=== PATIENT | female | born 1970 | race Caucasian/White ===

== ENCOUNTER 2016-11-22 18:54 | Inpatient (IN) | payer OTHER ==
[2016-11-22 19:33] VITALS: BMI 25.8
--- NOTE | 2016-11-22 19:42 | PDOC ---
History of Present Illness - General History Source: Patient, Family, Old Records Exam Limitations: No Limitations - History of Present Illness Initial Comments: 11/22/16 19:57 The patient is a 46 year old female, accompanied by son, with a significant past medical history of Asthma, GERD, HTN, bipolar, anxiety, depression, degenerative disc disease who presents to the emergency department today for further evaluation of a seizure today. As per son, the patients seizure lasted one minute. Son states that during the seizure the patients eyes rolled to the back of her head, her fists were clenched, she was shaking, and foaming at the mouth. Son states that after the seizure the patient was confused and territorial (did not want to be touched). The patient notes that she is a heavy drinker and her last drink was 2 days ago. The patient states that she has had seizures in the past secondary to alcohol withdrawal. <Randal Schulz - Last Filed: 11/22/16 22:38> - General History Source: Patient, Family (son at bedside) Exam Limitations: No Limitations <Rebeka Cowan - Last Filed: 11/23/16 00:56> - General Chief Complaint: Seizure Stated Complaint: SEIZURE Time Seen by Provider: 11/22/16 19:25 Past History <Randal Schulz - Last Filed: 11/22/16 22:38> - Past Medical History Asthma: Yes GI Disorders: Yes (GERD) HTN: Yes Psychiatric Problems: Yes (bipolar, anxiety, depression) - Immunization History Immunization Up to Date: No - Psycho/Social/Smoking Cessation Hx Anxiety: Yes Suicidal Ideation: No Smoking History: Current every day smoker Have you smoked in the past 12 months: Yes Number of Cigarettes Smoked Daily: 20 Information on smoking cessation initiated: Yes Hx Alcohol Use: Yes (as per son:" She drinks every day, last drink 3pm yesterday.") Drug/Substance Use Hx: No Substance Use Type: Alcohol <Rebeka Cowan - Last Filed: 11/23/16 00:56> - Past Medical History Allergies/Adverse Reactions: Allergies Allergy/AdvReac Type Severity Reaction Status Date / Time acetaminophen [From Percocet] Allergy Verified 11/22/16 19:35 aspirin Allergy Verified 11/22/16 19:35 morphine Allergy Verified 11/22/16 19:35 oxycodone Allergy Verified 11/22/16 19:35 oxycodone HCl [From Percocet] Allergy Verified 11/22/16 19:35 Home Medications: Ambulatory Orders Alprazolam [Xanax] 2 mg PO BID 01/09/16 Folic Acid 1 mg PO DAILY 01/09/16 Gabapentin 300 mg PO BID 01/09/16 Lisinopril [Prinivil] 20 mg PO DAILY 01/09/16 Omeprazole [Prilosec] 40 mg PO DAILY 01/09/16 Review of Systems - Review of Systems Able to Perform ROS?: Yes Comments:: 11/22/16 19:58 GENERAL/CONSTITUTIONAL: No fever or chills. No weakness. HEAD, EYES, EARS, NOSE AND THROAT: No change in vision. No ear pain or discharge. No sore throat. GASTROINTESTINAL: No nausea, vomiting, diarrhea or constipation. GENITOURINARY: No dysuria, frequency, or change in urination. CARDIOVASCULAR: No chest pain or shortness of breath. RESPIRATORY: No cough, wheezing, or hemoptysis. MUSCULOSKELETAL: No joint or muscle swelling or pain. No neck or back pain. SKIN: No rash NEUROLOGIC: Yes: Seizure. No headache, vertigo, loss of consciousness, or change in strength/sensation. ENDOCRINE: No increased thirst. No abnormal weight change. HEMATOLOGIC/LYMPHATIC: No anemia, easy bleeding, or history of blood clots. ALLERGIC/IMMUNOLOGIC: No hives or skin allergy. GENERAL: Awake, alert, and fully oriented, in no acute distress <Randal Schulz - Last Filed: 11/22/16 22:38> *Physical Exam - Vital Signs Last Vital Signs Temp Pulse Resp BP Pulse Ox 98.2 F 89 18 147/67 100 11/22/16 18:55 11/22/16 18:55 11/22/16 18:55 11/22/16 18:55 11/22/16 18:55 - Physical Exam Comments: 11/22/16 19:59 HEAD: No signs of trauma EYES: (+) PERRLA, EOMI, scleral icterus, conjunctiva clear ENT: Auricles normal inspection, nares patent, Moist mucosa NECK: Normal ROM, supple, no lymphadenopathy, JVD, or masses LUNGS: Breath sounds equal, clear to auscultation bilaterally. No wheezes, and no crackles HEART: Regular rate and rhythm, normal S1 and S2, no murmurs, rubs or gallops ABDOMEN: Soft, nontender, normoactive bowel sounds. No guarding, no rebound. No masses EXTREMITIES: Normal range of motion, no edema. No clubbing or cyanosis. No cords , erythema, or tenderness NEUROLOGICAL: Normal speech. Cranial nerves intact. SKIN: (+) Warm, Dry, normal turgor, palmar erythema. <Randal Schulz - Last Filed: 11/22/16 22:38> - Vital Signs Last Vital Signs Temp Pulse Resp BP Pulse Ox 98.2 F 89 18 147/67 100 11/22/16 18:55 11/22/16 18:55 11/22/16 18:55 11/22/16 18:55 11/22/16 18:55 <Rebeka Cowan - Last Filed: 11/23/16 00:56> Heart Score/ECG Review #1 ECG reviewed & interpreted by me at: 20:49 General ECG Interpretation: Sinus Rhythm, Normal Rate, Normal Intervals, No acute ischemic changes Compared to previous ECG there are: No significant change (comparison 06/12/15) - ECG Intrepretation Rhythm: Regular Rhythm Comment:: 11/22/16 20:49 TWI AVL only, old - [place]: Normal <Rebeka Cowan - Last Filed: 11/23/16 00:56> ED Treatment Course - LABORATORY CBC & Chemistry Diagram: 11/22/16 20:11 11/22/16 20:11 - RADIOLOGY Radiograph Interpretation: 11/22/16 22:38 EXAM#: TYPE/EXAM: RESULT: [id number] CT/HEAD CT WITHOUT CONTRAST HISTORY PROVIDED : Seizure TECHNIQUE: Sequential axial images were obtained from the base of the skull to the vertex. There is no evidence of acute intracranial hemorrhage, mass lesions or infarctions. There is a mild degree of diffuse cerebral atrophy with sulcal widening and ventricular dilatation. IMPRESSION: No evidence of acute intracranial pathology. Reported By: Donald Rosado MD 11/22/16 6628 <Randal Schulz - Last Filed: 11/22/16 22:38> - LABORATORY CBC & Chemistry Diagram: 11/22/16 20:11 11/22/16 20:11 <Rebeka Cowan - Last Filed: 11/23/16 00:56> Medical Decision Making - Medical Decision Making 11/22/16 19:38 46 yo F with h/o etoh abuse htn , daily alcohol use here with seizure this evening. witnessed by her son who said she was lying in bed at the time. had generalized shaking and eyes roled back lasting about one minute. following she was confused, agitated then sleepy . no bowel or bladder incontinence. pt last drink was 2 days ago. son is home visiting for the last few weeks, unsure when her last seizure was. has been several weeks at least, but she has had etoh withdrawal seizures in the past. no f/c no head trauma. no n/v no headache. on exam awake alert mild slecral icterus mild injection, lungs clear , heart regualr no mr/g/ abd soft mild suprapubic ttp, ext wwp no edema. nuero alert and oriented x 3, CN grossly intact. skin palmar erythema bilaterally. otherwise no rash. differential: etoh withdrawal seizure, electrolyte abnormality, dehydration, tox , plan labs tox screen, ciwa, cxr ua , likely admit for etoh withdrawal. <Rebeka Cowan - Last Filed: 11/23/16 00:56> *DC/Admit/Observation/Transfer - Attestations Scribe Attestion: 11/22/16 19:59 Documentation prepared by Randal Schulz, acting as medical delivery technician for Rebeka Cowan MD. <Randal Schulz - Last Filed: 11/22/16 22:38> - Discharge Dispostion Admit: Yes <Rebeka Cowan - Last Filed: 11/23/16 00:56> Diagnosis at time of Disposition: Alcohol withdrawal seizure - Referrals Referrals: STAFF,NOT ON [Primary Care Provider] -
[2016-11-22] MEDS ORDERED: SODIUM CHLORIDE 0.9% 1000 ML INFUS.BAG IV ONE (19:43)
[2016-11-22 20:23] LABS: BASOPHIL 0.6 % (0-2.0); EOSINOPHIL 1.5 % (0-4.5); MCH 33.3 pg (25.7-33.7); MCHC 33.4 g/dl (32.0-36.0); MEAN CELL VOLUME 99.7 fl (80-96); MEAN PLT VOLUME 8.3 fl (7.5-11.1); NEUTROPHILS 80.6 % (42.8-82.8); PLATELET COUNT 232 K/MM3 (134-434); RDW 12.7 % (11.6-15.6); WHITE BLOOD COUNT 11.1 K/mm3 (4.0-10.0)
[2016-11-22 20:42] LABS: URINE APPEARANCE SLCLOUDY; URINE BILIRUBIN NEGATIVE (NEGATIVE); URINE GLUCOSE (UA) NEGATIVE (NEGATIVE); URINE KETONE TRACE (NEGATIVE); URINE NITRITE NEGATIVE (NEGATIVE); URINE UROBILINOGEN 4.0 E.U/dl E.U./dl (0.2-1.0)
[2016-11-22 20:44] LABS: URINE BLOOD 1+ (NEGATIVE); URINE COLOR YELLOW; URINE LEUK ESTERASE TRACE (NEGATIVE); URINE PROTEIN 2+ (NEGATIVE)
[2016-11-22 20:47] LABS: GRANULAR CASTS 17 /lpf; URINE BACTERIA RARE /hpf (NONE SEEN); URINE HYALINE CAST 3 /lpf; URINE MUCUS RARE; URINE RBC 14 /hpf (0-3); URINE WBC 21 /hpf (3-5)
[2016-11-22] MEDS ORDERED: LORAZEPAM CARPU-JECT 2 MG/ML DISP.SYRIN IVPUSH ONE (20:47)
[2016-11-22] MEDS ORDERED: LORazepam 2 MG/ML SDV VIAL ONE (20:53)
[2016-11-22 21:14] LABS: ALBUMIN 4.2 g/dl (3.4-5.0); ALK PHOS 74 U/L (45-117); ANION GAP 15 (8-16); BILIRUBIN,TOTAL 0.7 mg/dL (0.2-1.0); CALCIUM 10.2 mg/dL (8.5-10.1); CO2 15 mmol/L (21-32); CREATININE 1.3 mg/dL (0.55-1.02); GLUCOSE,RANDOM 143 mg/dL (74-106); SGPT/ALT 181 U/L (12-78); TOT PROT 10.1 g/dl (6.4-8.2)
[2016-11-22 21:32] LABS: URINE MARIJUANA THC NEGATIVE ng/ml (CUTOFF=50)
[2016-11-22 21:37] LABS: SGOT/AST 269 U/L (15-37)
[2016-11-23] MEDS ORDERED: chlordiazePOXIDE HCL 25 MG CAPSULE PO PRN ×2 (00:48→01:05)
[2016-11-23] MEDS ORDERED: FOLIC ACID INJECTION - 1 MG, THIAMINE HCL 100 MG, MULTIVIT INJECTION ADULT 10 ML in SOD... IVPB ONE (00:49)
[2016-11-23] MEDS ORDERED: ONDANSETRON 8 MG TABLET (FP) PO PRN (01:24)
--- NOTE | 2016-11-23 01:29 | HP ---
CHIEF COMPLAINT: alcohol withdrawal seizure PCP: Dr. Montenegro HISTORY OF PRESENT ILLNESS: 46 year old female with a past medical history of hypertension, alcohol dependance, presents to emergency room, brought in by her son due to witnessed seizure. Patient was at home, does not remember the seizure. She states that her sister saw it. She was in bed with her eyes rolled back, foaming at mouth. This did not last long. Denies bowel or bladder incontinence or tongue biting. She admits to multiple episodes of seizure related to alcohol withdrawal in the past. She is a daily drinker, beer, amount varies. Last drink was two days ago, she stopped because her son was coming into town. Patient admits to tremors, diaphoresis, headache, nausea. Denies vomiting, fever, chills, abdominal pain, chest pain, shortness of breath and palpations. ER course was notable for elevated transaminases, elevated BUN and creatinine 1.3 (baseline 0.6), she denies use of NSAIDS. Head CT negative for acute pathology. Recent Travel: no PAST MEDICAL HISTORY: hypertension, bipolar? ,(as per old chart record) PAST SURGICAL HISTORY: Social History: Smokin-7 cigs per day Alcohol:beer daily; Drugs: none Family History: Allergies acetaminophen [From Percocet] Allergy (Verified 11/22/16 19:35) aspirin Allergy (Verified 11/22/16 19:35) morphine Allergy (Verified 11/22/16 19:35) oxycodone Allergy (Verified 11/22/16 19:35) oxycodone HCl [From Percocet] Allergy (Verified 11/22/16 19:35) HOME MEDICATIONS: Home Medications Medication Instructions Recorded Alprazolam [Xanax] 2 mg PO BID 01/09/16 Folic Acid 1 mg PO DAILY 01/09/16 Gabapentin 300 mg PO BID 01/09/16 Lisinopril [Prinivil] 20 mg PO DAILY 01/09/16 Omeprazole [Prilosec] 40 mg PO DAILY 01/09/16 REVIEW OF SYSTEMS CONSTITUTIONAL: Positive: generalized weakness, diaphoreisis, Absent: fever, chills, diaphoresis, malaise, loss of appetite, weight change HEENT: Absent: rhinorrhea, nasal congestion, throat pain, throat swelling, difficulty swallowing, mouth swelling, ear pain, eye pain, visual changes CARDIOVASCULAR: Absent: chest pain, syncope, palpitations, irregular heart rate, lightheadedness , peripheral edema RESPIRATORY: Absent: cough, shortness of breath, dyspnea with exertion, orthopnea, wheezing, stridor, hemoptysis GASTROINTESTINAL: Positive: nausea Absent: abdominal pain, abdominal distension, vomiting, diarrhea, constipation, melena, hematochezia GENITOURINARY: Absent: dysuria, frequency, urgency, hesitancy, hematuria, flank pain, genital pain MUSCULOSKELETAL: Absent: myalgia, arthralgia, joint swelling, back pain, neck pain SKIN: Absent: rash, itching, pallor HEMATOLOGIC/IMMUNOLOGIC: Absent: easy bleeding, easy bruising, lymphadenopathy, frequent infections ENDOCRINE: Absent: unexplained weight gain, unexplained weight loss, heat intolerance, cold intolerance NEUROLOGIC: Positive: seizure, Absent: headache, focal weakness or paresthesias, dizziness, unsteady gait, mental status changes, bladder or bowel incontinence PSYCHIATRIC: Absent: anxiety, depression, suicidal or homicidal ideation, hallucinations. PHYSICAL EXAMINATION Vital Signs - 24 hr 11/23/16 01:14 Pulse Rate [ 84 Apical] Respiratory 18 Rate Blood Pressure 128/56 [Right Arm] O2 Sat by Pulse 100 Oximetry (%) GENERAL: Awake, lethargic, and fully oriented, in no acute distress. HEAD: Normal with no signs of trauma. EYES: Pupils equal, round and reactive to light, extraocular movements intact, sclera anicteric, conjunctiva clear. No lid lag. LUNGS: decreased Breath sounds equal, clear to auscultation bilaterally. No wheezes, and no crackles. No accessory muscle use. HEART: Regular rate and rhythm, normal S1 and S2 with systolic murmur, rub or gallop. ABDOMEN: Soft, nontender, not distended, normoactive bowel sounds, no guarding, no rebound, no masses. No hepatomegaly or splenomegaly. UPPER EXTREMITIES: 2+ pulses, warm, well-perfused. No cyanosis. No clubbing. No peripheral edema. [place] erythema bilateral LOWER EXTREMITIES: 2+ pulses, warm, well-perfused. No calf tenderness. No peripheral edema. NEUROLOGICAL: Cranial nerves II-XII intact. slowed speech, somewhat confused ; gait not observed; bilateral hand tremor, minimal. PSYCHIATRIC: Cooperative. Good eye contact. Appropriate mood and affect. SKIN: Warm, dry, normal turgor, no rashes or lesions noted, normal capillary refill. CBC, BMP 11/22/16 20:11 11/22/16 20:11 ASSESSMENT/PLAN: 46 year old male with a past medical history of hypertension, alcohol dependence , presents to the emergency room s/p witnessed seizure at home. Admitted for alcohol withdrawal seizure. #alcohol withdrawal seizure -librium 5mg po q6h x 1 day; started on lower dose due to hepatic enzymes elevated -CIWA score 11 -Banana bag -ativan 2mg IVP q2h prn for seizure -beauty counselor about alcohol; patient states that she has looked for places for rehab but they will not take her insurance #elevated transaminases most likely secondary to alcohol abuse -elevated from baseline -trend -abdominal US -hepatitis panel #acute kidney injury -Cr 1.6; baseline 0.6 -IVF -calculate urine electrolytes, urine creatinine -calculate FeNA -renal/bladder US -avoid nephrotoxic agents -hold lisinopril, bp currently wnl #hyperglycemia: -patient states that she has a "sugar problem" but not diabetic -hemoglobin A1C FEN: Fluids: fluids in BB Electrolytes: monitor Na , bmp Diet: low sodium VTE: scds Disposition: inpatient; monitor alcohol withdrawal symptoms Problem List - Problem (1) Alcohol withdrawal seizure Code(s): F10.239 - ALCOHOL DEPENDENCE WITH WITHDRAWAL, UNSPECIFIED R56.9 - UNSPECIFIED CONVULSIONS (2) Alcohol use Code(s): Z78.9 - OTHER SPECIFIED HEALTH STATUS (3) Anxiety Code(s): F41.9 - ANXIETY DISORDER, UNSPECIFIED (4) Transaminitis Code(s): R74.0 - NONSPEC ELEV OF LEVELS OF TRANSAMNS & LACTIC ACID DEHYDRGNSE (5) LETITIA (acute kidney injury) Code(s): N17.9 - ACUTE KIDNEY FAILURE, UNSPECIFIED Visit type - Emergency Visit Emergency Visit: Yes ED Registration Date: 11/23/16 Care time: The patient presented to the Emergency Department on the above date and was hospitalized for further evaluation of their emergent condition. - New Patient This patient is new to me today: Yes Date on this admission: 11/23/16 - Critical Care Critical Care patient: No
--- NOTE | 2016-11-23 04:31 | PN ---
<Flaquita Tuttle - Last Filed: 11/23/16 04:30> Teaching Attending Note Name of Resident: Yesica Shayankrystian <Quiana Cunningham - Last Filed: 11/23/16 05:01> Teaching Attending Note ATTENDING PHYSICIAN STATEMENT I saw and evaluated the patient. I reviewed the resident's note and discussed the case with the resident. I agree with the resident's findings and plan as documented. SUBJECTIVE: 46 yo F with PMHx of seizures secondary to alcohol withdrawal and EtOH abuse who presents s/p witnessed seizure today. As per son, the seizure lasted one minute with eye rolling, fist clenching and foaming at the mouth. Patients son denies any head trauma, additional injuries or tongue biting during the seizure. Son describes the patient was confused and territorial during her postictal state. Note, patient's last drink was 2 days ago. PMHx: EtOH abuse, Asthma, GERD, HTN, bipolar, anxiety, depression, degenerative disc disease PSHx: None Social hx: Etoh abuse(daily drinker--beer) current everyday smoker Allergies: acetaminophen, aspirin, morphine, oxycodone, oxycodone HCl PCP: Dr. Montenegro OBJECTIVE: Last Vital Signs Temp Pulse Resp BP Pulse Ox 98 F 84 18 128/56 100 11/23/16 01:01 11/23/16 01:14 11/23/16 03:00 11/23/16 01:14 11/23/16 03:00 GENERAL: Awake, alert, and fully oriented, in no acute distress. +Lethargic. + slightly confused HEENT: Atraumatic. PERRLA, EOMI. Moist mucosa. No JVD LUNGS: No distress, speaks full sentences, clear to auscultation bilaterally HEART: Regular rate and rhythm, normal S1 and S2, no murmurs, rubs or gallops, peripheral pulses normal and equal bilaterally. ABDOMEN: Soft, nontender, normoactive bowel sounds. No guarding, no rebound. No masses EXTREMITIES: Normal inspection, Normal range of motion, no edema. No clubbing or cyanosis. NEUROLOGICAL: Cranial nerves II through XII grossly intact. Slowed speech. Gait deffered. Bilateral hand tremor, minimal. No focal sensorimotor deficits SKIN: Warm, Dry, normal turgor, no rashes or lesions noted. CBCD WBC 11.1 K/mm3 (4.0-10.0) H 11/22/16 20:11 RBC 4.48 M/mm3 (3.60-5.2) 11/22/16 20:11 Hgb 14.9 GM/dL (10.7-15.3) 11/22/16 20:11 Hct 44.7 % (32.4-45.2) 11/22/16 20:11 MCV 99.7 fl (80-96) H 11/22/16 20:11 MCHC 33.4 g/dl (32.0-36.0) 11/22/16 20:11 RDW 12.7 % (11.6-15.6) 11/22/16 20:11 Plt Count 232 K/MM3 (134-434) 11/22/16 20:11 MPV 8.3 fl (7.5-11.1) 11/22/16 20:11 CMP Sodium 135 mmol/L (136-145) L 11/22/16 20:11 Potassium 4.9 mmol/L (3.5-5.1) D 11/22/16 20:11 Chloride 105 mmol/L (98-107) 11/22/16 20:11 Carbon Dioxide 15 mmol/L (21-32) L 11/22/16 20:11 Anion Gap 15 (8-16) 11/22/16 20:11 BUN 25 mg/dL (7-18) H D 11/22/16 20:11 Creatinine 1.3 mg/dL (0.55-1.02) H D 11/22/16 20:11 Creat Clearance w eGFR 43.72 (>60) 11/22/16 20:11 Calcium 10.2 mg/dL (8.5-10.1) H 11/22/16 20:11 Total Bilirubin 0.7 mg/dL (0.2-1.0) D 11/22/16 20:11 AST 269 U/L (15-37) H D 11/22/16 20:11 ALT 181 U/L (12-78) H D 11/22/16 20:11 Alkaline Phosphatase 74 U/L (45-117) 11/22/16 20:11 Total Protein 10.1 g/dl (6.4-8.2) H 11/22/16 20:11 Albumin 4.2 g/dl (3.4-5.0) 11/22/16 20:11 Imaging: Head CT Impression: EXAM#: TYPE/EXAM: RESULT: [id number] CT/HEAD CT WITHOUT CONTRAST HISTORY PROVIDED: Seizure TECHNIQUE: Sequential axial images were obtained from the base of the skull to the vertex. There is no evidence of acute intracranial hemorrhage, mass lesions or infarctions. There is a mild degree of diffuse cerebral atrophy with sulcal widening and ventricular dilatation. IMPRESSION: No evidence of acute intracranial pathology. Reported By: Donald Rosado MD 11/22/16 5896 ASSESSMENT AND PLAN: Seizure secondary to alcohol withdrawal - Ativan PRN - Neuro consult - Seizure precautions - Thiamine Folate - Multi Vitamin - IVF - Refer to rehab DVT PPx - SCD's Documentation prepared by Quiana Cunningham, acting as er medical technician for Flaquita Tuttle MD.
[2016-11-23] MEDS ORDERED: LORAZEPAM CARPU-JECT 2 MG/ML DISP.SYRIN IVPUSH PRN ×2 (04:53→04:57)
[2016-11-23] MEDS ORDERED: chlordiazePOXIDE 5 MG CAPSULE PO SCH (05:00)
[2016-11-23] MEDS: chlordiazePOXIDE 5 MG CAPSULE PO SCH ×4 (06:33→22:43)
--- NOTE | 2016-11-23 09:08 | PN ---
Physical Exam: SUBJECTIVE: Patient seen and examined Patient is feeling better, no seizure activity noted. OBJECTIVE: Vital Signs Temperature 98 F 11/23/16 01:01 Pulse Rate 84 11/23/16 01:14 Respiratory Rate 18 11/23/16 03:00 Blood Pressure 128/56 11/23/16 01:14 O2 Sat by Pulse Oximetry (%) 100 11/23/16 03:00 GENERAL: The patient is awake, alert, and fully oriented, in no acute distress. HEAD: Normal with no signs of trauma. EYES: PERRL, extraocular movements intact, sclera anicteric, conjunctiva clear. ENT: Ears normal, oropharynx clear without exudates, moist mucous membranes. NECK: Trachea midline, full range of motion, supple. LUNGS: Breath sounds equal, clear to auscultation bilaterally, no wheezes, no crackles, no accessory muscle use. HEART: Regular rate and rhythm, S1, S2 without murmur, rub or gallop. ABDOMEN: Soft, nontender, nondistended, normoactive bowel sounds, no guarding, no rebound, no hepatosplenomegaly, no masses appreciated. EXTREMITIES: 2+ pulses, warm, well-perfused, no edema. NEUROLOGICAL: Cranial nerves II through XII grossly intact. Normal speech, gait is intact. PSYCH: Normal mood, normal affect. SKIN: Warm, dry, normal turgor, no rashes or lesions noted CBCD WBC 11.1 K/mm3 (4.0-10.0) H 11/22/16 20:11 RBC 4.48 M/mm3 (3.60-5.2) 11/22/16 20:11 Hgb 14.9 GM/dL (10.7-15.3) 11/22/16 20:11 Hct 44.7 % (32.4-45.2) 11/22/16 20:11 MCV 99.7 fl (80-96) H 11/22/16 20:11 MCHC 33.4 g/dl (32.0-36.0) 11/22/16 20:11 RDW 12.7 % (11.6-15.6) 11/22/16 20:11 Plt Count 232 K/MM3 (134-434) 11/22/16 20:11 MPV 8.3 fl (7.5-11.1) 11/22/16 20:11 CMP Sodium 135 mmol/L (136-145) L 11/22/16 20:11 Potassium 4.9 mmol/L (3.5-5.1) D 11/22/16 20:11 Chloride 105 mmol/L (98-107) 11/22/16 20:11 Carbon Dioxide 15 mmol/L (21-32) L 11/22/16 20:11 Anion Gap 15 (8-16) 11/22/16 20:11 BUN 25 mg/dL (7-18) H D 11/22/16 20:11 Creatinine 1.3 mg/dL (0.55-1.02) H D 11/22/16 20:11 Creat Clearance w eGFR 43.72 (>60) 11/22/16 20:11 Random Glucose 143 mg/dL (74-106) H 11/22/16 20:11 Calcium 10.2 mg/dL (8.5-10.1) H 11/22/16 20:11 Total Bilirubin 0.7 mg/dL (0.2-1.0) D 11/22/16 20:11 AST 269 U/L (15-37) H D 11/22/16 20:11 ALT 181 U/L (12-78) H D 11/22/16 20:11 Alkaline Phosphatase 74 U/L (45-117) 11/22/16 20:11 Total Protein 10.1 g/dl (6.4-8.2) H 11/22/16 20:11 Albumin 4.2 g/dl (3.4-5.0) 11/22/16 20:11 Active Medications Generic Name Dose Route Start Last Admin Trade Name Freq PRN Reason Stop Dose Admin Chlordiazepoxide HCl 5 mg 11/23/16 05:00 11/23/16 06:33 Librium - PO 11/24/16 04:59 5 mg [id number] MARGO Administration Gabapentin 300 mg 11/23/16 10:00 Neurontin - PO BID MARGO Sodium Chloride 1,000 mls @ 100 mls/hr 11/23/16 04:00 1/2 Normal Saline IV ASDIR MARGO Lorazepam 2 mg 11/23/16 04:57 Ativan Injection - IVPUSH Q2H PRN AGITATION Ondansetron HCl 4 mg 11/23/16 01:24 Zofran - PO Q6H PRN NAUSEA AND/OR VOMITING Pantoprazole Sodium 20 mg 11/23/16 10:00 Protonix - PO DAILY [facility] Home Medications Medication Instructions Recorded Alprazolam [Xanax] 2 mg PO BID 01/09/16 Folic Acid 1 mg PO DAILY 01/09/16 Gabapentin 300 mg PO BID 01/09/16 Lisinopril [Prinivil] 20 mg PO DAILY 01/09/16 Omeprazole [Prilosec] 40 mg PO DAILY 01/09/16 Hepatic Panel Total Bilirubin 0.7 mg/dL (0.2-1.0) D 11/22/16 20:11 AST 269 U/L (15-37) H D 11/22/16 20:11 ALT 181 U/L (12-78) H D 11/22/16 20:11 Alkaline Phosphatase 74 U/L (45-117) 11/22/16 20:11 Albumin 4.2 g/dl (3.4-5.0) 11/22/16 20:[address]: negative for bleed. ABDOMEN ULTRASOUND CLINICAL INFORMATION: elevated liver enzymes There is diffuse fatty infiltration of liver with associated minimal to mild hepatomegaly . No discrete mass lesion is identified within the limitations of sonography. There is no obvious contour abnormality. Multiple gallbladder calculi are visualized. The gallbladder otherwise demonstrates no definite abnormality. No pericholecystic fluid is seen. The common bile duct diameter appears within normal limits measuring 0.4 cm. No gross intraductal calculus is noted. The spleen and partially visualized pancreas demonstrate no sonographic abnormality. No free intraperitoneal fluid is noted. The aorta is partially obscured due to bowel gas. No obvious aortic aneurysm is seen. IMPRESSION: Diffuse hepatic steatosis is noted. Cholelithiasis is seen. There is no definite biliary tract dilatation. RENAL ULTRASOUND URINARY BLADDER ULTRASOUND CLINICAL INFORMATION: acute kidney injury There is no hydronephrosis. The kidneys appear unremarkable in position, cortical thickness, echogenicity and size. The left kidney measures 10 cm in length, the right kidney 9.3 cm. The kidneys and urinary bladder demonstrate no obvious mass lesion or calculus within the limitations of sonography. Evaluation of the urinary bladder demonstrates a post void residual volume of 53 mL. The prevoid volume was 217 mL. IMPRESSION: The kidneys appear unremarkable demonstrating no sonographic abnormality. A post void residual urinary volume of 53 mL is noted. ASSESSMENT/PLAN: Patient is a 46 year old male with a past medical history of hypertension, alcohol dependence, presents to the emergency room s/p witnessed seizure at home. Admitted for alcohol withdrawal seizure. #alcohol withdrawal seizure on ativan 2mg IVP q2h prn for seizure continue , Consult with Cristino Stanton, Consult neurology Dr.Gullati salazar 5mg po q6h x 1 day; started on lower dose since has elevated hepatic enzymes. s/p Banana bag, contine Thiamine, folic acid. # Acute over chronis transaminitis due to alcohol dependency. US of abdomen as above, reporting multiple gallstones without CBD dilatation, Fatty Liver reported due to ETOH dependency. #acute kidney injury ;Cr 0.6 (baseline) --->1.6; IVF, continue to hold lisinipril #hyperglycemia: check hemoglobin A1C is 5.8 borderline; prediabetic , diet control VTE: scds Visit type - Emergency Visit Emergency Visit: Yes ED Registration Date: 11/23/16 Care time: The patient presented to the Emergency Department on the above date and was hospitalized for further evaluation of their emergent condition. - New Patient This patient is new to me today: Yes Date on this admission: 11/23/16 - Critical Care Critical Care patient: No
[2016-11-23] MEDS: PANTOPRAZOLE 20 MG TABLET (FP) PO SCH (09:27)
[2016-11-23] MEDS: GABAPENTIN 300 MG CAPSULE (FP) PO SCH ×2 (09:28→22:43)
[2016-11-23] MEDS ORDERED: THIAMINE HCL 100 MG TABLET (FP) PO SCH (10:00)
[2016-11-23] MEDS ORDERED: FOLIC ACID 1 MG TABLET (FP) PO SCH (10:00)
[2016-11-23] MEDS ORDERED: LISINOPRIL 20 MG TABLET (FP) PO SCH (10:00)
[2016-11-23] MEDS: SODIUM CHLORIDE 0.45% 1,000 ML IV SCH ×2 (10:19→22:44)
--- NOTE | 2016-11-23 10:34 | CON.NEURO ---
Consult Consult Specialty:: Neurology - History of Present Illness History of Present Illness: 46 year old female with a past medical history of hypertension, alcohol dependance, presents to emergency room, brought in by her son due to witnessed seizure. Patient was at home, does not remember the seizure. not present during my exam but as per record, "She was in bed with her eyes rolled back, foaming at mouth. This did not last long. Denies bowel or bladder incontinence or tongue biting. She admits to multiple episodes of seizure related to alcohol withdrawal in the past." She is a daily drinker, beer, amount varies. usually drinks 5-7 beers.day, last rehab stint > one yr ago. Last drink was two days ago, she stopped because her son was coming into town. gets occasional migraines, no neck pain. no focal weakness, numbness. No HX of epilepsy. LAB : elevated transaminases, elevated BUN and creatinine 1.3 (baseline 0.6), she denies use of NSAIDS. Head CT negative for acute pathology. 11/22/16 CT/HEAD CT WITHOUT CONTRAST HISTORY PROVIDED: Seizure TECHNIQUE: Sequential axial images were obtained from the base of the skull to the vertex. There is no evidence of acute intracranial hemorrhage, mass lesions or infarctions. There is a mild degree of diffuse cerebral atrophy with sulcal widening and ventricular dilatation. IMPRESSION: No evidence of acute intracranial pathology. - History Source History Provided By: Patient, Medical Record - Alcohol/Substance Use Hx Alcohol Use: Yes (as per son:" She drinks every day, last drink 3pm yesterday.") - Smoking History Smoking history: Current every day smoker Have you smoked in the past 12 months: Yes Aproximately how many cigarettes per day: 20 If you are a former smoker, when did you quit?: pt refusing to quit Home Medications - Allergies Allergies/Adverse Reactions: Allergies Allergy/AdvReac Type Severity Reaction Status Date / Time acetaminophen [From Percocet] Allergy Verified 11/22/16 19:35 aspirin Allergy Verified 11/22/16 19:35 morphine Allergy Verified 11/22/16 19:35 oxycodone Allergy Verified 11/22/16 19:35 oxycodone HCl [From Percocet] Allergy Verified 11/22/16 19:35 - Home Medications Home Medications: Ambulatory Orders Alprazolam [Xanax] 2 mg PO BID 01/09/16 Folic Acid 1 mg PO DAILY 01/09/16 Gabapentin 300 mg PO BID 01/09/16 Lisinopril [Prinivil] 20 mg PO DAILY 01/09/16 Omeprazole [Prilosec] 40 mg PO DAILY 01/09/16 Physical Exam-Neuro Vital Signs: Vital Signs Temperature 99.0 F 11/23/16 09:15 Pulse Rate 67 11/23/16 09:15 Respiratory Rate 20 11/23/16 09:15 Blood Pressure 136/65 11/23/16 09:15 O2 Sat by Pulse Oximetry (%) 100 11/23/16 03:00 Constitutional: Yes: Well Nourished, No Distress Neck: Yes: Supple Cardiovascular: Yes: Regular Rate and Rhythm Respiratory: Yes: CTA Bilaterally Psychiatric: Yes: Other (+ psych HX ) Labs: CBCD WBC 11.1 K/mm3 (4.0-10.0) H 11/22/16 20:11 RBC 4.48 M/mm3 (3.60-5.2) 11/22/16 20:11 Hgb 14.9 GM/dL (10.7-15.3) 11/22/16 20:11 Hct 44.7 % (32.4-45.2) 11/22/16 20:11 MCV 99.7 fl (80-96) H 11/22/16 20:11 MCHC 33.4 g/dl (32.0-36.0) 11/22/16 20:11 RDW 12.7 % (11.6-15.6) 11/22/16 20:11 Plt Count 232 K/MM3 (134-434) 11/22/16 20:11 MPV 8.3 fl (7.5-11.1) 11/22/16 20:11 CMP Sodium 135 mmol/L (136-145) L 11/22/16 20:11 Potassium 4.9 mmol/L (3.5-5.1) D 11/22/16 20:11 Chloride 105 mmol/L (98-107) 11/22/16 20:11 Carbon Dioxide 15 mmol/L (21-32) L 11/22/16 20:11 Anion Gap 15 (8-16) 11/22/16 20:11 BUN 25 mg/dL (7-18) H D 11/22/16 20:11 Creatinine 1.3 mg/dL (0.55-1.02) H D 11/22/16 20:11 Creat Clearance w eGFR 43.72 (>60) 11/22/16 20:11 Calcium 10.2 mg/dL (8.5-10.1) H 11/22/16 20:11 Total Bilirubin 0.7 mg/dL (0.2-1.0) D 11/22/16 20:11 AST 269 U/L (15-37) H D 11/22/16 20:11 ALT 181 U/L (12-78) H D 11/22/16 20:11 Alkaline Phosphatase 74 U/L (45-117) 11/22/16 20:11 Total Protein 10.1 g/dl (6.4-8.2) H 11/22/16 20:11 Albumin 4.2 g/dl (3.4-5.0) 11/22/16 20:11 - Neuro Exam Level Of Consciousness: Yes: Alert, Oriented to Person (EOMI, no nystagmus, no facial, no atsrexis or tremor, no focal weaakness, reflexes symmteric ) NIH Stroke Scale - Total Score NIH Stroke Scale Score: 0 Imaging - Results Cat Scan: Report Reviewed, Image Reviewed Problem List - Problems (1) LETITIA (acute kidney injury) Code(s): N17.9 - ACUTE KIDNEY FAILURE, UNSPECIFIED (2) Alcohol withdrawal seizure Code(s): F10.239 - ALCOHOL DEPENDENCE WITH WITHDRAWAL, UNSPECIFIED R56.9 - UNSPECIFIED CONVULSIONS (3) Transaminitis Code(s): R74.0 - NONSPEC ELEV OF LEVELS OF TRANSAMNS & LACTIC ACID DEHYDRGNSE (4) Alcohol use Code(s): Z78.9 - OTHER SPECIFIED HEALTH STATUS (5) Anxiety Code(s): F41.9 - ANXIETY DISORDER, UNSPECIFIED Assessment/Plan 46 year old female with a past medical history of hypertension, alcohol dependance p/w ETOH withdrawal seizure. back to baseline. no clear evidence of DT's. no evidence of meningitis etc. EXam nonfocal. agree with LIBRIUM taper, thiamine , folate, B12. no role in AED at this juncture. consider psych consult--she is refusing rehab. Dr Griffin (covering for Dr Bran) [phone]
[2016-11-23 13:29] LABS: URINE CREATININE 22.4 mg/dL (20-320)
[2016-11-23] MEDS: THIAMINE HCL 200 MG/2 ML VIAL IVPB SCH ×2 (18:01→23:46)
[2016-11-23] MEDS ORDERED: PT OWN MED DRAWER 7, Y5N ONE (22:32)
[2016-11-24] MEDS: THIAMINE HCL 200 MG/2 ML VIAL IVPB SCH (06:03)
[2016-11-24 09:03] LABS: BASOPHIL 0.5 % (0-2.0); EOSINOPHIL 2.2 % (0-4.5); MCH 34.4 pg (25.7-33.7); MCHC 34.4 g/dl (32.0-36.0); MEAN PLT VOLUME 7.6 fl (7.5-11.1); NEUTROPHILS 64.7 % (42.8-82.8); PLATELET COUNT 157 K/MM3 (134-434); RDW 12.2 % (11.6-15.6); WHITE BLOOD COUNT 7.1 K/mm3 (4.0-10.0)
[2016-11-24 09:18] LABS: ALBUMIN 3.3 g/dl (3.4-5.0); ANION GAP 9 (8-16); BILIRUBIN,TOTAL 0.7 mg/dL (0.2-1.0); CALCIUM 8.8 mg/dL (8.5-10.1); CO2 22 mmol/L (21-32); CREATININE 0.7 mg/dL (0.55-1.02); GLUCOSE,RANDOM 99 mg/dL (74-106); SGOT/AST 159 U/L (15-37); SGPT/ALT 134 U/L (12-78); TOT PROT 7.8 g/dl (6.4-8.2)
[2016-11-24 09:19] LABS: ALK PHOS 57 U/L (45-117)
[2016-11-24] MEDS: PANTOPRAZOLE 20 MG TABLET (FP) PO SCH (09:29)
[2016-11-24] MEDS: GABAPENTIN 300 MG CAPSULE (FP) PO SCH (09:29)
[2016-11-24] MEDS: SODIUM CHLORIDE 0.45% 1,000 ML IV SCH (09:30)
[2016-11-24 09:33] VITALS: BP 128/62; PULSE 88; TEMP 97
[2016-11-24] MEDS ORDERED: THIAMINE HCL 100 MG TABLET (FP) PO SCH (10:00)
[2016-11-24] MEDS ORDERED: FOLIC ACID 1 MG TABLET (FP) PO SCH (10:00)
--- NOTE | 2016-11-24 11:34 | DS ---
Physical Exam: SUBJECTIVE: Patient seen and examined Patient is comfortable with no acute distress. Stated that she does not drink much as she used to. She has no previous seizure history. Wants to go home. OBJECTIVE: Vital Signs Temperature 97.0 F L 11/24/16 09:32 Pulse Rate 88 11/24/16 09:32 Respiratory Rate 20 11/24/16 09:32 Blood Pressure 128/62 11/24/16 09:32 O2 Sat by Pulse Oximetry (%) 97 11/23/16 21:00 PHYSICAL EXAM GENERAL: The patient is awake, alert, and fully oriented, in no acute distress. HEAD: Normal with no signs of trauma. EYES: PERRL, extraocular movements intact, sclera anicteric, conjunctiva clear. ENT: Ears normal, oropharynx clear without exudates, moist mucous membranes. NECK: Trachea midline, full range of motion, supple. LUNGS: Breath sounds equal, clear to auscultation bilaterally, no wheezes, no crackles, no accessory muscle use. HEART: Regular rate and rhythm, S1, S2 without murmur, rub or gallop. ABDOMEN: Soft, nontender, nondistended, normoactive bowel sounds, no guarding, no rebound, no hepatosplenomegaly, no masses. EXTREMITIES: 2+ pulses, warm, well-perfused, no edema. NEUROLOGICAL: Cranial nerves II through XII grossly intact. Normal speech, gait not observed. PSYCH: Normal mood, normal affect. SKIN: Warm, dry, normal turgor, no rashes or lesions noted. LABS CBCD WBC 7.1 K/mm3 (4.0-10.0) D 11/24/16 08:00 RBC 3.75 M/mm3 (3.60-5.2) 11/24/16 08:00 Hgb 12.9 GM/dL (10.7-15.3) D 11/24/16 08:00 Hct 37.5 % (32.4-45.2) D 11/24/16 08:00 MCV 100.0 fl (80-96) H 11/24/16 08:00 MCHC 34.4 g/dl (32.0-36.0) 11/24/16 08:00 RDW 12.2 % (11.6-15.6) 11/24/16 08:00 Plt Count 157 K/MM3 (134-434) D 11/24/16 08:00 MPV 7.6 fl (7.5-11.1) 11/24/16 08:00 CMP Sodium 140 mmol/L (136-145) 11/24/16 08:00 Potassium 4.4 mmol/L (3.5-5.1) 11/24/16 08:00 Chloride 109 mmol/L (98-107) H 11/24/16 08:00 Carbon Dioxide 22 mmol/L (21-32) D 11/24/16 08:00 Anion Gap 9 (8-16) 11/24/16 08:00 BUN 12 mg/dL (7-18) D 11/24/16 08:00 Creatinine 0.7 mg/dL (0.55-1.02) D 11/24/16 08:00 Creat Clearance w eGFR > 60 (>60) 11/24/16 08:00 Random Glucose 99 mg/dL (74-106) D 11/24/16 08:00 Calcium 8.8 mg/dL (8.5-10.1) 11/24/16 08:00 Total Bilirubin 0.7 mg/dL (0.2-1.0) 11/24/16 08:00 AST 159 U/L (15-37) H D 11/24/16 08:00 ALT 134 U/L (12-78) H D 11/24/16 08:00 Alkaline Phosphatase 57 U/L (45-117) D 11/24/16 08:00 Total Protein 7.8 g/dl (6.4-8.2) D 11/24/16 08:00 Albumin 3.3 g/dl (3.4-5.0) L D 11/24/16 08:00 Current Medications Generic Name Dose Route Start Last Admin Trade Name Freq PRN Reason Stop Dose Admin Folic Acid 1 mg 11/24/16 10:00 11/24/16 09:29 Folic Acid - PO 1 mg DAILY MARGO Administration Gabapentin 300 mg 11/23/16 10:00 11/24/16 09:29 Neurontin - PO 300 mg BID MARGO Administration Sodium Chloride 1,000 mls @ 100 mls/hr 11/23/16 04:00 11/24/16 09:30 1/2 Normal Saline IV 100 mls/hr ASDIR MARGO Administration Lorazepam 2 mg 11/23/16 04:57 Ativan Injection - IVPUSH Q2H PRN AGITATION Pantoprazole Sodium 20 mg 11/23/16 10:00 11/24/16 09:29 Protonix - PO 20 mg DAILY MARGO Administration Thiamine HCl 200 mg 11/23/16 15:45 11/24/16 06:03 Vitamin B1 Injection - IVPB 200 mg TID MARGO Administration Home Medications Medication Instructions Recorded Alprazolam [Xanax] 2 mg PO BID 01/09/16 Folic Acid 1 mg PO DAILY 01/09/16 Gabapentin 300 mg PO BID 01/09/16 Lisinopril [Prinivil] 20 mg PO DAILY 01/09/16 Omeprazole [Prilosec] 40 mg PO DAILY 01/09/[address]: negative for bleed. ABDOMEN ULTRASOUND CLINICAL INFORMATION: elevated liver enzymes There is diffuse fatty infiltration of liver with associated minimal to mild hepatomegaly . No discrete mass lesion is identified within the limitations of sonography. There is no obvious contour abnormality. Multiple gallbladder calculi are visualized. The gallbladder otherwise demonstrates no definite abnormality. No pericholecystic fluid is seen. The common bile duct diameter appears within normal limits measuring 0.4 cm. No gross intraductal calculus is noted. The spleen and partially visualized pancreas demonstrate no sonographic abnormality. No free intraperitoneal fluid is noted. The aorta is partially obscured due to bowel gas. No obvious aortic aneurysm is seen. IMPRESSION: Diffuse hepatic steatosis is noted. Cholelithiasis is seen. There is no definite biliary tract dilatation. RENAL ULTRASOUND URINARY BLADDER ULTRASOUND CLINICAL INFORMATION: acute kidney injury There is no hydronephrosis. The kidneys appear unremarkable in position, cortical thickness, echogenicity and size. The left kidney measures 10 cm in length, the right kidney 9.3 cm. The kidneys and urinary bladder demonstrate no obvious mass lesion or calculus within the limitations of sonography. Evaluation of the urinary bladder demonstrates a post void residual volume of 53 mL. The prevoid volume was 217 mL. IMPRESSION: The kidneys appear unremarkable demonstrating no sonographic abnormality. A post void residual urinary volume of 53 mL is noted. HOSPITAL COURSE: Date of Admission:11/23/16 Date of Discharge: 11/24/16 Patient is a 46 year old female with a past medical history of hypertension, alcohol dependence, presents to the emergency room s/p witnessed seizure at home. Admitted for alcohol withdrawal seizure. Patient was placed on 5mg LIbrium x 1 day and Ativan prn. No seizure activity while in the hospital. Also patient stated that she does not drive, takes only public transportation. And does not drink as before. #alcohol withdrawal seizure on ativan 2mg IVP q2h prn for seizure continue , Consult with Cristino Stanton, Consult neurology librium 5mg po q6h x 1 day; started on lower dose since has elevated hepatic enzymes. s/p Banana bag, contine Thiamine, folic acid. # Acute over chronis transaminitis due to alcohol dependency. US of abdomen as above, reporting multiple gallstones without CBD dilatation, Fatty Liver reported due to ETOH dependency. 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 On hold lisinipril #Htn is stable #hyperglycemia: check hemoglobin A1C is 5.8 borderline; prediabetic , diet control( low fat/low sugar diet). #Cholelithiasis on US without any CBD dilatation # Fatty Liver reported f/u with GI, patient has her own GI MD discharge summary 40 minutes Minutes to complete discharge: 40 Discharge Summary Reason For Visit: ALCOHOL WITHDRAWAL SEIZURE Current Active Problems LETITIA (acute kidney injury) (Acute) Alcohol withdrawal seizure (Acute) Transaminitis (Acute) - Instructions Referrals: STAFF,NOT ON [Primary Care Provider] - - Home Medications Comprehensive Discharge Medication List: Ambulatory Orders Alprazolam [Xanax] 2 mg PO BID 01/09/16 Folic Acid 1 mg PO DAILY 01/09/16 Gabapentin 300 mg PO BID 01/09/16 Lisinopril [Prinivil] 20 mg PO DAILY 01/09/16 Omeprazole [Prilosec] 40 mg PO DAILY 01/09/16 This patient is new to me today: No Emergency Visit: Yes ED Registration Date: 11/23/16 Care time: The patient presented to the Emergency Department on the above date and was hospitalized for further evaluation of their emergent condition. Critical Care patient: No - Discharge Referral Referred to [facility] Med [facility] No
--- NOTE | 2016-11-24 21:46 | EKG ---
Test Reason : Blood Pressure : / mmHG Vent. Rate : 068 BPM Atrial Rate : 068 BPM P-R Int : 164 ms QRS Dur : 082 ms QT Int : 370 ms P-R-T Axes : 052 031 074 degrees QTc Int : 393 ms NORMAL SINUS RHYTHM POSSIBLE LEFT ATRIAL ENLARGEMENT ST ELEVATION, CONSIDER EARLY REPOLARIZATION, PERICARDITIS, OR INJURY BORDERLINE ECG WHEN COMPARED WITH ECG OF 09-JAN-2016 01:33, T WAVE AMPLITUDE HAS INCREASED IN INFERIOR LEADS QT HAS SHORTENED Confirmed by ANATOLIY SANTOS MD ([id number]) on 11/24/2016 9:46:21 PM Referred By: Confirmed By:ANATOLIY SANTOS MD
--- NOTE | 2016-11-25 09:45 | PN ---
[facility] Progress Note Note: Pt was d/c before he could be seen by me.
[2016-11-26 14:14] LABS: HEP B SURFACE AB Reactive (.)
--- NOTE | 2016-12-09 13:59 | EKG ---
Test Reason : Blood Pressure : / mmHG Vent. Rate : 082 BPM Atrial Rate : 082 BPM P-R Int : 164 ms QRS Dur : 082 ms QT Int : 374 ms P-R-T Axes : 050 029 063 degrees QTc Int : 436 ms NORMAL SINUS RHYTHM POSSIBLE LEFT ATRIAL ENLARGEMENT BORDERLINE ECG WHEN COMPARED WITH ECG OF 22-NOV-2016 20:44, NO SIGNIFICANT CHANGE WAS FOUND Confirmed by NIRMAL GARRETT MD ([id number]) on 12/09/2016 1:59:18 PM Referred By: Confirmed By:NIRMAL GARRETT MD
== END 2016-11-24 13:07 | disposition home or self-care (01) | DRG 775 ==
LOC: JER 18:54 → JERBED 11-23 00:56 → UNDOADMIN 11-23 01:01 → JERBED 11-23 01:55 → J5S 11-23 01:55
PROVIDERS: ADMIT Internal Medicine; ATTEND Internal Medicine
PROC: HZ2ZZZZ Detoxification Services for Substance Abuse Treatment (ICD-10-PCS; principal; 2016-11-23)
DX: F10.239 Alcohol dependence with withdrawal, unspecified (principal); G40.89 Other seizures; K21.9 Gastro-esophageal reflux disease without esophagitis; I10 Essential (primary) hypertension; F31.9 Bipolar disorder, unspecified; N17.9 Acute kidney failure, unspecified; R73.9 Hyperglycemia, unspecified; F41.9 Anxiety disorder, unspecified; R74.0 Nonspecific elevation of levels of transaminase and lactic acid dehydrogenase [LDH]; F17.210 Nicotine dependence, cigarettes, uncomplicated; K80.80 Other cholelithiasis without obstruction; K76.0 Fatty (change of) liver, not elsewhere classified
CPT/HCPCS: 36415; 70450-TC; 76700-TC; 76775-TC; 76856-TC; 80053; 80307; 81003; 81015; 82436; 82570; 83036; 83605; 84133; 84300; 84703; 85025; 86704; 86706; 86708; 86803; 87340; 93005; 93010; 99284-25

== ENCOUNTER 2017-02-05 22:19 | Emergency (ER) | payer OTHER ==
[2017-02-05 22:27] VITALS: BP 126/82; PULSE 84; TEMP 98.7; BMI 26.6
--- NOTE | 2017-02-05 22:56 | PDOC ---
Attending Attestation - HPI HPI: 02/05/17 23:19 Patient is a 46 year old female with a significant past medical history of hypertension, alcohol dependence who presents to the ED with s/p seizure 1.5 hours ago. Significant Other states patients eyes rolled into head and lost consciousness. Patient is visibly intoxicated, stating it is due to chronic back pain that has been present for an unknown length of time. She states she' s continually drinks due to her extensive allergy to pain medication. Patients s/o states the patient's last drink was earlier to day at 5 beers and 4 shots of tequila. Patient reports her last seizure due to withdrawal was in October. She reports intermittent episodes of muscle spasms. Denies tremors, biting of tongue. Denies urinary incontinence, fecal incontinence. Denies Denies chest pain, SOB, difficulty breathing. Denies vomiting, chills. Denies any other symptoms. Allergies: Acetaminophen, Aspirin, morphine, Oxycodone, Oxycodone HCL (from percocet) - Medical Decision Making 02/05/17 23:19 Documentation prepared by Alberto Ramirez, acting as medical safety director for Jad Oshea MD. <Alberto Ramirez - Last Filed: 02/05/17 23:19> - Resident Resident Name: Octavio Sequeira - ED Attending Attestation I have performed the following: I have examined & evaluated the patient, The case was reviewed & discussed with the resident, I agree w/resident's findings & plan, Exceptions are as noted - Physicial Exam PE: 02/06/17 19:31 Physical Exam General Appearance: Yes: Appropriately Dressed. Intoxicationed No: Apparent Distress, HEENT: positive: EOMI, PATY, Normal ENT Inspection, Normal Voice, TMs Normal, Pharynx Normal. negative: Pale Conjunctivae, Photophobia, Scleral Icterus (R), Scleral Icterus (L) Neck: positive: Trachea midline, Normal Thyroid, Supple. negative: Tender, Rigid, Carotid bruit, Stridor, Lymphadenopathy (R), Lymphadenopathy (L), Thyromegaly Respiratory/Chest: positive: Lungs Clear, Normal Breath Sounds. negative: Chest Tender, Respiratory Distress, Accessory Muscle Use, Labored Respiration, RES, Crackles, Rales, Rhonchi, Stridor, Wheezing, Dullness Cardiovascular: positive: Regular Rhythm, Regular Rate, S1, S2. negative: Edema , JVD, Murmur, Bradycardia, Tachycardia Vascular Pulses: Dorsalis-Pedis (R): 2+, Doralis-Pedis (L): 2+ Gastrointestinal/Abdominal: positive: Normal Bowel Sounds, Flat, Soft. negative : Tender, Organomegaly, Pulsatile Mass, Increased Bowel Sounds, Decreased BS, Distended, Guarding, Rebound, Hernia, Hepatomegaly, Spleenomegaly Lymphatic: negative: Adenopathy, Tenderness Musculoskeletal: positive: Normal Inspection. negative: CVA Tenderness, Decreased Range of Motion Extremity: positive: Normal Capillary Refill, Normal Inspection, Normal Range of Motion, Pelvis Stable. negative: Tender, Pedal Edema, Swelling, Erythema Integumentary: positive: Normal Color, Dry, Warm. negative: Cyanotic, Erythema , Jaundice, Rash Neurologic: positive: engagement specialist II-XII NML intact, Fully Oriented, Alert, Normal Mood/ Affect, Motor Strength 5/5. negative: EOM Palsy, Facial Droop, Sensory Deficit - Medical Decision Making 02/05/17 23:10 pt states she doesn't want to stay in the department. Pt is accompanied by partner who will take her home. Will discharge with Flexeril for back pain <Jad Oshea - Last Filed: 02/06/17 19:32>
--- NOTE | 2017-02-05 23:01 | PDOC ---
History of Present Illness - General Chief Complaint: Alcohol intoxication Stated Complaint: SEIZURE Time Seen by Provider: 02/05/17 22:49 - History of Present Illness Initial Comments: 02/05/17 23:12 Patient is a 46 year old female with a history of Asthma, GERD, HTN, Bipolar, Anxiety, Depression, Alcohol abuse, and chronic back pain due to degenerative disc disease who presents for evaluation for a possible seizure. The patient reports that she had a seizure 1-2 hours ago prompting her visit to the ED today. She states that she hasn't slept in 2 days due to her back pain and has not had any relief in her pain and is requesting something to relieve her pain. She reports daily alcohol use to manage her back pain with her last drink today. She reports having 4-5 beers and 4 shots of tequila. She denies tongue biting, urine or bowel incontinence, headache, SOB, chest pain, abdominal pain, nausea or vomiting. Past History - Past Medical History Allergies/Adverse Reactions: Allergies Allergy/AdvReac Type Severity Reaction Status Date / Time acetaminophen [From Percocet] Allergy Verified 02/05/17 22:24 aspirin Allergy Verified 02/05/17 22:24 morphine Allergy Verified 02/05/17 22:24 oxycodone Allergy Verified 02/05/17 22:24 oxycodone HCl [From Percocet] Allergy Verified 02/05/17 22:24 Home Medications: Ambulatory Orders Albuterol Sulfate Inhaler - [Ventolin Hfa Inhaler -] 1 - 2 inh PO QID PRN Lisinopril 20 mg PO DAILY 11/26/16 Montelukast Na [Singulair -] 10 mg PO HS 11/26/16 Alprazolam [Xanax] 2 mg PO TID 02/05/17 Cyclobenzaprine HCl [Flexeril -] 10 mg PO BID PRN #14 tablet 02/05/17 Folic Acid 1 mg PO DAILY 02/05/17 Gabapentin 100 mg PO ASDIR 02/05/17 Vitamin B Complex/Folic Acid [Vitamin B-100 Complex Tablet] 0.4 mg PO DAILY 11/16 Asthma: Yes GI Disorders: Yes (GERD) HTN: Yes Psychiatric Problems: Yes (bipolar, anxiety, depression) Seizures: Yes (pt states she has a h/o seizures) - Immunization History Immunization Up to Date: No - Psycho/Social/Smoking Cessation Hx Anxiety: Yes Suicidal Ideation: No Smoking History: Current every day smoker Have you smoked in the past 12 months: Yes Number of Cigarettes Smoked Daily: 20 If you are a former smoker, when did you quit?: pt refusing to quit Information on smoking cessation initiated: No 'Breaking Loose' booklet given: 11/23/16 Hx Alcohol Use: No Drug/Substance Use Hx: No Substance Use Type: Alcohol Review of Systems - Review of Systems Constitutional: No: Chills, Fever HEENTM: No: Throat Pain, Mouth Pain Respiratory: No: Cough, Shortness of Breath Cardiac (ROS): No: Chest Pain, Lightheadedness, Palpitations ABD/GI: No: Constipated, Diarrhea, Nausea, Vomiting : No: Dysuria Musculoskeletal: Yes: Back Pain Integumentary: No: Rash Neurological: No: Headache, Numbness, Tingling, Weakness *Physical Exam - Vital Signs Last Vital Signs Temp Pulse Resp BP Pulse Ox 98.7 F 84 14 126/82 97 02/05/17 22:24 02/05/17 22:24 02/05/17 22:24 02/05/17 22:24 02/05/17 22:24 - Physical Exam Comments: 02/05/17 23:20 General Appearance: Nourished, Intoxicated. No Apparent Distress HEENT: No notable tongue fasiculations. No Pharyngeal Erythema, Tonsillar Exudate, Tonsillar Erythema Respiratory/Chest: Lungs Clear, Normal Breath Sounds. No Crackles, Rales, Rhonchi, Wheezing Cardiovascular: Regular Rhythm, Regular Rate. No Murmur, Gallop/S3, Gallop/S4 Gastrointestinal/Abdominal: Normal Bowel Sounds, Soft. No Guarding, Rebound, Tenderness Extremity: Normal Capillary Refill Integumentary: Normal Color, Dry, Warm Neurologic: e commerce marketing manager II-XII NML intact, Fully Oriented, Alert, Normal Mood/Affect, Normal Response, No notable tremor HEENT: positive: Other (No notable tongue fasiculations) ED Treatment Course - ADDITIONAL ORDERS Additional order review: Laboratory Results 02/05/17 22:50 Urine HCG, Qual Negative Medical Decision Making - Medical Decision Making 02/05/17 23:20 Patient is a 46 year old female with a history of Asthma, GERD, HTN, Bipolar, Anxiety, Depression, Alcohol abuse, and chronic back pain due to degenerative disc disease who presents for evaluation for a possible seizure. Given her history and physical exam, it is not likely that patient suffered a withdrawal seizure. She is visible intoxicated on exam and complaining mostly of back pain. We will attempt to treat her pain with flexiril and reevaluate. 02/05/17 23:23 Patient refusing treatment with flexeril and is requesting to be discharged. We will discharge the patient at this time. The patient is accompanied by her son who agrees to drive the patient home and observer her. We stressed she should follow up with a primary care provider to help manage her back pain. *DC/Admit/Observation/Transfer Diagnosis at time of Disposition: Alcohol abuse Back pain Qualifiers: Back pain location: low back pain Chronicity: chronic Back pain laterality: unspecified Sciatica presence: without sciatica Qualified Code(s): M54.5 - Low back pain - Discharge Dispostion Disposition: HOME Condition at time of disposition: Stable Admit: No - Prescriptions Prescriptions: Cyclobenzaprine HCl [Flexeril -] 10 mg PO BID PRN #14 tablet PRN Reason: Back Pain - Referrals Referrals: STAFF,NOT ON [Primary Care Provider] - - Patient Instructions Printed Discharge Instructions: DI for Alcohol Abuse Additional Instructions: Please return to the ER if you experience concerning or worsening symptoms. It is important that you follow up with a Primary care provider to discuss your ER visit and your management of your chronic back pain.
[2017-02-05] MEDS ORDERED: CYCLOBENZAPRINE HCL 10 MG TABLET (FP) PO ONE ×2 (23:02→23:05)
[2017-02-05 23:16] LABS: URINE MARIJUANA THC NEGATIVE ng/ml (CUTOFF=50)
== END 2017-02-05 23:21 | disposition home or self-care (01) ==
LOC: JER 22:19
DX: F10.10 Alcohol abuse, uncomplicated (principal); J45.909 Unspecified asthma, uncomplicated; I10 Essential (primary) hypertension; F41.8 Other specified anxiety disorders; F31.9 Bipolar disorder, unspecified
CPT/HCPCS: 80307; 84703; 99281-25

== ENCOUNTER 2017-02-15 00:16 | Emergency (ER) | payer OTHER ==
[2017-02-15 00:32] VITALS: BP 138/59; PULSE 80; TEMP 98.9; BMI 33.6
--- NOTE | 2017-02-15 00:47 | PDOC ---
History of Present Illness - General History Source: Patient Exam Limitations: No Limitations - History of Present Illness Travel History: No Initial Comments: 02/15/17 02:22 46-year-old female with a history of hypertension, liver disorder and borderline diabetes presents to the emergency department complaining of left sided flank pain. Pain is described as 5/10 dull intermittent discomfort without radiculopathy. Patient denies nausea/vomiting, fever/chills, chest pain , shortness of breath, abdominal pains, urinary symptoms: Frequency/urgency/ hesitancy, hematuria. Patient denies bladder or bowel dysfunction. Timing/Duration: reports: intermittent Quality: reports: mild Abdominal Pain Onset Location: reports: flank (left) <Anil Zapata - Last Filed: 02/15/17 04:59> - History of Present Illness Initial Comments: 02/16/17 05:51 Pt seen by Midlevel Provider under my direct supervision. Documentation has been prepared under my direction and personally reviewed by me in its entirety. I attest that this document accurately reflects all work, treatment, procedures and medical decision-making performed. I agree with plan as outlined by Midlevel Provider. (Edwardo Palma I) <Edwardo Palma I - Last Filed: 02/16/17 05:51> - General Chief Complaint: Pain, Acute Stated Complaint: PAIN,LT SIDE Time Seen by Provider: 02/15/17 00:25 Past History - Past Medical History Asthma: Yes GI Disorders: Yes (GERD) HTN: Yes Psychiatric Problems: Yes (bipolar, anxiety, depression) Seizures: Yes (pt states she has a h/o seizures) - Surgical History Abdominal Surgery: Yes - Immunization History Immunization Up to Date: No - Psycho/Social/Smoking Cessation Hx Anxiety: Yes Suicidal Ideation: No Smoking History: Never smoked Have you smoked in the past 12 months: No Number of Cigarettes Smoked Daily: 20 If you are a former smoker, when did you quit?: pt refusing to quit Information on smoking cessation initiated: No 'Breaking Loose' booklet given: 11/23/16 Hx Alcohol Use: No Drug/Substance Use Hx: No Substance Use Type: Alcohol <Anil Zapata - Last Filed: 02/15/17 04:59> <Edwardo Palma I - Last Filed: 02/16/17 05:51> - Past Medical History Allergies/Adverse Reactions: Allergies Allergy/AdvReac Type Severity Reaction Status Date / Time acetaminophen [From Percocet] Allergy Verified 02/15/17 00:30 aspirin Allergy Verified 02/15/17 00:30 morphine Allergy Verified 02/15/17 00:30 oxycodone Allergy Verified 02/15/17 00:30 oxycodone HCl [From Percocet] Allergy Verified 02/15/17 00:30 Home Medications: Ambulatory Orders Albuterol Sulfate Inhaler - [Ventolin Hfa Inhaler -] 1 - 2 inh PO QID PRN Lisinopril 20 mg PO DAILY 11/26/16 Montelukast Na [Singulair -] 10 mg PO HS 11/26/16 Alprazolam [Xanax] 2 mg PO TID 02/05/17 Folic Acid 1 mg PO DAILY 02/05/17 Gabapentin 100 mg PO ASDIR 02/05/17 Vitamin B Complex/Folic Acid [Vitamin B-100 Complex Tablet] 0.4 mg PO DAILY 11/16 Review of Systems - Review of Systems Able to Perform ROS?: Yes Comments:: 02/15/17 02:14 CONSTITUTIONAL: Absent: fever, chills, diaphoresis, generalized weakness, malaise, loss of appetite HEENT: Absent: rhinorrhea, nasal congestion, throat pain, throat swelling, difficulty swallowing, mouth swelling, ear pain, eye pain, visual Changes CARDIOVASCULAR: Absent: chest pain, loss of consciousness, palpitations, irregular heart rate, peripheral edema RESPIRATORY: Absent: cough, shortness of breath, dyspnea with exertion, orthopnea, wheezing, stridor, hemoptysis GASTROINTESTINAL: Absent: abdominal pain, abdominal distension, nausea, vomiting, diarrhea, constipation, melena, hematochezia GENITOURINARY: Absent: dysuria, frequency, urgency, hesitancy, hematuria, genital pain MUSCULOSKELETAL: +low back pain Neg SLR Absent: myalgia, arthralgia, joint swelling SKIN: Absent: rash, itching, pallor HEMATOLOGIC/IMMUNOLOGIC: Absent: easy bleeding, easy bruising, lymphadenopathy, frequent infections ENDOCRINE: Absent: unexplained weight gain, unexplained weight loss, heat intolerance, cold intolerance NEUROLOGIC: Absent: headache, focal weakness or paresthesias, dizziness, unsteady gait, seizure, mental status changes, bladder or bowel incontinence PSYCHIATRIC: Absent: anxiety, depression, suicidal or homicidal ideation, hallucinations. Is the patient limited Syriac proficient: No <Anil Zapata - Last Filed: 02/15/17 04:59> *Physical Exam - Vital Signs Last Vital Signs Temp Pulse Resp BP Pulse Ox 98.9 F 80 20 138/59 95 02/15/17 00:30 02/15/17 00:30 02/15/17 00:30 02/15/17 00:30 02/15/17 00:30 - Physical Exam Comments: 02/15/17 02:14 GENERAL: Well developed, well nourished. Awake and alert. No acute distress. HEENT: Normocephalic, atraumatic. PERRLA, EOMI. No conjunctival pallor. Sclera are non- icteric. Moist mucous membranes. Oropharynx is clear. NECK: Supple. Full ROM. No JVD. Carotid pulses 2+ and symmetric, without bruits. No thyromegaly. No lymphadenopathy. CARDIOVASCULAR: Regular rate and rhythm. No murmurs, rubs, or gallops. Distal pulses are 2+ and symmetric. PULMONARY: No evidence of respiratory distress. Lungs clear to auscultation bilaterally. No wheezing, rales or rhonchi. ABDOMINAL: Soft. Non-tender. Non-distended. No rebound or guarding. No organomegaly. Normoactive bowel sounds. MUSCULOSKELETAL Normal range of motion at all joints. No bony deformities or tenderness. No CVA tenderness. EXTREMITIES: No cyanosis. No clubbing. No edema. No calf tenderness. SKIN: Warm and dry. Normal capillary refill. No rashes. No jaundice. NEUROLOGICAL: Alert, awake, appropriate. Cranial nerves 2-12 intact. No deficits to light touch and temperature in face, upper extremities and lower extremities. No motor deficits in the in face, upper extremities and lower extremities. Normoreflexic in the upper and lower extremities. Normal speech. Toes are down- going bilaterally. Gait is normal without ataxia. PSYCHIATRIC: Cooperative. Good eye contact. Appropriate mood and affect. <Anil Zapata - Last Filed: 02/15/17 04:59> - Vital Signs Last Vital Signs Temp Pulse Resp BP Pulse Ox 98.9 F 80 20 138/59 95 02/15/17 00:30 02/15/17 00:30 02/15/17 00:30 02/15/17 00:30 02/15/17 02:23 <Edwardo Palma I - Last Filed: 02/16/17 05:51> ED Treatment Course - LABORATORY CBC & Chemistry Diagram: 02/15/17 01:40 02/15/17 01:40 - RADIOLOGY Radiograph Interpretation: 02/15/17 03:48 CT abdomen/pelvis without contrast No evidence of acute pathology. Moderate cervical canal narrowing at the L2-3 level secondary to the right parenchymal herniated disc osteophyte complex. <Anil Zapata - Last Filed: 02/15/17 04:59> - LABORATORY CBC & Chemistry Diagram: 02/15/17 01:40 02/15/17 01:40 - ADDITIONAL ORDERS Additional order review: 02/15/17 01:40 RBC 3.93 MCV 99.1 H MCHC 34.5 RDW 12.7 MPV 7.2 L Neutrophils % 56.9 Lymphocytes % 33.7 D Monocytes % 5.0 Eosinophils % 3.7 Basophils % 0.7 - Medications Given in the ED: ED Medications Discontinued Medications Generic Name Dose Route Start Last Admin Trade Name Freq PRN Reason Stop Dose Admin Sodium Chloride 1,000 mls @ 1,000 mls/hr 02/15/17 02:42 02/15/17 02:15 Normal Saline - IV 02/15/17 03:41 1,000 mls/hr ASDIR ONE Administration Ketorolac Tromethamine 30 mg 02/15/17 02:05 02/15/17 02:15 Toradol Injection - IVPUSH 02/15/17 02:06 30 mg NOW ONE Administration <Edwardo Palma I - Last Filed: 02/16/17 05:51> *DC/Admit/Observation/Transfer - Discharge Dispostion Admit: No <Anil Zapata - Last Filed: 02/15/17 04:59> <Edwardo Palma I - Last Filed: 02/16/17 05:51> Diagnosis at time of Disposition: Low back pain Qualifiers: Chronicity: acute Back pain laterality: right Sciatica presence: without sciatica Qualified Code(s): M54.5 - Low back pain - Discharge Dispostion Disposition: HOME Condition at time of disposition: Stable - Referrals Referrals: Soto Roman MD, FAANS [Staff Physician] - - Patient Instructions Printed Discharge Instructions: DI for Low Back Pain Additional Instructions: Rest Follow up with the neurosurgeon for your pain Return to the ER for bladder/bowel dysfuncttion, severe/persistent/worsening symptoms
[2017-02-15 01:48] LABS: URINE APPEARANCE CLEAR; URINE BILIRUBIN NEGATIVE (NEGATIVE); URINE BLOOD 1+ (NEGATIVE); URINE COLOR STRAW; URINE GLUCOSE (UA) NEGATIVE (NEGATIVE); URINE KETONE NEGATIVE (NEGATIVE); URINE LEUK ESTERASE NEGATIVE (NEGATIVE); URINE NITRITE NEGATIVE (NEGATIVE); URINE PROTEIN NEGATIVE (NEGATIVE); URINE UROBILINOGEN NEGATIVE mg/dL (0.2-1.0)
[2017-02-15] MEDS ORDERED: KETOROLAC TROMETHAMINE 30 MG/1 ML VIAL ONE (01:54)
[2017-02-15 01:57] LABS: BASOPHIL 0.7 % (0-2.0); EOSINOPHIL 3.7 % (0-4.5); MCH 34.2 pg (25.7-33.7); MCHC 34.5 g/dl (32.0-36.0); MEAN CELL VOLUME 99.1 fl (80-96); MEAN PLT VOLUME 7.2 fl (7.5-11.1); NEUTROPHILS 56.9 % (42.8-82.8); PLATELET COUNT 191 K/MM3 (134-434); RDW 12.7 % (11.6-15.6); WHITE BLOOD COUNT 7.9 K/mm3 (4.0-10.0)
[2017-02-15 01:57] LABS: URINE BACTERIA RARE /hpf (NONE SEEN); URINE WBC <1 /hpf (3-5)
[2017-02-15] MEDS ORDERED: KETOROLAC TROMETHAMINE 30 MG/1 ML VIAL IVPUSH ONE (02:05)
[2017-02-15] MEDS ORDERED: SODIUM CHLORIDE 1,000 ML IV ONE (02:42)
[2017-02-15 02:44] LABS: ALBUMIN 3.4 g/dl (3.4-5.0); ALK PHOS 61 U/L (45-117); ANION GAP 14 (8-16); BILIRUBIN,TOTAL 0.3 mg/dL (0.2-1.0); CALCIUM 9.2 mg/dL (8.5-10.1); CO2 19 mmol/L (21-32); CREATININE 0.6 mg/dL (0.55-1.02); GLUCOSE,RANDOM 117 mg/dL (74-106); SGOT/AST 159 U/L (15-37); SGPT/ALT 106 U/L (12-78); TOT PROT 8.3 g/dl (6.4-8.2)
== END 2017-02-15 05:46 | disposition home or self-care (01) ==
LOC: JER 00:16
PROC: 3E0337Z Introduction of Electrolytic and Water Balance Substance into Peripheral Vein, Percutaneous Approach (ICD-10-PCS; principal; 2017-02-15)
PROC: 3E0333Z Introduction of Anti-inflammatory into Peripheral Vein, Percutaneous Approach (ICD-10-PCS; 2017-02-15)
DX: M54.5 Low back pain (principal); I10 Essential (primary) hypertension; F31.9 Bipolar disorder, unspecified; F41.8 Other specified anxiety disorders; K21.9 Gastro-esophageal reflux disease without esophagitis; Z86.69 Personal history of other diseases of the nervous system and sense organs
CPT/HCPCS: 36415; 74176; 80053; 81003; 81015; 84703; 85025; 96361; 96374; 99284-25

== ENCOUNTER 2017-05-17 19:30 | Emergency (ER) | payer OTHER ==
[2017-05-17 19:51] VITALS: BP 130/60; PULSE 96; TEMP 99; BMI 31.3
--- NOTE | 2017-05-17 19:57 | PDOC ---
History of Present Illness <Romulo Jalloh - Last Filed: 05/17/17 22:27> - General History Source: Patient - History of Present Illness Initial Comments: 05/17/17 21:04 46F with pmh of alcohol abuse and withdrawal with seizure presents to the ER after a fall from her bed. She was found by her fiance with blood coming from her mouth after hearing loud noises coming from her bedroom. has had mutiple episode of alcohol intoxication and withdrawal in the past. Patient states that she's had a few beers and multiple shots of tequila to drink tonight. 05/17/17 21:56 <Avi Lambert - Last Filed: 05/17/17 22:40> - General Chief Complaint: Injury Stated Complaint: FALL Time Seen by Provider: 05/17/17 19:40 Past History <Romulo Jalloh - Last Filed: 05/17/17 22:27> - Past Medical History Asthma: Yes GI Disorders: Yes (GERD) HTN: Yes Psychiatric Problems: Yes (bipolar, anxiety, depression) Seizures: Yes (pt states she has a h/o seizures) - Surgical History Abdominal Surgery: Yes - Immunization History Immunization Up to Date: No - Suicide/Smoking/Psychosocial Hx Smoking History: Unknown if ever smoked Have you smoked in the past 12 months: No Number of Cigarettes Smoked Daily: 20 If you are a former smoker, when did you quit?: pt refusing to quit Information on smoking cessation initiated: No 'Breaking Loose' booklet given: 11/23/16 Hx Alcohol Use: No Drug/Substance Use Hx: No Substance Use Type: Alcohol <Avi Lambert - Last Filed: 05/17/17 22:40> - Past Medical History Allergies/Adverse Reactions: Allergies Allergy/AdvReac Type Severity Reaction Status Date / Time acetaminophen [From Percocet] Allergy Verified 05/17/17 19:48 aspirin Allergy Verified 05/17/17 19:48 morphine Allergy Verified 05/17/17 19:48 oxycodone Allergy Verified 05/17/17 19:48 oxycodone HCl [From Percocet] Allergy Verified 05/17/17 19:48 Home Medications: Ambulatory Orders Albuterol Sulfate Inhaler - [Ventolin Hfa Inhaler -] 1 - 2 inh PO QID PRN Lisinopril 20 mg PO DAILY 11/26/16 Montelukast Na [Singulair -] 10 mg PO HS 11/26/16 Alprazolam [Xanax] 2 mg PO TID 02/05/17 Folic Acid 1 mg PO DAILY 02/05/17 Gabapentin 100 mg PO ASDIR 02/05/17 Vitamin B Complex/Folic Acid [Vitamin B-100 Complex Tablet] 0.4 mg PO DAILY 11/16 Review of Systems - Review of Systems Able to Perform ROS?: No (patient intoxicated) <Avi Lambert - Last Filed: 05/17/17 22:40> *Physical Exam - Vital Signs Last Vital Signs Temp Pulse Resp BP Pulse Ox 99.0 F 96 H 14 130/60 93 L 05/17/17 19:48 05/17/17 19:48 05/17/17 19:48 05/17/17 19:48 05/17/17 19:48 <Romulo Jalloh - Last Filed: 05/17/17 22:27> - Vital Signs Last Vital Signs Temp Pulse Resp BP Pulse Ox 99.0 F 96 H 14 130/60 93 L 05/17/17 19:48 05/17/17 19:48 05/17/17 19:48 05/17/17 19:48 05/17/17 19:48 - Physical Exam General Appearance: Yes: Nourished, Appropriately Dressed, Intoxicated, Obese. No: Apparent Distress HEENT: positive: EOMI, PATY, Other (blood in mouth, teeth immobile, no tongue laceration) Neck: positive: Trachea midline. negative: Tender, Lymphadenopathy (R), Lymphadenopathy (L) Respiratory/Chest: positive: Lungs Clear, Normal Breath Sounds. negative: Chest Tender, Respiratory Distress Cardiovascular: positive: Regular Rhythm, Regular Rate, S1, S2 Vascular Pulses: Dorsalis-Pedis (R): 2+, Doralis-Pedis (L): 2+ Gastrointestinal/Abdominal: positive: Normal Bowel Sounds, Distended Musculoskeletal: positive: Normal Inspection Neurologic: positive: Alert, Confused, Disoriented, Other (slurred speech) <Avi Lambert - Last Filed: 05/17/17 22:40> ED Treatment Course - ADDITIONAL ORDERS Additional order review: Laboratory Results 05/17/17 05/17/17 20:05 20:05 Urine Color Straw Urine Appearance Clear Urine pH 6.0 Ur Specific Wells 1.002 Urine Protein Negative Urine Glucose (UA) Negative Urine Ketones Negative Urine Blood 1+ H Urine Nitrite Negative Urine Bilirubin Negative Urine Urobilinogen Negative Urine WBC (Auto) None Urine RBC (Auto) None Ur Epithelial Cells Rare Urine Bacteria Rare Urine HCG, Qual Negative Opiates Screen Negative Methadone Screen Negative Barbiturate Screen Negative Phencyclidine Screen Negative Ur Amphetamines Screen Negative MDMA (Ecstasy) Screen Negative Benzodiazepines Screen Positive Cocaine Screen Negative U Marijuana (THC) Screen Negative <Romulo Jalloh - Last Filed: 05/17/17 22:27> Medical Decision Making - Medical Decision Making 05/17/17 21:55 46F presents to the after fall on face and alcohol intoxication. CT head and facial bones pending. <Avi Lambert - Last Filed: 05/17/17 22:40> *DC/Admit/Observation/Transfer <Romulo Jalloh - Last Filed: 05/17/17 22:27> - Discharge Dispostion Admit: No <Avi Lambert - Last Filed: 05/17/17 22:40> Diagnosis at time of Disposition: Nasal bone fracture - Discharge Dispostion Disposition: HOME - Referrals Referrals: STAFF,NOT ON [Primary Care Provider] - Yousif Crews MD [Staff Physician] - - Patient Instructions Printed Discharge Instructions: DI for Closed Head Injury Additional Instructions: Follow ujp with Dr. Crews, ENT on Friday. If you experience headache, nausea, vomiting, or any other concerning symptoms, return to the ER immediately. Otherwise follow up with your primary doctor in 1 week.
[2017-05-17] MEDS ORDERED: FOLIC ACID INJECTION - 1 MG, THIAMINE HCL 100 MG, MULTIVIT INJECTION ADULT 10 ML in SOD... IVPB ONE (20:00)
[2017-05-17 20:14] LABS: URINE APPEARANCE CLEAR; URINE BILIRUBIN NEGATIVE (NEGATIVE); URINE BLOOD 1+ (NEGATIVE); URINE COLOR STRAW; URINE GLUCOSE (UA) NEGATIVE (NEGATIVE); URINE KETONE NEGATIVE (NEGATIVE); URINE LEUK ESTERASE NEGATIVE (NEGATIVE); URINE NITRITE NEGATIVE (NEGATIVE); URINE PROTEIN NEGATIVE (NEGATIVE); URINE UROBILINOGEN NEGATIVE mg/dL (0.2-1.0)
[2017-05-17 20:18] LABS: URINE BACTERIA RARE /hpf (NONE SEEN)
[2017-05-17 20:20] LABS: URINE MARIJUANA THC NEGATIVE ng/ml (CUTOFF=50)
--- NOTE | 2017-05-17 20:24 | PDOC ---
Attending Attestation - Resident Resident Name: Avi Lambert - ED Attending Attestation I have performed the following: I have examined & evaluated the patient, The case was reviewed & discussed with the resident, I agree w/resident's findings & plan, Exceptions are as noted - HPI HPI: 05/17/17 20:17 46 F with h/o ETOH abuse presents to ER after falling out of bed. Pt admits to drinking heavily earlier this evening. She does not recall falling but states that she was in bed before she found herself on the floor. Pt is accompanied by friends who state that they found her on the ground by her bed with blood on her face. Pt currently awake and alert, denying any pain. Denies FOSTER/N/V. Denies neck pain. Pt ambulatory in ER. - Physicial Exam PE: 05/17/17 20:19 "GENERAL: Awake, alert, and fully oriented, in no acute distress HEAD: 1cm superficial laceration to nasal bridge EYES: PERRLA, EOMI, sclera anicteric, conjunctiva clear ENT: Auricles normal inspection, hearing grossly normal, nares patent, oropharynx clear without exudates. Moist mucosa NECK: Nontender, no stepoffs, Normal ROM, supple, no lymphadenopathy, JVD, or masses LUNGS: Breath sounds equal, clear to auscultation bilaterally. No wheezes, and no crackles HEART: Regular rate and rhythm, normal S1 and S2, no murmurs, rubs or gallops ABDOMEN: Soft, nontender, normoactive bowel sounds. No guarding, no rebound. No masses EXTREMITIES: Normal range of motion, no edema. No clubbing or cyanosis. No cords, erythema, or tenderness NEUROLOGICAL: Cranial nerves II through XII intact. 5/5 strength and sensation in all extremities, Normal speech, normal gait SKIN: Warm, Dry, normal turgor, no rashes or lesions noted. " - Medical Decision Making 05/17/17 20:20 46 F with facial trauma after falling out of bed while intoxicated. - CT head/maxface 05/17/17 22:06 Pt reassessed - now alert, ambulatory with stable gait. Clinically sober. Pt states that she feels well and would like to go home. Pt is accompanied by her fiance, who will accompany her home. CT images sent to [facility] @ 20:59. Results pending. 05/17/17 23:00 CTs notable only for nasal bone fx. Pt informed of results and given ENT follow up. Upon re-evaluation, pt is awake, alert, with no clinical signs of intoxication. She is ambulatory with steady gait and is accompanied by her fiance. Repeat vitals show HR 80, ambulatory O2 sat 95%, RR 18 Vitals normal. Pt clinically stable for DC.
[2017-05-17 23:43] LABS: URINE LEUK ESTERASE Negative (NEGATIVE)
== END 2017-05-17 22:57 | disposition home or self-care (01) ==
LOC: JER 19:30
DX: S02.2XXA Fracture of nasal bones, initial encounter for closed fracture (principal); F10.120 Alcohol abuse with intoxication, uncomplicated; W06.XXXA Fall from bed, initial encounter; Y93.89 Activity, other specified; Y92.032 Bedroom in apartment as the place of occurrence of the external cause; K21.9 Gastro-esophageal reflux disease without esophagitis; F31.9 Bipolar disorder, unspecified; F41.9 Anxiety disorder, unspecified; Z86.69 Personal history of other diseases of the nervous system and sense organs
CPT/HCPCS: 70450-TC; 70486-TC; 80307; 81003; 81015; 84703; 99283-25

== ENCOUNTER 2017-06-29 01:07 | Emergency (ER) | payer OTHER ==
[2017-06-29 01:42] VITALS: BP 140/57; PULSE 95; TEMP 98.8; BMI 26.6
--- NOTE | 2017-06-29 02:10 | PDOC ---
History of Present Illness - General Chief Complaint: Cold Symptoms Stated Complaint: PAIN Time Seen by Provider: 06/29/17 01:46 - History of Present Illness Initial Comments: Mr Harris is a 47yo F with a PMHx of HTN, Alcohol dependence who presented w/ 1 week of generalized body aches, and viral URI symptoms. Not vaccinated for flu. The patient is a daily alcohol drinker, drank 4 beers this morning and appears slightly intoxicated. She denotes subjective fevers, chills. Denies sick contacts. Denies other recreational drug use. States that "everything hurts". SH - Daily alcohol drinker, 4-5 beers daily Allergies - "Allergic to every pain medication" PMD - Dr. Montenegro Past History - Past Medical History Allergies/Adverse Reactions: Allergies Allergy/AdvReac Type Severity Reaction Status Date / Time acetaminophen [From Percocet] Allergy Verified 05/17/17 19:48 aspirin Allergy Verified 05/17/17 19:48 morphine Allergy Verified 05/17/17 19:48 oxycodone Allergy Verified 05/17/17 19:48 oxycodone HCl [From Percocet] Allergy Verified 05/17/17 19:48 Home Medications: Ambulatory Orders Albuterol Sulfate Inhaler - [Ventolin Hfa Inhaler -] 1 - 2 inh PO QID PRN Lisinopril 20 mg PO DAILY 11/26/16 Montelukast Na [Singulair -] 10 mg PO HS 11/26/16 Alprazolam [Xanax] 2 mg PO TID 02/05/17 Folic Acid 1 mg PO DAILY 02/05/17 Gabapentin 100 mg PO ASDIR 02/05/17 Vitamin B Complex/Folic Acid [Vitamin B-100 Complex Tablet] 0.4 mg PO DAILY 11/16 Ferrous Sulfate [Iron] 325 mg PO DAILY 06/29/17 Asthma: Yes COPD: No GI Disorders: Yes (GERD) HTN: Yes Psychiatric Problems: Yes (bipolar, anxiety, depression) Seizures: Yes (pt states she has a h/o seizures) - Surgical History Abdominal Surgery: Yes - Immunization History Immunization Up to Date: No - Suicide/Smoking/Psychosocial Hx Smoking History: Current every day smoker Have you smoked in the past 12 months: No Number of Cigarettes Smoked Daily: 20 If you are a former smoker, when did you quit?: pt refusing to quit Information on smoking cessation initiated: No 'Breaking Loose' booklet given: 11/23/16 Hx Alcohol Use: Yes (Beer) Drug/Substance Use Hx: No Substance Use Type: Alcohol *Physical Exam - Vital Signs Last Vital Signs Temp Pulse Resp BP Pulse Ox 98.8 F 95 H 18 140/57 97 06/29/17 01:32 06/29/17 01:32 06/29/17 01:32 06/29/17 01:32 06/29/17 01:32 - Physical Exam Comments: GEN: AAOx3, NAD, Lying in bed, appears mildly intoxicated, not ill appearing HEENT: Dilated pupils, reactive, EOMi CV: S1, S2, RRR LUNG: CTABL ABD: Soft, NT, ND, normoactive BS MSK: No edema, no erythema, tenderness in multiple areas of the body NEURO: CN 2-12 grossly intact Medical Decision Making - Medical Decision Making 47yo F with PMhx of alcohol abuse presents with 7 days of generalized body aches and viral URI. Not vaccinated for flu. -- Influenza A & B swab 06/29/17 02:56 Flu negative, but symptoms still resemble viral URI. Will likely discharge w/ supportive treatment. Pt is allergic to "every pain medication". Dispo home. Case d/w Dr Brody. *DC/Admit/Observation/Transfer Diagnosis at time of Disposition: Viral upper respiratory tract infection - Discharge Dispostion Disposition: HOME Condition at time of disposition: Stable Admit: No - Referrals - Patient Instructions Printed Discharge Instructions: DI for Viral Upper Respiratory Infection -- Adult - Post Discharge Activity
--- NOTE | 2017-06-29 03:28 | PDOC ---
*Physical Exam - Vital Signs Last Vital Signs Temp Pulse Resp BP Pulse Ox 98.8 F 95 H 18 140/57 97 06/29/17 01:32 06/29/17 01:32 06/29/17 01:32 06/29/17 01:32 06/29/17 01:32 ED Treatment Course - ADDITIONAL ORDERS Additional order review: 06/29/17 02:00 Influenza Types A,B Antigen (SOHAIL) - Final Nasopharyngeal Swab - Final *DC/Admit/Observation/Transfer Diagnosis at time of Disposition: Viral upper respiratory tract infection - Discharge Dispostion Disposition: HOME Condition at time of disposition: Stable - Referrals Referrals: Sadi Montenegro [Other] (Please followup within 2 weeks) - Patient Instructions Printed Discharge Instructions: DI for Viral Upper Respiratory Infection -- Adult - Post Discharge Activity
== END 2017-06-29 03:37 | disposition home or self-care (01) ==
LOC: JER 01:07
DX: J06.9 Acute upper respiratory infection, unspecified (principal); B97.89 Other viral agents as the cause of diseases classified elsewhere; I10 Essential (primary) hypertension; F41.9 Anxiety disorder, unspecified; F31.9 Bipolar disorder, unspecified; J45.909 Unspecified asthma, uncomplicated; G40.909 Epilepsy, unspecified, not intractable, without status epilepticus; F17.210 Nicotine dependence, cigarettes, uncomplicated; F10.10 Alcohol abuse, uncomplicated
CPT/HCPCS: 87804; 99283-25

== ENCOUNTER 2017-07-28 01:43 | Emergency (ER) | payer OTHER ==
[2017-07-28 01:51] VITALS: BP 108/56; PULSE 89; TEMP 98.5; BMI 28.7
[2017-07-28] MEDS ORDERED: predniSONE 20 MG TABLET (UD) PO ONE (02:18)
--- NOTE | 2017-07-28 02:18 | PDOC ---
History of Present Illness - General History Source: Patient Exam Limitations: No Limitations - History of Present Illness Initial Comments: 07/28/17 04:01 The patient is a 47 year old female, with a significant past medical history of Asthma, GERD, HTN, Bipolar, Anxiety, Depression, EtOH abuse who presents to the emergency department with cough and chest tightness today. Patient reports visiting the ED for the same complaint on 06/29/2017. Patient returns with persistent dry cough and difficulty breathing. Patient used Vicks diffuser for her symptoms however denies any relief and presents for further evaluation. Patient denies headache or dizziness. Patient denies fever, chills, abdominal pain, nausea, vomit, diarrhea or constipation. Patient denies dysuria, frequency, urgency or hematuria. Patient denies sick contacts or recent travel. <Quiana Cunningham - Last Filed: 07/28/17 04:00> <Mattie Chavez - Last Filed: 07/28/17 04:48> - General Chief Complaint: Respiratory Stated Complaint: FEVER, COUGH Time Seen by Provider: 07/28/17 01:51 Past History <Quiana Cunningham - Last Filed: 07/28/17 04:00> - Past Medical History Asthma: Yes COPD: No GI Disorders: Yes (GERD) HTN: Yes Psychiatric Problems: Yes (bipolar, anxiety, depression) Seizures: Yes (pt states she has a h/o seizures) - Surgical History Abdominal Surgery: Yes - Immunization History Immunization Up to Date: No - Suicide/Smoking/Psychosocial Hx Smoking History: Never smoked Have you smoked in the past 12 months: No Number of Cigarettes Smoked Daily: 20 If you are a former smoker, when did you quit?: pt refusing to quit Information on smoking cessation initiated: No 'Breaking Loose' booklet given: 11/23/16 Hx Alcohol Use: No Drug/Substance Use Hx: No Substance Use Type: Alcohol <Mattie Chavez - Last Filed: 07/28/17 04:48> - Past Medical History Allergies/Adverse Reactions: Allergies Allergy/AdvReac Type Severity Reaction Status Date / Time acetaminophen [From Percocet] Allergy Verified 07/28/17 01:51 aspirin Allergy Verified 07/28/17 01:51 morphine Allergy Verified 07/28/17 01:51 oxycodone Allergy Verified 07/28/17 01:51 oxycodone HCl [From Percocet] Allergy Verified 07/28/17 01:51 Home Medications: Ambulatory Orders Albuterol Sulfate Inhaler - [Ventolin Hfa Inhaler -] 1 - 2 inh PO QID PRN Lisinopril 20 mg PO DAILY 11/26/16 Montelukast Na [Singulair -] 10 mg PO HS 11/26/16 Alprazolam [Xanax] 2 mg PO TID 02/05/17 Folic Acid 1 mg PO DAILY 02/05/17 Gabapentin 100 mg PO ASDIR 02/05/17 Vitamin B Complex/Folic Acid [Vitamin B-100 Complex Tablet] 0.4 mg PO DAILY 11/16 Ferrous Sulfate [Iron] 325 mg PO DAILY 06/29/17 Azithromycin [Zithromax 250mg Tablets -] 250 mg PO UTDICT #6 tab 07/28/17 predniSONE [Deltasone -] 40 mg PO DAILY #8 tablet 07/28/17 Review of Systems - Review of Systems Able to Perform ROS?: Yes Comments:: 07/28/17 04:01 GENERAL/CONSTITUTIONAL: No fever or chills. No weakness. HEAD, EYES, EARS, NOSE AND THROAT: No change in vision. No ear pain or discharge. No sore throat. GASTROINTESTINAL: No nausea, vomiting, diarrhea or constipation. GENITOURINARY: No dysuria, frequency, or change in urination. CARDIOVASCULAR: +chest tightness +shortness of breath. RESPIRATORY: + cough. No wheezing, or hemoptysis. MUSCULOSKELETAL: No joint or muscle swelling or pain. No neck or back pain. SKIN: No rash NEUROLOGIC: No headache, vertigo, loss of consciousness, or change in strength/ sensation. ENDOCRINE: No increased thirst. No abnormal weight change. HEMATOLOGIC/LYMPHATIC: No anemia, easy bleeding, or history of blood clots. ALLERGIC/IMMUNOLOGIC: No hives or skin allergy. <Quiana Cunningham - Last Filed: 07/28/17 04:00> *Physical Exam - Vital Signs Last Vital Signs Temp Pulse Resp BP Pulse Ox 98.5 F 89 19 108/56 96 07/28/17 01:48 07/28/17 01:48 07/28/17 01:48 07/28/17 01:48 07/28/17 01:48 <Quiana Cunningham - Last Filed: 07/28/17 04:00> - Vital Signs Last Vital Signs Temp Pulse Resp BP Pulse Ox 98.5 F 89 19 108/56 96 07/28/17 01:48 07/28/17 01:48 07/28/17 01:48 07/28/17 01:48 07/28/17 01:48 <Mattie Chavez - Last Filed: 07/28/17 04:48> Heart Score/ECG Review - ECG Impressions Comment:: EKG read 04:24- NSR 93 bpm, no acute ST/T changes. <Mattie Chavez - Last Filed: 07/28/17 04:48> ED Treatment Course - Medications Given in the ED: ED Medications Discontinued Medications Generic Name Dose Route Start Last Admin Trade Name Freq PRN Reason Stop Dose Admin Albuterol/Ipratropium 1 amp 07/28/17 02:30 07/28/17 03:01 Duoneb - NEB 07/28/17 03:01 1 amp Q15M MARGO Administration Guaifenesin/Codeine Phosphate 10 ml 07/28/17 03:43 07/28/17 03:48 Robitussin Ac - PO 07/28/17 03:44 10 ml ONCE ONE Administration Prednisone 60 mg 07/28/17 02:18 07/28/17 02:22 Deltasone - PO 07/28/17 02:19 60 mg ONCE ONE Administration <Quiana Cunningham - Last Filed: 07/28/17 04:00> Medical Decision Making - Medical Decision Making Pt with history of asthma, smoking, with recent URI 1 month ago, persistent cough and SOB. She improved with nebs, steroids, and robitussin AC in ED. CXR wnl. EKG no acute findings. Pt requesting to go home, no further interventions needed at present. Will place on [facility] due to history of smoking/asthma, higher risk for bacterial bronchitis. <Mattie Chavez - Last Filed: 07/28/17 04:48> *DC/Admit/Observation/Transfer - Attestations Scribe Attestion: 07/28/17 04:01 Documentation prepared by Quiana Cunningham, acting as medical physics researcher for Mattie Chavez MD <Quiana Cunningham - Last Filed: 07/28/17 04:00> - Discharge Dispostion Admit: No <Mattie Chavez - Last Filed: 07/28/17 04:48> Diagnosis at time of Disposition: Bronchitis Asthma Qualifiers: Asthma severity: unspecified severity Asthma persistence: unspecified Asthma complication type: unspecified Qualified Code(s): J45.909 - Unspecified asthma, uncomplicated - Discharge Dispostion Disposition: HOME Condition at time of disposition: Stable - Prescriptions Prescriptions: Azithromycin [Zithromax 250mg Tablets -] 250 mg PO UTDICT #6 tab predniSONE [Deltasone -] 40 mg PO DAILY #8 tablet - Referrals Referrals: ON STAFF,NOT [Primary Care Provider] - - Patient Instructions Printed Discharge Instructions: DI for Asthma -- Adult, DI for Acute Bronchitis - Post Discharge Activity
[2017-07-28] MEDS ORDERED: predniSONE 20 MG TABLET (UD) ONE (02:23)
[2017-07-28] MEDS: ALBUTEROL SO4 2.5/IPRATROPIUM 0.5 INH SOL 3 ML VIAL.NEB. NEB SCH (03:01)
[2017-07-28] MEDS ORDERED: guaiFENesin/CODEINE 10 ML UNIT-DOSE CUPS PO ONE (03:43)
[2017-07-28] MEDS ORDERED: guaiFENesin/D-METHORPHAN HB 10 ML UNIT-DOSE CUPS ONE (04:16)
--- NOTE | 2017-07-28 17:00 | EKG ---
Test Reason : Blood Pressure : / mmHG Vent. Rate : 093 BPM Atrial Rate : 093 BPM P-R Int : 156 ms QRS Dur : 078 ms QT Int : 372 ms P-R-T Axes : 049 031 079 degrees QTc Int : 462 ms NORMAL SINUS RHYTHM POSSIBLE LEFT ATRIAL ENLARGEMENT NONSPECIFIC ST ABNORMALITY ABNORMAL ECG WHEN COMPARED WITH ECG OF 26-NOV-2016 18:15, NO SIGNIFICANT CHANGE WAS FOUND Confirmed by CULLEN PIMENTEL MD ([id number]) on 07/28/2017 5:00:33 PM Referred By: Confirmed By:CULLEN PIMENTEL MD
== END 2017-07-28 04:35 | disposition home or self-care (01) ==
LOC: SUPCPDRO 01:43 → JER 01:43
PROC: 3E0F7GC Introduction of Other Therapeutic Substance into Respiratory Tract, Via Natural or Artificial Opening (ICD-10-PCS; principal; 2017-07-28)
DX: J20.9 Acute bronchitis, unspecified (principal); J45.909 Unspecified asthma, uncomplicated; F31.9 Bipolar disorder, unspecified; K21.9 Gastro-esophageal reflux disease without esophagitis; F10.10 Alcohol abuse, uncomplicated; F17.210 Nicotine dependence, cigarettes, uncomplicated; Z86.69 Personal history of other diseases of the nervous system and sense organs
CPT/HCPCS: 71045-TC-FY; 93005; 93010; 94640; 99281-25

== ENCOUNTER 2017-08-14 23:37 | Emergency (ER) | payer OTHER ==
[2017-08-15 00:10] VITALS: BP 120/76; PULSE 103; TEMP 98.6; BMI 36.6
--- NOTE | 2017-08-15 00:31 | PDOC ---
History of Present Illness - History of Present Illness Initial Comments: 08/15/17 01:59 The patient is a 47 year old female with a history of HTN, Asthma, Anxiety, Depression who presents for evaluation of SOB. The patient reports that she has been having worsening SOB over the past few months with several presentations to the ED for similar symptoms. She states that she was initially diagnosed with a URI several times and has been on antibiotics. She notes that she has been using her albuterol inhaler and nebulizer without improvement in her symptoms. She notes some chest tightness associated with her SOB as well. She otherwise denies fevers, chills, nausea, vomiting, abdominal pain, or changes with urination or bowel movements. <Octavio Sequeira - Last Filed: 08/15/17 03:42> <Jad Oshea - Last Filed: 08/15/17 03:46> - General Chief Complaint: Shortness of Breath Stated Complaint: SOB Time Seen by Provider: 08/15/17 00:05 Past History - Past Medical History Asthma: Yes COPD: No GI Disorders: Yes (GERD) HTN: Yes Psychiatric Problems: Yes (bipolar, anxiety, depression) Seizures: Yes (pt states she has a h/o seizures) - Surgical History Abdominal Surgery: Yes - Immunization History Immunization Up to Date: No - Suicide/Smoking/Psychosocial Hx Smoking History: Current every day smoker Have you smoked in the past 12 months: No Number of Cigarettes Smoked Daily: 10 If you are a former smoker, when did you quit?: pt refusing to quit Information on smoking cessation initiated: No 'Breaking Loose' booklet given: 11/23/16 Hx Alcohol Use: Yes Drug/Substance Use Hx: No Substance Use Type: Alcohol <Octavio Sequeira - Last Filed: 08/15/17 03:42> <Jad Oshea - Last Filed: 08/15/17 03:46> - Past Medical History Allergies/Adverse Reactions: Allergies Allergy/AdvReac Type Severity Reaction Status Date / Time acetaminophen [From Percocet] Allergy Verified 08/14/17 23:45 aspirin Allergy Verified 08/14/17 23:45 morphine Allergy Verified 08/14/17 23:45 oxycodone Allergy Verified 08/14/17 23:45 oxycodone HCl [From Percocet] Allergy Verified 08/14/17 23:45 Home Medications: Ambulatory Orders Albuterol Sulfate Inhaler - [Ventolin Hfa Inhaler -] 1 - 2 inh PO QID PRN Lisinopril 20 mg PO DAILY 11/26/16 Montelukast Na [Singulair -] 10 mg PO HS 11/26/16 Alprazolam [Xanax] 2 mg PO TID 02/05/17 Folic Acid 1 mg PO DAILY 02/05/17 Gabapentin 100 mg PO ASDIR 02/05/17 Vitamin B Complex/Folic Acid [Vitamin B-100 Complex Tablet] 0.4 mg PO DAILY 11/16 Ferrous Sulfate [Iron] 325 mg PO DAILY 06/29/17 Azithromycin [Zithromax 250mg Tablets -] 250 mg PO UTDICT #6 tab 07/28/17 predniSONE [Deltasone -] 40 mg PO DAILY #8 tablet 07/28/17 Review of Systems - Review of Systems Comments:: 08/15/17 02:03 Constitutional: No fevers, chills, fatigue, malaise HEENT: No Rhinorrhea, nasal congestion, visual changes Cardiovascular: Chest Tightness. No syncope, palpitations, lightheadedness Respiratory: Cough, SOB. No Hemoptysis, Gastrointestinal: No Abdominal pain, Nausea, Vomiting, Constipation, Diarrhea, Melena Genitourinary: No Dysuria, Frequency, Urgency, Hesitancy, Hematuria, Flank pain Musculoskeletal: No Myalgia, arthralgia Skin: No rashes, itching, bruising, pallor Neurologic: No Headache, Dizziness, Numbness, Weakness, or Tingling Psychiatric: No Hallucinations. No SI or HI <Octavio Sequeira - Last Filed: 08/15/17 03:42> *Physical Exam - Vital Signs Last Vital Signs Temp Pulse Resp BP Pulse Ox 98.6 F 103 H 16 120/76 98 08/14/17 23:45 08/14/17 23:45 08/14/17 23:45 08/14/17 23:45 08/14/17 23:45 - Physical Exam Comments: 08/15/17 02:03 General Appearance: Nourished. No Apparent Distress HEENT: EOMI, PATY. No Pharyngeal Erythema, Tonsillar Exudate, Tonsillar Erythema Neck: No Cervical Lymphadenopathy Respiratory/Chest: Lungs Clear, Normal Breath Sounds. Mild End Expiratory Wheezing noted on exam. No Crackles, Rales, Rhonchi, Cardiovascular: Regular Rhythm, Regular Rate. No Murmur, Gallops, Rubs Gastrointestinal/Abdominal: Normal Bowel Sounds, Soft. No Guarding, Rebound, Tenderness Musculoskeletal: No CVA Tenderness Extremity: Normal Capillary Refill Integumentary: Normal Color, Dry, Warm Neurologic: Fully Oriented, Alert, Normal Mood/Affect, Normal Response, <Octavio Sequeira - Last Filed: 08/15/17 03:42> - Vital Signs Last Vital Signs Temp Pulse Resp BP Pulse Ox 98.6 F 103 H 16 120/76 98 08/14/17 23:45 08/14/17 23:45 08/14/17 23:45 08/14/17 23:45 08/14/17 23:45 <Jad Oshea - Last Filed: 08/15/17 03:46> ED Treatment Course - LABORATORY CBC & Chemistry Diagram: 08/15/17 01:49 08/15/17 01:49 <Octavio Sequeira - Last Filed: 08/15/17 03:42> - LABORATORY CBC & Chemistry Diagram: 08/15/17 01:49 08/15/17 01:49 - ADDITIONAL ORDERS Additional order review: Laboratory Results 08/15/17 01:49 Sodium 139 Potassium 3.7 Chloride 105 Carbon Dioxide 19 L Anion Gap 15 BUN 2 L* Creatinine 0.7 Creat Clearance w eGFR > 60 Random Glucose 144 H Calcium 9.1 Total Bilirubin 0.6 D AST 83 H ALT 59 Alkaline Phosphatase 80 Creatine Kinase 31 Troponin I 0.05 Total Protein 8.8 H Albumin 3.0 L 08/15/17 01:49 RBC 3.77 MCV 102.9 H MCHC 34.4 RDW 13.8 MPV 8.0 D Neutrophils % 66.2 Lymphocytes % 27.6 Monocytes % 3.7 L Eosinophils % 2.2 Basophils % 0.3 - Medications Given in the ED: ED Medications Discontinued Medications Generic Name Dose Route Start Last Admin Trade Name Freq PRN Reason Stop Dose Admin Albuterol/Ipratropium 1 amp 08/15/17 01:03 08/15/17 01:51 Duoneb - NEB 08/15/17 01:04 1 amp ONCE ONE Administration <Jad Oshea - Last Filed: 08/15/17 03:46> Medical Decision Making - Medical Decision Making 08/15/17 02:04 The patient is a 47 year old female with a history of HTN, Asthma, Anxiety, Depression who presents for evaluation of SOB. Differential includes but is not limited to: COPD exacerbation, ACS, Pneumonia, infectious, metabolic derangement. Given the patient's history of smoking and physical exam, it is likely her symptoms are due to a COPD exacerbation. We will obtain a cbc, cmp, troponin, chest plain film, and ekg to evaluate further for possible etiologies. We will treat with duoneb here in the ED and continue to monitor and reassess. 08/15/17 03:42 CBC, cmp, troponin are unremarkable. Chest plain film is unremarkable as preliminarily read by ER physician. The patient reports improvement in her symptoms and is requesting to go home. We are comfortable discharging the patient home with pulmonary and primary care provider follow up. We discuss return precautions, the results and the plan with the patient who voiced understanding and is agreeable with the plan. <Octavio Sequeira - Last Filed: 08/15/17 03:42> *DC/Admit/Observation/Transfer - Discharge Dispostion Admit: No <Octavio Sequeira - Last Filed: 08/15/17 03:42> - Discharge Dispostion Admit: No <Jad Oshea - Last Filed: 08/15/17 03:46> Diagnosis at time of Disposition: Shortness of breath - Discharge Dispostion Disposition: HOME Condition at time of disposition: Good - Referrals Referrals: Miguel Suggs MD, MD [Staff Physician] - - Patient Instructions Printed Discharge Instructions: DI for Chronic Obstructive Pulmonary Disease Additional Instructions: Please return to the ER if you experience concerning or worsening symptoms including worsening difficulty breathing, worsening chest pain, fevers, or chills. Your lab results were normal here in the ER. Your chest x-ray was normal here in the ER. Your symptoms are likely due to COPD and you will need to follow up with a design technology professor as well as your primary care provider. Please call to schedule a follow up appointment with our design technology professor (Dr. Suggs) as well as your primary care provider within 2-3 days to discuss your ER visit and further management of your symptoms.
--- NOTE | 2017-08-15 01:00 | PDOC ---
Attending Attestation - Resident Resident Name: Octavio Sequeira - ED Attending Attestation I have performed the following: I have examined & evaluated the patient, The case was reviewed & discussed with the resident, I agree w/resident's findings & plan, Exceptions are as noted <Jad Oshea - Last Filed: 08/15/17 01:00> - HPI HPI: 08/15/17 01:12 The patient is a 47-year-old female, with a significant past medical history of asthma HTN, anxiety, shortness of breath, who presents to the ED with worsening shortness of breath. Patient has had multiple recent presentations to the ED for similar complaints. Patients shortness of breath is accompanied by a nonproductive cough and chest tightness. She reports that is in need of O2; patient is currently on 2 liters of O2 in the ED and her symptoms are alleviated. The patient denies any fever, chills, nausea, vomiting, diarrhea, or abdominal pain. Denies any palpitations. Allergies: Social History: Current everyday smoker. No reported alcohol or drug use. PCP: N/A - Physicial Exam PE: 08/15/17 01:13 GENERAL: Well developed, well nourished. Awake and alert. No acute distress. HEENT: Normocephalic, atraumatic. PERRLA, EOMI. No conjunctival pallor. Sclera are non- icteric. Moist mucous membranes. Oropharynx is clear. NECK: Supple. Full ROM. No JVD. Carotid pulses 2+ and symmetric, without bruits. No thyromegaly. No lymphadenopathy. CARDIOVASCULAR: (+)Tachy to 103. No murmurs, rubs, or gallops. Distal pulses are 2+ and symmetric. PULMONARY: (+)Mild expiratory wheezing ABDOMINAL: Soft. Non-tender. Non-distended. No rebound or guarding. No organomegaly. Normoactive bowel sounds. MUSCULOSKELETAL Normal range of motion at all joints. No bony deformities or tenderness. No CVA tenderness. EXTREMITIES: No cyanosis. No clubbing. No edema. No calf tenderness. SKIN: Warm and dry. Normal capillary refill. No rashes. No jaundice. NEUROLOGICAL: Alert, awake, appropriate. Cranial nerves 2-12 intact. PSYCHIATRIC: Cooperative. Good eye contact. Appropriate mood and affect. <Vikki Landry - Last Filed: 08/15/17 01:15> *Review of Systems - Review of Systems Able to Perform ROS?: Yes Comments:: 08/15/17 01:14 CONSTITUTIONAL: Absent: fever, chills, diaphoresis, generalized weakness, malaise, loss of appetite HEENT: Absent: rhinorrhea, nasal congestion, throat pain, throat swelling, difficulty swallowing, mouth swelling, ear pain, eye pain, visual Changes CARDIOVASCULAR: Present: chest tightness Absent: syncope, palpitations, irregular heart rate, lightheadedness, peripheral edema RESPIRATORY: Present: shortness of breath, cough Absent: dyspnea with exertion, orthopnea, wheezing, stridor, hemoptysis GASTROINTESTINAL: Absent: abdominal pain, abdominal distension, nausea, vomiting, diarrhea, constipation, melena, hematochezia GENITOURINARY: Absent: dysuria, frequency, urgency, hesitancy, hematuria, flank pain, genital pain MUSCULOSKELETAL: Absent: myalgia, arthralgia, joint swelling SKIN: Absent: rash, itching, pallor HEMATOLOGIC/IMMUNOLOGIC: Absent: easy bleeding, easy bruising, lymphadenopathy, frequent infections ENDOCRINE: Absent: unexplained weight gain, unexplained weight loss, heat intolerance, cold intolerance NEUROLOGIC: Absent: headache, focal weakness or paresthesias, dizziness, unsteady gait, seizure, mental status changes, bladder or bowel incontinence PSYCHIATRIC: Absent: anxiety, depression, suicidal or homicidal ideation, hallucinations. <Vikki Landry - Last Filed: 08/15/17 01:15> Attestations - Attestations 08/15/17 01:15 Documentation prepared by Vikki Landry, acting as registered medical transcriptionist for Jad Oshea MD. <Vikki Landry - Last Filed: 08/15/17 01:15>
[2017-08-15] MEDS ORDERED: ALBUTEROL SO4 2.5/IPRATROPIUM 0.5 INH SOL 3 ML VIAL.NEB. NEB ONE (01:03)
[2017-08-15 02:03] LABS: BASO % 0.3 % (0-2.0); EOS % 2.2 % (0-4.5); HEMATOCRIT 38.8 % (32.4-45.2); HEMOGLOBIN 13.3 GM/dL (10.7-15.3); LYMPH % 27.6 % (8-40); MCH 35.4 pg (25.7-33.7); MCHC 34.4 g/dl (32.0-36.0); MEAN CELL VOLUME 102.9 fl (80-96); MONO % 3.7 % (3.8-10.2); NEUT % 66.2 % (42.8-82.8); PLATELET COUNT 168 K/MM3 (134-434); RBC 3.77 M/mm3 (3.60-5.2); RDW 13.8 % (11.6-15.6); WHITE BLOOD COUNT 9.6 K/mm3 (4.0-10.0)
[2017-08-15 02:23] LABS: ANION GAP 15 (8-16); CALCIUM 9.1 mg/dL (8.5-10.1); CHLORIDE 105 mmol/L (98-107); CO2 19 mmol/L (21-32); CREATININE 0.7 mg/dL (0.55-1.02); GLUCOSE,RANDOM 144 mg/dL (74-106); POTASSIUM 3.7 mmol/L (3.5-5.1); SGOT/AST 83 U/L (15-37); SGPT/ALT 59 U/L (12-78); SODIUM 139 mmol/L (136-145)
[2017-08-15 02:27] LABS: ALK PHOS 80 U/L (45-117); BILIRUBIN,TOTAL 0.6 mg/dL (0.2-1.0); TOT PROT 8.8 g/dl (6.4-8.2)
[2017-08-15 03:35] LABS: BLOOD UREA NITROGEN 2 mg/dL (7-18)
--- NOTE | 2017-08-15 10:32 | EKG ---
Test Reason : Blood Pressure : / mmHG Vent. Rate : 082 BPM Atrial Rate : 082 BPM P-R Int : 154 ms QRS Dur : 082 ms QT Int : 382 ms P-R-T Axes : 043 018 074 degrees QTc Int : 446 ms NORMAL SINUS RHYTHM POSSIBLE LEFT ATRIAL ENLARGEMENT NONSPECIFIC ST ABNORMALITY ABNORMAL ECG WHEN COMPARED WITH ECG OF 28-JUL-2017 04:21, NO SIGNIFICANT CHANGE WAS FOUND Confirmed by AMILCAR BOLAÑOS MD ([id number]) on 08/15/2017 10:32:15 AM Referred By: Confirmed By:AMILCAR BOLAÑOS MD
== END 2017-08-15 04:41 | disposition home or self-care (01) ==
LOC: JER 23:37
PROC: 3E0F7GC Introduction of Other Therapeutic Substance into Respiratory Tract, Via Natural or Artificial Opening (ICD-10-PCS; principal; 2017-08-14)
DX: J44.9 Chronic obstructive pulmonary disease, unspecified (principal); J45.909 Unspecified asthma, uncomplicated; I10 Essential (primary) hypertension; F41.8 Other specified anxiety disorders; F31.9 Bipolar disorder, unspecified; K21.9 Gastro-esophageal reflux disease without esophagitis
CPT/HCPCS: 36415; 71046-TC-FY; 80053; 82550; 84484; 85025; 93005; 93010; 99281-25; J7620

== ENCOUNTER 2017-09-21 23:11 | Emergency (ER) | payer OTHER ==
[2017-09-21 23:47] VITALS: BP 122/64; PULSE 88; TEMP 98.3; BMI 35.4
--- NOTE | 2017-09-22 00:17 | PDOC ---
History of Present Illness - General History Source: Patient Exam Limitations: Other (poor historian ) - History of Present Illness Initial Comments: 09/22/17 02:30 The patient is a 47 year old female with a significant past medical history of alcohol abuse, bipolar disorder, depression, anxiety, HTN, and asthma who presents to the ED with complaints of chronic back pain for 5 years. The patient reports severe lower back pain over the course of 5 years. She [place] she was unable to walk secondary to her back pain over a month ago. Patient states her lower back progressively worsened today, prompting her to come to the ED. Denies fever or chills. Denies urinary incontinence. Denies nausea, vomiting, or diarrhea. Denies nay other symptoms. HPI is limited secondary to patient being a bad historian. <Ivy Lopez - Last Filed: 09/22/17 02:30> <Beryl Brody - Last Filed: 09/22/17 02:35> - General Chief Complaint: Back Pain Stated Complaint: LOWER BACK PAIN Time Seen by Provider: 09/21/17 23:54 Past History <Ivy Lopez - Last Filed: 09/22/17 02:30> - Past Medical History Asthma: Yes COPD: No GI Disorders: Yes (GERD) HTN: Yes Psychiatric Problems: Yes (bipolar, anxiety, depression) Seizures: Yes (pt states she has a h/o seizures) - Surgical History Abdominal Surgery: Yes - Immunization History Immunization Up to Date: No - Suicide/Smoking/Psychosocial Hx Smoking History: Smoker current status UNK Have you smoked in the past 12 months: No Number of Cigarettes Smoked Daily: 20 If you are a former smoker, when did you quit?: pt refusing to quit Information on smoking cessation initiated: No 'Breaking Loose' booklet given: 11/23/16 Hx Alcohol Use: Yes Drug/Substance Use Hx: No Substance Use Type: Alcohol <Beryl Brody - Last Filed: 09/22/17 02:35> - Past Medical History Allergies/Adverse Reactions: Allergies Allergy/AdvReac Type Severity Reaction Status Date / Time acetaminophen [From Percocet] Allergy Verified 08/14/17 23:45 aspirin Allergy Verified 08/14/17 23:45 morphine Allergy Verified 08/14/17 23:45 oxycodone Allergy Verified 08/14/17 23:45 oxycodone HCl [From Percocet] Allergy Verified 08/14/17 23:45 Home Medications: Ambulatory Orders Folic Acid 1 mg PO DAILY 02/05/17 Vitamin B Complex/Folic Acid [Vitamin B-100 Complex Tablet] 0.4 mg PO DAILY 11/16 Alprazolam [Xanax] 2 mg PO TID 09/21/17 Gabapentin 300 mg PO HS 09/21/17 Omeprazole 20 mg PO DAILY 09/21/17 Hydrocodone/Acetaminophen [Vicodin 5-300 mg Tablet] 2 each PO BID #12 tablet MDD 2 09/22/17 Review of Systems - Review of Systems Able to Perform ROS?: Yes Comments:: 09/22/17 02:30 CONSTITUTIONAL: Absent: fever, chills, diaphoresis, generalized weakness, malaise, loss of appetite HEENT: Absent: rhinorrhea, nasal congestion, throat pain, throat swelling, difficulty swallowing, mouth swelling, ear pain, eye pain, visual Changes CARDIOVASCULAR: Absent: chest pain, syncope, palpitations, irregular heart rate, lightheadedness , peripheral edema RESPIRATORY: Absent: cough, shortness of breath, dyspnea with exertion, orthopnea, wheezing, stridor, hemoptysis GASTROINTESTINAL: Absent: abdominal pain, abdominal distension, nausea, vomiting, diarrhea, constipation, melena, hematochezia GENITOURINARY: Absent: dysuria, frequency, urgency, hesitancy, hematuria, flank pain, genital pain MUSCULOSKELETAL: + back pain Absent: arthralgia, joint swelling SKIN: Absent: rash, itching, pallor HEMATOLOGIC/IMMUNOLOGIC: Absent: easy bleeding, easy bruising, lymphadenopathy, frequent infections ENDOCRINE: Absent: unexplained weight gain, unexplained weight loss, heat intolerance, cold intolerance NEUROLOGIC: Absent: headache, focal weakness or paresthesias, dizziness, unsteady gait, seizure, mental status changes, bladder or bowel incontinence PSYCHIATRIC: Absent: anxiety, depression, suicidal or homicidal ideation, hallucinations. All Other Systems: Reviewed and Negative <Ivy Lopez - Last Filed: 09/22/17 02:30> *Physical Exam - Vital Signs Last Vital Signs Temp Pulse Resp BP Pulse Ox 98.3 F 88 19 122/64 97 09/21/17 23:21 09/21/17 23:21 09/21/17 23:21 04/22/18 23:21 09/21/17 23:21 - Physical Exam Comments: 09/22/17 02:31 GENERAL: Well developed, well nourished. Awake and alert. No acute distress. HEENT: Normocephalic, atraumatic. PERRLA, EOMI. No conjunctival pallor. Sclera are non- icteric. Moist mucous membranes. Oropharynx is clear. NECK: Supple. Full ROM. No JVD. Carotid pulses 2+ and symmetric, without bruits. No thyromegaly. No lymphadenopathy. CARDIOVASCULAR: Regular rate and rhythm. No murmurs, rubs, or gallops. Distal pulses are 2+ and symmetric. PULMONARY: No evidence of respiratory distress. Lungs clear to auscultation bilaterally. No wheezing, rales or rhonchi. ABDOMINAL: Soft. Non-tender. Non-distended. No rebound or guarding. No organomegaly. Normoactive bowel sounds. MUSCULOSKELETAL + Lower back tenderness, paraspinal tenderness. no midline tenderness. Normal range of motion at all joints. No bony deformities. No CVA tenderness. EXTREMITIES: No cyanosis. No clubbing. No edema. No calf tenderness. SKIN: + hyperpigmentation throughout back Warm and dry. Normal capillary refill. No rashes. No jaundice. NEUROLOGICAL: Alert, awake, appropriate. Cranial nerves 2-12 intact. No deficits to light touch and temperature in face, upper extremities and lower extremities. No motor deficits in the in face, upper extremities and lower extremities. Normoreflexic in the upper and lower extremities. Normal speech. Toes are down- going bilaterally. Gait is normal without ataxia. PSYCHIATRIC: Cooperative. Good eye contact. Appropriate mood and affect. <Ivy Lopez - Last Filed: 09/22/17 02:30> - Vital Signs Last Vital Signs Temp Pulse Resp BP Pulse Ox 98.3 F 88 19 122/64 97 09/21/17 23:21 09/21/17 23:21 09/21/17 23:21 09/21/17 23:21 09/21/17 23:21 <Beryl Brody - Last Filed: 09/22/17 02:35> ED Treatment Course - ADDITIONAL ORDERS Additional order review: Laboratory Results 09/22/17 09/22/17 00:24 00:24 Urine Color Yellow Urine Appearance Clear Urine pH 6.0 Ur Specific [place] 1.017 Urine Protein Negative Urine Glucose (UA) Negative Urine Ketones Negative Urine Blood Negative Urine Nitrite Negative Urine Bilirubin Negative Urine Urobilinogen 4.0 e.u/dl H Ur Leukocyte Esterase Negative Urine HCG, Qual Negative <Ivy Lopez - Last Filed: 09/22/17 02:30> - RADIOLOGY Radiology Studies Ordered: Category Date Time Status LUMBAR SPINE CT W/O CONTRAST [CT] Stat CT Scan 09/22/17 00:16 Ordered <Beryl Brody - Last Filed: 09/22/17 02:35> Medical Decision Making - Medical Decision Making 09/22/17 01:52 Patient Name: KRIS POSADAS THIS IS A PRELIMINARY REPORT FROM [facility] DATE OF SERVICE: 2017-09-22 01:17:38 IMAGES: 411 EXAM: LUMBAR SPINE CT W/O CONTRAST HISTORY: Pain COMPARISON: None. FINDINGS: No fracture or subluxation. No suspicious bone lesions. There is a moderate-sized herniated disc osteophyte complex at the L2-3 level which moderately narrows the central canal. There is a small bulging disc osteophyte complex at the L4-5 level which mildly narrows the central canal and both neural foramina. A small central disc herniation is noted at L5/ S1 level without significant mass effect. IMPRESSION: Moderate central canal narrowing at L2-3 secondary to moderate- sized herniated disc osteophyte complex. Mild narrowing of the central canal and both neural foramina at L4-5 due to a bulging disc osteophyte complex. Small central L5/S1 disc herniation without mass effect. THIS DOCUMENT HAS BEEN ELECTRONICALLY SIGNED <Beryl Brody - Last Filed: 09/22/17 02:35> *DC/Admit/Observation/Transfer - Attestations Scribe Attestion: 09/22/17 02:31 Documentation prepared by Ivy Lopez, acting as medical record administrator for Beryl Brody MD <Ivy Lopez - Last Filed: 09/22/17 02:30> - Discharge Dispostion Admit: No <Beryl Brody - Last Filed: 09/22/17 02:35> Diagnosis at time of Disposition: Low back pain - Discharge Dispostion Disposition: HOME Condition at time of disposition: Stable - Prescriptions Prescriptions: Hydrocodone/Acetaminophen [Vicodin 5-300 mg Tablet] 2 each PO BID #12 tablet MDD 2 - Referrals Referrals: ON STAFF,NOT [Primary Care Provider] - - Patient Instructions Printed Discharge Instructions: Managing Chronic Low Back Pain, Exercise May Reduce Risk of Low Back Pain - Post Discharge Activity
[2017-09-22 00:38] LABS: URINE APPEARANCE CLEAR; URINE BILIRUBIN NEGATIVE (<2.0 mg/dL); URINE BLOOD NEGATIVE (NEGATIVE); URINE COLOR YELLOW; URINE GLUCOSE (UA) NEGATIVE (NEGATIVE); URINE KETONE NEGATIVE (NEGATIVE); URINE LEUK ESTERASE NEGATIVE (NEGATIVE); URINE NITRITE NEGATIVE (NEGATIVE); URINE PROTEIN NEGATIVE (NEGATIVE); URINE UROBILINOGEN 4.0 E.U/dl mg/dL (0.2-1.0)
== END 2017-09-22 02:59 | disposition home or self-care (01) ==
LOC: JER 23:11 → SUPCPDRO 23:11 → JER 09-22 02:59
DX: M54.5 Low back pain (principal); F10.10 Alcohol abuse, uncomplicated; F31.9 Bipolar disorder, unspecified; F41.9 Anxiety disorder, unspecified; I10 Essential (primary) hypertension; Z80.9 Family history of malignant neoplasm, unspecified; Z86.69 Personal history of other diseases of the nervous system and sense organs; Z88.8 Allergy status to other drugs, medicaments and biological substances
CPT/HCPCS: 72131-TC; 81003; 84703; 99282-25

== ENCOUNTER 2017-10-27 23:18 | Emergency (ER) | payer OTHER ==
[2017-10-27 23:43] VITALS: BP 142/67; PULSE 86; TEMP 98.1; BMI 29.1
[2017-10-27] MEDS ORDERED: SODIUM CHLORIDE 1,000 ML IV STA (23:45)
[2017-10-28 00:11] LABS: BASO % 0.9 % (0-2.0); EOS % 2.4 % (0-4.5); HEMATOCRIT 38.5 % (32.4-45.2); HEMOGLOBIN 13.1 GM/dL (10.7-15.3); LYMPH % 30.9 % (8-40); MCH 34.4 pg (25.7-33.7); MEAN CELL VOLUME 101.4 fl (80-96); MEAN PLT VOLUME 8.2 fl (7.5-11.1); MONO % 4.6 % (3.8-10.2); NEUT % 61.2 % (42.8-82.8); PLATELET COUNT 143 K/MM3 (134-434); RBC 3.79 M/mm3 (3.60-5.2); RDW 12.8 % (11.6-15.6); WHITE BLOOD COUNT 8.8 K/mm3 (4.0-10.0)
[2017-10-28 00:36] LABS: ALBUMIN 3.4 g/dl (3.4-5.0); ANION GAP 16 (8-16); BILIRUBIN,TOTAL 0.6 mg/dL (0.2-1.0); BLOOD UREA NITROGEN 3 mg/dL (7-18); CALCIUM 9.6 mg/dL (8.5-10.1); CHLORIDE 104 mmol/L (98-107); CO2 17 mmol/L (21-32); CREATININE 0.6 mg/dL (0.55-1.02); GLUCOSE,RANDOM 295 mg/dL (74-106); LIPASE 152 U/L (73-393); MAGNESIUM 1.9 mg/dL (1.8-2.4); POTASSIUM 3.4 mmol/L (3.5-5.1); SGOT/AST 97 U/L (15-37); SGPT/ALT 85 U/L (12-78); SODIUM 137 mmol/L (136-145); TOT PROT 9.4 g/dl (6.4-8.2)
[2017-10-28 00:37] LABS: ALK PHOS 87 U/L (45-117)
--- NOTE | 2017-10-28 01:08 | PDOC ---
History of Present Illness - General Chief Complaint: Pain Stated Complaint: RECTAL BLEEDING/ABDOMINAL PAIN Time Seen by Provider: 10/27/17 23:35 History Source: Patient - History of Present Illness Initial Comments: 47 year old female c/o lower abd pain and rectal bleeding for more than 1 week. Pt admits that she drinks beer daily. reports drinking today. She has mottling to her back. normocephalic. alcohol on breath. Past History - Past Medical History Allergies/Adverse Reactions: Allergies Allergy/AdvReac Type Severity Reaction Status Date / Time acetaminophen [From Percocet] Allergy Verified 10/27/17 23:43 aspirin Allergy Verified 10/27/17 23:43 morphine Allergy Verified 10/27/17 23:43 oxycodone Allergy Verified 10/27/17 23:43 oxycodone HCl [From Percocet] Allergy Verified 10/27/17 23:43 Home Medications: Ambulatory Orders Folic Acid 1 mg PO DAILY 02/05/17 Vitamin B Complex/Folic Acid [Vitamin B-100 Complex Tablet] 0.4 mg PO DAILY 11/16 Alprazolam [Xanax] 2 mg PO TID 09/21/17 Gabapentin 300 mg PO HS 09/21/17 Omeprazole 20 mg PO DAILY 09/21/17 Hydrocodone/Acetaminophen [Vicodin 5-300 mg Tablet] 2 each PO BID #12 tablet MDD 2 09/22/17 Asthma: Yes COPD: No GI Disorders: Yes (GERD) HTN: Yes Psychiatric Problems: Yes (bipolar, anxiety, depression) Seizures: Yes (pt states she has a h/o seizures) - Surgical History Abdominal Surgery: Yes - Immunization History Immunization Up to Date: No - Suicide/Smoking/Psychosocial Hx Smoking History: Never smoked Have you smoked in the past 12 months: No Number of Cigarettes Smoked Daily: 20 If you are a former smoker, when did you quit?: pt refusing to quit Information on smoking cessation initiated: No 'Breaking Loose' booklet given: 11/23/16 Hx Alcohol Use: No Drug/Substance Use Hx: No Substance Use Type: Alcohol Review of Systems - Review of Systems Able to Perform ROS?: Yes Is the patient limited [place] proficient: No HEENTM: No: Symptoms Reported, See HPI, Eye Pain, Blurred Vision, Tearing, Recent change in vision, Double Vision, Cataracts, Ear Pain, Ocular Prothesis, Ear Discharge, Nose Pain, Nose Congestion, Tinnitus, Nose Bleeding, Hearing Loss , Throat Pain, Throat Swelling, Mouth Pain, Dental Problems, Difficulty Swallowing, Mouth Swelling, Other ABD/GI: Yes: Rectal Bleeding, Abdominal cramping. No: Symptoms Reported, See HPI, Abdominal Distended, Abd. Pain w/ defecation, Blood Streaked Bowels, Constipated, Diarrhea, Difficulty Swallowing, Nausea, Poor Appetite, Poor Fluid Intake, Vomiting, Indigestion, Tarry Stools, Other *Physical Exam - Vital Signs Last Vital Signs Temp Pulse Resp BP Pulse Ox 98.1 F 86 18 142/67 96 10/27/17 23:20 10/27/17 23:20 10/27/17 23:20 10/27/17 23:20 10/27/17 23:20 - Physical Exam General Appearance: Yes: Appropriately Dressed, Alcohol on Breath Respiratory/Chest: positive: Lungs Clear, Normal Breath Sounds Gastrointestinal/Abdominal: positive: Normal Bowel Sounds, Soft. negative: Tender Rectal Exam: positive: heme negative stool, normal exam, normal rectal tone. negative: hemorrhoids Extremity: positive: Normal Capillary Refill, Normal Range of Motion Integumentary: positive: Normal Color, Dry, Warm Neurologic: positive: Fully Oriented, Alert, Normal Mood/Affect ED Treatment Course - LABORATORY CBC & Chemistry Diagram: 10/28/17 00:00 10/28/17 00:00 - ADDITIONAL ORDERS Additional order review: Laboratory Results 10/28/17 10/28/17 00:00 00:00 Sodium 137 Potassium 3.4 L Chloride 104 Carbon Dioxide 17 L Anion Gap 16 BUN 3 L Creatinine 0.6 Creat Clearance w eGFR > 60 Random Glucose 295 H Calcium 9.6 Magnesium 1.9 Total Bilirubin 0.6 AST 97 H ALT 85 H Alkaline Phosphatase 87 Total Protein 9.4 H Albumin 3.4 Lipase 152 Alcohol, Quantitative 190.2 H* 10/28/17 00:00 RBC 3.79 MCV 101.4 H MCHC 34.0 RDW 12.8 MPV 8.2 Neutrophils % 61.2 Lymphocytes % 30.9 Monocytes % 4.6 Eosinophils % 2.4 Basophils % 0.9 - Medications Given in the ED: ED Medications Discontinued Medications Generic Name Dose Route Start Last Admin Trade Name Freq PRN Reason Stop Dose Admin Sodium Chloride 1,000 mls @ 1,000 mls/hr 10/27/17 23:45 10/28/17 00:32 Normal Saline - IV 10/28/17 00:44 1,000 mls/hr ASDIR STA Administration Progress Note - Progress Note Progress Note: abdominal pain P: cbc cmp lipase guaiac ctap Medical Decision Making - Medical Decision Making 10/28/17 01:07 Patienmt alert walking around wih her partner. no vomiting / no slurred speech. patient refusing urine test. patient is requesting to signed out AMA. all risk factors reviewed . patient verbalized understanding, 10/28/17 01:56 patient requesting to signed out AMA. with " Fiance " will be taking taxi home. patient alert ox3. no slurred speech. eating " Doritos" at bedside. *DC/Admit/Observation/Transfer Diagnosis at time of Disposition: Alcohol abuse, Transaminitis - Discharge Dispostion Disposition: AGAINST MEDICAL ADVICE Condition at time of disposition: Fair - Referrals Referrals: ON STAFF,NOT [Primary Care Provider] - - Patient Instructions Printed Discharge Instructions: DI for Alcohol Abuse - Post Discharge Activity
[2017-10-28 01:26] LABS: INR 1.15 (0.82-1.09)
[2017-10-28 01:29] LABS: ACTIVATED PTT 32.3 SECONDS (26.9-34.4)
[2017-10-28 01:51] LABS: URINE APPEARANCE CLEAR; URINE BILIRUBIN NEGATIVE (<2.0 mg/dL); URINE COLOR YELLOW; URINE GLUCOSE (UA) NEGATIVE (NEGATIVE); URINE KETONE NEGATIVE (NEGATIVE); URINE LEUK ESTERASE NEGATIVE (NEGATIVE); URINE NITRITE NEGATIVE (NEGATIVE); URINE PROTEIN NEGATIVE (NEGATIVE); URINE UROBILINOGEN 4.0 E.U/dl mg/dL (0.2-1.0)
[2017-10-28 02:23] LABS: COCAINE, UR NEGATIVE ng/ml (CUTOFF=300); METHADONE, UR NEGATIVE ng/ml (CUTOFF=300); OPIATES, URI NEGATIVE ng/ml (CUTOFF=300); PHENCYCLIDINE,URINE NEGATIVE ng/ml (CUTOFF=25); URINE AMPHETAMINES NEGATIVE ng/ml (CUTOFF=500); URINE BARBITURATES NEGATIVE ng/ml (CUTOFF=200); URINE BENZODIAZEPINES NEGATIVE ng/ml (CUTOFF=200)
--- NOTE | 2017-10-28 13:41 | EKG ---
Test Reason : Blood Pressure : / mmHG Vent. Rate : 087 BPM Atrial Rate : 087 BPM P-R Int : 152 ms QRS Dur : 084 ms QT Int : 386 ms P-R-T Axes : 050 015 055 degrees QTc Int : 464 ms NORMAL SINUS RHYTHM POSSIBLE LEFT ATRIAL ENLARGEMENT BORDERLINE ECG WHEN COMPARED WITH ECG OF 15-AUG-2017 03:33, NO SIGNIFICANT CHANGE WAS FOUND Confirmed by MD Justice, César ([id number]) on 10/28/2017 1:41:16 PM Referred By: Confirmed By:César Rendon MD
== END 2017-10-28 02:04 | disposition left against medical advice (07) ==
LOC: JER 23:18
PROC: 3E0337Z Introduction of Electrolytic and Water Balance Substance into Peripheral Vein, Percutaneous Approach (ICD-10-PCS; principal; 2017-10-27)
DX: F10.10 Alcohol abuse, uncomplicated (principal); R74.0 Nonspecific elevation of levels of transaminase and lactic acid dehydrogenase [LDH]; I10 Essential (primary) hypertension; F31.9 Bipolar disorder, unspecified; F42.9 Obsessive-compulsive disorder, unspecified; G40.909 Epilepsy, unspecified, not intractable, without status epilepticus; F17.210 Nicotine dependence, cigarettes, uncomplicated
CPT/HCPCS: 36415; 80053; 80307; 81003; 82272; 83690; 83735; 85025; 85610; 85730; 93005; 93010; 96360; 99282-25; J7030

== ENCOUNTER → 2017-11-22 | Emergency (ER) | payer OTHER ==
[~2017-11-22] MED LIST: SODIUM CHLORIDE 1,000 ML IV STA
[2017-11-22 06:38] VITALS: BP 128/52; PULSE 100; TEMP 98.1; BMI 28.7
--- NOTE | 2017-11-24 21:55 | EKG ---
Test Reason : Blood Pressure : / mmHG Vent. Rate : 094 BPM Atrial Rate : 094 BPM P-R Int : 156 ms QRS Dur : 086 ms QT Int : 370 ms P-R-T Axes : 047 019 059 degrees QTc Int : 462 ms NORMAL SINUS RHYTHM POSSIBLE LEFT ATRIAL ENLARGEMENT NONSPECIFIC ST ABNORMALITY ABNORMAL ECG WHEN COMPARED WITH ECG OF 28-OCT-2017 00:17, NO SIGNIFICANT CHANGE WAS FOUND Confirmed by NIRMAL GARRETT MD ([id number]) on 11/24/2017 9:54:46 PM Referred By: Confirmed By:NIRMAL GARRETT MD
== END | disposition left against medical advice (07) ==
LOC: JER 06:18
DX: Z53.21 Procedure and treatment not carried out due to patient leaving prior to being seen by health care provider (principal)
CPT/HCPCS: 93005; 93010; 99281-25

== ENCOUNTER 2018-02-27 00:57 | Emergency (ER) | payer OTHER ==
[2018-02-27 01:06] VITALS: BP 119/51; PULSE 79; TEMP 97.6; BMI 25.0
--- NOTE | 2018-02-27 01:17 | PDOC ---
History of Present Illness - General Chief Complaint: Lethargy Stated Complaint: AMS Time Seen by Provider: 02/27/18 01:12 - History of Present Illness Initial Comments: 47yo F with history of DM, anxiety, HTN, asthma, alcohol abuse, bipolar disorder presenting with weakness x 2 weeks. Patient says she has had less energy than usual. Denies syncope or dizziness. She is also concerned for her blood sugar levels (home glucose in the 140s) and a low blood pressure reading she checked at home (90s/50s). Reports drinking 4 beers today with no other substance use. Denies history of abnormal heart rhythm and has never seen a mycology teacher. Per chart review, has presented to this ED (this is the sixth time this year) before with various complaints. No fever, chills, chest pain, or shortness of breath. Past History - Past Medical History Allergies/Adverse Reactions: Allergies Allergy/AdvReac Type Severity Reaction Status Date / Time acetaminophen [From Percocet] Allergy Verified 02/27/18 01:04 aspirin Allergy Verified 02/27/18 01:04 morphine Allergy Verified 02/27/18 01:04 oxycodone Allergy Verified 02/27/18 01:04 oxycodone HCl [From Percocet] Allergy Verified 02/27/18 01:04 Home Medications: Ambulatory Orders Folic Acid 1 mg PO DAILY 02/05/17 Vitamin B Complex/Folic Acid [Vitamin B-100 Complex Tablet] 0.4 mg PO DAILY 11/16 Alprazolam [Xanax] 2 mg PO TID 09/21/17 Gabapentin 300 mg PO HS 09/21/17 Omeprazole 20 mg PO DAILY 09/21/17 Hydrocodone/Acetaminophen [Vicodin 5-300 mg Tablet] 2 each PO BID #12 tablet MDD 2 09/22/17 Asthma: Yes COPD: No GI Disorders: Yes (GERD) HTN: Yes Psychiatric Problems: Yes (bipolar, anxiety, depression) Seizures: Yes (pt states she has a h/o seizures) - Surgical History Abdominal Surgery: Yes - Immunization History Immunization Up to Date: No - Suicide/Smoking/Psychosocial Hx Smoking History: Unknown if ever smoked Have you smoked in the past 12 months: No Number of Cigarettes Smoked Daily: 20 If you are a former smoker, when did you quit?: pt refusing to quit Information on smoking cessation initiated: No 'Breaking Loose' booklet given: 11/23/16 Hx Alcohol Use: No Drug/Substance Use Hx: No Substance Use Type: Alcohol Review of Systems - Review of Systems Comments:: Constitutional: no fever, no chills Cardiovascular: no chest pain, +palpitations Respiratory: no cough, no shortness of breath Gastrointestinal: no abdominal pain, +nausea Musculoskeletal: +back pain, no muscle pain Skin: no rash, no itching Neurologic: +headache, +weakness *Physical Exam - Vital Signs Last Vital Signs Temp Pulse Resp BP Pulse Ox 97.6 F 79 16 119/51 L 98 02/27/18 01:05 02/27/18 01:05 02/27/18 01:05 02/27/18 01:05 02/27/18 01:05 - Physical Exam Comments: General: Somnolent. Alcohol-like smell on breath Head: no signs of trauma Eyes: EOMI, sclera anicteric ENT: Moist mucus membranes, Neck: Normal ROM, supple Lungs: Lungs clear, Normal breath sounds Cardio: Regular rhythm, S1 and S2 present Abdomen: Soft, nontender. Extremities: Normal range of motion, Distal pulses present SKIN: Warm, Dry, normal turgor Neurologic: Patient uncooperative with neurologic exam. Slurred speech. Observed to have normal gait when walking to the bathroom. ED Treatment Course - LABORATORY CBC & Chemistry Diagram: 02/27/18 02:10 02/27/18 02:10 Medical Decision Making - Medical Decision Making 47yo F with history of DM, anxiety, HTN, asthma, alcohol abuse, bipolar disorder presenting with weakness x 2 weeks -1 L NS, Reglan -Labs: CBC, CMP, TSH, UA, UTox -Will reassess Patient observed sleeping, but arousable. Upon asking her how she is feeling, patient refused to answer. 02/27/18 03:09 Labs unremarkable. Patient reports feeling better. Will discharge. Patient amenable to plan. 02/27/18 04:34 Laboratory Tests 02/27/18 02/27/18 02/27/18 02:02 02:10 02:10 WBC 9.1 RBC 3.81 Hgb 12.8 Hct 37.9 MCV 99.7 H MCH 33.6 MCHC 33.7 RDW 13.1 Plt Count 164 MPV 7.1 L D Absolute Neuts (auto) 5.2 Neutrophils % 56.6 Lymphocytes % 35.3 Monocytes % 4.5 Eosinophils % 2.6 Basophils % 1.0 Nucleated RBC % 0 Sodium 135 L Potassium 3.2 L Chloride 106 Carbon Dioxide 16 L Anion Gap 13 BUN 6 L Creatinine 0.5 L Creat Clearance w eGFR > 60 POC Glucometer 120.02717 Random Glucose 104 Calcium 8.4 L Total Bilirubin 0.3 AST 91 H ALT 59 Alkaline Phosphatase 72 Creatine Kinase 43 Troponin I 0.04 Total Protein 8.2 Albumin 3.0 L TSH 3.46 Urine Color Urine Appearance Urine pH Ur Specific [place] Urine Protein Urine Glucose (UA) Urine Ketones Urine Blood Urine Nitrite Urine Bilirubin Urine Urobilinogen Ur Leukocyte Esterase Urine WBC (Auto) Urine RBC (Auto) Ur Epithelial Cells Urine Bacteria Opiates Screen Methadone Screen Barbiturate Screen Phencyclidine Screen Ur Amphetamines Screen MDMA (Ecstasy) Screen Benzodiazepines Screen Cocaine Screen U Marijuana (THC) Screen 02/27/18 02/27/18 02:10 02:10 WBC RBC Hgb Hct MCV MCH MCHC RDW Plt Count MPV Absolute Neuts (auto) Neutrophils % Lymphocytes % Monocytes % Eosinophils % Basophils % Nucleated RBC % Sodium Potassium Chloride Carbon Dioxide Anion Gap BUN Creatinine Creat Clearance w eGFR POC Glucometer Random Glucose Calcium Total Bilirubin AST ALT Alkaline Phosphatase Creatine Kinase Troponin I Total Protein Albumin TSH Urine Color Ltyellow Urine Appearance Clear Urine pH 6.0 Ur Specific [place] 1.002 Urine Protein Negative Urine Glucose (UA) Negative Urine Ketones Negative Urine Blood 2+ H Urine Nitrite Negative Urine Bilirubin Negative Urine Urobilinogen Negative Ur Leukocyte Esterase Negative Urine WBC (Auto) None Urine RBC (Auto) 4 Ur Epithelial Cells Few Urine Bacteria Rare Opiates Screen Negative Methadone Screen Negative Barbiturate Screen Negative Phencyclidine Screen Negative Ur Amphetamines Screen Negative MDMA (Ecstasy) Screen Negative Benzodiazepines Screen Positive A* Cocaine Screen Negative U Marijuana (THC) Screen Negative *DC/Admit/Observation/Transfer Diagnosis at time of Disposition: Weakness - Discharge Dispostion Disposition: HOME Condition at time of disposition: Improved - Referrals Referrals: ON STAFF,NOT [Primary Care Provider] - - Patient Instructions Printed Discharge Instructions: DI for Muscle Weakness Additional Instructions: You came into the ED for weakness. Lab work did not show acute pathology. Please return to the ER if you experience concerning or worsening symptoms. It is important that you follow up with a primary care provider to discuss your ER visit and further management of your weakness. - Post Discharge Activity
[2018-02-27] MEDS ORDERED: METOCLOPRAMIDE HCL INJECTION 10 MG/2 ML VIAL IVPUSH ONE (01:52)
[2018-02-27] MEDS ORDERED: SODIUM CHLORIDE 1,000 ML IV STA (01:53)
[2018-02-27 02:21] LABS: EOS % 2.6 % (0-4.5); HEMATOCRIT 37.9 % (32.4-45.2); HEMOGLOBIN 12.8 GM/dL (10.7-15.3); LYMPH % 35.3 % (8-40); MCH 33.6 pg (25.7-33.7); MCHC 33.7 g/dl (32.0-36.0); MEAN CELL VOLUME 99.7 fl (80-96); MEAN PLT VOLUME 7.1 fl (7.5-11.1); MONO % 4.5 % (3.8-10.2); NEUT % 56.6 % (42.8-82.8); PLATELET COUNT 164 K/MM3 (134-434); RBC 3.81 M/mm3 (3.60-5.2); RDW 13.1 % (11.6-15.6); WHITE BLOOD COUNT 9.1 K/mm3 (4.0-10.0)
[2018-02-27] MEDS ORDERED: METOCLOPRAMIDE HCL INJECTION 10 MG/2 ML VIAL ONE (02:24)
[2018-02-27 02:29] LABS: URINE APPEARANCE CLEAR; URINE BILIRUBIN NEGATIVE (<2.0 mg/dL); URINE COLOR LTYELLOW; URINE GLUCOSE (UA) NEGATIVE (NEGATIVE); URINE KETONE NEGATIVE (NEGATIVE); URINE LEUK ESTERASE NEGATIVE (NEGATIVE); URINE NITRITE NEGATIVE (NEGATIVE); URINE PROTEIN NEGATIVE (NEGATIVE); URINE UROBILINOGEN NEGATIVE mg/dL (0.2-1.0)
[2018-02-27 02:31] LABS: EPI CELLS FEW /HPF (FEW); URINE BACTERIA RARE /hpf (NONE SEEN)
[2018-02-27 02:53] LABS: COCAINE, UR NEGATIVE ng/ml (CUTOFF=300); METHADONE, UR NEGATIVE ng/ml (CUTOFF=300); OPIATES, URI NEGATIVE ng/ml (CUTOFF=300); PHENCYCLIDINE,URINE NEGATIVE ng/ml (CUTOFF=25); URINE AMPHETAMINES NEGATIVE ng/ml (CUTOFF=500); URINE BARBITURATES NEGATIVE ng/ml (CUTOFF=200)
[2018-02-27 03:06] LABS: URINE BENZODIAZEPINES POSITIVE ng/ml (CUTOFF=200)
--- NOTE | 2018-02-27 03:20 | PDOC ---
Attending Attestation - Resident Resident Name: Mattie Ramirez - ED Attending Attestation I have performed the following: I have examined & evaluated the patient, The case was reviewed & discussed with the resident, I agree w/resident's findings & plan, Exceptions are as noted - HPI HPI: 02/27/18 03:15 47 F with h/o DM, HTN, asthma, ETOH, BPD, anxiety, presenting with generalized weakness x 2 weeks. Pt is intoxicated upon arrival to ED, smelling of alcohol. Admits to drinking several beers. Denies other substance use. She complains of having little energy but has no focal complaints. - Physicial Exam PE: 02/27/18 03:16 GENERAL: Awake, alert, and fully oriented, in no acute distress. HEAD: No signs of trauma EYES: PERRLA, EOMI, sclera anicteric, conjunctiva clear ENT: Auricles normal inspection, hearing grossly normal, nares patent, oropharynx clear without exudates. Moist mucosa NECK: Nontender, no stepoffs, Normal ROM, supple, no lymphadenopathy, JVD, or masses LUNGS: Breath sounds equal, clear to auscultation bilaterally. No wheezes, and no crackles HEART: Regular rate and rhythm, normal S1 and S2, no murmurs, rubs or gallops ABDOMEN: Soft, nontender, normoactive bowel sounds. No guarding, no rebound. No masses EXTREMITIES: Normal range of motion, no edema. No clubbing or cyanosis. No cords, erythema, or tenderness NEUROLOGICAL: Cranial nerves II through XII intact. 5/5 strength and sensation in all extremities, Normal speech, normal gait, normal cerebellar function SKIN: Warm, Dry, normal turgor, no rashes or lesions noted. - Medical Decision Making 02/27/18 03:20 47 F with generalized weakness. No focal complaints. Pt intoxicated in ED but awake and alert. Vitals stable, exam normal. - Labs - EKG - IVF - Reassess 02/27/18 04:18 Labs unremarkable EKG wnl Pt reassessed - now clinically sober. States she feels better after IVF. Pt is well appearing, with normal vitals. Clinically stable for DC at this time. I discussed the physical exam findings, ancillary test results and final diagnoses with the patient. I answered all of the patient's questions. The patient was satisfied with the care received and felt comfortable with the discharge plan and treatment plan. The patient agrees to follow up with the primary care physician within 24-72 hours.
[2018-02-27 03:28] LABS: ALK PHOS 72 U/L (45-117); ANION GAP 13 MMOL/L (8-16); BILIRUBIN,TOTAL 0.3 mg/dL (0.2-1); BLOOD UREA NITROGEN 6 mg/dL (7-18); CALCIUM 8.4 mg/dL (8.5-10.1); CHLORIDE 106 mmol/L (98-107); CO2 16 mmol/L (21-32); CREATININE 0.5 mg/dL (0.55-1.3); GLUCOSE,RANDOM 104 mg/dL (74-106); POTASSIUM 3.2 mmol/L (3.5-5.1); SGOT/AST 91 U/L (15-37); SGPT/ALT 59 U/L (13-61); SODIUM 135 mmol/L (136-145); TOT PROT 8.2 g/dl (6.4-8.2)
--- NOTE | 2018-02-27 11:15 | EKG ---
Test Reason : Blood Pressure : / mmHG Vent. Rate : 073 BPM Atrial Rate : 073 BPM P-R Int : 180 ms QRS Dur : 086 ms QT Int : 432 ms P-R-T Axes : 025 015 035 degrees QTc Int : 475 ms NORMAL SINUS RHYTHM NORMAL ECG WHEN COMPARED WITH ECG OF 22-NOV-2017 06:42, T WAVE AMPLITUDE HAS DECREASED IN ANTERIOR LEADS Confirmed by TAYLER MEADE MD ([id number]) on 02/27/2018 11:15:32 AM Referred By: Confirmed By:TAYLER MEADE MD
== END 2018-02-27 05:01 | disposition home or self-care (01) ==
LOC: JER 00:57
PROC: 3E033GC Introduction of Other Therapeutic Substance into Peripheral Vein, Percutaneous Approach (ICD-10-PCS; principal; 2018-02-27)
PROC: 3E0337Z Introduction of Electrolytic and Water Balance Substance into Peripheral Vein, Percutaneous Approach (ICD-10-PCS; 2018-02-27)
DX: R53.1 Weakness (principal); I10 Essential (primary) hypertension; F31.9 Bipolar disorder, unspecified; F41.9 Anxiety disorder, unspecified; E11.9 Type 2 diabetes mellitus without complications
CPT/HCPCS: 36415; 80053; 80307; 81003; 81015; 82550; 82962; 84443; 84484; 85025; 93005; 93010; 96361; 96374; 99283-25; J7030

== ENCOUNTER 2018-03-26 00:09 | Observation (INO) | payer OTHER ==
--- NOTE | 2018-03-26 00:26 | PDOC ---
Medical Decision Making - Medical Decision Making 03/26/18 00:26 Pt seen by Midlevel Provider under my direct supervision Pt interviewed and examined Ancillary studies reviewed I agree with plan as outlined by Midlevel Provider EKG- ST rate of 103 bpm, axis nml, inervals abnormal (QTc: 510ms), no st elevations or depressions, LVH 03/26/18 01:34 *DC/Admit/Observation/Transfer Diagnosis at time of Disposition: Alcohol abuse, Asthma, Chest pain - Discharge Dispostion Condition at time of disposition: Fair - Referrals - Patient Instructions - Post Discharge Activity
--- NOTE | 2018-03-26 00:26 | PDOC ---
History of Present Illness - General Chief Complaint: Cold Symptoms Stated Complaint: FEVER Time Seen by Provider: 03/26/18 00:25 - History of Present Illness Initial Comments: 03/26/18 00:26 47yo F with history of DM, anxiety, HTN, asthma, alcohol abuse, bipolar disorder presenting with cough and " unable to smoke cigarette" due to the cough. patient also report chest discomfort. patient reports drinking alcohol today does not recall how much. patient is sleepy during the encounter. denies drug use. denies dizziness, diaphoresis, NVD, abdominal pain. Past History - Past Medical History Allergies/Adverse Reactions: Allergies Allergy/AdvReac Type Severity Reaction Status Date / Time acetaminophen [From Percocet] Allergy Verified 03/26/18 00:30 aspirin Allergy Verified 03/26/18 00:30 morphine Allergy Verified 03/26/18 00:30 oxycodone Allergy Verified 03/26/18 00:30 oxycodone HCl [From Percocet] Allergy Verified 03/26/18 00:30 Home Medications: Ambulatory Orders Folic Acid 1 mg PO DAILY 02/05/17 Vitamin B Complex/Folic Acid [Vitamin B-100 Complex Tablet] 0.4 mg PO DAILY 11/16 Alprazolam [Xanax] 2 mg PO TID 09/21/17 Gabapentin 300 mg PO HS 09/21/17 Omeprazole 20 mg PO DAILY 09/21/17 Hydrocodone/Acetaminophen [Vicodin 5-300 mg Tablet] 2 each PO BID #12 tablet MDD 2 09/22/17 Asthma: Yes COPD: No GI Disorders: Yes (GERD) HTN: Yes Psychiatric Problems: Yes (bipolar, anxiety, depression) Seizures: Yes (pt states she has a h/o seizures) - Surgical History Abdominal Surgery: Yes - Immunization History Immunization Up to Date: No - Suicide/Smoking/Psychosocial Hx Smoking History: Unknown if ever smoked Have you smoked in the past 12 months: No Number of Cigarettes Smoked Daily: 20 If you are a former smoker, when did you quit?: pt refusing to quit 'Breaking Loose' booklet given: 11/23/16 Hx Alcohol Use: No Drug/Substance Use Hx: No Substance Use Type: Alcohol Review of Systems - Review of Systems Able to Perform ROS?: Yes Is the patient limited Chinese proficient: No Respiratory: Yes: Cough *Physical Exam - Vital Signs 03/26/18 01:27 Last Vital Signs Temp Pulse Resp BP Pulse Ox 98.6 F 106 H 18 100/59 L 96 03/26/18 00:10 03/26/18 00:10 03/26/18 00:10 03/26/18 00:10 03/26/18 00:10 - Physical Exam General Appearance: Yes: Alcohol on Breath, Other (sleepy) HEENT: positive: Other (normocephalic) Respiratory/Chest: positive: Normal Breath Sounds Cardiovascular: positive: Tachycardia Gastrointestinal/Abdominal: positive: Normal Bowel Sounds, Soft. negative: Tender Integumentary: positive: Warm Neurologic: positive: Alert (sleepy) Heart Score/ECG Review - History History: Slightly suspicious - Electrocardiogram EKG: Non specific repolarization disturbance - Age Age: 45-65 - Risk Factors Risk Factors Heart Score: Yes Hx Hypertension, Yes Hx Diabetes, Yes Smoking History Based on the list above the patient has:: >/=3 risk factors or Hx atherosclerotic disease - Troponin Troponin: </= normal limit - Score Heart Score - Total: 4 - ECG Intrepretation Rhythm: Regular Rhythm Comment:: 03/26/18 04:32 sinus tachycardia ED Treatment Course - LABORATORY CBC & Chemistry Diagram: 03/26/18 03:45 03/26/18 03:45 Medical Decision Making - Medical Decision Making 03/26/18 01:28 A: chest pain P: labs troponin : 0.06 ekgSinus tachy with prolonged QT 390/510ms 03/26/18 04:33 *DC/Admit/Observation/Transfer Diagnosis at time of Disposition: Alcohol abuse Asthma Qualifiers: Asthma severity: mild Asthma persistence: unspecified Asthma complication type : uncomplicated Qualified Code(s): J45.909 - Unspecified asthma, uncomplicated Chest pain Qualifiers: Chest pain type: unspecified Qualified Code(s): R07.9 - Chest pain, unspecified - Discharge Dispostion Condition at time of disposition: Fair Decision to Admit order: Yes - Referrals - Patient Instructions - Post Discharge Activity
[2018-03-26] MEDS ORDERED: ALBUTEROL SO4 2.5/IPRATROPIUM 0.5 INH SOL 3 ML VIAL.NEB. NEB ONE ×2 (00:32→04:25)
[2018-03-26 03:54] LABS: BASO % 1.5 % (0-2.0); EOS % 1.1 % (0-4.5); HEMATOCRIT 37.4 % (32.4-45.2); HEMOGLOBIN 12.8 GM/dL (10.7-15.3); LYMPH % 21.7 % (8-40); MCH 34.6 pg (25.7-33.7); MCHC 34.1 g/dl (32.0-36.0); MEAN CELL VOLUME 101.2 fl (80-96); MEAN PLT VOLUME 7.9 fl (7.5-11.1); MONO % 3.6 % (3.8-10.2); NEUT % 72.1 % (42.8-82.8); PLATELET COUNT 153 K/MM3 (134-434); RBC 3.69 M/mm3 (3.60-5.2); RDW 14.7 % (11.6-15.6); WHITE BLOOD COUNT 8.3 K/mm3 (4.0-10.0)
[2018-03-26 04:18] LABS: ALK PHOS 84 U/L (45-117); ANION GAP 14 MMOL/L (8-16); BILIRUBIN,TOTAL 0.3 mg/dL (0.2-1); BLOOD UREA NITROGEN 6 mg/dL (7-18); CALCIUM 8.4 mg/dL (8.5-10.1); CHLORIDE 106 mmol/L (98-107); CO2 19 mmol/L (21-32); CREATININE 0.6 mg/dL (0.55-1.3); GLUCOSE,RANDOM 203 mg/dL (74-106); POTASSIUM 3.7 mmol/L (3.5-5.1); SGOT/AST 53 U/L (15-37); SGPT/ALT 38 U/L (13-61); SODIUM 139 mmol/L (136-145); TOT PROT 8.4 g/dl (6.4-8.2)
--- NOTE | 2018-03-26 05:35 | HP ---
CHIEF COMPLAINT: chest discomfort PCP: HISTORY OF PRESENT ILLNESS: Patient is a 47 year old female with history of HTN, DM, asthma, alcohol use disorder, bipolar disorder, presents with complaint of chest discomfort. Began earlier this afternoon when she attempted to smoke a cigarette and was unable to inhale the smoke. She endorsed chest tightness, and non-productive cough. Denies radiation, or palliative features of the chest discomfort. She states cough has been ongoing for past week, associated with nasal congestion, rhinorhea, sore throat, chills, and nausea. Denies hemoptysis. She has not had flu vaccine this year. She admits drinking approx. 6 beers today. Normally drinks 8 beers "according to her mood". Denies drinking liquor. Admits smoking 1 pack per day for past 15 years, and denies intention to quit. Denies illicit drug use. Currently admits mild headache, agitation, and anxiety. Denies tactile, auditory, or visual hallucinations. CIWA score of 6. ER course was notable for: (1) EKG: Sinus tachycardia at 103bpm, QTc 510ms (2) Troponin 0.06 (3) Utox, alcohol level 7.2 PAST MEDICAL HISTORY: HTN, DM, asthma, alcohol use disorder, bipolar disorder, PAST SURGICAL HISTORY: right leg fracture repair, 22 years ago Social History: Smoking: admits 15 pack year history Alcohol: admits approx. 8 beers per day, depending on mood Drugs: denies illicit drug use Family History: Allergies acetaminophen [From Percocet] Allergy (Verified 03/26/18 00:30) aspirin Allergy (Verified 03/26/18 00:30) morphine Allergy (Verified 03/26/18 00:30) oxycodone Allergy (Verified 03/26/18 00:30) oxycodone HCl [From Percocet] Allergy (Verified 03/26/18 00:30) HOME MEDICATIONS: Home Medications Medication Instructions Recorded Folic Acid 1 mg PO DAILY 02/05/17 Vitamin B Complex/Folic Acid 0.4 mg PO DAILY 02/05/17 [Vitamin B-100 Complex Tablet] Alprazolam [Xanax] 2 mg PO TID 09/21/17 Gabapentin 300 mg PO HS 09/21/17 Omeprazole 20 mg PO DAILY 09/21/17 Hydrocodone/Acetaminophen [Vicodin 2 each PO BID #12 tablet MDD 2 09/22/17 5-300 mg Tablet] REVIEW OF SYSTEMS as per HPI PHYSICAL EXAMINATION Vital Signs - 24 hr 03/26/18 00:10 Temperature 98.6 F Pulse Rate 106 H Respiratory 18 Rate Blood Pressure 100/59 L O2 Sat by Pulse 96 Oximetry (%) GENERAL: Sleepy, fully oriented, in mild distress. HEAD: Normal with no signs of trauma. EYES: Pupils equal, round and reactive to light, extraocular movements intact, sclera anicteric, conjunctiva clear b/l. EARS, NOSE, THROAT: Oropharynx clear without exudates. Dry mucous membranes. NECK: Normal range of motion, supple without lymphadenopathy. LUNGS: Breath sounds equal, clear to auscultation bilaterally. No wheezes, and no crackles. No accessory muscle use. HEART: Regular rate and rhythm, normal S1 and S2, with holosystolic murmur at left upper sternal border without radiation to carotids b/l. Chest pain significantly reproducible upon palpation over left upper chest. ABDOMEN: Soft, nontender, not distended, normoactive bowel sounds, no guarding, no rebound, no masses. No hepatomegaly. MUSCULOSKELETAL: Normal range of motion at all joints. No bony deformities or tenderness. No CVA tenderness. UPPER EXTREMITIES: 2+ radial pulses b/l, warm. Faint tremors noted with b/l outstretched hands. LOWER EXTREMITIES: 2+ dorsalis pedis pulses b/l. warm, well-perfused. No calf tenderness. No peripheral edema b/l. NEUROLOGICAL: Cranial nerves II-XII intact. Normal speech. PSYCHIATRIC: Mildly agitated SKIN: Warm, dry, normal capillary refill. Laboratory Results - last 24 hr 03/26/18 03/26/18 03:45 03:45 WBC 8.3 RBC 3.69 Hgb 12.8 Hct 37.4 MCV 101.2 H MCH 34.6 H MCHC 34.1 RDW 14.7 D Plt Count 153 MPV 7.9 D Absolute Neuts (auto) 6.0 Neutrophils % 72.1 D Lymphocytes % 21.7 D Monocytes % 3.6 L Eosinophils % 1.1 Basophils % 1.5 Nucleated RBC % 0 Sodium 139 Potassium 3.7 Chloride 106 Carbon Dioxide 19 L Anion Gap 14 BUN 6 L Creatinine 0.6 Creat Clearance w eGFR > 60 Random Glucose 203 H Calcium 8.4 L Total Bilirubin 0.3 AST 53 H ALT 38 Alkaline Phosphatase 84 Troponin I 0.06 H Total Protein 8.4 H Albumin 3.0 L Alcohol, Quantitative 7.2 H ASSESSMENT/PLAN: Patient is a 47 year old female with history of HTN, DM, asthma, alcohol use disorder, bipolar disorder, presents with complaint of chest discomfort. Chest pain -Patient has numerous risk factors for cardiac disease, however unclear if pain is cardiac in nature. Chest pain is reproducible upon palpation. May be secondary to costochondritis due to excessive cough over past week. -EKG shows sinus tachycardia -Troponin 0.06. Will trend. -F/U chest xray -F/U cardiology consult (Dr. Londno) Alcohol intoxication -CIWA 6 (1- mild headache, 1- agitation, 1- mild anxiety, 2- tremor, 1-mild nausea without vomiting). -Quantitate alcohol level 7.2 -Librium protocol -Fall precautions -Aspiration precautions. Elevate bed to 45 degrees -NPO for now -F/U urine toxicology -F/U Dr. Prado consult Diabetes mellitus -ISS ACHS -BGM ACHS Hypertension -Will hold BP medications for now. -Patient will need medicine reconciliation Asthma -Duonebs Q6H PRN Bipolar disorder -Patient will need medicine reconciliation FEN -No IV fluids -Follow CMP -NPO for now Prophylaxis -Heparin 5000u subq TID Disposition -Observe in Telemetry Visit type - Emergency Visit Emergency Visit: Yes ED Registration Date: 03/26/18 Care time: The patient presented to the Emergency Department on the above date and was hospitalized for further evaluation of their emergent condition. - New Patient This patient is new to me today: Yes Date on this admission: 03/26/18 - Critical Care Critical Care patient: No
[2018-03-26] MEDS ORDERED: chlordiazePOXIDE HCL 25 MG CAPSULE PO PRN (06:14)
[2018-03-26] MEDS ORDERED: ALBUTEROL SO4 2.5/IPRATROPIUM 0.5 INH SOL 3 ML VIAL.NEB. NEB PRN (06:42)
--- NOTE | 2018-03-26 06:59 | PN ---
Teaching Attending Note Name of Resident: Va Hanks ATTENDING PHYSICIAN STATEMENT I saw and evaluated the patient. I reviewed the resident's note and discussed the case with the resident. I agree with the resident's findings and plan as documented. SUBJECTIVE: Presents to the ED with a CC of chest pain. Began when she was outside smoking a cigarette and she couldn't inhale deeply; no other pleuritic components. She does have a high risk of CAD based on risk factors (obesity, tobacco and alcohol abuse, atypical presentation in female, HTN, DM). She continues to have waxing and waning CP. She is a poor historian; she complains to me regarding pain with lab draws. She does have a positive troponin (mildly) and a positive EtOH level. She drinks ~8 beers per day but this does vary. No history of DTs. Occasional noncompliance with home meds due to side effects PMH: HTN, HLD, DM, Bipolar, EtOh abuse PSH: No cardiopulmonary procedures Social: Lives at home, daily drinker, daily smoker FH: No sudden cardiac OBJECTIVE: VSS, labs and imaging reviewed NAD, resting in bed, mildly intoxicated RRR s1/2 no mgr; chest pain is reproducible to palpation over the L-sternal boarder. Lungs CTAB with sym expansion NC AT EOMI PERRLA Trachea midline, no JVD ASSESSMENT AND PLAN: 1) Chest Pain, atypical. Rule Out ACS -Atypical presentation with risk factors and a mildly positive troponin. -Monitor on tele, trend troponin, check stress test. Consulting cardiology. -Check A1c, TSH, Lipids 2) DM -SSI 3) HTN -Control; keep <160 while inpatient. 4) Bipolar -Reconcile and continue home meds 5) EtOH Abuse -CIWA protocol, precontemplative, monitor for WD 6) Macrocytosis -May be from EtOH. Check B12 and Folate. Full Code
[2018-03-26] MEDS: HEPARIN NA (PORCINE) 5,000 UNITS/ML 1ML VIAL SQ SCH ×3 (08:41→21:19)
[2018-03-26] MEDS ORDERED: THIAMINE HCL 100 MG TABLET (FP) PO SCH (10:15)
[2018-03-26] MEDS ORDERED: FOLIC ACID 1 MG TABLET (FP) PO SCH (10:30)
[2018-03-26 10:34] LABS: MAGNESIUM 1.8 mg/dL (1.8-2.4)
[2018-03-26] MEDS: INSULIN SLIDING SCALE (NOVOLOG) 1 VIAL SQ SCH ×4 (11:42→21:20)
[2018-03-26] MEDS ORDERED: chlordiazePOXIDE HCL 25 MG CAPSULE ONE ×2 (11:43→17:38)
[2018-03-26] MEDS: chlordiazePOXIDE HCL 25 MG CAPSULE PO SCH ×3 (11:45→22:09)
--- NOTE | 2018-03-26 12:08 | EKG ---
Test Reason : Blood Pressure : / mmHG Vent. Rate : 103 BPM Atrial Rate : 103 BPM P-R Int : 154 ms QRS Dur : 090 ms QT Int : 390 ms P-R-T Axes : 036 003 022 degrees QTc Int : 510 ms SINUS TACHYCARDIA POSSIBLE LEFT ATRIAL ENLARGEMENT LEFT VENTRICULAR HYPERTROPHY NONSPECIFIC ST ABNORMALITY ABNORMAL ECG WHEN COMPARED WITH ECG OF 27-FEB-2018 02:53, NO SIGNIFICANT CHANGE WAS FOUND Confirmed by FRANSISCO OMYA MD ([id number]) on 03/26/2018 12:07:50 PM Referred By: Confirmed By:FRANSISCO MOYA MD
[2018-03-26 12:24] LABS: URINE APPEARANCE CLEAR; URINE BILIRUBIN NEGATIVE (<2.0 mg/dL); URINE COLOR STRAW; URINE GLUCOSE (UA) NEGATIVE (NEGATIVE); URINE KETONE NEGATIVE (NEGATIVE); URINE LEUK ESTERASE NEGATIVE (NEGATIVE); URINE NITRITE NEGATIVE (NEGATIVE); URINE PROTEIN NEGATIVE (NEGATIVE); URINE UROBILINOGEN NEGATIVE mg/dL (0.2-1.0)
[2018-03-26 12:33] LABS: EPI CELLS RARE /HPF (FEW); URINE BACTERIA RARE /hpf (NONE SEEN)
[2018-03-26 12:43] LABS: COCAINE, UR NEGATIVE ng/ml (CUTOFF=300); METHADONE, UR NEGATIVE ng/ml (CUTOFF=300); OPIATES, URI NEGATIVE ng/ml (CUTOFF=300); PHENCYCLIDINE,URINE NEGATIVE ng/ml (CUTOFF=25); URINE AMPHETAMINES NEGATIVE ng/ml (CUTOFF=500); URINE BARBITURATES NEGATIVE ng/ml (CUTOFF=200)
[2018-03-26 12:46] LABS: URINE BENZODIAZEPINES POSITIVE ng/ml (CUTOFF=200)
--- NOTE | 2018-03-26 17:26 | CON.CARD ---
Consult Consult Specialty:: Cardiology Referred by:: Hospitalist Reason for Consultation:: chest pain, sob - History of Present Illness Chief Complaint: chest pain sob History of Present Illness: 47 year old woman pmh HTN, DMII, asthma, etoh abuse, smoker, bipolar admitted with c/o chest pain, sob. pt thought it was asthma and didnt use her inhaler in time symptoms didnt resolve so she came to the ER. Pt seen and examined in er in nad. states her symptoms have resolved. denies any current complaints. pt intoxicated on presentation. - History Source History Provided By: Patient Limitations to Obtaining History: Poor Historian - Past Medical History Cardio/Vascular: Yes: HTN, Hyperlipdemia Psych: Yes: Addictions, Bipolar Endocrine: Yes: Diabetes Mellitus - Alcohol/Substance Use Hx Alcohol Use: No - Smoking History Smoking history: Current every day smoker Have you smoked in the past 12 months: No Aproximately how many cigarettes per day: 20 If you are a former smoker, when did you quit?: pt refusing to quit - Social History ADL: Independent History of Recent Travel: No Home Medications - Allergies Allergies/Adverse Reactions: Allergies Allergy/AdvReac Type Severity Reaction Status Date / Time acetaminophen [From Percocet] Allergy Verified 03/26/18 00:30 aspirin Allergy Verified 03/26/18 00:30 morphine Allergy Verified 03/26/18 00:30 oxycodone Allergy Verified 03/26/18 00:30 oxycodone HCl [From Percocet] Allergy Verified 03/26/18 00:30 - Home Medications Home Medications: Ambulatory Orders Folic Acid 1 mg PO DAILY 02/05/17 Vitamin B Complex/Folic Acid [Vitamin B-100 Complex Tablet] 0.4 mg PO DAILY 11/16 Alprazolam [Xanax] 2 mg PO TID 09/21/17 Gabapentin 300 mg PO HS 09/21/17 Omeprazole 20 mg PO DAILY 09/21/17 Hydrocodone/Acetaminophen [Vicodin 5-300 mg Tablet] 2 each PO BID #12 tablet MDD 2 09/22/17 Albuterol Sulfate Inhaler - [Ventolin Hfa Inhaler -] 2 puff IH DAILY 03/26/18 Aspirin 81 mg PO DAILY 03/26/18 Atorvastatin Ca [Lipitor] 20 mg PO DAILY 03/26/18 Docusate Sodium [Colace -] 100 mg PO BID 03/26/18 Lisinopril 20 mg PO DAILY 03/26/18 Metformin HCl [Metformin HCl ER] 500 mg PO BID 03/26/18 Montelukast Na [Singulair -] 10 mg PO DAILY 03/26/18 Thiamine HCl [Vitamin B1] 100 mg PO DAILY 03/26/18 Family Disease History - Family Disease History Family History: Denies Review of Systems - Review of Systems Constitutional: denies: No Symptoms, Chills, Diaphoresis, Fever, Lethargy, Loss of Appetite, Malaise, Night Sweats, Unintentional Wgt. Loss, Weakness, Other Eyes: denies: No Symptoms, Blind Spots, Blurred Vision, Double Vision, Eye Pain , Floaters, Photophobia, Recent Change in Vision, Other HENT: denies: No Symptoms, Difficult Swallowing, Ear Discharge, Ear Pain, Epistaxis, Gingival Bleeding, Hearing Loss, Mouth Swelling, Nasal Congestion, Ocular Prosthesis, Throat Pain, Toothache, Ringing in Ears, Other Neck: denies: No Symptoms, Decreased ROM, Lumps, Pain on Movement, Stiffness, Swollen Glands, Tenderness, Other Cardiovascular: reports: Chest Pain, Shortness of Breath. denies: No Symptoms, Edema, Palpitations, Other Respiratory: reports: SOB. denies: No Symptoms, Cough, Exercise Intolerance, Hemoptysis, Orthopnea, PND, Snoring, SOB on Exertion, Wheezing, Other Gastrointestinal: denies: No Symptoms, Abdominal Pain, Bloating, Constipation, Diarrhea, Dysphagia, Indigestion, Melena, Nausea, Rectal Bleeding, Vomiting, Vomiting Blood, Other Genitourinary: denies: No Symptoms, Burning, Discharge, Dysuria, Flank Pain, Frequency, Hematuria, Incontinence, Lesions, Menses, Pain, Testicular Mass, Testicular Pain, Testicular Swelling, Urgency, Vaginal Bleeding, Other Breasts: denies: No Symptoms Reported, See HPI, Breast Implants, Discharge from Nipple, Lumps, Pain, Skin Changes, Other Musculoskeletal: denies: No Symptoms, Back Pain, Crepitus, Decreased ROM, Extremity Pain, Joint Pain, Joint Swelling, Muscle Pain, Muscle Cramps, Muscle Weakness, Other Integumentary: denies: No Symptoms, Blister, Bruising, Change in Color, Eczema, Erythema, Incision, Lesions, Lump, Pallor, Pruritis, Rash, Wound, Other Neurological: denies: No Symptoms, Change in LOC, Change in Speech, Confusion, Dizziness, Headache, Incoordination, Numbness, Parasthesia, Pre-Existing Deficit , Seizure, Syncope, Tremors, Unsteady Gait, Weakness, Other Endocrine: denies: No Symptoms, Excessive Sweating, Flushing, Increased Hunger, Increased Thirst, Intolerance to Cold, Intolerance to Heat, Unexplained Weight Gain, Unexplained Weight Loss, Other Hematology/Lymphatic: denies: No Symptoms, Easily Bruised, Excessive Bleeding, Swollen Glands, Other Psychiatric: denies: No Symptoms, Altered Sleep Pattern, Anxiety, Depression, Hallucinations, Panic, Paranoia, Suicidal, Other - Risk Factors Known Risk Factors: Yes: Diabetes Mellitus, Hypercholesterolemia, Hypertension, Smoking Vital Signs: Vital Signs Temperature 99.0 F 03/26/18 10:09 Pulse Rate 95 H 03/26/18 10:09 Respiratory Rate 17 03/26/18 10:09 Blood Pressure 100/51 L 03/26/18 10:09 O2 Sat by Pulse Oximetry (%) 99 03/26/18 08:18 Constitutional: Yes: No Distress, Calm Eyes: Yes: Conjunctiva Clear, EOM Intact, PERRL HENT: Yes: Atraumatic, Normocephalic Neck: Yes: Supple, Trachea Midline Respiratory: Yes: Regular. No: Rales, Rhonchi, SOB, Wheezes Gastrointestinal: Yes: Normal Bowel Sounds, Soft. No: Distention, Tenderness Renal/: Yes: WNL Cardiovascular: Yes: Regular Rate and Rhythm. No: Bradycardia, Tachycardia, Pulse Irregular, Gallop, Rub, Varicosities JVD: No Carotid Bruit: No PMI: Non-Displaced Heart Sounds: Yes: S1, S2. No: Split S2, S3, S4, Clicks, Gallop, Rub, Bruit Murmur: No: Systolic Murmur, Diastolic Murmur Musculoskeletal: Yes: WNL Extremities: Yes: WNL Edema: No Peripheral Pulses WNL: Yes Peripheral Pulses: 2+ Left Doralis Pedis, 2+ Right Dorsalis Pedis Neurological: Yes: Alert, Oriented, Cran Nerves II-XII Intact Psychiatric: Yes: Alert, Oriented - Other Data Labs, Other Data: CBC, BMP 03/26/18 03:45 03/26/18 03:45 Troponin, BNP 03/26/18 03/26/18 03:45 09:10 Troponin I 0.06 H 0.06 H Troponin, BNP 03/26/18 03/26/18 03:45 09:10 Troponin I 0.06 H 0.06 H sinus tach 103bpm, nsst, lvh Echo: Pending Imaging - Results Chest X-ray: Report Reviewed, Image Reviewed EKG: Report Reviewed, Image Reviewed Other: Report Reviewed, Image Reviewed Assessment/Plan 47 year old woman pmh HTN, DMII, asthma, etoh abuse, smoker, bipolar admitted with c/o chest pain, sob. pt thought it was asthma and didnt use her inhaler in time symptoms didnt resolve so she came to the ER. Pt seen and examined in er in nad. states her symptoms have resolved. denies any current complaints. pt intoxicated on presentation. Chest pain-unlikely ACS -no ischemia on ekg -troponin minimally elevated at .06 and did not trend up with normal ck level -multiple cardiac risk factors as above -recc echo and pharm nuclear stress test to evaluate for ischemia -tele monitoring overnight -reported ASA allergy, unknown details, hold for now
[2018-03-26 18:33] VITALS: BMI 29.7
--- NOTE | 2018-03-26 19:45 | PN ---
Physical Exam: SUBJECTIVE: Patient seen and examined this morning in the ED. She was BIBEMS for 03/11 Midsternal, chest tightness that was accompanied by feelings of faint. This is the first time she has experienced this pain. Additionally she mentions having palpitations for many year that come on spontaneously and self resolve. Patient admits to a hx of asthma, requiring her inhaler 3-4 days a week , 1-2 night time awakenings and uses nebulizer 2-3 x a week. OBJECTIVE: Vital Signs Period Temp Pulse Resp BP Sys/Bryan Pulse Ox Last 24 Hr 98.6 F-99.0 F 91-106 16-18 100-126/51-75 96-100 GENERAL: A&Ox3, NAD HEAD: NCAT EYES: PERRL, EOMI ENT: Oropharynx clear without exudates, moist mucous membranes. NECK: No JVD LUNGS: Breath sounds equal, clear to auscultation bilaterally, no wheezes HEART: Regular rate and rhythm, S1, S2, holosystolic murmur at the LUSB CHEST: Mid sternum tender to palpation ABDOMEN: Soft, nontender, nondistended, + bowel sounds, no guarding EXTREMITIES: 2+ pulses, no edema. NEUROLOGICAL: Cranial nerves II through XII grossly intact. Normal speech. SKIN: Warm, dry, no rashes or lesions noted Laboratory Results - last 24 hr 03/26/18 03/26/18 03/26/18 03:45 03:45 08:40 WBC 8.3 RBC 3.69 Hgb 12.8 Hct 37.4 MCV 101.2 H MCH 34.6 H MCHC 34.1 RDW 14.7 D Plt Count 153 MPV 7.9 D Absolute Neuts (auto) 6.0 Neutrophils % 72.1 D Lymphocytes % 21.7 D Monocytes % 3.6 L Eosinophils % 1.1 Basophils % 1.5 Nucleated RBC % 0 Sodium 139 Potassium 3.7 Chloride 106 Carbon Dioxide 19 L Anion Gap 14 BUN 6 L Creatinine 0.6 Creat Clearance w eGFR > 60 POC Glucometer [phone] Random Glucose 203 H Hemoglobin A1c % Calcium 8.4 L Phosphorus Magnesium Total Bilirubin 0.3 AST 53 H ALT 38 Alkaline Phosphatase 84 Troponin I 0.06 H Total Protein 8.4 H Albumin 3.0 L Triglycerides Cholesterol Total LDL Cholesterol HDL Cholesterol Vitamin B12 Serum Folate TSH Urine Color Urine Appearance Urine pH Ur Specific [place] Urine Protein Urine Glucose (UA) Urine Ketones Urine Blood Urine Nitrite Urine Bilirubin Urine Urobilinogen Ur Leukocyte Esterase Urine WBC (Auto) Urine RBC (Auto) Ur Epithelial Cells Urine Bacteria Opiates Screen Methadone Screen Barbiturate Screen Phencyclidine Screen Ur Amphetamines Screen MDMA (Ecstasy) Screen Benzodiazepines Screen Cocaine Screen U Marijuana (THC) Screen Alcohol, Quantitative 7.2 H 03/26/18 03/26/18 03/26/18 09:10 09:10 09:10 WBC RBC Hgb Hct MCV MCH MCHC RDW Plt Count MPV Absolute Neuts (auto) Neutrophils % Lymphocytes % Monocytes % Eosinophils % Basophils % Nucleated RBC % Sodium Potassium Chloride Carbon Dioxide Anion Gap BUN Creatinine Creat Clearance w eGFR POC Glucometer Random Glucose Hemoglobin A1c % 8.2 H Calcium Phosphorus 4.0 Magnesium 1.8 Total Bilirubin AST ALT Alkaline Phosphatase Troponin I 0.06 H Total Protein Albumin Triglycerides 123 Cholesterol 137 Total LDL Cholesterol 90 HDL Cholesterol 30 L Vitamin B12 277 Serum Folate 22 H TSH 3.84 H Urine Color Urine Appearance Urine pH Ur Specific [place] Urine Protein Urine Glucose (UA) Urine Ketones Urine Blood Urine Nitrite Urine Bilirubin Urine Urobilinogen Ur Leukocyte Esterase Urine WBC (Auto) Urine RBC (Auto) Ur Epithelial Cells Urine Bacteria Opiates Screen Methadone Screen Barbiturate Screen Phencyclidine Screen Ur Amphetamines Screen MDMA (Ecstasy) Screen Benzodiazepines Screen Cocaine Screen U Marijuana (THC) Screen Alcohol, Quantitative 03/26/18 03/26/18 03/26/18 12:00 12:20 12:20 WBC RBC Hgb Hct MCV MCH MCHC RDW Plt Count MPV Absolute Neuts (auto) Neutrophils % Lymphocytes % Monocytes % Eosinophils % Basophils % Nucleated RBC % Sodium Potassium Chloride Carbon Dioxide Anion Gap BUN Creatinine Creat Clearance w eGFR POC Glucometer [phone] Random Glucose Hemoglobin A1c % Calcium Phosphorus Magnesium Total Bilirubin AST ALT Alkaline Phosphatase Troponin I Total Protein Albumin Triglycerides Cholesterol Total LDL Cholesterol HDL Cholesterol Vitamin B12 Serum Folate TSH Urine Color Straw Urine Appearance Clear Urine pH 6.0 Ur Specific [place] 1.004 L Urine Protein Negative Urine Glucose (UA) Negative Urine Ketones Negative Urine Blood 2+ H Urine Nitrite Negative Urine Bilirubin Negative Urine Urobilinogen Negative Ur Leukocyte Esterase Negative Urine WBC (Auto) 1 Urine RBC (Auto) 4 Ur Epithelial Cells Rare Urine Bacteria Rare Opiates Screen Negative Methadone Screen Negative Barbiturate Screen Negative Phencyclidine Screen Negative Ur Amphetamines Screen Negative MDMA (Ecstasy) Screen Negative Benzodiazepines Screen Positive A* Cocaine Screen Negative U Marijuana (THC) Screen Negative Alcohol, Quantitative Active Medications Albuterol Sulfate (Ventolin Hfa Inhaler -) 2 puff IH DAILY [facility] Albuterol/Ipratropium (Duoneb -) 1 amp NEB Q6H PRN PRN Reason: SHORTNESS OF BREATH Atorvastatin Calcium (Lipitor -) 20 mg PO DAILY [facility] Chlordiazepoxide HCl (Librium -) 50 mg PO [id number] [facility] Stop: 03/27/18 05:01 Last Admin: 03/26/18 17:28 Dose: 50 mg Chlordiazepoxide HCl (Librium -) 25 mg PO [id number] [facility] Stop: 03/28/18 05:01 Chlordiazepoxide HCl (Librium -) 15 mg PO [id number] [facility] Stop: 03/29/18 05:01 Chlordiazepoxide HCl (Librium -) 25 mg PO Q4H PRN PRN Reason: WITHDRAWAL(CONT SUBST) Stop: 03/29/18 06:13 Chlordiazepoxide HCl (Librium -) 10 mg PO C1D-TML [facility] Stop: 03/30/18 05:01 Docusate Sodium (Colace -) 100 mg PO BID [facility] Folic Acid (Folic Acid -) 1 mg PO DAILY [facility] Last Admin: 03/26/18 11:43 Dose: 1 mg Heparin Sodium (Porcine) (Heparin -) 5,000 unit SQ TID [facility] Last Admin: 03/26/18 14:27 Dose: 5,000 unit Insulin Aspart (Novolog Vial Sliding Scale -) 1 vial SQ ACHS [facility]; Protocol Last Admin: 03/26/18 17:27 Dose: 4 unit Montelukast Sodium (Singulair -) 10 mg PO DAILY [facility] Thiamine HCl (Vitamin B1 -) 100 mg PO DAILY [facility] Last Admin: 03/26/18 11:42 Dose: 100 mg IMAGING: -CXR: Atelectatic changes at bases. Elevated left hemidiaphragm. -EKG: SINUS TACHYCARDIA, POSSIBLE LEFT ATRIAL ENLARGEMENT, LEFT VENTRICULAR HYPERTROPHY, VR 103, QTc 510 ASSESSMENT/PLAN: 47 y/o F with PMHx of HTN, DM, asthma, alcohol use disorder, bipolar disorder presents to [facility] with chest discomfort. #Atypical Chest pain -Reproducible in nature however given her risk factors, need to R/O ACS -Cardiology (Dr. Snyder) consulted, Appreciate Rec's, Echo and pharm nuclear stress test, Hold ASA given allergy -Trop 0.06 X 2 -EKG, CXR Noted above -ECHO and Stress test pending -Monitor on Tele -Lipid Panel noted -TSH 3.84 -A1c elevated at 8.2% -NPO for stress test tmrw #Alcohol intoxication -CIWA 6 on admission, 2 on my interview -Quantitate alcohol level 7.2 -Librium protocol started -Fall precautions -Aspiration precautions. Elevate head of bed to 45 degrees -UTox positive for Benzo's however after librium was given -Detox medicine (Dr. Prado) consulted #Diabetes mellitus -ISS BGMs ACHS -A1c elevated at 8.2% -Will need to adjust home regimen #Hypertension -Controlled -Hold home BP medications for now #Asthma -Continue Ventolin, Singulair, Duoneb #Bipolar disorder -Patient currently not on home medication -Continue to monitor #FEN -PO Fluids -Lytes WNL -NPO pending stress test #PPx -DVT: Heparin Dispo: Stress test tmrw Visit type - Emergency Visit Emergency Visit: Yes ED Registration Date: 03/26/18 Care time: The patient presented to the Emergency Department on the above date and was hospitalized for further evaluation of their emergent condition. - New Patient This patient is new to me today: Yes Date on this admission: 03/26/18 - Critical Care Critical Care patient: No - Discharge Referral Referred to [facility] Med P.C.: No
[2018-03-26] MEDS ORDERED: ALBUTEROL SO4 8 GM HFA INHALER IH PRN (19:52)
--- NOTE | 2018-03-26 19:56 | PN ---
Teaching Attending Note Name of Resident: Maria E Herrera ATTENDING PHYSICIAN STATEMENT I saw and evaluated the patient. I reviewed the resident's note and discussed the case with the resident. I agree with the resident's findings and plan as documented. SUBJECTIVE: Patient is a feeling better, no fever or chills, no shortness of breath. OBJECTIVE: Vital Signs Temperature 98.8 F 03/26/18 18:20 Pulse Rate 91 H 03/26/18 18:20 Respiratory Rate 18 03/26/18 18:20 Blood Pressure 126/75 03/26/18 18:20 O2 Sat by Pulse Oximetry (%) 99 03/26/18 18:20 GENERAL: Sleepy, fully oriented, in mild distress. HEAD: Normal with no signs of trauma. EYES: Pupils equal, round and reactive to light, extraocular movements intact, sclera anicteric, conjunctiva clear b/l. EARS, NOSE, THROAT: Oropharynx clear without exudates. Dry mucous membranes. NECK: Normal range of motion, supple without lymphadenopathy. LUNGS: Breath sounds equal, clear to auscultation bilaterally. No wheezes, and no crackles. HEART: Regular rate and rhythm, normal S1 and S2. ABDOMEN: Soft, nontender, not distended, normoactive bowel sounds, no guarding, no rebound, no masses. EXTREMITIES: 2+ radial pulses b/l, warm. Faint tremors noted with b/l outstretched hands. NEUROLOGICAL: Cranial nerves II-XII intact. Normal speech. SKIN: Warm, dry, normal capillary refill. CBCD WBC 8.3 K/mm3 (4.0-10.0) 03/26/18 03:45 RBC 3.69 M/mm3 (3.60-5.2) 03/26/18 03:45 Hgb 12.8 GM/dL (10.7-15.3) 03/26/18 03:45 Hct 37.4 % (32.4-45.2) 03/26/18 03:45 MCV 101.2 fl (80-96) H 03/26/18 03:45 MCHC 34.1 g/dl (32.0-36.0) 03/26/18 03:45 RDW 14.7 % (11.6-15.6) D 03/26/18 03:45 Plt Count 153 K/MM3 (134-434) 03/26/18 03:45 MPV 7.9 fl (7.5-11.1) D 03/26/18 03:45 CMP Sodium 139 mmol/L (136-145) 03/26/18 03:45 Potassium 3.7 mmol/L (3.5-5.1) 03/26/18 03:45 Chloride 106 mmol/L (98-107) 03/26/18 03:45 Carbon Dioxide 19 mmol/L (21-32) L 03/26/18 03:45 Anion Gap 14 MMOL/L (8-16) 03/26/18 03:45 BUN 6 mg/dL (7-18) L 03/26/18 03:45 Creatinine 0.6 mg/dL (0.55-1.3) 03/26/18 03:45 Creat Clearance w eGFR > 60 (>60) 03/26/18 03:45 Random Glucose 203 mg/dL (74-106) H 03/26/18 03:45 Calcium 8.4 mg/dL (8.5-10.1) L 03/26/18 03:45 Total Bilirubin 0.3 mg/dL (0.2-1) 03/26/18 03:45 AST 53 U/L (15-37) H 03/26/18 03:45 ALT 38 U/L (13-61) 03/26/18 03:45 Alkaline Phosphatase 84 U/L (45-117) 03/26/18 03:45 Total Protein 8.4 g/dl (6.4-8.2) H 03/26/18 03:45 Albumin 3.0 g/dl (3.4-5.0) L 03/26/18 03:45 CARDIAC ENZYMES Troponin I 0.06 ng/ml (0.00-0.05) H 03/26/18 09:10 Current Medications Generic Name Dose Route Start Last Admin Trade Name Freq PRN Reason Stop Dose Admin Albuterol Sulfate 2 puff 03/26/18 19:52 Ventolin Hfa Inhaler - IH Q4H PRN SHORTNESS OF BREATH Albuterol/Ipratropium 1 amp 03/26/18 06:42 Duoneb - NEB Q6H PRN SHORTNESS OF BREATH Atorvastatin Calcium 20 mg 03/27/18 22:00 Lipitor - PO HS [facility] Chlordiazepoxide HCl 50 mg 03/26/18 11:00 03/26/18 17:28 Librium - PO 03/27/18 05:01 50 mg [id number] [facility] Administration Chlordiazepoxide HCl 25 mg 03/27/18 11:00 Librium - PO 03/28/18 05:01 [id number] [facility] Chlordiazepoxide HCl 15 mg 03/28/18 11:00 Librium - PO 03/29/18 05:01 [id number] [facility] Chlordiazepoxide HCl 25 mg 03/26/18 06:14 Librium - PO 03/29/18 06:13 Q4H PRN WITHDRAWAL(CONT SUBST) Chlordiazepoxide HCl 10 mg 03/29/18 11:00 Librium - PO 03/30/18 05:01 [id number] [facility] Docusate Sodium 100 mg 03/26/18 22:00 Colace - PO BID [facility] Folic Acid 1 mg 03/26/18 10:30 03/26/18 11:43 Folic Acid - PO 1 mg DAILY [facility] Administration Heparin Sodium (Porcine) 5,000 unit 03/26/18 07:00 03/26/18 14:27 Heparin - SQ 5,000 unit TID [facility] Administration Insulin Aspart 1 vial 03/26/18 07:00 03/26/18 17:27 Novolog Vial Sliding Scale - SQ 4 unit ACHS [facility] Administration Protocol Montelukast Sodium 10 mg 03/27/18 22:00 Singulair - PO [facility] Thiamine HCl 100 mg 03/27/18 10:00 Vitamin B1 - PO DAILY [facility] Home Medications Medication Instructions Recorded Folic Acid 1 mg PO DAILY 02/05/17 Albuterol Sulfate Inhaler - 2 puff IH QID 03/26/18 [Ventolin Hfa Inhaler -] Aspirin 81 mg PO DAILY 03/26/18 Atorvastatin Ca [Lipitor] 20 mg PO DAILY 03/26/18 Docusate Sodium [Colace -] 100 mg PO BID 03/26/18 Ferrous Sulfate 325 mg PO TID 03/26/18 Lisinopril 20 mg PO DAILY 03/26/18 Metformin HCl [Metformin HCl ER] 500 mg PO BID 03/26/18 Montelukast Na [Singulair -] 10 mg PO DAILY 03/26/18 Omeprazole 20 mg PO DAILY 03/26/18 Thiamine HCl [Vitamin B1] 100 mg PO DAILY 03/26/18 ASSESSMENT AND PLAN: Patient is a 47 year old female with history of HTN, DM, asthma, alcohol use disorder, bipolar disorder, presents with complaint of chest discomfort. # Acute chest Pain Rule Out ACS, cardio on the case. # DM SSI with coverage # HTN continue lisinopril # Bipolar continue home meds # EtOH Abuse on Librium protocol # Macrocytosis due to EtOH. continue with folic acid and thiamine. DVT px: Heparin
[2018-03-26] MEDS ORDERED: DOCUSATE SODIUM 100 MG CAPSULE (FP) PO SCH (22:00)
[2018-03-27] MEDS: chlordiazePOXIDE HCL 25 MG CAPSULE PO SCH (05:22)
[2018-03-27] MEDS: HEPARIN NA (PORCINE) 5,000 UNITS/ML 1ML VIAL SQ SCH (06:02)
[2018-03-27] MEDS: INSULIN SLIDING SCALE (NOVOLOG) 1 VIAL SQ SCH (06:02)
[2018-03-27 07:54] VITALS: BP 118/74; PULSE 85; TEMP 98
--- NOTE | 2018-03-27 09:02 | PN ---
Teaching Attending Note Name of Resident: Maria E Herrera ATTENDING PHYSICIAN STATEMENT I reviewed the resident's note and discussed the case with the resident. I agree with the resident's findings and plan as documented. SUBJECTIVE: Patient eloped from the hospital without being seen. OBJECTIVE: Vital Signs Temperature 98.0 F 03/27/18 07:52 Pulse Rate 85 03/27/18 07:52 Respiratory Rate 18 03/27/18 07:52 Blood Pressure 118/74 03/27/18 07:52 O2 Sat by Pulse Oximetry (%) 100 03/27/18 07:51 CBCD WBC 8.3 K/mm3 (4.0-10.0) 03/26/18 03:45 RBC 3.69 M/mm3 (3.60-5.2) 03/26/18 03:45 Hgb 12.8 GM/dL (10.7-15.3) 03/26/18 03:45 Hct 37.4 % (32.4-45.2) 03/26/18 03:45 MCV 101.2 fl (80-96) H 03/26/18 03:45 MCHC 34.1 g/dl (32.0-36.0) 03/26/18 03:45 RDW 14.7 % (11.6-15.6) D 03/26/18 03:45 Plt Count 153 K/MM3 (134-434) 03/26/18 03:45 MPV 7.9 fl (7.5-11.1) D 03/26/18 03:45 CMP Sodium 139 mmol/L (136-145) 03/26/18 03:45 Potassium 3.7 mmol/L (3.5-5.1) 03/26/18 03:45 Chloride 106 mmol/L (98-107) 03/26/18 03:45 Carbon Dioxide 19 mmol/L (21-32) L 03/26/18 03:45 Anion Gap 14 MMOL/L (8-16) 03/26/18 03:45 BUN 6 mg/dL (7-18) L 03/26/18 03:45 Creatinine 0.6 mg/dL (0.55-1.3) 03/26/18 03:45 Creat Clearance w eGFR > 60 (>60) 03/26/18 03:45 Random Glucose 203 mg/dL (74-106) H 03/26/18 03:45 Calcium 8.4 mg/dL (8.5-10.1) L 03/26/18 03:45 Total Bilirubin 0.3 mg/dL (0.2-1) 03/26/18 03:45 AST 53 U/L (15-37) H 03/26/18 03:45 ALT 38 U/L (13-61) 03/26/18 03:45 Alkaline Phosphatase 84 U/L (45-117) 03/26/18 03:45 Total Protein 8.4 g/dl (6.4-8.2) H 03/26/18 03:45 Albumin 3.0 g/dl (3.4-5.0) L 03/26/18 03:45 CARDIAC ENZYMES Troponin I 0.06 ng/ml (0.00-0.05) H 03/26/18 09:10 Current Medications Generic Name Dose Route Start Last Admin Trade Name Freq PRN Reason Stop Dose Admin Albuterol Sulfate 2 puff 03/26/18 19:52 Ventolin Hfa Inhaler - IH Q4H PRN SHORTNESS OF BREATH Albuterol/Ipratropium 1 amp 03/26/18 06:42 Duoneb - NEB Q6H PRN SHORTNESS OF BREATH Atorvastatin Calcium 20 mg 03/27/18 22:00 Lipitor - PO HS [facility] Chlordiazepoxide HCl 25 mg 03/27/18 11:00 Librium - PO 03/28/18 05:01 [id number] [facility] Chlordiazepoxide HCl 15 mg 03/28/18 11:00 Librium - PO 03/29/18 05:01 [id number] [facility] Chlordiazepoxide HCl 25 mg 03/26/18 06:14 Librium - PO 03/29/18 06:13 Q4H PRN WITHDRAWAL(CONT SUBST) Chlordiazepoxide HCl 10 mg 03/29/18 11:00 Librium - PO 03/30/18 05:01 [id number] [facility] Docusate Sodium 100 mg 03/26/18 22:00 03/26/18 21:19 Colace - PO Not Given BID [facility] Folic Acid 1 mg 03/26/18 10:30 03/26/18 11:43 Folic Acid - PO 1 mg DAILY [facility] Administration Heparin Sodium (Porcine) 5,000 unit 03/26/18 07:00 03/27/18 06:02 Heparin - SQ Not Given TID [facility] Insulin Aspart 1 vial 03/26/18 07:00 03/27/18 06:02 Novolog Vial Sliding Scale - SQ Not Given ACHS [facility] Protocol Montelukast Sodium 10 mg 03/27/18 22:00 Singulair - PO HS [facility] Thiamine HCl 100 mg 03/27/18 10:00 Vitamin B1 - PO DAILY [facility] Home Medications Medication Instructions Recorded Folic Acid 1 mg PO DAILY 02/05/17 Albuterol Sulfate Inhaler - 2 puff IH QID 03/26/18 [Ventolin Hfa Inhaler -] Aspirin 81 mg PO DAILY 03/26/18 Atorvastatin Ca [Lipitor] 20 mg PO DAILY 03/26/18 Docusate Sodium [Colace -] 100 mg PO BID 03/26/18 Ferrous Sulfate 325 mg PO TID 03/26/18 Lisinopril 20 mg PO DAILY 03/26/18 Metformin HCl [Metformin HCl ER] 500 mg PO BID 03/26/18 Montelukast Na [Singulair -] 10 mg PO DAILY 03/26/18 Omeprazole 20 mg PO DAILY 03/26/18 Thiamine HCl [Vitamin B1] 100 mg PO DAILY 03/26/18 ASSESSMENT AND PLAN: Patient is a 47 year old female with history of HTN, DM, asthma, alcohol use disorder, bipolar disorder, presents with complaint of chest discomfort. # Acute chest Pain resolved. patient refused further care. # DM sliding scale # HTN on lisinopril # Bipolar continue home meds # EtOH Abuse on Librium protocol # Macrocytosis due to EtOH. continue with folic acid and thiamine. patient eloped from the hospital
[2018-03-27] MEDS ORDERED: THIAMINE HCL 100 MG TABLET (FP) PO SCH (10:00)
--- NOTE | 2018-03-27 10:00 | PN ---
[facility] Progress Note Note: attempted to interview this patient as a [facility] consultation for ETOH use . Pt declined to discuss and walked out of the room.
--- NOTE | 2018-03-27 10:25 | ECHO ---
Name: KRIS POSADAS Exam:Adult Echocardiogram Study Date: 03/27/2018 09:25 AM Age: 47 yrs Reason For Study: Chest pain Height: 63 in Weight: 167 lb BSA: 1.8 m2 MMode/2D Measurements & Calculations IVSd: 0.98 cm Ao root diam: 2.7 cm LVIDd: 3.6 cm LA dimension: 3.1 cm LVIDs: 2.1 cm LVPWd: 0.76 cm EDV(Teich): 53.3 ml LVOT diam: 2.0 cm ESV(Teich): 13.6 ml Doppler Measurements & Calculations MV E max ronak: 56.8 cm/sec Med Peak E' Ronak: 11.8 cm/sec MV A max ronak: 74.5 cm/sec Med E/e': 4.8 MV E/A: 0.76 Lat Peak E' Ronak: 8.0 cm/sec MV dec time: 0.28 sec Lat E/e': 7.1 Left Ventricle There is mild concentric left ventricular hypertrophy. Left ventricular systolic function is normal. Ejection Fraction = 55-60%. The transmitral spectral Doppler flow pattern is suggestive of impaired LV relaxat ion. Right Ventricle The right ventricle is normal in size and function. Atria Normal left and right atrial size and function. Mitral Valve The mitral valve is normal in structure and function. There is no mitral valve stenosis. There is mil d mitral regurgitation. Tricuspid Valve The tricuspid valve is normal in structure and function. There is mild tricuspid regurgitation. Aortic Valve The aortic valve opens well. No hemodynamically significant valvular aortic stenosis. No aortic regur gitation is present. Pulmonic Valve The pulmonic valve is not well seen, but is grossly normal. There is no pulmonic valvular stenosis. T here is no pulmonic valvular regurgitation. Great Vessels The aortic root is normal size. Pericardium/Pleura There is no pericardial effusion. Interpretation Summary There is mild concentric left ventricular hypertrophy. Left ventricular systolic function is normal. Ejection Fraction = 55-60%. The transmitral spectral Doppler flow pattern is suggestive of impaired LV relaxation. The right ventricle is normal in size and function. There is mild mitral regurgitation. There is mild tricuspid regurgitation. There is no pericardial effusion. MD Ruben Maldonado 03/27/2018 10:25 AM
[2018-03-27] MEDS ORDERED: chlordiazePOXIDE HCL 25 MG CAPSULE PO SCH (11:00)
--- NOTE | 2018-03-27 16:23 | DS ---
Physical Exam: SUBJECTIVE: Patient seen and examined this morning. Patient was very upset and agitated but did not give a clear reason why. Patient refused to be interviewed and asked me to leave. OBJECTIVE: Vital Signs Period Temp Pulse Resp BP Sys/Bryan Pulse Ox Last 24 Hr 97.8 F-98.8 F 80-91 17-18 116-126/55-77 99-100 PHYSICAL EXAM Patient refused to be examined LABS Laboratory Last Values WBC 8.3 K/mm3 (4.0-10.0) 03/26/18 03:45 RBC 3.69 M/mm3 (3.60-5.2) 03/26/18 03:45 Hgb 12.8 GM/dL (10.7-15.3) 03/26/18 03:45 Hct 37.4 % (32.4-45.2) 03/26/18 03:45 MCV 101.2 fl (80-96) H 03/26/18 03:45 MCH 34.6 pg (25.7-33.7) H 03/26/18 03:45 MCHC 34.1 g/dl (32.0-36.0) 03/26/18 03:45 RDW 14.7 % (11.6-15.6) D 03/26/18 03:45 Plt Count 153 K/MM3 (134-434) 03/26/18 03:45 MPV 7.9 fl (7.5-11.1) D 03/26/18 03:45 Absolute Neuts (auto) 6.0 K/mm3 (1.5-8.0) 03/26/18 03:45 Neutrophils % 72.1 % (42.8-82.8) D 03/26/18 03:45 Lymphocytes % 21.7 % (8-40) D 03/26/18 03:45 Monocytes % 3.6 % (3.8-10.2) L 03/26/18 03:45 Eosinophils % 1.1 % (0-4.5) 03/26/18 03:45 Basophils % 1.5 % (0-2.0) 03/26/18 03:45 Nucleated RBC % 0 % (0-0) 03/26/18 03:45 Sodium 139 mmol/L (136-145) 03/26/18 03:45 Potassium 3.7 mmol/L (3.5-5.1) 03/26/18 03:45 Chloride 106 mmol/L (98-107) 03/26/18 03:45 Carbon Dioxide 19 mmol/L (21-32) L 03/26/18 03:45 Anion Gap 14 MMOL/L (8-16) 03/26/18 03:45 BUN 6 mg/dL (7-18) L 03/26/18 03:45 Creatinine 0.6 mg/dL (0.55-1.3) 03/26/18 03:45 Creat Clearance w eGFR > 60 (>60) 03/26/18 03:45 POC Glucometer 178 UNITS (80-120) 03/27/18 05:25 Random Glucose 203 mg/dL (74-106) H 03/26/18 03:45 Hemoglobin A1c % 8.2 % (4.2-6.3) H 03/26/18 09:10 Calcium 8.4 mg/dL (8.5-10.1) L 03/26/18 03:45 Phosphorus 4.0 mg/dL (2.5-4.9) 03/26/18 09:10 Magnesium 1.8 mg/dL (1.8-2.4) 03/26/18 09:10 Total Bilirubin 0.3 mg/dL (0.2-1) 03/26/18 03:45 AST 53 U/L (15-37) H 03/26/18 03:45 ALT 38 U/L (13-61) 03/26/18 03:45 Alkaline Phosphatase 84 U/L (45-117) 03/26/18 03:45 Troponin I 0.06 ng/ml (0.00-0.05) H 03/26/18 09:10 Total Protein 8.4 g/dl (6.4-8.2) H 03/26/18 03:45 Albumin 3.0 g/dl (3.4-5.0) L 03/26/18 03:45 Triglycerides 123 mg/dL (0-150) 03/26/18 09:10 Cholesterol 137 mg/dL (50-200) 03/26/18 09:10 Total LDL Cholesterol 90 mg/dL (5-100) 03/26/18 09:10 HDL Cholesterol 30 mg/dL (40-60) L 03/26/18 09:10 Vitamin B12 277 pg/ml (193-986) 03/26/18 09:10 Serum Folate 22 ng/mL (3.1-17.5) H 03/26/18 09:10 TSH 3.84 uIU/ml (0.358-3.74) H 03/26/18 09:10 Urine Color Straw 03/26/18 12:20 Urine Appearance Clear 03/26/18 12:20 Urine pH 6.0 (5.0-8.0) 03/26/18 12:20 Ur Specific [place] 1.004 (1.010-1.035) L 03/26/18 12:20 Urine Protein Negative (NEGATIVE) 03/26/18 12:20 Urine Glucose (UA) Negative (NEGATIVE) 03/26/18 12:20 Urine Ketones Negative (NEGATIVE) 03/26/18 12:20 Urine Blood 2+ (NEGATIVE) H 03/26/18 12:20 Urine Nitrite Negative (NEGATIVE) 03/26/18 12:20 Urine Bilirubin Negative (<2.0 mg/dL) 03/26/18 12:20 Urine Urobilinogen Negative mg/dL (0.2-1.0) 03/26/18 12:20 Ur Leukocyte Esterase Negative (NEGATIVE) 03/26/18 12:20 Urine WBC (Auto) 1 /hpf (3-5) 03/26/18 12:20 Urine RBC (Auto) 4 /hpf (0-3) 03/26/18 12:20 Ur Epithelial Cells Rare /HPF (FEW) 03/26/18 12:20 Urine Bacteria Rare /hpf (NONE SEEN) 03/26/18 12:20 Opiates Screen Negative ng/ml (MCXRMV=525) 03/26/18 12:20 Methadone Screen Negative ng/ml (QZKGRL=787) 03/26/18 12:20 Barbiturate Screen Negative ng/ml (VVHEWN=735) 03/26/18 12:20 Phencyclidine Screen Negative ng/ml (CUTOFF=25) 03/26/18 12:20 Ur Amphetamines Screen Negative ng/ml (GUTBTL=892) 03/26/18 12:20 MDMA (Ecstasy) Screen Negative ng/ml (TVVHYE=304) 03/26/18 12:20 Benzodiazepines Screen Positive ng/ml (BKBJXO=756) A* 03/26/18 12:20 Cocaine Screen Negative ng/ml (LFJMNL=241) 03/26/18 12:20 U Marijuana (THC) Screen Negative ng/ml (CUTOFF=50) 03/26/18 12:20 Alcohol, Quantitative 7.2 mg/dL (0.0-5.0) H 03/26/18 03:45 IMAGING: -CXR: Atelectatic changes at bases. Elevated left hemidiaphragm. -EKG: SINUS TACHYCARDIA, POSSIBLE LEFT ATRIAL ENLARGEMENT, LEFT VENTRICULAR HYPERTROPHY, VR 103, QTc 510 -ECHO: Mild concentric LVH, LV Systolic function is normal, EF = 55-60%, Impaired LV relaxation, RV is normal in size and function, Mild MR and TR, no pericardial effusion. HOSPITAL COURSE: Date of Admission:03/26/18 Date of Discharge: 03/27/18 47 y/o F with PMHx of HTN, DM, asthma, alcohol use disorder, bipolar disorder presented to [facility] with chest discomfort and was admitted to R/O ACS. Trops were 0.06 x 2. EKG and Echo were done (noted above). Patient was monitored on Tele during her hospital stay. Cardiology was consulted and recommended a stress test. On the day of Stress test, patient refused to be interviewed or examined. As per nursing staff, patient was brought down to the cardiology suite and refused stress test. Patient was brought back to her room and Eloped without any further discussion. Patients A1c was elevated at 8.2% and a home diabetes regimen would have been recommended however patient eloped. Patient admitted to significant alcohol use on admission and was started on Librium protocol. She refused any assistance with her alcohol use. Minutes to complete discharge: 45 Discharge Summary Reason For Visit: SHORTNESS OF BREATH,CHESTPAIN - Instructions Disposition: ELOPED - Home Medications Comprehensive Discharge Medication List: Ambulatory Orders Folic Acid 1 mg PO DAILY 02/05/17 Albuterol Sulfate Inhaler - [Ventolin Hfa Inhaler -] 2 puff IH QID 03/26/18 Aspirin 81 mg PO DAILY 03/26/18 Atorvastatin Ca [Lipitor] 20 mg PO DAILY 03/26/18 Docusate Sodium [Colace -] 100 mg PO BID 03/26/18 Ferrous Sulfate 325 mg PO TID 03/26/18 Lisinopril 20 mg PO DAILY 03/26/18 Metformin HCl [Metformin HCl ER] 500 mg PO BID 03/26/18 Montelukast Na [Singulair -] 10 mg PO DAILY 03/26/18 Omeprazole 20 mg PO DAILY 03/26/18 Thiamine HCl [Vitamin B1] 100 mg PO DAILY 03/26/18 This patient is new to me today: No Emergency Visit: Yes ED Registration Date: 03/26/18 Care time: The patient presented to the Emergency Department on the above date and was hospitalized for further evaluation of their emergent condition. Critical Care patient: No - Discharge Referral Referred to [facility] No
[2018-03-27] MEDS ORDERED: ATORVASTATIN CA 20 MG TABLET (FP) PO SCH (22:00)
[2018-03-27] MEDS ORDERED: MONTELUKAST NA 10 MG TABLET PO SCH (22:00)
[2018-03-28] MEDS ORDERED: chlordiazePOXIDE 5 MG CAPSULE PO SCH (11:00)
[2018-03-29] MEDS ORDERED: chlordiazePOXIDE 5 MG CAPSULE PO SCH (11:00)
== END 2018-03-27 11:27 | disposition left against medical advice (07) ==
LOC: JER 00:09 → JERBED 04:41 → INTOOBSV 04:41 → UNDOADMOB 04:41 → JERBED 06:07 → J4W 17:57 → JERBED 17:57 → J4W 17:57 → UNDODISOB 03-27 11:27
PROVIDERS: ADMIT Internal Medicine; ATTEND Internal Medicine
PROC: 3E0F7GC Introduction of Other Therapeutic Substance into Respiratory Tract, Via Natural or Artificial Opening (ICD-10-PCS; principal; 2018-03-26)
DX: R07.9 Chest pain, unspecified (principal); F10.129 Alcohol abuse with intoxication, unspecified; E11.9 Type 2 diabetes mellitus without complications; I10 Essential (primary) hypertension; F41.9 Anxiety disorder, unspecified; J45.909 Unspecified asthma, uncomplicated; F31.9 Bipolar disorder, unspecified; K21.9 Gastro-esophageal reflux disease without esophagitis; F17.210 Nicotine dependence, cigarettes, uncomplicated; Z88.6 Allergy status to analgesic agent; Z86.69 Personal history of other diseases of the nervous system and sense organs; D75.89 Other specified diseases of blood and blood-forming organs; R00.0 Tachycardia, unspecified
CPT/HCPCS: 36415; 71046-TC-FY; 78452-TC; 80053; 80061; 80307; 81003; 81015; 82607; 82746; 82962; 83036; 83721; 83735; 84100; 84443; 84484; 85025; 87804; 93005; 93010; 93017; 93306-TC; 99285-25; A9502; G0378; J1644; J2785

== ENCOUNTER 2018-05-12 05:08 | Emergency (ER) | payer OTHER ==
[2018-05-12 05:14] VITALS: TEMP 98; BMI 28.7
--- NOTE | 2018-05-12 05:19 | PDOC ---
History of Present Illness - General History Source: Patient Exam Limitations: Intoxication - History of Present Illness Initial Comments: 05/12/18 05:23 47 year old female with PMH HTN, DM, bipolar disorder, asthma, ETOH abuse presented to ED for headache since today. She stated her headache is located to her forehead, wrapping around like a band, worsened by light and sound, alleviated by darkness, progressed slowly, currently 10/10. She denied fever, vomiting, weakness, numbness, tingling, neck pain. Pt admitted to drinking 6 beers today. Pt ambulates at baseline with walker. Admitted to everyday ETOH use, 4 beers a day. Admitted to everyday cigarette use. Denied drug use. Allergies: acetaminophen, asa, morphine, oxycodone <Mariposa Hoyt - Last Filed: 05/12/18 07:19> <Kylee Sewell - Last Filed: 05/12/18 07:28> - General Chief Complaint: Alcohol intoxication Stated Complaint: INTOX,HEADACHE Time Seen by Provider: 05/12/18 05:19 Past History - Past Medical History Anemia: Yes Asthma: Yes COPD: No Diabetes: Yes GI Disorders: Yes (GERD) HTN: Yes Psychiatric Problems: Yes (bipolar, anxiety, depression) Seizures: Yes (pt states she has a h/o seizures) - Surgical History Abdominal Surgery: Yes - Immunization History Immunization Up to Date: No - Suicide/Smoking/Psychosocial Hx Smoking History: Never smoked Have you smoked in the past 12 months: No Number of Cigarettes Smoked Daily: 20 If you are a former smoker, when did you quit?: pt refusing to quit Information on smoking cessation initiated: No 'Breaking Loose' booklet given: 11/23/16 Hx Alcohol Use: No Drug/Substance Use Hx: No Substance Use Type: Alcohol <Mariposa Hoyt - Last Filed: 05/12/18 07:19> <Kylee Sewell - Last Filed: 05/12/18 07:28> - Past Medical History Allergies/Adverse Reactions: Allergies Allergy/AdvReac Type Severity Reaction Status Date / Time acetaminophen [From Percocet] Allergy Verified 05/12/18 05:12 aspirin Allergy Verified 05/12/18 05:12 morphine Allergy Verified 05/12/18 05:12 oxycodone Allergy Verified 05/12/18 05:12 oxycodone HCl [From Percocet] Allergy Verified 05/12/18 05:12 Home Medications: Ambulatory Orders Folic Acid 1 mg PO DAILY 02/05/17 Albuterol Sulfate Inhaler - [Ventolin Hfa Inhaler -] 2 puff IH QID 03/26/18 Aspirin 81 mg PO DAILY 03/26/18 Atorvastatin Ca [Lipitor] 20 mg PO DAILY 03/26/18 Docusate Sodium [Colace -] 100 mg PO BID 03/26/18 Ferrous Sulfate 325 mg PO TID 03/26/18 Lisinopril 20 mg PO DAILY 03/26/18 Metformin HCl [Metformin HCl ER] 500 mg PO BID 03/26/18 Montelukast Na [Singulair -] 10 mg PO DAILY 03/26/18 Omeprazole 20 mg PO DAILY 03/26/18 Thiamine HCl [Vitamin B1] 100 mg PO DAILY 03/26/18 Review of Systems - Review of Systems Able to Perform ROS?: Yes Comments:: 05/12/18 05:41 General: denied fever, chills, night sweats, generalized weakness. HEENT: denied sore throat, rhinorrhea, ear pain. Heart: denied chest pain, palpitations, syncope, lower extremity swelling, diaphoresis. Respiratory: denied shortness of breath, cough, sputum production, hemoptysis. Abdomen: denied abdominal pain, nausea, vomiting, diarrhea, constipation, blood in stool. : denied dysuria, increased urinary frequency, hematuria, urinary incontinence , flank pain. Back: denied back pain. Musculoskeletal: denied joint pain, muscle pain, joint swelling. Neurological: admitted to headache. denied dizziness, numbness, tingling, weakness. Skin: denied rash, laceration, abrasion. <Mariposa Hoyt - Last Filed: 05/12/18 07:19> *Physical Exam - Vital Signs Last Vital Signs Temp Pulse Resp BP Pulse Ox 98.0 F 85 16 117/55 L 94 L 05/12/18 05:12 05/12/18 05:12 05/12/18 05:12 05/12/18 05:12 05/12/18 05:12 - Physical Exam Comments: 05/12/18 05:42 Constitutional: Well-nourished, Well-developed, appearing stated age. smells of alcohol. appears intoxicated. HEENT: head is normocephalic, atraumatic. EOMI. PERRLA. Neck: supple. Full ROM. Heart: regular rhythm. no murmurs, rubs or gallops. Lungs: clear to auscultation bilaterally. no crackles, rhonchi or wheezing. no stridor. Abdomen: soft, nontender. normal bowel sounds. no rebound, guarding, masses. Extremities: Peripheral pulses intact. No lower extremity edema. Neurological: Alert. Oriented x3. CN2-12 intact. 5/5 strength RUE, LUE. 0/5 strength RLE, LLE. Full sensation all extremities and bilateral face. Psych: awake, alert, oriented x3. Follows commands. Answers questions appropriately. Pt stated she cannot lift her legs off the bed due to the danny in her right leg and stated that lower extremity weakness is not new. Pt ambulates with walker. <Mariposa Hoyt - Last Filed: 05/12/18 07:19> - Vital Signs Last Vital Signs Temp Pulse Resp BP Pulse Ox 98.0 F 85 16 117/55 L 94 L 05/12/18 05:12 05/12/18 05:12 05/12/18 05:12 05/12/18 05:12 05/12/18 05:12 <Kylee Sewell - Last Filed: 05/12/18 07:28> Moderate Sedation - Procedure Monitoring Vital Signs: Procedure Monitoring Vital Signs Temperature 98.0 F 05/12/18 05:12 Pulse Rate 85 05/12/18 05:12 Respiratory Rate 16 05/12/18 05:12 Blood Pressure 117/55 L 05/12/18 05:12 O2 Sat by Pulse Oximetry (%) 94 L 05/12/18 05:12 <Mariposa Hoyt - Last Filed: 05/12/18 07:19> - Procedure Monitoring Vital Signs: Procedure Monitoring Vital Signs Temperature 98.0 F 05/12/18 05:12 Pulse Rate 85 05/12/18 05:12 Respiratory Rate 16 05/12/18 05:12 Blood Pressure 117/55 L 05/12/18 05:12 O2 Sat by Pulse Oximetry (%) 94 L 05/12/18 05:12 <Kylee Sewell - Last Filed: 05/12/18 07:28> ED Treatment Course - LABORATORY CBC & Chemistry Diagram: 05/12/18 06:05 05/12/18 06:05 <Mariposa Hoyt - Last Filed: 05/12/18 07:19> - LABORATORY CBC & Chemistry Diagram: 05/12/18 06:05 05/12/18 06:05 - ADDITIONAL ORDERS Additional order review: Laboratory Results 05/12/18 05/12/18 05/12/18 06:05 06:05 06:05 Sodium 133 L Potassium 3.5 Chloride 100 Carbon Dioxide 16 L Anion Gap 17 H BUN 12 Creatinine 0.8 Creat Clearance w eGFR > 60 Random Glucose 107 H Calcium 9.0 Total Bilirubin 0.3 AST 110 H ALT 71 H Alkaline Phosphatase 76 Total Protein 8.5 H Albumin 3.7 Serum , Qual Negative Salicylates 3.5 Acetaminophen < 2.0 L Alcohol, Quantitative 108.4 H - Medications Given in the ED: ED Medications Discontinued Medications Generic Name Dose Route Start Last Admin Trade Name Freq PRN Reason Stop Dose Admin Folic Acid 1 mg/ Thiamine HCl 1,000 mls @ 125 mls/hr 05/12/18 05:21 05/12/18 06:09 100 mg/ Multivitamins/Minerals IVPB 05/12/18 13:20 Not Given 10 ml/ Sodium Chloride ONCE ONE Metoclopramide HCl 10 mg 05/12/18 05:39 05/12/18 05:52 Reglan Injection - IVPUSH 05/12/18 05:40 10 mg ONCE ONE Administration <Kylee Sewellcarlos - Last Filed: 05/12/18 07:28> Medical Decision Making - Medical Decision Making 05/12/18 05:43 47 year old female with above PMH presented to the ED intoxicated complaining of headache. Pt stated she got a medicine "in the IV" that helped her headache last time. Pt is neurologically intact. Initial Vital Signs Temp Pulse Resp BP Pulse Ox 98.0 F 85 16 117/55 L 94 L 05/12/18 05:12 05/12/18 05:12 05/12/18 05:12 05/12/18 05:12 05/12/18 05:12 Afebrile. No tachycardia. No tachypnea. Mild hypotension. No hypoxia on room air. Labs ordered: CBC, CMP, ETOH, salicyclate, acetaminophen Medications ordered: reglan, banana bag Imaging ordered: CXR 05/12/18 06:56 Pt reassessed, reported resolution of headache. Pt returned to sleeping comfortably. 05/12/18 06:59 CMP Sodium 133 mmol/L (136-145) L 05/12/18 06:05 Potassium 3.5 mmol/L (3.5-5.1) 05/12/18 06:05 Chloride 100 mmol/L (98-107) 05/12/18 06:05 Carbon Dioxide 16 mmol/L (21-32) L 05/12/18 06:05 Anion Gap 17 MMOL/L (8-16) H 05/12/18 06:05 BUN 12 mg/dL (7-18) 05/12/18 06:05 Creatinine 0.8 mg/dL (0.55-1.3) 05/12/18 06:05 Creat Clearance w eGFR > 60 (>60) 05/12/18 06:05 Random Glucose 107 mg/dL (74-106) H 05/12/18 06:05 Calcium 9.0 mg/dL (8.5-10.1) 05/12/18 06:05 Total Bilirubin 0.3 mg/dL (0.2-1) 05/12/18 06:05 AST 110 U/L (15-37) H 05/12/18 06:05 ALT 71 U/L (13-61) H 05/12/18 06:05 Alkaline Phosphatase 76 U/L (45-117) 05/12/18 06:05 Total Protein 8.5 g/dl (6.4-8.2) H 05/12/18 06:05 Albumin 3.7 g/dl (3.4-5.0) 05/12/18 06:05 Serum , Qual Negative 05/12/18 06:05 Mild hyponatremia - Pt receiving banana bag Mild transaminitis - Pt is known ETOH abuser ETOH 108.4 Salicyclate and acetminophen wnl. Pt signed out to Dr. Arciniega. Pending CXR. <Mariposa Hoyt - Last Filed: 05/12/18 07:19> *DC/Admit/Observation/Transfer <Mariposa Hoyt - Last Filed: 05/12/18 07:19> - Discharge Dispostion Decision to Admit order: No <Kylee Sewell - Last Filed: 05/12/18 07:28> Diagnosis at time of Disposition: Headache Qualifiers: Headache type: unspecified Headache chronicity pattern: unspecified pattern Intractability: not intractable Qualified Code(s): R51 - Headache Alcohol intoxication Qualifiers: Complication of substance-induced condition: uncomplicated Qualified Code(s): F10.920 - Alcohol use, unspecified with intoxication, uncomplicated - Discharge Dispostion Condition at time of disposition: Improved - Referrals Referrals: ON STAFF,NOT [Primary Care Provider] - - Patient Instructions Printed Discharge Instructions: DI for Alcohol Abuse, DI for Headache Additional Instructions: You were seen today for alcohol intoxication. Your blood work showed your liver enzymes are elevated. I advise that you seek treatment at a detox center. It is dangerous to stop drinking alcohol all at once, you can have a seizure and . Follow up with your primary care doctor in 1-2 days. Return to the Emergency Department for increasing pain, weakness, numbness, tingling, chest pain, shortness of breath, facial drooping or any other new, worsening or concerning symptoms.
[2018-05-12] MEDS ORDERED: FOLIC ACID INJECTION - 1 MG, THIAMINE HCL 100 MG, MULTIVIT INJECTION ADULT 10 ML in SOD... IVPB ONE ×2 (05:21→05:51)
[2018-05-12] MEDS ORDERED: METOCLOPRAMIDE HCL INJECTION 10 MG/2 ML VIAL IVPUSH ONE (05:39)
[2018-05-12] MEDS ORDERED: METOCLOPRAMIDE HCL INJECTION 10 MG/2 ML VIAL ONE (05:51)
--- NOTE | 2018-05-12 05:54 | PDOC ---
Attending Attestation - Resident Resident Name: Mariposa Hoyt - ED Attending Attestation I have performed the following: I have examined & evaluated the patient, The case was reviewed & discussed with the resident, I agree w/resident's findings & plan - HPI HPI: 05/12/18 05:49 47 year old female with PMH HTN, DM, bipolar disorder, asthma, ETOH abuse presented to ED for headache since today. +photosensitivity. +drinks beers daily, also had some shots today. - Physicial Exam PE: 05/12/18 05:50 intoxicated. PERRL, EOMI, MMM, nl conjunctiva, anicteric; neck supple. lungs clear, no respiratory distress, RRR, abdomen soft nontender. WHALEN x4, no focal neuro deficits. No peripheral edema. normal color for ethnicity, WWP. - Medical Decision Making 05/12/18 05:52 hpi as documented Vitals wnl, spo2 borderline 94%, will check cxr to r/o infection. but she does have asthma, +active smoker so can have borderline sats. given banana bag, hydration and reglan for headache. has multiple allergies. basic labs and lytes with mildly low sodium, but also AG noted likely 2/2 ETOH intox. tox screen neg for tyl/salicylates CXR with poor inspiratory effort, no acute pathology appearing similar to prior cxr. sobriety, monitor and reassess after meds/intervention. anticipate discharge after clinical reeval and outpatient followup, detox referral advised 05/12/18 07:28 05/12/18 07:30
[2018-05-12 06:35] LABS: EOS % 2.2 % (0-4.5); HEMATOCRIT 36.9 % (32.4-45.2); HEMOGLOBIN 12.2 GM/dL (10.7-15.3); LYMPH % 33.1 % (8-40); MCH 33.5 pg (25.7-33.7); MCHC 33.1 g/dl (32.0-36.0); MEAN CELL VOLUME 101.2 fl (80-96); MEAN PLT VOLUME 8.1 fl (7.5-11.1); NEUT % 59.7 % (42.8-82.8); PLATELET COUNT 162 K/MM3 (134-434); RBC 3.65 M/mm3 (3.60-5.2); RDW 13.2 % (11.6-15.6); WHITE BLOOD COUNT 10.5 K/mm3 (4.0-10.0)
[2018-05-12 06:56] LABS: ALBUMIN 3.7 g/dl (3.4-5.0); ALK PHOS 76 U/L (45-117); ANION GAP 17 MMOL/L (8-16); BILIRUBIN,TOTAL 0.3 mg/dL (0.2-1); BLOOD UREA NITROGEN 12 mg/dL (7-18); CHLORIDE 100 mmol/L (98-107); CO2 16 mmol/L (21-32); CREATININE 0.8 mg/dL (0.55-1.3); GLUCOSE,RANDOM 107 mg/dL (74-106); POTASSIUM 3.5 mmol/L (3.5-5.1); SGOT/AST 110 U/L (15-37); SGPT/ALT 71 U/L (13-61); SODIUM 133 mmol/L (136-145); TOT PROT 8.5 g/dl (6.4-8.2)
--- NOTE | 2018-05-12 08:03 | PDOC ---
*Physical Exam - Vital Signs Last Vital Signs Temp Pulse Resp BP Pulse Ox 98.0 F 85 16 117/55 L 94 L 05/12/18 05:12 05/12/18 05:12 05/12/18 05:12 05/12/18 05:12 05/12/18 05:12 ED Treatment Course - LABORATORY CBC & Chemistry Diagram: 05/12/18 06:05 05/12/18 06:05 - ADDITIONAL ORDERS Additional order review: Laboratory Results 05/12/18 05/12/18 05/12/18 06:05 06:05 06:05 Sodium 133 L Potassium 3.5 Chloride 100 Carbon Dioxide 16 L Anion Gap 17 H BUN 12 Creatinine 0.8 Creat Clearance w eGFR > 60 Random Glucose 107 H Calcium 9.0 Total Bilirubin 0.3 AST 110 H ALT 71 H Alkaline Phosphatase 76 Total Protein 8.5 H Albumin 3.7 Serum , Qual Negative Salicylates 3.5 Acetaminophen < 2.0 L Alcohol, Quantitative 108.4 H 05/12/18 06:05 RBC 3.65 MCV 101.2 H MCHC 33.1 RDW 13.2 D MPV 8.1 Neutrophils % 59.7 Lymphocytes % 33.1 D Monocytes % 4.0 Eosinophils % 2.2 D Basophils % 1.0 - Medications Given in the ED: ED Medications Discontinued Medications Generic Name Dose Route Start Last Admin Trade Name Munira PRN Reason Stop Dose Admin Folic Acid 1 mg/ Thiamine HCl 1,000 mls @ 125 mls/hr 05/12/18 05:21 05/12/18 06:09 100 mg/ Multivitamins/Minerals IVPB 05/12/18 13:20 Not Given 10 ml/ Sodium Chloride ONCE ONE Metoclopramide HCl 10 mg 05/12/18 05:39 05/12/18 05:52 Reglan Injection - IVPUSH 05/12/18 05:40 10 mg ONCE ONE Administration Medical Decision Making - Medical Decision Making 05/12/18 08:01 Pt signed out to me by Dr. Hoyt 47 year old female with PMH HTN, DM, bipolar disorder, asthma, ETOH abuse presented to ED for headache since today. She stated her headache is located to her forehead, wrapping around like a band, worsened by light and sound, alleviated by darkness, progressed slowly, currently 10/10. She denied fever, vomiting, weakness, numbness, tingling, neck pain. Pt admitted to drinking 6 beers today. Pt ambulates at baseline with walker. Labs: Laboratory Tests 05/12/18 05/12/18 05/12/18 06:05 06:05 06:05 WBC 10.5 H Sodium 133 L Potassium 3.5 Anion Gap 17 H AST 110 H ALT 71 H Alcohol, Quantitative 108.4 H Received banana bag. Reglan for headache Pt complaining of cough. Xray shows possible L infiltrate. Low inspiratory effort. 05/12/18 08:15 Clear breath sounds bilaterally. Pt not complaining of SOB. Will order cxr pa/ lat. 05/12/18 10:37 Pt walking around ED expressing desire to be discharged. If CXR normal, will dc home CXR does not show acute process. Will DC home. Pt is not ataxic and is speaking without slurred speech. can be dc home. *DC/Admit/Observation/Transfer Diagnosis at time of Disposition: Headache Qualifiers: Headache type: unspecified Headache chronicity pattern: unspecified pattern Intractability: not intractable Qualified Code(s): R51 - Headache Alcohol intoxication Qualifiers: Complication of substance-induced condition: uncomplicated Qualified Code(s): F10.920 - Alcohol use, unspecified with intoxication, uncomplicated - Discharge Dispostion Disposition: HOME Condition at time of disposition: Improved - Referrals Referrals: ON STAFF,NOT [Primary Care Provider] - - Patient Instructions Printed Discharge Instructions: DI for Alcohol Abuse, DI for Headache Additional Instructions: You were seen today for alcohol intoxication. Your blood work showed your liver enzymes are elevated. I advise that you seek treatment at a detox center. It is dangerous to stop drinking alcohol all at once, you can have a seizure and . Follow up with your primary care doctor in 1-2 days. Return to the Emergency Department for increasing pain, weakness, numbness, tingling, chest pain, shortness of breath, facial drooping or any other new, worsening or concerning symptoms. - Post Discharge Activity
[2018-05-12 10:13] VITALS: BP 119/52; PULSE 72
== END 2018-05-12 11:31 | disposition home or self-care (01) ==
LOC: JER 05:08
PROC: 3E033GC Introduction of Other Therapeutic Substance into Peripheral Vein, Percutaneous Approach (ICD-10-PCS; principal; 2018-05-12)
DX: R51 Headache (principal); F10.920 Alcohol use, unspecified with intoxication, uncomplicated; Z87.891 Personal history of nicotine dependence; I10 Essential (primary) hypertension; F31.9 Bipolar disorder, unspecified; J45.909 Unspecified asthma, uncomplicated; K21.9 Gastro-esophageal reflux disease without esophagitis; E11.9 Type 2 diabetes mellitus without complications
CPT/HCPCS: 36415; 71046-TC-FY; 80053; 80307; 84703; 85025; 96365; 96375; 99283-25; J7030

== ENCOUNTER 2019-03-24 11:13 | Observation (INO) | payer OTHER ==
[2019-03-24 11:30] VITALS: BMI 30.1
[2019-03-24] MEDS ORDERED: SODIUM CHLORIDE 1,000 ML IV STA ×2 (12:04→16:35)
[2019-03-24] MEDS ORDERED: LORazepam 2 MG/ML SDV VIAL ONE (12:25)
[2019-03-24 12:36] LABS: BASO % 0.6 % (0-2.0); EOS % 0.7 % (0-4.5); HEMATOCRIT 43.6 % (32.4-45.2); HEMOGLOBIN 14.5 GM/dL (10.7-15.3); LYMPH % 7.9 % (8-40); MCH 33.6 pg (25.7-33.7); MCHC 33.3 g/dl (32.0-36.0); MEAN CELL VOLUME 100.7 fl (80-96); MEAN PLT VOLUME 8.3 fl (7.5-11.1); MONO % 3.6 % (3.8-10.2); NEUT % 87.2 % (42.8-82.8); PLATELET COUNT 209 K/MM3 (134-434); RBC 4.33 M/mm3 (3.60-5.2); RDW 13.7 % (11.6-15.6); WHITE BLOOD COUNT 11.8 K/mm3 (4.0-10.0)
[2019-03-24 15:09] LABS: ALBUMIN 4.3 g/dl (3.4-5.0); BILIRUBIN,TOTAL 1.2 mg/dL (0.2-1); BLOOD UREA NITROGEN 23.6 mg/dL (7-18); CALCIUM 9.9 mg/dL (8.5-10.1); CREATININE 1.2 mg/dL (0.55-1.3); POTASSIUM 4.2 mmol/L (3.5-5.1); TOT PROT 10.2 g/dl (6.4-8.2)
--- NOTE | 2019-03-24 15:28 | PDOC ---
Documentation entered by Chely Valdez SCRIBE, acting as scribe for Pam Christine MD. Pam Christine MD: This documentation has been prepared by the José Miguel reaves Adrianna, SCRIBE, under my direction and personally reviewed by me in its entirety. I confirm that the documentation accurately reflects all work, treatment, procedures, and medical decision making performed by me. History of Present Illness - General Chief Complaint: Seizure Stated Complaint: SEIZURE Time Seen by Provider: 03/24/19 11:24 - History of Present Illness Initial Comments: The patient is a 48 year old female, with a significant PMH of HTN, DM, bipolar disorder, asthma, and EtOH abuse, who presents to the ED BIBEMS for possible seizure activity. Patient is poor historian and is reluctant to provide history , so boyfriend at bedside provides history. He notes that the patient was talking to her friend earlier this morning, when she suddenly fell to the floor and blacked out. He notes that the patient began trembling, clenching her fists , and was not acting like her normal self. He called EMS, and they suggested that is was a seizure. Patients last seizure was 3 years ago, and she is not currently on and medications. Patient is a daily drinker, and notes she did not have a drink today (tends to get shaky and tremulous when she doesnt). She complains of low back pain and hip pain that is chronic, and feet pain secondary to falling. Allergies: acetaminophen, aspirin, morphine, oxycodone, oxycodone HCl Surgical History: Abdominal surgery Social History: EtOH abuse. Current everyday smoker PCP: [facility] 03/24/19 14:36 Is this a multiple visit Asthma Patient?: No Past History - Past Medical History Allergies/Adverse Reactions: Allergies Allergy/AdvReac Type Severity Reaction Status Date / Time acetaminophen [From Percocet] Allergy Verified 03/24/19 11:30 aspirin Allergy Verified 03/24/19 11:30 morphine Allergy Verified 03/24/19 11:30 oxycodone Allergy Verified 03/24/19 11:30 oxycodone HCl [From Percocet] Allergy Verified 03/24/19 11:30 Home Medications: Ambulatory Orders Folic Acid 1 mg PO DAILY 02/05/17 Albuterol Sulfate Inhaler - [Ventolin HFA Inhaler -] 2 puff IH QID 03/26/18 Lisinopril 20 mg PO DAILY 03/26/18 metFORMIN HCL [Metformin ER Osmotic] 500 mg PO BID 03/26/18 Alprazolam [Xanax] 1 mg PO ASDIR 03/24/19 Gabapentin 1 tab PO ASDIR 03/24/19 Anemia: Yes Asthma: Yes COPD: No Diabetes: Yes GI Disorders: Yes (GERD) HTN: Yes Psychiatric Problems: Yes (bipolar, anxiety, depression) Seizures: Yes (pt states she has a h/o seizures) - Surgical History Abdominal Surgery: Yes - Immunization History Immunization Up to Date: No - Psycho Social/Smoking Cessation Hx Smoking History: Current every day smoker Have you smoked in the past 12 months: No Number of Cigarettes Smoked Daily: 20 If you are a former smoker, when did you quit?: pt refusing to quit Information on smoking cessation initiated: No 'Breaking Loose' booklet given: 11/23/16 Hx Alcohol Use: Yes (hx EOTH abuse) Drug/Substance Use Hx: No Substance Use Type: Alcohol Review of Systems - Review of Systems Comments:: GENERAL/CONSTITUTIONAL: +S/p possible seizure. No fever or chills. No weakness. HEAD, EYES, EARS, NOSE AND THROAT: No change in vision. No ear pain or discharge. No sore throat. CARDIOVASCULAR: No chest pain or shortness of breath. RESPIRATORY: No cough, wheezing, or hemoptysis. GASTROINTESTINAL: No nausea, vomiting, diarrhea or constipation. GENITOURINARY: No dysuria, frequency, or change in urination. MUSCULOSKELETAL: +Chronic low back pain. +Chronic hip pain. +Bilateral feet pain. No neck pain. SKIN: No rash NEUROLOGIC: No headache, vertigo, loss of consciousness, or change in strength/ sensation. ENDOCRINE: No increased thirst. No abnormal weight change. HEMATOLOGIC/LYMPHATIC: No anemia, easy bleeding, or history of blood clots. ALLERGIC/IMMUNOLOGIC: No hives or skin allergy. *Physical Exam - Vital Signs Last Vital Signs Temp Pulse Resp BP Pulse Ox 98.1 F 98 H 30 H 169/71 99 03/24/19 11:27 03/24/19 11:27 03/24/19 11:27 03/24/19 11:27 03/24/19 11:27 - Physical Exam Comments: GENERAL: Flat affect. The patient is in no acute distress. HEAD: Normal with no signs of trauma. EYES: PERRLA, EOMI, sclera anicteric, conjunctiva clear. ENT: Ears normal, nares patent, oropharynx clear without exudates. Moist mucous membranes. NECK: Normal range of motion, supple without lymphadenopathy, JVD, or masses. LUNGS: Breath sounds equal, clear to auscultation bilaterally. No wheezes, and no crackles. HEART:Regular rate and rhythm, normal S1 and S2 without murmur, rub or gallop. ABDOMEN: Soft, nontender, normoactive bowel sounds. No guarding, no rebound. No masses palpable. EXTREMITIES: Normal range of motion, no edema. No clubbing or cyanosis. No erythema, or tenderness. NEUROLOGICAL: Cranial nerves II through XII grossly intact. Normal speech. No focal neurological deficits. MUSCULOSKELETAL: Back non-tender to palpation, no CVA tenderness SKIN: Warm, Dry, normal turgor, no rashes or lesions noted. ED Treatment Course - LABORATORY CBC & Chemistry Diagram: 03/25/19 18:59 03/25/19 18:59 - ADDITIONAL ORDERS Additional order review: Laboratory Results 03/24/19 03/24/19 12:20 12:20 Sodium Cancelled Potassium Cancelled Chloride Cancelled Carbon Dioxide Cancelled Anion Gap Cancelled BUN Cancelled Creatinine Cancelled Est GFR (CKD-EPI)AfAm Cancelled Est GFR (CKD-EPI)NonAf Cancelled Random Glucose Cancelled Calcium Cancelled Magnesium Cancelled Total Bilirubin Cancelled AST Cancelled ALT Cancelled Alkaline Phosphatase Cancelled Total Protein Cancelled Albumin Cancelled Serum , Qual Negative Alcohol, Quantitative Cancelled 03/24/19 12:20 RBC 4.33 MCV 100.7 H MCHC 33.3 RDW 13.7 MPV 8.3 Neutrophils % 87.2 H D Lymphocytes % 7.9 L D Monocytes % 3.6 L Eosinophils % 0.7 Basophils % 0.6 - RADIOLOGY Radiology Studies Ordered: Category Date Time Status HEAD CT WITHOUT CONTRAST [CT] Stat CT Scan 03/24/19 12:03 Completed Radiograph Interpretation: EXAM#: TYPE/EXAM: RESULT: [id number] CT/HEAD CT WITHOUT CONTRAST History. Seizure Impression. No evidence of acute intracranial hemorrhage, edema, midline shift, mass effect, or skull fracture. There is no CT evidence of acute territorial infarction. Reported By: Alberto Garcia MD 03/24/19 13:57 - Medications Given in the ED: ED Medications Discontinued Medications Generic Name Dose Route Start Last Admin Trade Name Munira PRN Reason Stop Dose Admin Lorazepam 1 mg 03/24/19 12:04 03/24/19 12:33 Ativan Injection - IVPUSH 03/24/19 12:05 1 mg ONCE ONE Administration Medical Decision Making - Medical Decision Making 03/24/19 14:37 Ms Harris is a 48 yo F who presents to the ER via EMS secondary to a seizure According to pt friend, she was in her usual state of health This morning she began to hyperventilate, and shake and clenching her fists Her friend called EMS Upon their arrival, it was thought that she was having a seizure because she was noted to be shaking The patient presented to the ER screaming, actually Examination reveals flattened affect RRR CTA B/L No abd tenderness moving all extremities 03/24/19 15:05 Laboratory Tests 03/24/19 03/24/19 12:20 12:20 WBC 11.8 H Hgb 14.5 Hct 43.6 D Plt Count 209 D Alcohol, Quantitative Cancelled Pt has a h/o alcohol use, per friend, she has not been drinking daily Unclear to me if this was an alcohol withdrawal seizure (pt does not appear hyper adrenergic Pt had a prior seizure, NO AEDs initiated, pt did not follow up No fevers or nuchal rigidity to suggest neurologic infection Pt also has a h/p bipolar d/po Unclear if this presentation is related to psychiatric issue 03/24/19 15:21 Laboratory Tests 03/24/19 14:30 Sodium 135 L Potassium 4.2 Chloride 106 Carbon Dioxide 17 L BUN 23.6 H Creatinine 1.2 Random Glucose 130 H Total Bilirubin 1.2 H AST 171 H ALT 160 H Total Protein 10.2 H 03/24/19 15:21 Consults to Neuro and psych CT: no intracranial hemorrhage, mass, stroke 03/24/19 18:43 Pt is now more coherent States that she has NOT taken ANY of her medications for days due to nausea Abd US demonstrates cholelithiasis, equivocal GB wall thickening 03/24/19 18:55 Laboratory Tests 03/24/19 03/24/19 17:00 17:00 Urine Color Dk yellow Urine Appearance Cloudy Urine Blood 1+ H Urine Nitrite Positive H Ur Leukocyte Esterase Trace Urine WBC (Auto) 5 Urine RBC (Auto) 1 Benzodiazepines Screen Positive A* UTox obtained after Ativan given Urine culture sent Discharge - Discharge Information Problems reviewed: Yes Clinical Impression/Diagnosis: Seizure, Transaminitis Condition: Stable Disposition: HOME - Admission Yes - Follow up/Referral - Patient Discharge Instructions - Post Discharge Activity
[2019-03-24 17:27] LABS: EPI CELLS 3.3 /HPF (0-5/HPF); HYALINE CASTS 21 /lpf (0-8); URINE APPEARANCE CLOUDY; URINE BACTERIA 48.9 /hpf (NEGATIVE); URINE BILIRUBIN 2+ (NEGATIVE); URINE COLOR DK YELLOW; URINE GLUCOSE (UA) NEGATIVE (NEGATIVE); URINE KETONE TRACE (NEGATIVE); URINE LEUK ESTERASE TRACE (NEGATIVE); URINE NITRITE POSITIVE (NEGATIVE); URINE PROTEIN 3+ (NEGATIVE); URINE RBC 1 /hpf (0-4); URINE WBC 5 /hpf (0-5)
[2019-03-24 18:38] LABS: COCAINE, UR NEGATIVE ng/ml (CUTOFF=300); METHADONE, UR NEGATIVE ng/ml (CUTOFF=300); OPIATES, URI NEGATIVE ng/ml (CUTOFF=300); PHENCYCLIDINE,URINE NEGATIVE ng/ml (CUTOFF=25); URINE AMPHETAMINES NEGATIVE ng/ml (CUTOFF=500); URINE BARBITURATES NEGATIVE ng/ml (CUTOFF=200)
[2019-03-24 18:40] LABS: URINE BENZODIAZEPINES POSITIVE ng/ml (CUTOFF=200)
--- NOTE | 2019-03-24 18:57 | HP ---
Admitting History and Physical - Primary Care Physician PCP: Wojciech Corona - Admission History of Present Illness: 48 year old female, with a significant PMH of HTN, DM, bipolar disorder, asthma , and EtOH abuse, who presents to the ED BIBEMS for possible seizure activity. Patient is poor historian and is reluctant to provide history, so boyfriend at bedside provides history. He notes that the patient was talking to her friend earlier this morning, when she suddenly fell to the floor and blacked out. He notes that the patient began trembling, clenching her fists, and was not acting like her normal self. He called EMS, and they suggested that is was a seizure. Patients last seizure was 3 years ago, and she is not currently on and medications. Patient is a daily drinker, and notes she did not have a drink today (tends to get shaky and tremulous when she doesnt). She complains of low back pain and hip pain that is chronic, and feet pain secondary to falling. - Past Medical History Cardiovascular: Yes: HTN, Hyperlipdemia Psych: Yes: Addictions, Bipolar Endocrine: Yes: Diabetes Mellitus - Smoking History Smoking history: Current every day smoker Have you smoked in the past 12 months: No Aproximately how many cigarettes per day: 20 If you are a former smoker, when did you quit?: pt refusing to quit - Alcohol/Substance Use Hx Alcohol Use: Yes (hx EOTH abuse) - Social History ADL: Independent History of Recent Travel: No Home Medications - Allergies Allergies/Adverse Reactions: Allergies Allergy/AdvReac Type Severity Reaction Status Date / Time acetaminophen [From Percocet] Allergy Verified 03/24/19 11:30 aspirin Allergy Verified 03/24/19 11:30 morphine Allergy Verified 03/24/19 11:30 oxycodone Allergy Verified 03/24/19 11:30 oxycodone HCl [From Percocet] Allergy Verified 03/24/19 11:30 - Home Medications Home Medications: Ambulatory Orders Folic Acid 1 mg PO DAILY 02/05/17 Albuterol Sulfate Inhaler - [Ventolin Hfa Inhaler -] 2 puff IH QID 03/26/18 Lisinopril 20 mg PO DAILY 03/26/18 metFORMIN HCL [Metformin HCl ER] 500 mg PO BID 03/26/18 Alprazolam [Xanax] 1 mg PO ASDIR 03/24/19 Gabapentin 1 tab PO ASDIR 03/24/19 Physical Examination Vital Signs: Vital Signs Temperature 98.1 F 03/24/19 11:27 Pulse Rate 92 H 03/24/19 15:36 Respiratory Rate 18 03/24/19 15:36 Blood Pressure 147/80 03/24/19 15:36 O2 Sat by Pulse Oximetry (%) 97 03/24/19 15:36 Constitutional: Yes: No Distress HENT: Yes: Atraumatic Neck: Yes: Supple Cardiovascular: Yes: Regular Rate and Rhythm Respiratory: Yes: CTA Bilaterally Gastrointestinal: Yes: Normal Bowel Sounds Extremities: Yes: WNL Neurological: Yes: Alert, Oriented Labs: CBC, BMP 03/24/19 12:20 03/24/19 14:30 Problem List - Problems (1) Seizure Code(s): R56.9 - UNSPECIFIED CONVULSIONS (2) LETITIA (acute kidney injury) Code(s): N17.9 - ACUTE KIDNEY FAILURE, UNSPECIFIED (3) Alcohol intoxication Code(s): F10.929 - ALCOHOL USE, UNSPECIFIED WITH INTOXICATION, UNSPECIFIED Assessment/Plan Laboratory Tests 03/24/19 03/24/19 03/24/19 12:20 12:20 12:20 WBC 11.8 H RBC 4.33 Hgb 14.5 Hct 43.6 D MCV 100.7 H MCH 33.6 MCHC 33.3 RDW 13.7 Plt Count 209 D MPV 8.3 Absolute Neuts (auto) 10.3 H Neutrophils % 87.2 H D Lymphocytes % 7.9 L D Monocytes % 3.6 L Eosinophils % 0.7 Basophils % 0.6 Nucleated RBC % 0 Sodium Cancelled Potassium Cancelled Chloride Cancelled Carbon Dioxide Cancelled Anion Gap Cancelled BUN Cancelled Creatinine Cancelled Est GFR (CKD-EPI)AfAm Cancelled Est GFR (CKD-EPI)NonAf Cancelled Random Glucose Cancelled Calcium Cancelled Magnesium Cancelled Total Bilirubin Cancelled AST Cancelled ALT Cancelled Alkaline Phosphatase Cancelled Total Protein Cancelled Albumin Cancelled Serum , Qual Negative Urine Color Urine Appearance Urine pH Ur Specific [place] Urine Protein Urine Glucose (UA) Urine Ketones Urine Blood Urine Nitrite Urine Bilirubin Urine Urobilinogen Ur Leukocyte Esterase Urine WBC (Auto) Urine RBC (Auto) Urine Casts (Auto) U Epithel Cells (Auto) Urine Bacteria (Auto) Opiates Screen Methadone Screen Barbiturate Screen Phencyclidine Screen Ur Amphetamines Screen MDMA (Ecstasy) Screen Benzodiazepines Screen Cocaine Screen U Marijuana (THC) Screen Alcohol, Quantitative Cancelled 03/24/19 03/24/19 03/24/19 14:30 14:30 17:00 WBC RBC Hgb Hct MCV MCH MCHC RDW Plt Count MPV Absolute Neuts (auto) Neutrophils % Lymphocytes % Monocytes % Eosinophils % Basophils % Nucleated RBC % Sodium 135 L Potassium 4.2 Chloride 106 Carbon Dioxide 17 L Anion Gap 12 BUN 23.6 H Creatinine 1.2 Est GFR (CKD-EPI)AfAm 61.03 Est GFR (CKD-EPI)NonAf 52.65 Random Glucose 130 H Calcium 9.9 Magnesium Total Bilirubin 1.2 H AST 171 H ALT 160 H Alkaline Phosphatase 99 Total Protein 10.2 H Albumin 4.3 Serum , Qual Urine Color Urine Appearance Urine pH Ur Specific [place] Urine Protein Urine Glucose (UA) Urine Ketones Urine Blood Urine Nitrite Urine Bilirubin Urine Urobilinogen Ur Leukocyte Esterase Urine WBC (Auto) Urine RBC (Auto) Urine Casts (Auto) U Epithel Cells (Auto) Urine Bacteria (Auto) Opiates Screen Negative Methadone Screen Negative Barbiturate Screen Negative Phencyclidine Screen Negative Ur Amphetamines Screen Negative MDMA (Ecstasy) Screen Negative Benzodiazepines Screen Positive A* Cocaine Screen Negative U Marijuana (THC) Screen Negative Alcohol, Quantitative < 3.0 03/24/19 17:00 WBC RBC Hgb Hct MCV MCH MCHC RDW Plt Count MPV Absolute Neuts (auto) Neutrophils % Lymphocytes % Monocytes % Eosinophils % Basophils % Nucleated RBC % Sodium Potassium Chloride Carbon Dioxide Anion Gap BUN Creatinine Est GFR (CKD-EPI)AfAm Est GFR (CKD-EPI)NonAf Random Glucose Calcium Magnesium Total Bilirubin AST ALT Alkaline Phosphatase Total Protein Albumin Serum , Qual Urine Color Dk yellow Urine Appearance Cloudy Urine pH 5.0 Ur Specific [place] 1.022 Urine Protein 3+ H Urine Glucose (UA) Negative Urine Ketones Trace H Urine Blood 1+ H Urine Nitrite Positive H Urine Bilirubin 2+ H Urine Urobilinogen 2.0 H Ur Leukocyte Esterase Trace Urine WBC (Auto) 5 Urine RBC (Auto) 1 Urine Casts (Auto) 21 U Epithel Cells (Auto) 3.3 Urine Bacteria (Auto) 48.9 Opiates Screen Methadone Screen Barbiturate Screen Phencyclidine Screen Ur Amphetamines Screen MDMA (Ecstasy) Screen Benzodiazepines Screen Cocaine Screen U Marijuana (THC) Screen Alcohol, Quantitative Active Medications Generic Name Dose Route Start Last Admin Trade Name Freq PRN Reason Stop Dose Admin Sodium Chloride 1,000 mls @ 125 mls/hr 03/24/19 12:04 03/24/19 12:41 Normal Saline - IV 03/24/19 20:03 125 mls/hr ASDIR STA Administration Sodium Chloride 1,000 mls @ 75 mls/hr 03/24/19 16:35 03/24/19 18:26 Normal Saline - IV 03/25/19 05:54 75 mls/hr ASDIR STA Administration
[2019-03-25] MEDS ORDERED: LORazepam 2 MG/ML SDV VIAL IM ONE (01:24)
--- NOTE | 2019-03-25 09:59 | CONSULT ---
Consult - text type - Consultation Consultation Note: Neurology Chief Complaint: Seizure - History of Present Illness 48 year old female, with a significant PMH of HTN, DM, bipolar disorder, asthma , and EtOH abuse, who presented to the ED BIBEMS for possible seizure activity. Patient is poor historian and was reluctant to provide history, so per notes boyfriend provided history. He noted that the patient was talking to her friend earlier the morning of admission, when she suddenly fell to the floor and blacked out. He noted that the patient began trembling, clenching her fists, and was not acting like her normal self. He called EMS, and they suggested that is was a seizure. Patients last seizure was 3 years ago, and she is not currently on and medications. Patient is a daily drinker, and per notes she did not have a drink today (tends to get shaky and tremulous when she doesnt). She complained of low back pain and hip pain that is chronic, and feet pain secondary to falling. Ct head was completed and reviewed them without any acute changes.When I spoke to the patient this morning, she did not have any symptoms and states that she has not consumed alcohol in a month. Patient seemed guarded and limited with her history and unclear to me when her last alcohol use was. However, liver function tested demonstrated elevated enzymes. She also history of bipolar. At this point, most seizure medications would affect her liver and would not be indicationed in patients with chronic alcohol use. Keppra was also considered but this isnot recommended based on her psychiatric history. My recommendation her was for alcohol cessation as alcohol-related seizures are likely underlying etiology and no antiepileptic medication would prevent this. Past History - Past Medical History Allergies/Adverse Reactions: Allergies Allergy/AdvReac Type Severity Reaction Status Date / Time acetaminophen [From Percocet] Allergy Verified 03/24/19 11:30 aspirin Allergy Verified 03/24/19 11:30 morphine Allergy Verified 03/24/19 11:30 oxycodone Allergy Verified 03/24/19 11:30 oxycodone HCl [From Percocet] Allergy Verified 03/24/19 11:30 Home Medications: Ambulatory Orders Folic Acid 1 mg PO DAILY 02/05/17 Albuterol Sulfate Inhaler - [Ventolin Hfa Inhaler -] 2 puff IH QID 03/26/18 Lisinopril 20 mg PO DAILY 03/26/18 metFORMIN HCL [Metformin HCl ER] 500 mg PO BID 03/26/18 Alprazolam [Xanax] 1 mg PO ASDIR 03/24/19 Gabapentin 1 tab PO ASDIR 03/24/19 Anemia: Yes Asthma: Yes COPD: No Diabetes: Yes GI Disorders: Yes (GERD) HTN: Yes Psychiatric Problems: Yes (bipolar, anxiety, depression) Seizures: Yes (pt states she has a h/o seizures) - Surgical History Abdominal Surgery: Yes Family: HTN - Psycho Social/Smoking Cessation Hx Smoking History: Current every day smoker Have you smoked in the past 12 months: No Number of Cigarettes Smoked Daily: 20 If you are a former smoker, when did you quit?: pt refusing to quit Information on smoking cessation initiated: No 'Breaking Loose' booklet given: 11/23/16 Hx Alcohol Use: Yes (hx EOTH abuse) Drug/Substance Use Hx: No Substance Use Type: Alcohol Review of Systems - Review of Systems Comments:: GENERAL/CONSTITUTIONAL: +S/p possible seizure. No fever or chills. No weakness. HEAD, EYES, EARS, NOSE AND THROAT: No change in vision. No ear pain or discharge. No sore throat. CARDIOVASCULAR: No chest pain or shortness of breath. RESPIRATORY: No cough, wheezing, or hemoptysis. GASTROINTESTINAL: No nausea, vomiting, diarrhea or constipation. GENITOURINARY: No dysuria, frequency, or change in urination. MUSCULOSKELETAL: +Chronic low back pain. +Chronic hip pain. +Bilateral feet pain. No neck pain. SKIN: No rash NEUROLOGIC: No headache, vertigo, loss of consciousness, or change in strength/ sensation. ENDOCRINE: No increased thirst. No abnormal weight change. HEMATOLOGIC/LYMPHATIC: No anemia, easy bleeding, or history of blood clots. ALLERGIC/IMMUNOLOGIC: No hives or skin allergy. *Physical Exam Vital Signs Period Temp Pulse Resp BP Sys/Bryan Pulse Ox Last 24 Hr 98.0 F-98.4 F 48-98 18-30 134-169/48-93 95-99 - Physical Exam Comments: GENERAL: Flat affect. The patient is in no acute distress. HEAD: Normal with no signs of trauma. EYES: PERRLA, EOMI, sclera anicteric, conjunctiva clear. ENT: Ears normal, nares patent, oropharynx clear without exudates. Moist mucous membranes. NECK: Normal range of motion, supple without lymphadenopathy, JVD, or masses. LUNGS: Breath sounds equal, clear to auscultation bilaterally. No wheezes, and no crackles. HEART:Regular rate and rhythm, normal S1 and S2 without murmur, rub or gallop. ABDOMEN: Soft, nontender, normoactive bowel sounds. No guarding, no rebound. No masses palpable. EXTREMITIES: Normal range of motion, no edema. No clubbing or cyanosis. No erythema, or tenderness. NEUROLOGICAL: Cranial nerves II through XII grossly intact. Normal speech. No focal neurological deficits. MUSCULOSKELETAL: Back non-tender to palpation, no CVA tenderness SKIN: Warm, Dry, normal turgor, no rashes or lesions noted. CBCD WBC 11.8 K/mm3 (4.0-10.0) H 03/24/19 12:20 RBC 4.33 M/mm3 (3.60-5.2) 03/24/19 12:20 Hgb 14.5 GM/dL (10.7-15.3) 03/24/19 12:20 Hct 43.6 % (32.4-45.2) D 03/24/19 12:20 MCV 100.7 fl (80-96) H 03/24/19 12:20 MCHC 33.3 g/dl (32.0-36.0) 03/24/19 12:20 RDW 13.7 % (11.6-15.6) 03/24/19 12:20 Plt Count 209 K/MM3 (134-434) D 03/24/19 12:20 MPV 8.3 fl (7.5-11.1) 03/24/19 12:20 CMP Sodium 135 mmol/L (136-145) L 03/24/19 14:30 Potassium 4.2 mmol/L (3.5-5.1) 03/24/19 14:30 Chloride 106 mmol/L (98-107) 03/24/19 14:30 Carbon Dioxide 17 mmol/L (21-32) L 03/24/19 14:30 Anion Gap 12 MMOL/L (8-16) 03/24/19 14:30 BUN 23.6 mg/dL (7-18) H 03/24/19 14:30 Creatinine 1.2 mg/dL (0.55-1.3) 03/24/19 14:30 Random Glucose 130 mg/dL (74-106) H 03/24/19 14:30 Calcium 9.9 mg/dL (8.5-10.1) 03/24/19 14:30 Total Bilirubin 1.2 mg/dL (0.2-1) H 03/24/19 14:30 AST 171 U/L (15-37) H 03/24/19 14:30 ALT 160 U/L (13-61) H 03/24/19 14:30 Alkaline Phosphatase 99 U/L (45-117) 03/24/19 14:30 Total Protein 10.2 g/dl (6.4-8.2) H 03/24/19 14:30 Albumin 4.3 g/dl (3.4-5.0) 03/24/19 14:30 Radiograph Interpretation: EXAM#: TYPE/EXAM: RESULT: [id number] CT/HEAD CT WITHOUT CONTRAST History. Seizure Impression. No evidence of acute intracranial hemorrhage, edema, midline shift, mass effect, or skull fracture. There is no CT evidence of acute territorial infarction. Medical Decision Making 48 year old female, with a significant PMH of HTN, DM, bipolar disorder, asthma , and EtOH abuse, who presented to the ED BIBEMS for possible seizure activity. Patient is poor historian and was reluctant to provide history, so per notes boyfriend provided history. He noted that the patient was talking to her friend earlier the morning of admission, when she suddenly fell to the floor and blacked out. He noted that the patient began trembling, clenching her fists, and was not acting like her normal self. He called EMS, and they suggested that is was a seizure. Patients last seizure was 3 years ago, and she is not currently on and medications. Patient is a daily drinker, and per notes she did not have a drink today (tends to get shaky and tremulous when she doesnt). She complained of low back pain and hip pain that is chronic, and feet pain secondary to falling. Ct head was completed and reviewed them without any acute changes.When I spoke to the patient this morning, she did not have any symptoms and states that she has not consumed alcohol in a month. Patient seemed guarded and limited with her history and unclear to me when her last alcohol use was. However, liver function tested demonstrated elevated enzymes. She also history of bipolar. At this point, most seizure medications would affect her liver and would not be indicationed in patients with chronic alcohol use. Keppra was also considered but this isnot recommended based on her psychiatric history. My recommendation her was for alcohol cessation as alcohol-related seizures are likely underlying etiology and no antiepileptic medication would prevent this. If patient able to maintain alcohol cessation and normalize liver enzymes then multiple medications can be considered but at this time do not have medication that I feel would be safe for her and would not lead to further metabolic complications. Would not advised to use Keppra based on her psychiatric history. Strongly advise alcohol cessation.
[2019-03-25] MEDS ORDERED: PT OWN MED DRAWER 7, Y5N ONE (10:49)
[2019-03-25] MEDS: LISINOPRIL 20 MG TABLET (FP) PO SCH (12:00)
--- NOTE | 2019-03-25 13:22 | CONSULT ---
Consult Detox [facility] Reason for Current Admission/Consult: Consult called due to presumptions of alcohol dependence with possible withdrawal seizures. Referred by:: Cj - History History of Present Illness: The patient is a 48 year old female, with a significant PMH of HTN, DM, bipolar disorder, asthma, and EtOH abuse, who presents to the ED BIBEMS for possible seizure activity. Patient is poor historian and is reluctant to provide history , so boyfriend at bedside provides history. He notes that the patient was talking to her friend earlier this morning, when she suddenly fell to the floor and blacked out. He notes that the patient began trembling, clenching her fists , and was not acting like her normal self. Patients last seizure was 3 years ago, and she is not currently on and medications. Patient does not report the reasons for seizure 3 years ago. She denies using alcohol on a daily basis upon interrogation by this marketing underwriter. She states her last drink was 8 months ago and does not show any interest in entering detox or rehab. Her presumed appearance was of seizure activity but that may not have been the case as she did have electrolyte abnormalities upon admission to ER. She denies any history of detox or rehab for alcohol. Her CIWA score is minimal and does not appear in any withdrawals. She is very comfortable and oriented though she is a poor historian and pauses to find the right words to express herself. Allergies: acetaminophen, aspirin, morphine, oxycodone, oxycodone HCl Surgical History: Abdominal surgery Social History: EtOH abuse. Current everyday smoker PCP: [facility] - History Source History Provided By: Patient Limitations to Obtaining History: Other (walks with a walker) - Alcohol/Substance Use Hx Alcohol Use: Yes (ETOH abuse in the past) Hx Substance Use: No Hx Substance Use Treatment: No - Current Drug/Alcohol Use Alcohol Route: Oral Frequency: No use in 30 days Amount used: 10 beers per day in the past, last drink 8 months ago Age of first use: 19 Date of Last Use: 09/01/18 (as far as she remembers 8 months ago) - Past Medical History Cardio/Vascular: Yes: HTN, Hyperlipdemia Psych: Yes: Addictions, Bipolar Endocrine: Yes: Diabetes Mellitus - Past Surgical History Additional Surgical History: abdominal surgery - Significant Medical Findings: S. Patient seen in bed alert and oriented to person, place and time, grossly. Patient is a poor historian but was clear that she is not a current alcohol user. She stated the last drink she had was over 8 months ago. She does not consider herself an alcoholic. O. Awake and alert in bed. Cor: S1 S2 normal heart sounds Lungs: Clear to Auscultation and percussion, no abnormal breath sounds Abd: Benign, protuberant, + bowel sounds, non-tender. Ext: Good pulses, weakness in both legs. CIWA Score - CIWA Score Nausea/Vomitin-No Nausea/No Vomiting Muscle Tremors: None Anxiety: 0-No Anxiety, at Ease Agitation: 0-Normal Activity Paroxysmal Sweats: No Perspiration Orientation: 1-Uncertain about Date Tacttile Disturbances: 0-None Auditory Disturbances: 0-None Visual Disturbances: 0-None Headache: 0-None Present CIWA-Ar Total Score: 1 Assessment Plan - Plan Plan: A/P: 1. Undetermined Seizure Activity: This may not have been seizure activity at all. Also patient did have electrolyte abnormalities on admission and perhaps that was the apparent cause. It is unlikely that this was withdrawal seizures as there is no adrenergic symptoms and CIWA scale is minimal at best and her last drink according to her was 8 months ago. This patient warrants a neurological work up for seizure disorder as there was a prior history of unknown etiology 3 years ago. 2. HTN, DM,Asthma, Bipolar Disorder: These need to be better controlled and education should be given. Consider also a Psychiatric consult. 3. Alcohol use disorder - distant history Patient was offered detox and rehab services at [facility]. She can avail herself of these services if she wishes, but she has declined it at this time. Dr. Sadler - Medication Detox Regimen/Protocol: Not Applicable (No withdrawal symptoms and decline rehab services which would be appropriate if she wishes.)
--- NOTE | 2019-03-25 13:35 | EKG ---
Test Reason : Blood Pressure : / mmHG Vent. Rate : 083 BPM Atrial Rate : 083 BPM P-R Int : 154 ms QRS Dur : 078 ms QT Int : 384 ms P-R-T Axes : 043 013 101 degrees QTc Int : 451 ms NORMAL SINUS RHYTHM POSSIBLE LEFT ATRIAL ENLARGEMENT ABNORMAL ECG WHEN COMPARED WITH ECG OF 26-MAR-2018 01:03, T WAVE INVERSION NO LONGER EVIDENT IN INFERIOR LEADS T WAVE AMPLITUDE HAS INCREASED IN ANTERIOR LEADS T WAVE INVERSION NOW EVIDENT IN LATERAL LEADS QT HAS SHORTENED Confirmed by FRANSSICO MOYA MD ([id number]) on 03/25/2019 1:34:33 PM Referred By: Confirmed By:FRANSISCO MOYA MD
--- NOTE | 2019-03-25 14:44 | CON.PSY ---
Psychiatry Consult Chief Complaint: 48 Year old Female with a history of SEizure Disorder and anxiety seen for Psych eval. Patient wants to go home AMA. Patients Health aid reports that she appears confused and not her usual self. Symptoms: reports: Impaired Concentration, Impulsivity - Previous Psychiatric Treatment Outpatient: Less than 6 mos ago Inpatient: None - Previous Substance Abuse Treatment Outpatient: None Inpatient: None - Reason for Previous Treatment Reason for Previous Treatment: Anxiety or Panic Disorder - Current Medications Current Medications: Active Medications Lisinopril (Prinivil) 20 mg PO DAILY [facility] Last Admin: 03/25/19 12:00 Dose: 20 mg Metformin HCl (Glucophage Xr -) 500 mg PO BIDAC [facility] Last Admin: 03/25/19 12:00 Dose: 500 mg - Allergies Allergies: Allergies Allergy/AdvReac Type Severity Reaction Status Date / Time acetaminophen [From Percocet] Allergy Verified 03/24/19 11:30 aspirin Allergy Verified 03/24/19 11:30 morphine Allergy Verified 03/24/19 11:30 oxycodone Allergy Verified 03/24/19 11:30 oxycodone HCl [From Percocet] Allergy Verified 03/24/19 11:30 - Current Living Status Usual Living Arrangement: Alone - Current Mental Status Evaluation Appearance: Well Groomed Attitude: Uncooperative - Affect Affect: Constrictive Appropriateness: Appropriate to Content - Mood Mood: Anxious - Speech/Language Expressive: Coherent - Psychomotor Activity Psychomotor Activity: Normal - Thought Process Thought Process: Circumstantial - Thought Content Hallucinations: Absent Delusions: Absent - Self Perception Self Perception: No Impairment - Cognition Attention: Diminished Memory, Short Term: 2/3 Memory, Remote with Promptin/3 - Concentration Serial Sevens Intact: No Simple Calculations Intact: No - Abstraction Proverb Interpretation: Impaired Judgement: Minimally Impaired - Insight Insight: Impaired - Suicidal Ideation Suicidal Ideation: No - Homicidal Ideation Homicidal Ideation: No Assessment/Plan 1) Patient cant do home AMA because of some cognitive Impairment. 2) will probably go home tomorrow.
--- NOTE | 2019-03-25 18:08 | PN ---
Progress Note, Physician - Current Medication List Current Medications: Active Medications Gabapentin (Neurontin -) 100 mg PO DAILY [facility] Lisinopril (Prinivil) 20 mg PO DAILY [facility] Last Admin: 03/25/19 12:00 Dose: 20 mg Metformin HCl (Glucophage Xr -) 500 mg PO BIDAC [facility] Last Admin: 03/25/19 17:42 Dose: 500 mg - Objective Vital Signs: Vital Signs Temperature 98.6 F 03/25/19 14:00 Pulse Rate 77 03/25/19 14:00 Respiratory Rate 18 03/25/19 14:00 Blood Pressure 161/79 03/25/19 14:00 O2 Sat by Pulse Oximetry (%) 98 03/25/19 11:00 Labs: CBC, BMP 03/24/19 12:20 03/24/19 14:30 Problem List - Problems (1) Seizure Code(s): R56.9 - UNSPECIFIED CONVULSIONS (2) LETITIA (acute kidney injury) Code(s): N17.9 - ACUTE KIDNEY FAILURE, UNSPECIFIED (3) Alcohol intoxication Code(s): F10.929 - ALCOHOL USE, UNSPECIFIED WITH INTOXICATION, UNSPECIFIED
[2019-03-25 19:27] LABS: BASO % 0.6 % (0-2.0); EOS % 1.9 % (0-4.5); HEMATOCRIT 38.3 % (32.4-45.2); HEMOGLOBIN 12.7 GM/dL (10.7-15.3); LYMPH % 25.4 % (8-40); MCH 33.3 pg (25.7-33.7); MCHC 33.2 g/dl (32.0-36.0); MEAN CELL VOLUME 100.2 fl (80-96); MEAN PLT VOLUME 8.2 fl (7.5-11.1); MONO % 5.4 % (3.8-10.2); NEUT % 66.7 % (42.8-82.8); PLATELET COUNT 170 K/MM3 (134-434); RBC 3.83 M/mm3 (3.60-5.2); RDW 13.4 % (11.6-15.6)
[2019-03-25 20:15] LABS: ALBUMIN 3.5 g/dl (3.4-5.0); BILIRUBIN,TOTAL 1.4 mg/dL (0.2-1); BLOOD UREA NITROGEN 19.7 mg/dL (7-18); CALCIUM 8.6 mg/dL (8.5-10.1); CREATININE 0.7 mg/dL (0.55-1.3); POTASSIUM 3.9 mmol/L (3.5-5.1); TOT PROT 8.4 g/dl (6.4-8.2)
[2019-03-26] MEDS: LISINOPRIL 20 MG TABLET (FP) PO SCH (09:39)
[2019-03-26 09:44] VITALS: BP 170/72; PULSE 67; TEMP 98.3
[2019-03-26] MEDS ORDERED: GABAPENTIN 100 MG CAPSULE (FP) PO SCH (10:00)
--- NOTE | 2019-03-26 10:08 | PN ---
Progress Note (short form) - Note Progress Note: Neurology Chief Complaint: Seizure - History of Present Illness 48 year old female, with a significant PMH of HTN, DM, bipolar disorder, asthma , and EtOH abuse, who presented to the ED BIBEMS for possible seizure activity. Patient is poor historian and was reluctant to provide history, so per notes boyfriend provided history. He noted that the patient was talking to her friend earlier the morning of admission, when she suddenly fell to the floor and blacked out. He noted that the patient began trembling, clenching her fists, and was not acting like her normal self. He called EMS, and they suggested that is was a seizure. Patients last seizure was 3 years ago, and she is not currently on and medications. Patient is a daily drinker, and per notes she did not have a drink today (tends to get shaky and tremulous when she doesnt). She complained of low back pain and hip pain that is chronic, and feet pain secondary to falling. Ct head was completed and reviewed them without any acute changes. When I spoke to the patient this morning, she denied any seizure activity overnight and I did review note from psychiatrist as well as from Dr. Sadler. Remains unclear when last alcohol consumption was is in ER it was reported days prior but since then has been reportedly months ago. since liverenzymes were elevated seems alcohol may have been consume more recently. She also history of bipolar. At this point, most seizure medications would affect her liver and would not be indicationed in patients with chronic alcohol use. Keppra was also considered but this is not recommended based on her psychiatric history. My recommendation her was for alcohol cessation as alcohol-related seizures are likely underlying etiology and no antiepileptic medication would prevent this. Active Medications Gabapentin (Neurontin -) 100 mg PO DAILY [facility] Last Admin: 03/26/19 09:39 Dose: 100 mg Lisinopril (Prinivil) 20 mg PO DAILY [facility] Last Admin: 03/26/19 09:39 Dose: 20 mg Metformin HCl (Glucophage Xr -) 500 mg PO BIDAC [facility] Last Admin: 03/26/19 07:46 Dose: 500 mg *Physical Exam Vital Signs Period Temp Pulse Resp BP Sys/Bryan Pulse Ox Last 24 Hr 97.8 F-98.7 F 67-77 18-20 147-175/65-79 98-98 - Physical Exam Comments: GENERAL: Flat affect. The patient is in no acute distress. HEAD: Normal with no signs of trauma. EYES: PERRLA, EOMI, sclera anicteric, conjunctiva clear. ENT: Ears normal, nares patent, oropharynx clear without exudates. Moist mucous membranes. NECK: Normal range of motion, supple without lymphadenopathy, JVD, or masses. LUNGS: Breath sounds equal, clear to auscultation bilaterally. No wheezes, and no crackles. HEART:Regular rate and rhythm, normal S1 and S2 without murmur, rub or gallop. ABDOMEN: Soft, nontender, normoactive bowel sounds. No guarding, no rebound. No masses palpable. EXTREMITIES: Normal range of motion, no edema. No clubbing or cyanosis. No erythema, or tenderness. NEUROLOGICAL: Cranial nerves II through XII grossly intact. Normal speech. No focal neurological deficits. MUSCULOSKELETAL: Back non-tender to palpation, no CVA tenderness SKIN: Warm, Dry, normal turgor, no rashes or lesions noted. CBCD WBC 10.0 K/mm3 (4.0-10.0) 03/25/19 18:59 RBC 3.83 M/mm3 (3.60-5.2) 03/25/19 18:59 Hgb 12.7 GM/dL (10.7-15.3) 03/25/19 18:59 Hct 38.3 % (32.4-45.2) 03/25/19 18:59 MCV 100.2 fl (80-96) H 03/25/19 18:59 MCHC 33.2 g/dl (32.0-36.0) 03/25/19 18:59 RDW 13.4 % (11.6-15.6) 03/25/19 18:59 Plt Count 170 K/MM3 (134-434) 03/25/19 18:59 MPV 8.2 fl (7.5-11.1) 03/25/19 18:59 CMP Sodium 133 mmol/L (136-145) L 03/25/19 18:59 Potassium 3.9 mmol/L (3.5-5.1) 03/25/19 18:59 Chloride 106 mmol/L (98-107) 03/25/19 18:59 Carbon Dioxide 15 mmol/L (21-32) L 03/25/19 18:59 Anion Gap 12 MMOL/L (8-16) 03/25/19 18:59 BUN 19.7 mg/dL (7-18) H 03/25/19 18:59 Creatinine 0.7 mg/dL (0.55-1.3) 03/25/19 18:59 Random Glucose 91 mg/dL (74-106) 03/25/19 18:59 Calcium 8.6 mg/dL (8.5-10.1) 03/25/19 18:59 Total Bilirubin 1.4 mg/dL (0.2-1) H 03/25/19 18:59 AST 160 U/L (15-37) H 03/25/19 18:59 ALT 143 U/L (13-61) H 03/25/19 18:59 Alkaline Phosphatase 83 U/L (45-117) 03/25/19 18:59 Total Protein 8.4 g/dl (6.4-8.2) H 03/25/19 18:59 Albumin 3.5 g/dl (3.4-5.0) 03/25/19 18:59 Radiograph Interpretation: EXAM#: TYPE/EXAM: RESULT: [id number] CT/HEAD CT WITHOUT CONTRAST History. Seizure Impression. No evidence of acute intracranial hemorrhage, edema, midline shift, mass effect, or skull fracture. There is no CT evidence of acute territorial infarction. Medical Decision Making 48 year old female, with a significant PMH of HTN, DM, bipolar disorder, asthma , and EtOH abuse, who presented to the ED BIBEMS for possible seizure activity. Patient is poor historian and was reluctant to provide history, so per notes boyfriend provided history. He noted that the patient was talking to her friend earlier the morning of admission, when she suddenly fell to the floor and blacked out. He noted that the patient began trembling, clenching her fists, and was not acting like her normal self. He called EMS, and they suggested that is was a seizure. Patients last seizure was 3 years ago, and she is not currently on and medications. Patient is a daily drinker, and per notes she did not have a drink today (tends to get shaky and tremulous when she doesnt). She complained of low back pain and hip pain that is chronic, and feet pain secondary to falling. Ct head was completed and reviewed them without any acute changes. EEG not available over weekend, can be completed as outpatient. When I spoke to the patient this morning, she denied any seizure activity overnight and I did review note from psychiatrist as well as from Dr. Sadler. Remains unclear when last alcohol consumption was is in ER it was reported days prior but since then has been reportedly months ago. since liverenzymes were elevated seems alcohol may have been consume more recently. She also history of bipolar. At this point, most seizure medications would affect her liver and would not be indicationed in patients with chronic alcohol use. Keppra was also considered but this is not recommended based on her psychiatric history. My recommendation her was for alcohol cessation as alcohol-related seizures are likely underlying etiology and no antiepileptic medication would prevent this. Neurologically stable at this time.
[2019-03-26] MEDS ORDERED: LORazepam 2 MG/ML SDV VIAL IM ONE (10:30)
--- NOTE | 2019-03-26 11:13 | DS ---
Physical Examination Vital Signs: Vital Signs Temperature 98.3 F 03/26/19 09:20 Pulse Rate 67 03/26/19 09:20 Respiratory Rate 18 03/26/19 09:20 Blood Pressure 170/72 03/26/19 09:20 O2 Sat by Pulse Oximetry (%) 98 03/26/19 03:00 Labs: CBC, BMP 03/25/19 18:59 03/25/19 18:59 Discharge Summary Reason For Visit: SEIZURE Current Active Problems Seizure (Acute) Condition: Stable - Instructions - Home Medications Comprehensive Discharge Medication List: Ambulatory Orders Folic Acid 1 mg PO DAILY 02/05/17 Albuterol Sulfate Inhaler - [Ventolin Hfa Inhaler -] 2 puff IH QID 03/26/18 Lisinopril 20 mg PO DAILY 03/26/18 metFORMIN HCL [Metformin HCl ER] 500 mg PO BID 03/26/18 Alprazolam [Xanax] 1 mg PO ASDIR 03/24/19 Gabapentin 1 tab PO ASDIR 03/24/19 cleared by neuro to be dc fu with neuro in office
--- NOTE | 2019-03-26 11:21 | PN ---
Progress Note, Physician - Current Medication List Current Medications: Active Medications Gabapentin (Neurontin -) 100 mg PO DAILY [facility] Last Admin: 03/26/19 09:39 Dose: 100 mg Lisinopril (Prinivil) 20 mg PO DAILY [facility] Last Admin: 03/26/19 09:39 Dose: 20 mg Metformin HCl (Glucophage Xr -) 500 mg PO BIDAC [facility] Last Admin: 03/26/19 07:46 Dose: 500 mg - Objective Vital Signs: Vital Signs Temperature 98.3 F 03/26/19 09:20 Pulse Rate 67 03/26/19 09:20 Respiratory Rate 18 03/26/19 09:20 Blood Pressure 170/72 03/26/19 09:20 O2 Sat by Pulse Oximetry (%) 98 03/26/19 03:00 Labs: CBC, BMP 03/25/19 18:59 03/25/19 18:59 Problem List - Problems (1) Seizure Code(s): R56.9 - UNSPECIFIED CONVULSIONS (2) LETITIA (acute kidney injury) Code(s): N17.9 - ACUTE KIDNEY FAILURE, UNSPECIFIED (3) Alcohol intoxication Code(s): F10.929 - ALCOHOL USE, UNSPECIFIED WITH INTOXICATION, UNSPECIFIED
== END 2019-03-26 11:55 | disposition home or self-care (01) ==
LOC: JER 11:13 → INTOOBSV 15:28 → JERBED 15:28 → J5S 23:20
PROVIDERS: ADMIT Internal Medicine; ATTEND Internal Medicine
PROC: 3E033GC Introduction of Other Therapeutic Substance into Peripheral Vein, Percutaneous Approach (ICD-10-PCS; principal; 2019-03-24)
PROC: 3E0337Z Introduction of Electrolytic and Water Balance Substance into Peripheral Vein, Percutaneous Approach (ICD-10-PCS; 2019-03-24)
DX: R56.9 Unspecified convulsions (principal); N17.9 Acute kidney failure, unspecified; F10.10 Alcohol abuse, uncomplicated; I10 Essential (primary) hypertension; E11.9 Type 2 diabetes mellitus without complications; F31.9 Bipolar disorder, unspecified; J45.909 Unspecified asthma, uncomplicated; K21.9 Gastro-esophageal reflux disease without esophagitis; R74.0 Nonspecific elevation of levels of transaminase and lactic acid dehydrogenase [LDH]; R94.5 Abnormal results of liver function studies; E78.5 Hyperlipidemia, unspecified; Z88.6 Allergy status to analgesic agent; Z79.84 Long term (current) use of oral hypoglycemic drugs; W18.39XA Other fall on same level, initial encounter; Y93.89 Activity, other specified; Y92.9 Unspecified place or not applicable
CPT/HCPCS: 36415; 70450-TC; 71046-TC-FY; 76705-TC; 80053; 80307; 81003; 82962; 84703; 85025; 87086; 93005; 93010; 96361; 96374; 96375; 99285-25; G0378; J7030

== ENCOUNTER 2019-06-24 21:00 | Emergency (ER) | payer OTHER ==
[2019-06-24 21:34] VITALS: BP 142/57; PULSE 91; TEMP 99; BMI 34.3
--- NOTE | 2019-06-24 22:02 | PDOC ---
History of Present Illness - General Chief Complaint: Respiratory Stated Complaint: WEAKNESS - History of Present Illness Initial Comments: Luba Harris is a 49yo woman with a PMH of HTN, DM, bipolar, asthma, alcohol abuse who presented to the ED reporting one month of "bronchitis." An attempt was made to determine what symptoms prompted her to call EMS today, and Ms Harris became very upset and angry. She stated that she was very frustrated that she was being asked questions. Past History - Past Medical History Allergies/Adverse Reactions: Allergies Allergy/AdvReac Type Severity Reaction Status Date / Time acetaminophen [From Percocet] Allergy Verified 06/24/19 21:30 aspirin Allergy Verified 06/24/19 21:30 morphine Allergy Verified 06/24/19 21:30 oxycodone Allergy Verified 06/24/19 21:30 oxycodone HCl [From Percocet] Allergy Verified 06/24/19 21:30 Home Medications: Ambulatory Orders Folic Acid 1 mg PO DAILY 02/05/17 Albuterol Sulfate Inhaler - [Ventolin HFA Inhaler -] 2 puff IH QID 03/26/18 Lisinopril 20 mg PO DAILY 03/26/18 metFORMIN HCL [Metformin ER Osmotic] 500 mg PO BID 03/26/18 Alprazolam [Xanax] 1 mg PO ASDIR 03/24/19 Gabapentin 1 tab PO ASDIR 03/24/19 Anemia: Yes Asthma: Yes COPD: No Diabetes: Yes GI Disorders: Yes (GERD) HTN: Yes Psychiatric Problems: Yes (bipolar, anxiety, depression) Seizures: Yes (pt states she has a h/o seizures) - Surgical History Abdominal Surgery: Yes - Immunization History Immunization Up to Date: No - Psycho Social/Smoking Cessation Hx Smoking History: Current every day smoker Have you smoked in the past 12 months: Yes Number of Cigarettes Smoked Daily: 10 If you are a former smoker, when did you quit?: pt refusing to quit Information on smoking cessation initiated: Yes 'Breaking Loose' booklet given: 11/23/16 Hx Alcohol Use: Yes Drug/Substance Use Hx: No Substance Use Type: Alcohol Hx Substance Use Treatment: No Review of Systems - Review of Systems Comments:: Pt would not answer *Physical Exam - Vital Signs Last Vital Signs Temp Pulse Resp BP Pulse Ox 99 F 91 H 20 142/57 L 96 06/24/19 21:10 06/24/19 21:10 06/24/19 21:10 06/24/19 21:10 06/24/19 21:10 - Physical Exam General: No acute distress. Smells of alcohol. HEENT: Atraumatic, EOMI Cards: RRR, no murmur appreciated Pulm: Comfortable on room air. No wheezing but poor air movement Abd: Pt declines Ext: Atraumatic. Moves all extremities. Neuro: A&Ox3, CN grossly intact, slurred speech, motor/sensory grossly intact and symmetric Psych: Upset, agitated Medical Decision Making - Medical Decision Making 06/24/19 21:55 Luba Harris is a 49yo woman with a PMH of HTN, DM, bipolar, asthma, alcohol abuse who presented to the ED reporting one month of "bronchitis." An attempt was made to determine what symptoms prompted her to call EMS today, and Ms Harris became very upset and angry. She stated that she was very frustrated that she was being asked questions. Attempted physical exam. Poor air movement on exam, though also poor effort. Offered nebulizer treatment for report of "bronchitis" and h/o asthma. Pt states that she has albuterol at home and she does not want to "wait in the ED" for treatment. Continues to be increasingly agitated. Demands discharge papers. Pt appears to be breathing comfortably. Sats 97% on RA. Appears intoxicated, but family member at bedside. Safe to leave the ED. Visualized ambulating with a steady gait in the ED. Discussed with Dr Rios Sanders PGY2 Discharge - Discharge Information Problems reviewed: Yes Clinical Impression/Diagnosis: Eloped from emergency department Condition: Stable Disposition: ELOPED - Follow up/Referral Referrals: ON STAFF,NOT [Primary Care Provider] - - Patient Discharge Instructions Patient Printed Discharge Instructions: DI for Asthma -- Adult - Post Discharge Activity
--- NOTE | 2019-06-24 22:21 | PDOC ---
Attending Attestation - Resident Resident Name: Mariel Sanders - ED Attending Attestation I have performed the following: I have examined & evaluated the patient, The case was reviewed & discussed with the resident, I agree w/resident's findings & plan, Exceptions are as noted - HPI HPI: 06/24/19 22:50 See resident HPI - Physicial Exam PE: 06/24/19 22:50 Agree with documented exam - Medical Decision Making 06/24/19 22:50 49F with several weeks of cough stating she just wants treatment The patient appears free from distracting injury. The patient appears to have intact insight, judgment, and reason. In my opinion, this patient has the capacity to make decisions The risks of leaving against medical advice without further evaluation treatment were discussed with the patient. The patient indicated understanding of these risks and appeared to have the capacity to make this decision. The patient is unwilling to stay for or cooperate with an HPI interview. She is refusing further care and evaluation and is leaving against medical advice The patient was instructed to return as soon as possible to complete her evaluation. She ambulated with a strong, steady gait out of the ED with her daughter.
== END 2019-06-24 22:47 | disposition left against medical advice (07) ==
LOC: JER 21:00
DX: R53.1 Weakness (principal)
CPT/HCPCS: 99281-25

== ENCOUNTER 2019-12-17 03:18 | Inpatient (IN) | payer OTHER ==
[2019-12-17 03:31] VITALS: BMI 31.3
--- NOTE | 2019-12-17 03:34 | PDOC ---
Attending Attestation - Resident Resident Name: Fidel Daniels - ED Attending Attestation I have performed the following: I have examined & evaluated the patient, The case was reviewed & discussed with the resident, I agree w/resident's findings & plan, Exceptions are as noted - HPI HPI: 12/17/19 07:22 49F pmh DM, HTN, asthma, etoh abuse, bipolar, cholelithiasis, here with 3 days of progressive epgiastric px a/w n/v/d. No f/c, chest pain - Physicial Exam PE: 12/17/19 07:23 Agree with documented exam - Medical Decision Making 12/17/19 07:24 Consider cholecystitis, obstructive biliary dz, pancreatitis, appy less likely should eval atypical presentation of acs f/u labs, trop, ekg, ruq us dispo per clinical course ekg with twi I avL, present in prior ekg, trop 0.12 trend trop, give asa elevated bili will need admission acs eval f/u ruq us, consider surgery eval depending on results Discharge - Discharge Information Problems reviewed: Yes Clinical Impression/Diagnosis: Alcohol use, Elevated troponin, Bilirubinemia, Epigastric abdominal pain Condition: Stable - Follow up/Referral - Patient Discharge Instructions - Post Discharge Activity
--- NOTE | 2019-12-17 03:37 | PDOC ---
History of Present Illness - General Chief Complaint: Alcohol intoxication Stated Complaint: ABDOMINAL PAIN Time Seen by Provider: 12/17/19 03:21 History Source: Patient Exam Limitations: Intoxication - History of Present Illness Initial Comments: 12/17/19 03:36 Luba Harris is a 49yo woman with a PMH of HTN, DM, bipolar, asthma, alcohol abuse, chronic elevated liver enzymes, and cholelithiasis who presented to the ED reporting 3 days of epigastric pain, back pain, and 2 days of n/v and diarrhea. History difficult to obtain due to patient's intoxicated state - short answers, tangential. Also complains of chronic cough and SOB. Denies trauma, fall. Denies f/c, urinary symptoms, muscle pain. PMH: as above. PSH: , unspecified leg surgery Ambulatory Orders Folic Acid 1 mg PO DAILY 02/05/17 Albuterol Sulfate Inhaler - [Ventolin HFA Inhaler -] 2 puff IH QID 03/26/18 Lisinopril 20 mg PO DAILY 03/26/18 metFORMIN HCL [Metformin ER Osmotic] 500 mg PO BID 03/26/18 Alprazolam [Xanax] 1 mg PO ASDIR 03/24/19 Gabapentin 1 tab PO ASDIR 03/24/19 Allergies Allergy/AdvReac Type Severity Reaction Status Date / Time aspirin Allergy Verified 12/17/19 03:28 morphine Allergy Verified 12/17/19 03:28 oxycodone Allergy Verified 12/17/19 03:28 oxycodone HCl [From Percocet] Allergy Verified 12/17/19 03:28 SH: Endorses ETOH and smoking. Denies drug use ROS as above, otherwise unable to obtain. PE GENERAL: lethargic, slurred speech HEAD: No signs of trauma, normocephalic, atraumatic EYES: PERRLA, EOMI, +scleral icterus, conjunctiva clear ENT: hearing grossly normal, nares patent, oropharynx clear without exudates. Moist mucosa NECK: Normal ROM, supple, no lymphadenopathy, JVD, or masses LUNGS: No distress, clear to auscultation bilaterally, poor inspiratory effort HEART: Regular rate and rhythm, normal S1 and S2, no murmurs, rubs or gallops, peripheral pulses normal and equal bilaterally. ABDOMEN: Soft, diffusely tender, negative Bonds's sign, distended, normoactive bowel sounds. No guarding, no rebound. No masses. Prominent veins EXTREMITIES : Normal inspection, Normal range of motion, no edema. No clubbing or cyanosis. NEUROLOGICAL: Cranial nerves II through XII grossly intact. No focal deficits SKIN: Warm, Dry, normal turgor, no rashes or lesions noted Assessment and Plan Luba Harris is a 49yo woman with a PMH of HTN, DM, bipolar, asthma, alcohol abuse, chronic elevated liver enzymes who presented to the ED reporting 3 days of epigastric pain, back pain, and 2 days of n/v and diarrhea. Differential includes ACS, pneumonia, gallbladder/liver/pancreas/GI/ pathology. -EKG: NSR with nonspecific ST and T wave abnormalities (ST depressions, T wave inversions in AVL) observed in prior EKG from 03/24/19. -CXR: pending -CBC, CMP, lipase trop, UA: billirubin 5.9, troponin 0.12, chronic AST elevation -IV pepcid, maalox, viscous lidocaine, IV tylenol -1000ml NS 12/17/19 05:47 Patient reports improved abdominal pain and is still lethargic and slurring words Admit for hyperbilirubinemia, troponemia, epigastric pain Pending second troponin at 7:45am, CXR, and RUQ US 12/17/19 06:25 Signed out to Day ED resident, Dr. Carr 12/17/19 07:01 Past History - Medical History Allergies/Adverse Reactions: Allergies Allergy/AdvReac Type Severity Reaction Status Date / Time aspirin Allergy Verified 12/17/19 03:28 morphine Allergy Verified 12/17/19 03:28 oxycodone Allergy Verified 12/17/19 03:28 oxycodone HCl [From Percocet] Allergy Verified 12/17/19 03:28 Home Medications: Ambulatory Orders Folic Acid 1 mg PO DAILY 02/05/17 Albuterol Sulfate Inhaler - [Ventolin HFA Inhaler -] 2 puff IH QID 03/26/18 Lisinopril 20 mg PO DAILY 03/26/18 metFORMIN HCL [Metformin ER Osmotic] 500 mg PO BID 03/26/18 Alprazolam [Xanax] 1 mg PO ASDIR 03/24/19 Gabapentin 1 tab PO ASDIR 03/24/19 Anemia: Yes Asthma: Yes COPD: No Diabetes: Yes GI Disorders: Yes (GERD) HTN: Yes Psychiatric Problems: Yes (bipolar, anxiety, depression) Seizures: Yes (pt states she has a h/o seizures) - Surgical History Abdominal Surgery: Yes - Immunization History Immunization Up to Date: No - Psycho-Social/Smoking History Smoking History: Never smoked Have you smoked in the past 12 months: No Number of Cigarettes Smoked Daily: 20 If you are a former smoker, when did you quit?: pt refusing to quit Information on smoking cessation initiated: No 'Breaking Loose' booklet given: 11/23/16 - Substance Abuse Hx (Audit-C & DAST Scrn) How often the patient has a drink containing alcohol: Never Score: In Men: 4 or > Positive; In Women: 3 or > Positive: 0 Screen Result (Pos requires Nsg. Audit-10AR): Negative In the last yr the pt used illegal drug/Rx for NonMed reason: No Score: Yes response is considered Positive: 0 Screen Result (Positive result requires Nsg. DAST-10): Negative *Physical Exam - Vital Signs Last Vital Signs Temp Pulse Resp BP Pulse Ox 98.7 F 92 H 20 110/59 L 96 12/17/19 03:29 12/17/19 03:29 12/17/19 03:29 12/17/19 03:29 12/17/19 03:29 ED Treatment Course - LABORATORY CBC & Chemistry Diagram: 12/17/19 04:44 12/17/19 04:44 Discharge - Discharge Information Problems reviewed: Yes Clinical Impression/Diagnosis: Alcohol use, Elevated troponin, Bilirubinemia, Epigastric abdominal pain Condition: Stable - Admission Yes - Follow up/Referral - Patient Discharge Instructions - Post Discharge Activity
[2019-12-17] MEDS ORDERED: MAG HYDROX/AL HYDROX/SIMETH -MYLANTA- ORAL SUSPENSION PO ONE (04:30)
[2019-12-17] MEDS ORDERED: FAMOTIDINE 20 MG TABLET PO ONE (04:30)
[2019-12-17] MEDS ORDERED: LIDOCAINE VISCOUS 2% ORAL/TOP 20 ML UNIT-DOSE CUP MM ONE (04:30)
[2019-12-17] MEDS ORDERED: LIDOCAINE VISCOUS 2% ORAL/TOP 20 ML UNIT-DOSE CUP ONE (04:32)
[2019-12-17] MEDS ORDERED: MAG HYDROX/AL HYDROX/SIMETH 30 ML UNIT-DOSE CUP ONE (04:33)
[2019-12-17] MEDS ORDERED: ACETAMINOPHEN INJECTION 100 ML IVPB ONE (04:33)
[2019-12-17] MEDS ORDERED: FAMOTIDINE 20 MG/50 ML IVPB 20 MG/50 ML MG IVPB ONE ×2 (04:33→04:51)
[2019-12-17] MEDS ORDERED: SODIUM CHLORIDE 0.9% 500 ML INFUS.BAG IV ONE (04:34)
[2019-12-17 05:06] LABS: BASO % 1.1 % (0-2.0); EOS % 0.9 % (0-4.5); HEMATOCRIT 33.3 % (32.4-45.2); HEMOGLOBIN 11.3 GM/dL (10.7-15.3); LYMPH % 28.4 % (8-40); MCH 35.4 pg (25.7-33.7); MCHC 34.1 g/dl (32.0-36.0); MEAN CELL VOLUME 103.8 fl (80-96); MEAN PLT VOLUME 8.6 fl (7.5-11.1); MONO % 3.4 % (3.8-10.2); NEUT % 66.2 % (42.8-82.8); PLATELET COUNT 79 K/MM3 (134-434); RBC 3.21 M/mm3 (3.60-5.2); RDW 16.3 % (11.6-15.6); WHITE BLOOD COUNT 6.8 K/mm3 (4.0-10.0)
[2019-12-17] MEDS ORDERED: FOLIC ACID INJECTION - 1 MG, THIAMINE HCL 100 MG, MULTIVIT INJECTION ADULT 10 ML in SOD... IVPB ONE (05:32)
[2019-12-17 05:35] LABS: ALBUMIN 2.4 g/dl (3.4-5.0); BILIRUBIN,TOTAL 5.9 mg/dL (0.2-1); BLOOD UREA NITROGEN 5.9 mg/dL (7-18); CALCIUM 8.7 mg/dL (8.5-10.1); CREATININE 0.7 mg/dL (0.55-1.3); POTASSIUM 3.7 mmol/L (3.5-5.1); TOT PROT 9.6 g/dl (6.4-8.2)
[2019-12-17 05:39] LABS: EPI CELLS 6 /uL (0-25.1); HYALINE CASTS 1 /uL (0-3.1); URINE APPEARANCE CLEAR; URINE BILIRUBIN 1+ (NEGATIVE); URINE COLOR DK YELLOW; URINE GLUCOSE (UA) NEGATIVE (NEGATIVE); URINE KETONE 1+ (NEGATIVE); URINE LEUK ESTERASE NEGATIVE (NEGATIVE); URINE NITRITE POSITIVE (NEGATIVE); URINE PROTEIN NEGATIVE (NEGATIVE); URINE RBC 6 /uL (0-23.9); URINE WBC 4 /uL (0-25.8)
--- NOTE | 2019-12-17 07:20 | PDOC ---
*Physical Exam - Vital Signs Last Vital Signs Temp Pulse Resp BP Pulse Ox 98.7 F 82 18 129/74 95 12/17/19 03:29 12/17/19 06:45 12/17/19 06:45 12/17/19 06:45 12/17/19 06:45 ED Treatment Course - LABORATORY CBC & Chemistry Diagram: 12/17/19 04:44 12/17/19 04:44 - ADDITIONAL ORDERS Additional order review: Laboratory Results 12/17/19 12/17/19 04:44 04:44 Sodium 131 L Potassium 3.7 Chloride 103 Carbon Dioxide 20 L Anion Gap 7 L BUN 5.9 L Creatinine 0.7 Est GFR (CKD-EPI)AfAm 116.27 Est GFR (CKD-EPI)NonAf 100.32 Random Glucose 85 Calcium 8.7 Total Bilirubin 5.9 H AST 234 H ALT 51 Alkaline Phosphatase 85 Troponin I 0.12 H Total Protein 9.6 H Albumin 2.4 L Lipase 283 Urine Color Dk yellow Urine Appearance Clear Urine pH 5.0 Ur Specific [place] 1.008 L Urine Protein Negative Urine Glucose (UA) Negative Urine Ketones 1+ H Urine Blood Negative Urine Nitrite Positive H Urine Bilirubin 1+ H Urine Urobilinogen 1.0 Ur Leukocyte Esterase Negative Urine WBC (Auto) 4 Urine RBC (Auto) 6 Urine Casts (Auto) 1 U Epithel Cells (Auto) 6 12/17/19 04:44 RBC 3.21 L MCV 103.8 H MCHC 34.1 RDW 16.3 H MPV 8.6 Neutrophils % 66.2 Lymphocytes % 28.4 Monocytes % 3.4 L Eosinophils % 0.9 Basophils % 1.1 - Medications Given in the ED: ED Medications Discontinued Medications Generic Name Dose Route Start Last Admin Trade Name Efrainq PRN Reason Stop Dose Admin Al Hydroxide/Mg Hydroxide 30 ml 12/17/19 04:30 12/17/19 05:00 Mylanta Suspension - PO 12/17/19 04:31 30 ml ONCE ONE Administration Famotidine 20 mg 12/17/19 04:30 12/17/19 05:11 Pepcid - PO 12/17/19 04:31 Not Given ONCE ONE Famotidine/Sodium Chloride 20 mg in 50 mls @ 100 mls/hr 12/17/19 04:51 12/17/19 05:00 Pepcid 20 Mg Premixed Ivpb - IVPB 12/17/19 05:20 100 mls/hr ONCE ONE Administration Lidocaine HCl 20 ml 12/17/19 04:30 12/17/19 05:00 Xylocaine 2% Viscous Oral - MM 12/17/19 04:31 20 ml ONCE ONE Administration Sodium Chloride 1,000 ml 12/17/19 04:34 12/17/19 05:00 Normal Saline - IV 12/17/19 04:35 1,000 ml ONCE ONE Administration Medical Decision Making - Medical Decision Making 12/17/19 07:19 Pt received on s/o from Dr. Daniels 49F presenting with epigastric pain. Pending repeat trop, RUQ US. Plan for admission. 12/17/19 08:03 UA reviewed. Urine Test Results Urine Color Dk yellow 12/17/19 04:44 Urine Appearance Clear 12/17/19 04:44 Urine pH 5.0 (5.0-8.0) 12/17/19 04:44 Ur Specific [place] 1.008 (1.010-1.035) L 12/17/19 04:44 Urine Protein Negative (NEGATIVE) 12/17/19 04:44 Urine Glucose (UA) Negative (NEGATIVE) 12/17/19 04:44 Urine Ketones 1+ (NEGATIVE) H 12/17/19 04:44 Urine Blood Negative (NEGATIVE) 12/17/19 04:44 Urine Nitrite Positive (NEGATIVE) H 12/17/19 04:44 Urine Bilirubin 1+ (NEGATIVE) H 12/17/19 04:44 Ur Leukocyte Esterase Negative (NEGATIVE) 12/17/19 04:44 -Ceftriaxone 1g. 12/17/19 08:57 Repeat trop downtrending. Laboratory Last Values WBC 6.8 K/mm3 (4.0-10.0) 12/17/19 04:44 RBC 3.21 M/mm3 (3.60-5.2) L 12/17/19 04:44 Hgb 11.3 GM/dL (10.7-15.3) 12/17/19 04:44 Hct 33.3 % (32.4-45.2) 12/17/19 04:44 MCV 103.8 fl (80-96) H 12/17/19 04:44 MCH 35.4 pg (25.7-33.7) H 12/17/19 04:44 MCHC 34.1 g/dl (32.0-36.0) 12/17/19 04:44 RDW 16.3 % (11.6-15.6) H 12/17/19 04:44 Plt Count 79 K/MM3 (134-434) L D 12/17/19 04:44 MPV 8.6 fl (7.5-11.1) 12/17/19 04:44 Absolute Neuts (auto) 4.5 K/mm3 (1.5-8.0) 12/17/19 04:44 Neutrophils % 66.2 % (42.8-82.8) 12/17/19 04:44 Lymphocytes % 28.4 % (8-40) 12/17/19 04:44 Monocytes % 3.4 % (3.8-10.2) L 12/17/19 04:44 Eosinophils % 0.9 % (0-4.5) 12/17/19 04:44 Basophils % 1.1 % (0-2.0) 12/17/19 04:44 Nucleated RBC % 0 % (0-0) 12/17/19 04:44 PT with INR 21.20 SEC (9.7-13.0) H 12/17/19 07:30 INR 1.79 (0.83-1.09) H 12/17/19 07:30 PTT (Actin FS) 37.4 SECONDS (25.2-36.5) H 12/17/19 07:30 Sodium 131 mmol/L (136-145) L 12/17/19 04:44 Potassium 3.7 mmol/L (3.5-5.1) 12/17/19 04:44 Chloride 103 mmol/L (98-107) 12/17/19 04:44 Carbon Dioxide 20 mmol/L (21-32) L 12/17/19 04:44 Anion Gap 7 MMOL/L (8-16) L 12/17/19 04:44 BUN 5.9 mg/dL (7-18) L 12/17/19 04:44 Creatinine 0.7 mg/dL (0.55-1.3) 12/17/19 04:44 Est GFR (CKD-EPI)AfAm 116.27 12/17/19 04:44 Est GFR (CKD-EPI)NonAf 100.32 12/17/19 04:44 Random Glucose 85 mg/dL (74-106) 12/17/19 04:44 Calcium 8.7 mg/dL (8.5-10.1) 12/17/19 04:44 Total Bilirubin 5.9 mg/dL (0.2-1) H 12/17/19 04:44 AST 234 U/L (15-37) H 12/17/19 04:44 ALT 51 U/L (13-61) 12/17/19 04:44 Alkaline Phosphatase 85 U/L (45-117) 12/17/19 04:44 Troponin I 0.11 ng/ml (0.00-0.05) H 12/17/19 07:30 Total Protein 9.6 g/dl (6.4-8.2) H 12/17/19 04:44 Albumin 2.4 g/dl (3.4-5.0) L 12/17/19 04:44 Lipase 283 U/L (73-393) 12/17/19 04:44 Urine Color Dk yellow 12/17/19 04:44 Urine Appearance Clear 12/17/19 04:44 Urine pH 5.0 (5.0-8.0) 12/17/19 04:44 Ur Specific [place] 1.008 (1.010-1.035) L 12/17/19 04:44 Urine Protein Negative (NEGATIVE) 12/17/19 04:44 Urine Glucose (UA) Negative (NEGATIVE) 12/17/19 04:44 Urine Ketones 1+ (NEGATIVE) H 12/17/19 04:44 Urine Blood Negative (NEGATIVE) 12/17/19 04:44 Urine Nitrite Positive (NEGATIVE) H 12/17/19 04:44 Urine Bilirubin 1+ (NEGATIVE) H 12/17/19 04:44 Urine Urobilinogen 1.0 mg/dL (0.2-1.0) 12/17/19 04:44 Ur Leukocyte Esterase Negative (NEGATIVE) 12/17/19 04:44 Urine WBC (Auto) 4 /uL (0-25.8) 12/17/19 04:44 Urine RBC (Auto) 6 /uL (0-23.9) 12/17/19 04:44 Urine Casts (Auto) 1 /uL (0-3.1) 12/17/19 04:44 U Epithel Cells (Auto) 6 /uL (0-25.1) 12/17/19 04:44 12/17/19 10:14 US shows cholelithiasis without radiographic signs of cholecystitis. No bile duct dilation. 12/17/19 10:58 D/w Dr. Borrego who accepts the patient for admission. Discharge - Discharge Information Problems reviewed: Yes Clinical Impression/Diagnosis: Alcohol use, Elevated troponin, Bilirubinemia, Epigastric abdominal pain Condition: Stable - Follow up/Referral - Patient Discharge Instructions - Post Discharge Activity
[2019-12-17] MEDS ORDERED: CEFTRIAXONE 1 GM in DEXTROSE 5%-WATER - 100 ML IVPB ONE (08:03)
[2019-12-17 08:26] LABS: INR 1.79 (0.83-1.09); PROTHROMBIN TIME (PATIENT) 21.2 SEC (9.7-13.0)
[2019-12-17 08:29] LABS: ACTIVATED PTT 37.4 SECONDS (25.2-36.5)
[2019-12-17] MEDS ORDERED: CEFTRIAXONE 1 GM/50 ML BAG ONE (08:40)
--- NOTE | 2019-12-17 10:21 | EKG ---
Test Reason : Blood Pressure : / mmHG Vent. Rate : 096 BPM Atrial Rate : 096 BPM P-R Int : 154 ms QRS Dur : 084 ms QT Int : 352 ms P-R-T Axes : 051 013 094 degrees QTc Int : 444 ms NORMAL SINUS RHYTHM NONSPECIFIC ST AND T WAVE ABNORMALITY ABNORMAL ECG WHEN COMPARED WITH ECG OF 24-MAR-2019 19:17, T WAVE AMPLITUDE HAS DECREASED IN ANTERIOR LEADS T WAVE INVERSION LESS EVIDENT IN LATERAL LEADS Confirmed by AMILCAR BOLAÑOS MD ([id number]) on 12/17/2019 10:20:42 AM Referred By: Confirmed By:AMILCAR BOLAÑOS MD
[2019-12-17] MEDS ORDERED: ASPIRIN 325 MG ENTERIC COATED TABLET (FP) PO ONE (10:24)
[2019-12-17] MEDS ORDERED: ASPIRIN 325 MG ENTERIC COATED TABLET (FP) ONE (10:43)
--- NOTE | 2019-12-17 10:48 | HP ---
CHIEF COMPLAINT: epigastric pain, n/v, diarrhea x3 days PCP: Dr. Montenegro HISTORY OF PRESENT ILLNESS: 49yo woman with a PMH of HTN, DM, bipolar, asthma, alcohol abuse, chronic elevated liver enzymes, and cholelithiasis who presented to the ED reporting 3 days of epigastric pain, back pain, and 2 days of n/v and diarrhea. States she usually drinks 1/2 bottle of wine daily for many years. Admits to NBNB vomiting, and nonbloody diarrhea and generalized abdominal pain. Denies any changes in her diet or recent changes to her home meds. Denies sick contacts or recent travel. She was seen drowsy upon interview and was not cooperating when asking specific questions. ER course was notable for: (1) IV Pepcid, PO Mylanta, Banana bag, IV Ceftriaxone (2) CXR neg, Abd u/s showed +multiple gallstones, no acute alicia, fatty liver vs. HCC disease worsening, no CBD dilatation (3) GI consulted Recent Travel: Denies PAST MEDICAL HISTORY: As per HPI PAST SURGICAL HISTORY: unspecified leg surgery Social History: Smokin/2 PPD since teenager Alcohol: 1/2 bottle of wine daily x years Drugs: Denies Allergies aspirin Allergy (Verified 12/17/19 03:28) morphine Allergy (Verified 12/17/19 03:28) oxycodone Allergy (Verified 12/17/19 03:28) oxycodone HCl [From Percocet] Allergy (Verified 12/17/19 03:28) HOME MEDICATIONS: Home Medications Medication Instructions Recorded Folic Acid 1 mg PO DAILY 02/05/17 Albuterol Sulfate Inhaler - 2 puff IH QID 03/26/18 [Ventolin HFA Inhaler -] Lisinopril 20 mg PO DAILY 03/26/18 metFORMIN HCL [Metformin ER 500 mg PO BID 03/26/18 Osmotic] Alprazolam [Xanax] 1 mg PO ASDIR 03/24/19 Gabapentin 1 tab PO ASDIR 03/24/19 REVIEW OF SYSTEMS CONSTITUTIONAL: loss of appetite Absent: fever, chills, diaphoresis, generalized weakness, malaise, weight change HEENT: Absent: rhinorrhea, nasal congestion, throat pain, throat swelling, difficulty swallowing, mouth swelling, ear pain, eye pain, visual changes CARDIOVASCULAR: Absent: chest pain, syncope, palpitations, irregular heart rate, lightheadedness, peripheral edema RESPIRATORY: Absent: cough, shortness of breath, dyspnea with exertion, orthopnea, wheezing, stridor, hemoptysis GASTROINTESTINAL: abdominal pain, nausea, vomiting, diarrhea Absent: abdominal distension, constipation, melena, hematochezia GENITOURINARY: Absent: dysuria, frequency, urgency, hesitancy, hematuria, flank pain, genital pain MUSCULOSKELETAL: Absent: myalgia, arthralgia, joint swelling, back pain, neck pain SKIN: Absent: rash, itching, pallor HEMATOLOGIC/IMMUNOLOGIC: Absent: easy bleeding, easy bruising, lymphadenopathy, frequent infections ENDOCRINE: Absent: unexplained weight gain, unexplained weight loss, heat intolerance, cold intolerance NEUROLOGIC: Absent: headache, focal weakness or paresthesias, dizziness, unsteady gait, seizure, mental status changes, bladder or bowel incontinence PSYCHIATRIC: Absent: anxiety, depression, suicidal or homicidal ideation, hallucinations. PHYSICAL EXAMINATION Vital Signs - 24 hr 12/17/19 12/17/19 12/17/19 03:29 06:45 10:33 Temperature 98.7 F 98.5 F Pulse Rate 92 H Pulse Rate [ 82 100 H Left] Respiratory 20 18 18 Rate Blood Pressure 110/59 L Blood Pressure 129/74 [Left Arm] Blood Pressure 118/49 L [Right Arm] O2 Sat by Pulse 96 95 100 Oximetry (%) GENERAL: Lethargic female, arousable to verbal stimuli HEENT: AT/NC. scleral icterus. EOMI. Dry mucus membranes. NECK: Normal range of motion, supple without lymphadenopathy, JVD, or masses. LUNGS: CTA b/l. No wheezes/rales noted. HEART: RRR. Normal S1, S2. No murmurs noted. ABDOMEN: Obese, NT/ND. Normoactive bowel sounds. No rebound tenderness/guarding. MUSCULOSKELETAL: Moves all extremities. EXTREMITIES: No peripheral edema noted. NEUROLOGICAL: Cranial nerves II-XII intact. Normal speech. SKIN: Warm, dry, normal turgor, no rashes or lesions noted, normal capillary refill. Laboratory Results - last 24 hr 12/17/19 12/17/19 12/17/19 04:44 04:44 04:44 WBC 6.8 RBC 3.21 L Hgb 11.3 Hct 33.3 MCV 103.8 H MCH 35.4 H MCHC 34.1 RDW 16.3 H Plt Count 79 L D MPV 8.6 Absolute Neuts (auto) 4.5 Neutrophils % 66.2 Lymphocytes % 28.4 Monocytes % 3.4 L Eosinophils % 0.9 Basophils % 1.1 Nucleated RBC % 0 PT with INR INR PTT (Actin FS) Sodium 131 L Potassium 3.7 Chloride 103 Carbon Dioxide 20 L Anion Gap 7 L BUN 5.9 L Creatinine 0.7 Est GFR (CKD-EPI)AfAm 116.27 Est GFR (CKD-EPI)NonAf 100.32 Random Glucose 85 Calcium 8.7 Total Bilirubin 5.9 H AST 234 H ALT 51 Alkaline Phosphatase 85 Troponin I 0.12 H Total Protein 9.6 H Albumin 2.4 L Lipase 283 Urine Color Dk yellow Urine Appearance Clear Urine pH 5.0 Ur Specific [place] 1.008 L Urine Protein Negative Urine Glucose (UA) Negative Urine Ketones 1+ H Urine Blood Negative Urine Nitrite Positive H Urine Bilirubin 1+ H Urine Urobilinogen 1.0 Ur Leukocyte Esterase Negative Urine WBC (Auto) 4 Urine RBC (Auto) 6 Urine Casts (Auto) 1 U Epithel Cells (Auto) 6 12/17/19 12/17/19 07:30 07:30 WBC RBC Hgb Hct MCV MCH MCHC RDW Plt Count MPV Absolute Neuts (auto) Neutrophils % Lymphocytes % Monocytes % Eosinophils % Basophils % Nucleated RBC % PT with INR 21.20 H INR 1.79 H PTT (Actin FS) 37.4 H Sodium Potassium Chloride Carbon Dioxide Anion Gap BUN Creatinine Est GFR (CKD-EPI)AfAm Est GFR (CKD-EPI)NonAf Random Glucose Calcium Total Bilirubin AST ALT Alkaline Phosphatase Troponin I 0.11 H Total Protein Albumin Lipase Urine Color Urine Appearance Urine pH Ur Specific [place] Urine Protein Urine Glucose (UA) Urine Ketones Urine Blood Urine Nitrite Urine Bilirubin Urine Urobilinogen Ur Leukocyte Esterase Urine WBC (Auto) Urine RBC (Auto) Urine Casts (Auto) U Epithel Cells (Auto) IMAGING: * Abd U/s: +multiple gallstones, no evid of acute alicia, fatty liver vs. hepatocellular dz worsened. No CBD dilatation ASSESSMENT/PLAN: 49yo woman with a PMH of HTN, DM, bipolar, asthma, alcohol abuse, chronic elevated liver enzymes, and cholelithiasis who presented to the ED reporting 3 days of epigastric pain, back pain, and 2 days of n/v and diarrhea. #Hepatic cirrhosis; Has worsening LFTs in setting of ongoing alcohol abuse; elevated Tbili 5.9 -MELD 24, Child-Lawton score 10 -Will cont on Ativan protocol -Monitor for withdrawal symptoms -Alcohol cessation counseling -Maikol's score 43.6 -D bili ordered -GI Consulted -Abd u/s noted above; no acute pathology, worsening of fatty liver vs. 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 Trop 0.11 --> 0.12 -May be due to demand ischemia given acute GI symptoms -Cont to trend to peak; will get echo and repeat EKG as well as repeat trop -admit to tele -Last echo done (03/19): showed mild conc LVH, 55-60%, impaired LV relaxation, mild MR/TR -If clinically pt has worsening chest pain symptoms, consider cardio consult #HTN; Needs med rec. #Asthma; Cont home meds: Alb inhaler. #Bipolar D/o; Needs med rec. #Prophylaxis DVT: SCDs, in setting of thrombocytopenia GI: PO Pepcid 20 BID #FEN -PO hydration -recheck lytes in AM -Diabetic-Na diet Dispo -Admit to tele -meds to be reconciled Visit type - Emergency Visit Emergency Visit: Yes ED Registration Date: 12/17/19 Care time: The patient presented to the Emergency Department on the above date and was hospitalized for further evaluation of their emergent condition. - New Patient This patient is new to me today: Yes Date on this admission: 12/17/19 - Critical Care Critical Care patient: No ATTENDING PHYSICIAN STATEMENT I saw and evaluated the patient. I reviewed the resident's note and discussed the case with the resident. I agree with the resident's findings and plan as documented. SUBJECTIVE: OBJECTIVE: ASSESSMENT AND PLAN:
[2019-12-17] MEDS ORDERED: LORazepam 1 MG TABLET PO PRN (11:04)
--- NOTE | 2019-12-17 11:26 | PN ---
Teaching Attending Note Name of Resident: Lucy Borrego ATTENDING PHYSICIAN STATEMENT I saw and evaluated the patient. I reviewed the resident's note and discussed the case with the resident. I agree with the resident's findings and plan as documented. SUBJECTIVE: Feels improved nausea vomiting improved OBJECTIVE: Vital Signs Temperature 98.5 F 12/17/19 10:33 Pulse Rate 100 H 12/17/19 10:33 Respiratory Rate 18 12/17/19 10:33 Blood Pressure 118/49 L 12/17/19 10:33 O2 Sat by Pulse Oximetry (%) 100 12/17/19 10:33 General: Young female disabled, comfortable, not in distress HEENT: Facial redness, mucous membranes moist, no anemia, no jaundice, PERRLA, no nystagmus Neck: No JVD, supple, no bruit, thyroid palpably normal, normal carotid pulsations. Chest: Nontender, clear to auscultation bilaterally CVS: S1-S2 regular no murmur/gallop/rub Abdomen: Obese, soft, bowel sounds present. Extremities: Trace edema., No Calf tenderness, pulses present TAILER OFF: AO X3 , no gross motor sensory deficit CBCD WBC 6.8 K/mm3 (4.0-10.0) 12/17/19 04:44 RBC 3.21 M/mm3 (3.60-5.2) L 12/17/19 04:44 Hgb 11.3 GM/dL (10.7-15.3) 12/17/19 04:44 Hct 33.3 % (32.4-45.2) 12/17/19 04:44 MCV 103.8 fl (80-96) H 12/17/19 04:44 MCHC 34.1 g/dl (32.0-36.0) 12/17/19 04:44 RDW 16.3 % (11.6-15.6) H 12/17/19 04:44 Plt Count 79 K/MM3 (134-434) L D 12/17/19 04:44 MPV 8.6 fl (7.5-11.1) 12/17/19 04:44 CMP Sodium 131 mmol/L (136-145) L 12/17/19 04:44 Potassium 3.7 mmol/L (3.5-5.1) 12/17/19 04:44 Chloride 103 mmol/L (98-107) 12/17/19 04:44 Carbon Dioxide 20 mmol/L (21-32) L 12/17/19 04:44 Anion Gap 7 MMOL/L (8-16) L 12/17/19 04:44 BUN 5.9 mg/dL (7-18) L 12/17/19 04:44 Creatinine 0.7 mg/dL (0.55-1.3) 12/17/19 04:44 Calcium 8.7 mg/dL (8.5-10.1) 12/17/19 04:44 Total Bilirubin 5.9 mg/dL (0.2-1) H 12/17/19 04:44 AST 234 U/L (15-37) H 12/17/19 04:44 ALT 51 U/L (13-61) 12/17/19 04:44 Alkaline Phosphatase 85 U/L (45-117) 12/17/19 04:44 Total Protein 9.6 g/dl (6.4-8.2) H 12/17/19 04:44 Albumin 2.4 g/dl (3.4-5.0) L 12/17/19 04:44 INR, PTT INR 1.79 (0.83-1.09) H 12/17/19 07:30 Troponin, BNP 12/17/19 12/17/19 04:44 07:30 Troponin I 0.12 H 0.11 H Chest x-ray: No acute infiltrate Abdominal ultrasound: Gallstones, worsening parenchymal disease of liver, no hepatobiliary obstruction EK NSR, QTc 444, axis XIII no acute ST changes Active Medications Famotidine (Pepcid -) 20 mg PO DAILY [facility] Last Admin: 12/17/19 11:51 Dose: 20 mg Documented by: Folic Acid (Folic Acid -) 1 mg PO DAILY [facility] Folic Acid 1 mg/ Thiamine HCl 100 mg/ Multivitamins/Minerals 10 ml/ Sodium Chloride 1,000 mls @ 125 mls/hr IVPB ONCE ONE Stop: 12/17/19 13:31 Last Admin: 12/17/19 06:26 Dose: 125 mls/hr Documented by: Insulin Aspart (Novolog Vial Sliding Scale -) 1 vial SQ ACHS [facility]; Protocol Last Admin: 12/17/19 11:50 Dose: Not Given Documented by: Lorazepam (Ativan -) 1 mg PO 0500,1100,1700,2300 [facility] Stop: 12/19/19 23:01 Lorazepam (Ativan -) 1 mg PO Q4H PRN PRN Reason: Symptoms of Withdrawal Stop: 12/19/19 23:59 Lorazepam (Ativan -) 2 mg PO 0500,1100,1700,2300 [facility] Stop: 12/18/19 23:01 Last Admin: 12/17/19 11:51 Dose: 2 mg Documented by: Lorazepam (Ativan -) 0.5 mg PO Q6H [facility] Stop: 12/20/19 23:01 Lorazepam (Ativan -) 0.5 mg PO Q4H PRN PRN Reason: Symptoms of Withdrawal Stop: 12/21/19 00:00 Lorazepam (Ativan -) 0.5 mg PO ONCE ONE Stop: 12/21/19 05:01 Multivitamins/Minerals/Vitamin C (Tab-A-Vit -) 1 tab PO DAILY [facility] Thiamine HCl (Vitamin B1 Injection -) 200 mg IVPB DAILY [facility] ASSESSMENT AND PLAN: 49-year-old female history of chronic alcoholism chronic alcoholic liver disease, hypertension, bipolar disorder type 2 diabetes mellitus, presented with 2 days history of abdominal pain nausea vomiting and diarrhea, work-up shows worsening liver function patient is actively drinking, rising PT/INR and PT since Impression: Decompensated cirrhosis secondary to alcohol abuse 1. Hepatic cirrhosis: Patient presented with worsening liver function with ongoing alcohol abuse, child Lawton score 10, CLD-C, discriminant score 43.6, MELD 24, observe closely for alcohol withdrawal, CIWA , GI consult, follow-up LFTs daily, bilirubin 5.9 assessment direct bilirubin 2. Nausea vomiting diarrhea: Most likely alcohol induced famotidine 20 mg twice daily, Zofran as needed, stool work-up including WBC, ova / parasite and culture at present no indication for antibiotic. 3. Alcohol abuse/withdrawal: CIWA every shift, lorazepam protocol, observe for DTs/seizures, thiamine 100 mg p.o. daily, folic acid 4. Coagulopathy: Due to alcohol induced liver disease, consider vitamin K 5 mg daily for 3 days follow-up PT/INR 5. Thrombocytopenia: Alcohol induced follow-up platelet count. 6. Type 2 diabetes mellitus: Hold p.o. medication continue diabetic diet and correctional insulin 7. Elevated troponin I: No chest pain, no acute EKG changes we will follow-up second EKG and echo consider cardiology consult if new onset chest pain or rising troponin I follow-up TSH and lipid panel. 8. Bipolar disorder: Resume home medications SCD for DVT prophylaxis. Case discussed with the resident
[2019-12-17] MEDS ORDERED: FAMOTIDINE 20 MG TABLET PO SCH ×2 (11:30→22:00)
[2019-12-17] MEDS ORDERED: LORazepam 0.5 MG TABLET ONE ×2 (11:30→17:53)
[2019-12-17 11:41] LABS: BILIRUBIN,DIRECT 3.5 mg/dL (0.0-0.2)
[2019-12-17] MEDS: INSULIN SLIDING SCALE (NOVOLOG) 1 VIAL SQ SCH ×2 (11:50→18:01)
[2019-12-17] MEDS: LORazepam 1 MG TABLET PO SCH ×2 (11:51→18:01)
[2019-12-17 12:08] LABS: URINE BACTERIA 77.3 /uL (0-1359)
[2019-12-17 16:04] VITALS: TEMP 98.1
[2019-12-17] MEDS ORDERED: ONDANSETRON 4 MG/2 ML VIAL IVPUSH PRN (17:41)
[2019-12-17] MEDS ORDERED: ALBUTEROL SO4 HFA INHALER IH ONE (17:52)
[2019-12-17 19:23] VITALS: BP 122/35; PULSE 99
[2019-12-17] MEDS ORDERED: ALBUTEROL SO4 HFA INHALER IH SCH (20:00)
--- NOTE | 2019-12-17 21:32 | PN ---
Progress Note (short form) - Note Progress Note: Pt was seen. She wanted to go home because she didn't want to remain in the hospital. Offered nicotine patch for her desire for a cigarette, but she declined. ROS was negative. Asked the patient if she had any questions or concerns that I could address, but she denied any. Her reason for AMA is to return home. Pt was alert and awake and oriented X 3 (Luba Harris, [facility], December 17, 2019). She planned to go home by calling a cab because it was too late at night for a bus. Pt showed no signs of intoxication or withdrawal. No tremors, anxiety, or hallucinations. Pt waited for nurse to remove IV because she recognized that she could not leave the hospital with an IV. Pt was found to have capacity to make decisions. She was advised that her heart proteins are elevated and her cardiac condition could worsen. She was also advised that she is on Ativan and prone to falling and have an increased risk of bleeding due to her blood lab values. Explained to pt that by leaving and not allowing us to continue treating her, it may result in her or injury in the near future. Pt acknowledged understanding of these complications and has had this already explained to her previously, but did not want to continue to receive treatment in the hospital and wished to return home. Pt left AMA .
[2019-12-18] MEDS ORDERED: MULTIVITAMINS (DAILY MVI) TABLET (FP) PO SCH (10:00)
[2019-12-18] MEDS ORDERED: THIAMINE HCL 200 MG/2 ML VIAL IVPB SCH (10:00)
[2019-12-18] MEDS ORDERED: FOLIC ACID 1 MG TABLET (FP) PO SCH (10:00)
--- NOTE | 2019-12-18 10:00 | DS ---
Physical Exam: SUBJECTIVE: Pt wanted to leave AMA. OBJECTIVE: Vital Signs Period Temp Pulse Resp BP Sys/Bryan Pulse Ox Last 24 Hr 98.1 F-98.5 F 99-107 17-18 118-141/35-60 96-100 PHYSICAL EXAM GENERAL: The patient is awake, alert, and fully oriented to person, place, time (Luba Harris, [facility], December 17, 2019) Pt refused exam. Pt showed no signs of intoxication or withdrawal. No N/V, tremors. Denies headache, anxiety, or hallucination. LABS Laboratory Results - last 24 hr 12/17/19 12/17/19 12/17/19 04:44 04:44 07:30 Sodium 131 L Potassium 3.7 Chloride 103 Carbon Dioxide 20 L Anion Gap 7 L BUN 5.9 L Creatinine 0.7 Est GFR (CKD-EPI)AfAm 116.27 Est GFR (CKD-EPI)NonAf 100.32 POC Glucometer Random Glucose 85 Calcium 8.7 Total Bilirubin 5.9 H Direct Bilirubin 3.5 H AST 234 H ALT 51 Alkaline Phosphatase 85 Troponin I 0.12 H 0.11 H Total Protein 9.6 H Albumin 2.4 L Lipase 283 Vitamin B12 1584 H Serum Folate 14 TSH 6.71 H Urine Bacteria (Auto) 77.3 Alcohol, Quantitative 85.1 H 12/17/19 12/17/19 11:33 17:58 Sodium Potassium Chloride Carbon Dioxide Anion Gap BUN Creatinine Est GFR (CKD-EPI)AfAm Est GFR (CKD-EPI)NonAf POC Glucometer 84 114 Random Glucose Calcium Total Bilirubin Direct Bilirubin AST ALT Alkaline Phosphatase Troponin I Total Protein Albumin Lipase Vitamin B12 Serum Folate TSH Urine Bacteria (Auto) Alcohol, Quantitative HOSPITAL COURSE: 49 YO F PMH of DM, HTN, cholethiasis, bipolar, asthma, & alcohol abuse,p/w 3 days of NBNB vomiting, nausea, epigastric pain, diarreha, back pain. Pepcid, zofran, mylanta were given for alcohol-induced gastritis. Elevated LFTs indicated hepatic cirrhosis. Pt was started on ativan protocol for alcohol withdrawal. EKG showed tachycardia w/ possible L atrial enlargment. Pt had Elevated troponins at 0.11. CIWA 0. Pt left AMA. Date of Admission:12/17/19 Date of Discharge: 12/18/19 Minutes to complete discharge: 45 Discharge Summary Problems reviewed: Yes Reason For Visit: HYPERBILIRUBINEMIA,ELEVATED TROPONIN LEVEL, Condition: Stable - Instructions Diet, Activity, Other Instructions: Pt was AMA. Disposition: AGAINST MEDICAL ADVICE - Home Medications Comprehensive Discharge Medication List: Ambulatory Orders Folic Acid 1 mg PO DAILY 02/05/17 Albuterol Sulfate Inhaler - [Ventolin HFA Inhaler -] 2 puff IH QID 03/26/18 Lisinopril 20 mg PO DAILY 03/26/18 metFORMIN HCL [Metformin ER Osmotic] 500 mg PO BID 03/26/18 Alprazolam [Xanax] 1 mg PO ASDIR 03/24/19 Gabapentin 1 tab PO ASDIR 03/24/19 This patient is new to me today: Yes Date on this admission: 12/17/19 Emergency Visit: Yes ED Registration Date: 12/17/19 Care time: The patient presented to the Emergency Department on the above date and was hospitalized for further evaluation of their emergent condition. Critical Care patient: No - Discharge Referral Referred to [facility] Med P.C.: No ATTENDING PHYSICIAN STATEMENT I saw and evaluated the patient. I reviewed the resident's note and discussed the case with the resident. I agree with the resident's findings and plan as documented. SUBJECTIVE: OBJECTIVE: ASSESSMENT AND PLAN:
--- NOTE | 2019-12-18 15:01 | EKG ---
Test Reason : Blood Pressure : / mmHG Vent. Rate : 103 BPM Atrial Rate : 103 BPM P-R Int : 150 ms QRS Dur : 082 ms QT Int : 344 ms P-R-T Axes : 045 010 080 degrees QTc Int : 450 ms SINUS TACHYCARDIA POSSIBLE LEFT ATRIAL ENLARGEMENT BORDERLINE ECG WHEN COMPARED WITH ECG OF 17-DEC-2019 05:46, NO SIGNIFICANT CHANGE WAS FOUND Confirmed by NISA ROSS MD ([id number]) on 12/18/2019 3:01:22 PM Referred By: Confirmed By:NISA ROSS MD
[2019-12-19] MEDS ORDERED: LORazepam 1 MG TABLET PO SCH (05:00)
[2019-12-20] MEDS ORDERED: LORazepam 0.5 MG TABLET PO PRN
[2019-12-20] MEDS ORDERED: LORazepam 0.5 MG TABLET PO SCH (05:00)
[2019-12-21] MEDS ORDERED: LORazepam 0.5 MG TABLET PO ONE (05:00)
== END 2019-12-17 21:54 | disposition left against medical advice (07) | DRG 770 ==
LOC: JER 03:18 → JERBED 06:00 → J4W 20:33
PROVIDERS: ADMIT Internal Medicine; ATTEND Internal Medicine
PROC: HZ2ZZZZ Detoxification Services for Substance Abuse Treatment (ICD-10-PCS; principal; 2019-12-17)
DX: F10.239 Alcohol dependence with withdrawal, unspecified (principal); E80.6 Other disorders of bilirubin metabolism; I10 Essential (primary) hypertension; J45.909 Unspecified asthma, uncomplicated; F31.9 Bipolar disorder, unspecified; E11.9 Type 2 diabetes mellitus without complications; M54.9 Dorsalgia, unspecified; K21.9 Gastro-esophageal reflux disease without esophagitis; F41.8 Other specified anxiety disorders; R56.9 Unspecified convulsions; D64.9 Anemia, unspecified; K76.0 Fatty (change of) liver, not elsewhere classified; D69.6 Thrombocytopenia, unspecified; K29.20 Alcoholic gastritis without bleeding; D68.9 Coagulation defect, unspecified; R11.2 Nausea with vomiting, unspecified; K70.30 Alcoholic cirrhosis of liver without ascites; R19.7 Diarrhea, unspecified; K80.80 Other cholelithiasis without obstruction
CPT/HCPCS: 36415; 71045-TC-FY; 76705-TC; 80053; 80307; 81003; 82248; 82607; 82746; 82962; 83690; 84443; 84484; 85025; 85610; 85730; 87086; 93005; 93010; 99285-25; U0003

== ENCOUNTER 2020-01-25 17:39 | Inpatient (IN) | payer OTHER ==
[2020-01-25 18:01] VITALS: BMI 31.8
--- NOTE | 2020-01-25 18:21 | PDOC ---
Documentation entered by Zenaida Perez SCRIBE, acting as scribe for Sherron Pittman MD. Sherron Pittman MD: This documentation has been prepared by the Chris reaves Xhesika, SCRIBE, under my direction and personally reviewed by me in its entirety. I confirm that the documentation accurately reflects all work, treatment, procedures, and medical decision making performed by me. Attending Attestation - Resident Resident Name: Jack Vick - ED Attending Attestation I have performed the following: I have examined & evaluated the patient, The case was reviewed & discussed with the resident, I agree w/resident's findings & plan, Exceptions are as noted - HPI HPI: 01/25/20 17:53 The patient is a 49y/o woman with a PMH of HTN, DM, bipolar, asthma, alcohol abuse, chronic elevated liver enzymes, and cholelithiasis who presented to the ED BIBA for 2-3 weeks of AMS, jaundice and decreased appetite. Pt is a poor historian and unable to contribute to history, however, pt's roommate called EMS. Roommate reports the pt has been more jaundice, drinking more than usual and more confused. Roommate reports the pt is now barely responsive for stimuli. Pt last drank beer 2 days ago but does not recall how much. EMS reports the patient was hypotensive and BS was 123 en-route to ED. Pt had a Seizure in past but does not know when it was or if was associated with ETOH withdrawal. Allergies: Morphine, oxycodone, oxycodone HCl, aspirin - Physicial Exam PE: 01/25/20 18:15 GENERAL: obtunded, moaning mostly incomprehensible sounds, unable to answer questions for the most part, attempting to form words, wearing face mask HEENT: +scleral icterus, +jaundice, PERRLA, EOMI, a bit dry mucous membranes NECK/BACK: no spinal stepoff or deformity, no hematoma, neck supple CARDIOVASCULAR: regular rate/rhythm, normal S1S2, no MGR, capillary refill <2 seconds, extremities wwp, no edema LUNGS/RESPIRATORY: nononlabored respirations, lungs CTAB GI/ABDOMEN: central obesity, symmetric [id number], protuberant but nondistended, normoactive BS, soft, no midline pulsatile masses, no organomegaly : normal external appearance, no lesions, no swelling, non-malodorous MSK/EXTREMITIES: right medial distal lower leg with 3x3cm raised area (raised to 2cm from surrounding tissue) with overlying skin darkening, no muscle atrophy, no acute deformity, no edema DERM/SKIN: warm and dry, no pallor, no jaundice, no rash, no pathologic- appearing bruising, no skin breakdown, no cuts NEUROLOGICAL: tracking examiner intermittently, CN II-XII grossly intact, no obvious facial droop, no resting tremor, but +asterixis, otherwise Pt is unable to participate in exam - Medical Decision Making 01/25/20 18:22 [id number] with h/o heavy alcohol use p/w AMS, jaundice, upper abdominal pain, tremors, fever, reports of no PO intake x2-3 weeks from room mate. Initial Vital Signs Temp Pulse Resp BP Pulse Ox 98.7 F 94 H 16 115/90 97 01/25/20 17:56 01/25/20 17:56 01/25/20 17:56 01/25/20 17:56 01/25/20 17:56 DDX IBNLT: most likely hepatic encephalopathy d/t EtOH use disorder and liver failure. Possible fulminant liver failure and patient will be worked up for this. Possible biliary pathology as patient has h/o cholelithiasis as seen on recent USS, and patient thus has risk for cholangitis. Also possible SBP. Possible EtOH intoxication, withdrawal (w/wo seizures), DT, ICH, UGIB (can cause AMS), LGIB, metabolic derangement, coingestion, hepatorenal syndrome, hepatopulmonary syndrome, Wernickes encephalopathy, Korsakoff syndrome, less likely trauma without outward evidence, etc. Patient's initial labs with AST/ALT elevated in pattern of EtOH overuse/liver injury. Interestingly alk phos is not elevated which may be less consistent with obstructive biliary pathology. T. bili >12. INR >3. Last Vital Signs Temp Pulse Resp BP Pulse Ox 98.7 F 95 H 18 103/34 L 96 01/25/20 17:56 01/25/20 19:01 01/25/20 19:01 01/25/20 19:01 01/25/20 19:01 01/25/20 19:18 Patient maintaining BP but multiple significant lab abnormalities, c/f cholangitis and SBP. Patient given Zosyn 4.5 IV which would cover both. Given banana bag, LR. She remains encephalopathic/altered but maintaining BP. Taking to USS now on monitor. Provider Orders Category Date Time Status TYPE AND SCREEN Stat Blood Bank 01/25/20 18:09 Completed ABDOMEN & PELVIS CT WITH CONTR [CT] Stat CT Scan 01/25/20 20:[address] WITHOUT CONTRAST [CT] Stat CT Scan 01/25/20 17:48 Completed ELECTROCARDIOGRAM [CARD] Stat Cardiology 01/25/20 17:47 Ordered Cardiac Monitoring Continuous Care 01/25/20 17:47 Active EKG needed NOW Care 01/25/20 17:48 Active Finger Stick [BGM (Blood Glucose Monitoring)] NOW Care 01/25/20 17:49 Active IV - Insert 2 lines NOW Care 01/25/20 17:47 Active Isolation Precautions As directed Care 01/25/20 18:15 Active NPO (in ED only) NOW Care 01/25/20 17:48 Completed Notify Physician As directed Care 01/25/20 17:47 Active Notify Physician As directed Care 01/25/20 17:47 Active Physician Instructions As directed Care 01/25/20 17:47 Active Rectal Temp NOW Care 01/25/20 17:47 Active Straight Catheter, Insert ONCE Care 01/25/20 17:48 Active Vital Signs Q1H Care 01/25/20 17:48 Active ACETAMINOPHEN Stat Lab 01/25/20 18:36 Ordered ALCOHOL Stat Lab 01/25/20 19:00 Ordered AMMONIA (NH4) Stat Lab 01/25/20 18:09 Completed Add On Test Stat Lab 01/25/20 18:39 Ordered CBC WITH DIFFERENTIAL Stat Lab 01/25/20 18:09 Completed CK MB Stat Lab 01/25/20 18:09 Completed COMP METABOLIC PANEL Stat Lab 01/25/20 18:09 Completed COVID-19 Stat Lab 01/25/20 18:15 Received CPK Stat Lab 01/25/20 18:09 Completed DRUG SCREEN,UR [facility]- [facility] Stat Lab 01/25/20 20:30 Received LACTIC ACID Stat Lab 01/25/20 18:09 Completed LACTIC ACID Stat Lab 01/25/20 18:15 Ordered LIPASE Stat Lab 01/25/20 18:09 Completed PT & APTT Stat Lab 01/25/20 18:09 Completed RBC MORPH Stat Lab 01/25/20 18:09 Completed SALICYLATE Stat Lab 01/25/20 18:36 Ordered TROPONIN I ([facility]) Stat Lab 01/25/20 18:09 Completed UA ([facility]) ONLY Stat Lab 01/25/20 20:30 Received Folic Acid Injection - 1 mg Medication 01/25/20 18:58 Active Thiamine HCl [Vitamin B1 Injection -] 100 mg Multivit Injection Adult [Infuvite Adult -] 10 ml Sodium Chloride [Normal Saline -] 988.8 ml IVPB ONCE Lactated Ringers Solution Medication 01/25/20 19:08 Discontinued 1,000 ml in 1,000 ml IV ONCE Pantoprazole Sodium [Protonix IV] Medication 01/25/20 20:28 Discontinued 40 mg IVPUSH ONCE ONE Pantoprazole Sodium [Protonix IV] 80 mg Medication 01/25/20 20:30 Active Sodium Chloride [Normal Saline -] 100 ml IVPB Q10H Piperacillin/Tazob 4.5 gm [Zosyn -] 4.5 gm Medication 01/25/20 19:10 Discontinued Dextrose 5%-Water [Dextrose 5% Water Minibag 100ML] 100 ml IVPB ONCE Piperacillin/Tazob 4.5 gm [Zosyn 4.5GM Ivpb (Pre-Docked Medication 01/25/20 19:21 Discontinued )] 4.5 gm in 100 ml IVPB UD BLOOD CULTURE Stat Micro 01/25/20 18:09 Received URINE CULTURE Stat Micro 01/25/20 20:30 Received Saline Lock, Insert As directed Phy Order 01/25/20 17:47 Ordered CHEST X-RAY PORTABLE* [RAD] Stat Radiology 01/25/20 17:47 Taken Test Diet Needed Abd US, Please Enter See Order Reminders 01/25/20 19:04 Ordered Oxygen Therapy Nasal Cannula 2 lpm Senior Supply Chain Analyst 01/25/20 17:47 Ordered ABDOMEN US -LIMITED [US] Stat Ultrasound 01/25/20 19:04 Completed Medications Generic Name Dose Route Start Last Admin Trade Name Freq PRN Reason Stop Dose Admin Folic Acid 1 mg/ Thiamine HCl 1,000 mls @ 125 mls/hr 01/25/20 18:58 100 mg/ Multivitamins/Minerals IVPB 01/26/20 02:57 10 ml/ Sodium Chloride ONCE ONE Pantoprazole Sodium 80 mg/ 100 mls @ 10 mls/hr 01/25/20 20:30 Sodium Chloride IVPB 01/28/20 20:28 Q10H MARGO 8 MG/HR Discontinued Medications Generic Name Dose Route Start Last Admin Trade Name Efrainq PRN Reason Stop Dose Admin Lactated Ringer's 1,000 ml in 1,000 mls @ 1,000 mls/hr 01/25/20 19:08 01/25/20 19:28 Lactated Ringers Solution IV 01/25/20 20:07 1,000 mls/hr ONCE STA Administration Piperacillin Sod/Tazobactam 100 mls @ 200 mls/hr 01/25/20 19:10 01/25/20 19:28 Sod 4.5 gm/ Dextrose IVPB 01/25/20 19:39 200 mls/hr ONCE ONE Administration Protocol Piperacillin Sod/Tazobactam Sod Confirm 01/25/20 19:21 Zosyn 4.5gm Ivpb (Pre-Docked) Administered 01/25/20 19:22 Dose 4.5 gm in 100 mls @ ud IVPB .STK-MED ONE Pantoprazole Sodium 40 mg 01/25/20 20:28 Protonix Iv IVPUSH 01/25/20 20:29 ONCE ONE Lab Results WBC 15.3 K/mm3 (4.0-10.0) H 01/25/20 18:09 RBC 2.33 M/mm3 (3.60-5.2) L 01/25/20 18:09 Hgb 9.0 GM/dL (10.7-15.3) L 01/25/20 18:09 Hct 27.2 % (32.4-45.2) L D 01/25/20 18:09 MCV 116.8 fl (80-96) H D 01/25/20 18:09 MCH 38.5 pg (25.7-33.7) H 01/25/20 18:09 MCHC 33.0 g/dl (32.0-36.0) 01/25/20 18:09 RDW 16.9 % (11.6-15.6) H 01/25/20 18:09 Plt Count 182 K/MM3 (134-434) D 01/25/20 18:09 MPV 9.0 fl (7.5-11.1) 01/25/20 18:09 Absolute Neuts (auto) 11.9 K/mm3 (1.5-8.0) H 01/25/20 18:09 Neutrophils % 77.8 % (42.8-82.8) 01/25/20 18:09 Lymphocytes % 15.3 % (8-40) D 01/25/20 18:09 Monocytes % 5.2 % (3.8-10.2) 01/25/20 18:09 Eosinophils % 0.8 % (0-4.5) 01/25/20 18:09 Basophils % 0.9 % (0-2.0) 01/25/20 18:09 Nucleated RBC % 0 % (0-0) 01/25/20 18:09 Hypochromia 1+ 01/25/20 18:09 Platelet Estimate Normal 01/25/20 18:09 Polychromasia 1+ 01/25/20 18:09 Poikilocytosis 0 01/25/20 18:09 Anisocytosis 2+ 01/25/20 18:09 Microcytosis 2+ 01/25/20 18:09 Macrocytosis 1+ 01/25/20 18:09 PT with INR 39.30 SEC (9.7-13.0) H 01/25/20 18:09 INR 3.29 (0.83-1.09) H 01/25/20 18:09 PTT (Actin FS) 48.7 SECONDS (25.2-36.5) H 01/25/20 18:09 VBG pH Cancelled 01/25/20 18:09 POC VBG pCO2 Cancelled 01/25/20 18:09 POC VBG pO2 Cancelled 01/25/20 18:09 VBG HCO3 Cancelled 01/25/20 18:09 VBG O2 Sat (Genna) Cancelled 01/25/20 18:09 VBG Base Excess Cancelled 01/25/20 18:09 Sodium 148 mmol/L (136-145) H 01/25/20 18:09 Potassium 3.3 mmol/L (3.5-5.1) L 01/25/20 18:09 Chloride 118 mmol/L (98-107) H 01/25/20 18:09 Carbon Dioxide 22 mmol/L (21-32) 01/25/20 18:09 Anion Gap 8 MMOL/L (8-16) 01/25/20 18:09 BUN 67.4 mg/dL (7-18) H 01/25/20 18:09 Creatinine 1.3 mg/dL (0.55-1.3) 01/25/20 18:09 Est GFR (CKD-EPI)AfAm 55.01 01/25/20 18:09 Est GFR (CKD-EPI)NonAf 47.46 01/25/20 18:09 Random Glucose 97 mg/dL (74-106) 01/25/20 18:09 Lactic Acid 1.8 mmol/L (0.4-2.0) 01/25/20 18:09 Calcium 9.0 mg/dL (8.5-10.1) 01/25/20 18:09 Total Bilirubin 12.0 mg/dL (0.2-1) H 01/25/20 18:09 AST 302 U/L (15-37) H 01/25/20 18:09 ALT 133 U/L (13-61) H 01/25/20 18:09 Alkaline Phosphatase 81 U/L (45-117) 01/25/20 18:09 Ammonia 21.50 umol/L (11-32) 01/25/20 18:09 Creatine Kinase 13 U/L (26-192) L 01/25/20 18:09 CK-MB (CK-2) < 1.0 ng/mL (0.5-3.6) 01/25/20 18:09 Troponin I 0.07 ng/ml (0.00-0.05) H 01/25/20 18:09 Total Protein 9.2 g/dl (6.4-8.2) H 01/25/20 18:09 Albumin 1.7 g/dl (3.4-5.0) L 01/25/20 18:09 Lipase 736 U/L (73-393) H 01/25/20 18:09 Blood Type O POSITIVE 01/25/20 18:09 Antibody Screen Negative 01/25/20 18:09 US/ABDOMEN US -LIMITED Right upper quadrant abdomen ultrasound Clinical information: evaluate for cholecystitis, ascites As on a previous ultrasound exam of 12/17/2019 cholelithiasis is noted. There is no definite gallbladder overdistention. Gallbladder wall thickness appears borderline as on the prior study which could be due to chronic cholecystitis. No pericholecystic fluid is seen. The common bile duct diameter appears unremarkable measuring 0.5 cm. There is diffuse fatty infiltration of the liver. Equivocal subtle hepatic surface irregularity is noted which could be on the basis of cirrhosis. No gross mass lesion is identified. The right kidney and partially visualized pancreas demonstrate no obvious sonographic pathology. Evaluation of the upper and lower quadrants bilaterally demonstrate no definite evidence of free intraperitoneal fluid. Impression: No definite interval change is identified in comparison to sonography performed on 12/17/2019. Cholelithiasis is noted without sonographic evidence of acute cholecystitis. Early acute cho lecystitis may not be demonstrable on sonography. Findings are noted as described above which could be on the basis of chronic cholecystitis. There is no definite biliary tract dilatation. Diffuse hepatic steatosis is again seen. There is equivocal minimal hepatic surface irregularity which could conceivably due to cirrhosis. Clinical/laboratory correlation is suggested. No ascites is identified. CT/HEAD CT WITHOUT CONTRAST Cranial CT without contrast Clinical information: altered mental status Multiplanar imaging was performed. Intravenous contrast was not administered. Small right frontoparietal and very small left frontal hypodense subdural fluid collections are seen. There is no midline displacement. No discrete infarct is identified within the limitations of CT. There is no obvious soft tissue mass lesion. No obstructive hydrocephalus is noted. The calvarium appears intact. Impression: In comparison to CT performed on 03/24/2019 interval development of small right frontoparietal and very small left frontal hypodense subdural fluid collections are noted which may represent chronic subdural hematomas versus subdural hygromas. There is no midline displacement. The remainder of the exam appears unchanged demonstrating no discrete noncontrast pathology. Most likely UGIB given elevated BUN and hepatic encephalopathy. Protonix bolus and drip given. Patient has been given antibiotics already. Order placed for CT abdomen/pelvis with IV contrast in case she has thomas The Pt is unsafe for discharge at this time given high-risk history and multiple lab abnormalities and continued abdominal pain. They require further hospital observation, workup, and treatment. Patient denies having a PCP or GI doctor currently. [facility] 01/26/20 02:05 Patient's BP at this time is 104/87. Appropriate for tele at this time. Heart Score/ECG Review #1 Sinus rhythm, rate 86, normal axis and intervals, TWI lateral precordial leads but no ischemic MARY or STD Discharge - Discharge Information Problems reviewed: Yes Clinical Impression/Diagnosis: Encephalopathy, Alcohol use disorder, Uremia, Altered mental status, Anemia, Troponin level elevated, Hypokalemia, Elevated INR, UTI (urinary tract infection) Condition: Guarded - Admission Yes - Follow up/Referral - Patient Discharge Instructions - Post Discharge Activity Critical Care Total Critical Care Time (in minutes): 60 Critical Care Statement: The care of this patient involved high complexity decision making to prevent further life threatening deterioration of the patient's condition and/or to evaluate & treat vital organ system(s) failure or risk of failure.
--- NOTE | 2020-01-25 18:31 | PDOC ---
History of Present Illness - General Chief Complaint: Altered Mental Status Stated Complaint: LOSS OF APPETITE Time Seen by Provider: 01/25/20 17:47 - History of Present Illness Initial Comments: 49 yo female with PMH of alcohol abuse, withdrawal seizures, hepatic cirrhosis, cholelithaisis, anxiety, bipolar, DM. Pt brought in by EMS for altered mental status. Her boyfriend called EMS because she hasn't been eating for the last 2 month and only drinking beer. She is alert but not oriented. Unable to answer her questions. Did endorse leg pain but was unable to specify which leg and where the pain was. Her only contact is her daughter in [place] [phone]. Past History - Medical History Allergies/Adverse Reactions: Allergies Allergy/AdvReac Type Severity Reaction Status Date / Time morphine Allergy Verified 01/25/20 17:55 oxycodone Allergy Verified 01/25/20 17:55 oxycodone HCl [From Percocet] Allergy Verified 01/25/20 17:55 aspirin AdvReac Nausea Verified 01/25/20 17:55 Home Medications: Ambulatory Orders Folic Acid 1 mg PO DAILY 02/05/17 Albuterol Sulfate Inhaler - [Ventolin HFA Inhaler -] 2 puff IH QID 03/26/18 Lisinopril 20 mg PO DAILY 03/26/18 metFORMIN HCL [Metformin ER Osmotic] 500 mg PO BID 03/26/18 Alprazolam [Xanax] 1 mg PO ASDIR 03/24/19 Gabapentin 1 tab PO ASDIR 03/24/19 Anemia: Yes Asthma: Yes COPD: No Diabetes: Yes GI Disorders: Yes (GERD) HTN: Yes Psychiatric Problems: Yes (bipolar, anxiety, depression) Seizures: Yes (pt states she has a h/o seizures) - Surgical History Abdominal Surgery: Yes - Reproductive History Is Patient Now?: No (lmp unknown) - Immunization History Immunization Up to Date: No - Psycho-Social/Smoking History Smoking History: Smoker current status UNK Have you smoked in the past 12 months: No Number of Cigarettes Smoked Daily: 20 If you are a former smoker, when did you quit?: pt refusing to quit 'Breaking Loose' booklet given: 11/23/16 - Substance Abuse Hx (Audit-C & DAST Scrn) How often the patient has a drink containing alcohol: 4 0r more times/wk Number of drinks the patient has on a typical day: 5 or 6 How often the patient has six or more drinks on one occasion: Daily or almost daily Score: In Men: 4 or > Positive; In Women: 3 or > Positive: 10 Screen Result (Pos requires Nsg. Audit-10AR): Positive In the last yr the pt used illegal drug/Rx for NonMed reason: No Score: Yes response is considered Positive: 0 Screen Result (Positive result requires Nsg. DAST-10): Negative Review of Systems - Review of Systems Able to Perform ROS?: No *Physical Exam - Vital Signs Last Vital Signs Temp Pulse Resp BP Pulse Ox 98.7 F 94 H 16 115/90 97 01/25/20 17:56 01/25/20 17:56 01/25/20 17:56 01/25/20 17:56 01/25/20 17:56 - Physical Exam General Appearance: Yes: Apparent Distress. No: Appropriately Dressed HEENT: positive: PATY, Normal Voice Neck: negative: Tender, Rigid Respiratory/Chest: positive: Chest Tender, Lungs Clear, Normal Breath Sounds Cardiovascular: positive: Regular Rhythm, Regular Rate, S1, S2. negative: Edema, JVD, Murmur Gastrointestinal/Abdominal: positive: Tender (diffuse), Flat, Soft Musculoskeletal: positive: Normal Inspection. negative: CVA Tenderness Extremity: positive: Normal Capillary Refill, Normal Inspection, Other (rigidity wth movement) Integumentary: positive: Normal Color, Dry, Warm, Jaundice Neurologic: positive: Alert, Normal Mood/Affect. negative: Fully Oriented (not oriented to person, place, time) ED Treatment Course - LABORATORY CBC & Chemistry Diagram: 01/25/20 18:09 01/25/20 18:09 Medical Decision Making - Medical Decision Making 49 yo female with PMH of alcohol abuse, withdrawal seizures, hepatic cirrhosis, cholelithaisis, anxiety, bipolar, DM brought in by EMS for EMS. DDx: Hepatic encepahlopathy, wernicke's encephalopathy, subarachnoid, sepsis. WBC 15.3 Hb 9.0 INR 3.29 Bilirubin 12 with visible jaundice ALT/AST elevated Pt signed out to ED night team 01/26/20 14:39 Discharge - Discharge Information Problems reviewed: Yes Clinical Impression/Diagnosis: Encephalopathy, Alcohol use disorder, Uremia, Altered mental status, Anemia, Troponin level elevated, Hypokalemia, Elevated INR, UTI (urinary tract infection) Condition: Guarded - Follow up/Referral - Patient Discharge Instructions - Post Discharge Activity
[2020-01-25 18:44] LABS: BASO % 0.9 % (0-2.0); EOS % 0.8 % (0-4.5); HEMATOCRIT 27.2 % (32.4-45.2); LYMPH % 15.3 % (8-40); MCH 38.5 pg (25.7-33.7); MEAN CELL VOLUME 116.8 fl (80-96); MONO % 5.2 % (3.8-10.2); NEUT % 77.8 % (42.8-82.8); PLATELET COUNT 182 K/MM3 (134-434); RBC 2.33 M/mm3 (3.60-5.2); RDW 16.9 % (11.6-15.6); WHITE BLOOD COUNT 15.3 K/mm3 (4.0-10.0)
[2020-01-25 18:52] LABS: INR 3.29 (0.83-1.09); PROTHROMBIN TIME (PATIENT) 39.3 SEC (9.7-13.0)
[2020-01-25 18:55] LABS: ACTIVATED PTT 48.7 SECONDS (25.2-36.5)
[2020-01-25 18:56] LABS: ALBUMIN 1.7 g/dl (3.4-5.0); ALK PHOS 81 U/L (45-117); ANION GAP 8 MMOL/L (8-16); BLOOD UREA NITROGEN 67.4 mg/dL (7-18); CHLORIDE 118 mmol/L (98-107); CO2 22 mmol/L (21-32); CREATININE 1.3 mg/dL (0.55-1.3); GLUCOSE,RANDOM 97 mg/dL (74-106); LIPASE 736 U/L (73-393); POTASSIUM 3.3 mmol/L (3.5-5.1); SGOT/AST 302 U/L (15-37); SGPT/ALT 133 U/L (13-61); SODIUM 148 mmol/L (136-145); TOT PROT 9.2 g/dl (6.4-8.2)
[2020-01-25] MEDS ORDERED: FOLIC ACID INJECTION - 1 MG, THIAMINE HCL 100 MG, MULTIVIT INJECTION ADULT 10 ML in SOD... IVPB ONE (18:58)
[2020-01-25] MEDS ORDERED: LACTATED RINGERS SOLUTION 1,000 ML/1,000 ML INFUS.BAG IV STA (19:08)
[2020-01-25] MEDS ORDERED: PIPERACILLIN/TAZOB 4.5 GM 4.5 GM in DEXTROSE 5%-WATER 100 ML IVPB ONE (19:10)
[2020-01-25] MEDS ORDERED: PIPERACILLIN/TAZOB 4.5 GM 4.5 GM/100 ML BAG IVPB ONE (19:21)
[2020-01-25 19:53] LABS: ANISOCYTOSIS 2+; MACROCYTOSIS 1+; PLATELET ESTIMATE NORMAL
[2020-01-25] MEDS ORDERED: PANTOPRAZOLE SODIUM 40 MG VIAL IVPUSH ONE (20:28)
[2020-01-25 20:57] LABS: EPI CELLS 5 /uL (0-25.1); HYALINE CASTS 3 /uL (0-3.1); URINE APPEARANCE CLEAR; URINE BILIRUBIN 3+ (NEGATIVE); URINE COLOR DK YELLOW; URINE GLUCOSE (UA) NEGATIVE (NEGATIVE); URINE KETONE TRACE (NEGATIVE); URINE LEUK ESTERASE TRACE (NEGATIVE); URINE NITRITE POSITIVE (NEGATIVE); URINE PROTEIN TRACE (NEGATIVE); URINE RBC 30 /uL (0-23.9); URINE WBC 11 /uL (0-25.8)
[2020-01-25 21:02] LABS: COCAINE, UR NEGATIVE ng/ml (CUTOFF=300); METHADONE, UR NEGATIVE ng/ml (CUTOFF=300); OPIATES, URI NEGATIVE ng/ml (CUTOFF=300); PHENCYCLIDINE,URINE NEGATIVE ng/ml (CUTOFF=25); URINE BARBITURATES NEGATIVE ng/ml (CUTOFF=200)
[2020-01-25 21:08] LABS: URINE AMPHETAMINES NEGATIVE ng/ml (CUTOFF=500)
[2020-01-25 21:10] LABS: URINE BENZODIAZEPINES POSITIVE ng/ml (CUTOFF=200)
[2020-01-25] MEDS ORDERED: CEFTRIAXONE 1 GM in DEXTROSE 5%-WATER - 100 ML IVPB ONE (21:13)
[2020-01-25] MEDS ORDERED: PANTOPRAZOLE SODIUM 40 MG VIAL ONE (21:34)
[2020-01-25] MEDS ORDERED: CEFTRIAXONE 1 GM/50 ML BAG ONE (21:35)
[2020-01-25] MEDS: PANTOPRAZOLE SODIUM 80 MG in SODIUM CHLORIDE 100 ML IVPB SCH (21:50)
[2020-01-26 00:52] LABS: URINE BACTERIA 645 /uL (0-1359)
--- NOTE | 2020-01-26 01:19 | PDOC ---
*Physical Exam - Vital Signs Last Vital Signs Temp Pulse Resp BP Pulse Ox 97.8 F 93 H 20 112/41 L 99 01/25/20 21:00 01/25/20 20:14 01/25/20 20:14 01/25/20 20:14 01/25/20 20:14 ED Treatment Course - LABORATORY CBC & Chemistry Diagram: 01/25/20 18:09 01/25/20 18:09 - ADDITIONAL ORDERS Additional order review: Laboratory Results 01/25/20 01/25/20 01/25/20 20:30 20:30 18:09 PT with INR INR PTT (Actin FS) VBG pH POC VBG pCO2 POC VBG pO2 VBG HCO3 VBG O2 Sat (Genna) VBG Base Excess Sodium Potassium Chloride Carbon Dioxide Anion Gap BUN Creatinine Est GFR (CKD-EPI)AfAm Est GFR (CKD-EPI)NonAf Random Glucose Lactic Acid Calcium Total Bilirubin AST ALT Alkaline Phosphatase Ammonia Creatine Kinase CK-MB (CK-2) Troponin I Total Protein Albumin Lipase Urine Color Dk yellow Urine Appearance Clear Urine pH 5.0 Ur Specific [place] 1.014 Urine Protein Trace Urine Glucose (UA) Negative Urine Ketones Trace H Urine Blood Negative Urine Nitrite Positive H Urine Bilirubin 3+ H Urine Urobilinogen 2.0 H Ur Leukocyte Esterase Trace Urine WBC (Auto) 11 Urine RBC (Auto) 30 Urine Casts (Auto) 3 U Epithel Cells (Auto) 5 Urine Bacteria (Auto) 645 Opiates Screen Negative Methadone Screen Negative Barbiturate Screen Negative Phencyclidine Screen Negative Ur Amphetamines Screen Negative MDMA (Ecstasy) Screen Negative Benzodiazepines Screen Positive A* Cocaine Screen Negative U Marijuana (THC) Screen Negative Blood Type O POSITIVE Antibody Screen Negative 01/25/20 01/25/20 01/25/20 18:09 18:09 18:09 PT with INR INR PTT (Actin FS) VBG pH POC VBG pCO2 POC VBG pO2 VBG HCO3 VBG O2 Sat (Genna) VBG Base Excess Sodium 148 H Potassium 3.3 L Chloride 118 H Carbon Dioxide 22 Anion Gap 8 BUN 67.4 H Creatinine 1.3 Est GFR (CKD-EPI)AfAm 55.01 Est GFR (CKD-EPI)NonAf 47.46 Random Glucose 97 Lactic Acid 1.8 Calcium 9.0 Total Bilirubin 12.0 H AST 302 H ALT 133 H Alkaline Phosphatase 81 Ammonia 21.50 Creatine Kinase 13 L CK-MB (CK-2) < 1.0 Troponin I Total Protein 9.2 H Albumin 1.7 L Lipase 736 H Urine Color Urine Appearance Urine pH Ur Specific [place] Urine Protein Urine Glucose (UA) Urine Ketones Urine Blood Urine Nitrite Urine Bilirubin Urine Urobilinogen Ur Leukocyte Esterase Urine WBC (Auto) Urine RBC (Auto) Urine Casts (Auto) U Epithel Cells (Auto) Urine Bacteria (Auto) Opiates Screen Methadone Screen Barbiturate Screen Phencyclidine Screen Ur Amphetamines Screen MDMA (Ecstasy) Screen Benzodiazepines Screen Cocaine Screen U Marijuana (THC) Screen Blood Type Antibody Screen 01/25/20 01/25/20 01/25/20 18:09 18:09 18:09 PT with INR 39.30 H INR 3.29 H PTT (Actin FS) 48.7 H VBG pH Cancelled POC VBG pCO2 Cancelled POC VBG pO2 Cancelled VBG HCO3 Cancelled VBG O2 Sat (Genna) Cancelled VBG Base Excess Cancelled Sodium Potassium Chloride Carbon Dioxide Anion Gap BUN Creatinine Est GFR (CKD-EPI)AfAm Est GFR (CKD-EPI)NonAf Random Glucose Lactic Acid Calcium Total Bilirubin AST ALT Alkaline Phosphatase Ammonia Creatine Kinase CK-MB (CK-2) Troponin I 0.07 H Total Protein Albumin Lipase Urine Color Urine Appearance Urine pH Ur Specific [place] Urine Protein Urine Glucose (UA) Urine Ketones Urine Blood Urine Nitrite Urine Bilirubin Urine Urobilinogen Ur Leukocyte Esterase Urine WBC (Auto) Urine RBC (Auto) Urine Casts (Auto) U Epithel Cells (Auto) Urine Bacteria (Auto) Opiates Screen Methadone Screen Barbiturate Screen Phencyclidine Screen Ur Amphetamines Screen MDMA (Ecstasy) Screen Benzodiazepines Screen Cocaine Screen U Marijuana (THC) Screen Blood Type Antibody Screen 01/25/20 18:09 RBC 2.33 L MCV 116.8 H D MCHC 33.0 RDW 16.9 H MPV 9.0 Neutrophils % 77.8 Lymphocytes % 15.3 D Monocytes % 5.2 Eosinophils % 0.8 Basophils % 0.9 - RADIOLOGY Radiology Studies Ordered: Category Date Time Status ABDOMEN & PELVIS CT WITH CONTR [CT] Stat CT Scan 01/25/20 22:50 Taken ABDOMEN US -LIMITED [US] Stat Ultrasound 01/25/20 19:04 Completed - Medications Given in the ED: ED Medications Discontinued Medications Generic Name Dose Route Start Last Admin Trade Name Freq PRN Reason Stop Dose Admin Lactated Ringer's 1,000 ml in 1,000 mls @ 1,000 mls/hr 01/25/20 19:08 01/25/20 19:28 Lactated Ringers Solution IV 01/25/20 20:07 1,000 mls/hr ONCE STA Administration Piperacillin Sod/Tazobactam 100 mls @ 200 mls/hr 01/25/20 19:10 01/25/20 19:28 Sod 4.5 gm/ Dextrose IVPB 01/25/20 19:39 200 mls/hr ONCE ONE Administration Protocol Ceftriaxone Sodium 1 gm/ 100 mls @ 200 mls/hr 01/25/20 21:13 01/25/20 22:15 Dextrose IVPB 01/25/20 21:42 200 mls/hr ONCE ONE Administration Pantoprazole Sodium 40 mg 01/25/20 20:28 01/25/20 21:50 Protonix Iv IVPUSH 01/25/20 20:29 40 mg ONCE ONE Administration Medical Decision Making - Medical Decision Making 01/26/20 01:[address] Vick 49 yo female with PMH of alcohol abuse, withdrawal seizures, hepatic cirrhosis, cholelithaisis, anxiety, bipolar, DM brought in by EMS for altered mental status. Signed out from day team to followup imaging and labs 01/26/20 01:20 Laboratory Tests 01/25/20 01/25/20 01/25/20 18:09 18:09 18:09 WBC 15.3 H Hgb 9.0 L INR 3.29 H Sodium Potassium Chloride BUN Creatinine Total Bilirubin AST ALT Troponin I 0.07 H Lipase 01/25/20 18:09 WBC Hgb INR Sodium 148 H Potassium 3.3 L Chloride 118 H BUN 67.4 H Creatinine 1.3 Total Bilirubin 12.0 H AST 302 H ALT 133 H Troponin I Lipase 736 H Hb drop from 11.3 to 9.0 since last month will proceed with RUQ US and CT will treat with zosyn for sbp vs cholangitis given lab abnormalities; will treat with ceftriaxone for ?uti will admit 01/26/20 03:16 BP improved MAP > 65 will admit tele 3rd bolus running Discharge - Discharge Information Problems reviewed: Yes Clinical Impression/Diagnosis: Encephalopathy, Alcohol use disorder, Uremia, Altered mental status, Anemia, Troponin level elevated, Hypokalemia, Elevated INR, UTI (urinary tract infection) Condition: Guarded - Follow up/Referral - Patient Discharge Instructions - Post Discharge Activity
[2020-01-26] MEDS ORDERED: LACTATED RINGERS SOLUTION 1,000 ML/1,000 ML INFUS.BAG IV SCH ×3 (02:00→08:49)
[2020-01-26] MEDS ORDERED: SODIUM CHLORIDE 1,000 ML IV SCH (03:45)
[2020-01-26] MEDS ORDERED: LORazepam 2 MG/ML SDV VIAL IM PRN (03:49)
[2020-01-26] MEDS ORDERED: KCL 10 MEQ IVPB 30 MEQ/300 ML INFUS.BAG IVPB ONE (04:16)
[2020-01-26] MEDS: KCL 10 MEQ IVPB 10 MEQ/100 ML INFUS.BAG IVPB SCH ×3 (04:23→06:02)
--- NOTE | 2020-01-26 05:20 | HP ---
CHIEF COMPLAINT: Altered Mental Status with Jaundice PCP: HISTORY OF PRESENT ILLNESS: 49 year old female patient with past medical history that includes HTN, DM, Bipolar, Asthma, Alcohol abuse, Chronic elevated LFTs, Cholelithiasis, Anemia, GERD, Anxiety, Depression, Seizures, who presented to the ED with altered mental status, jaundice, and decreased appetite for 2 to 3 weeks. The patient has been drinking more than usual with her last drink 2 days ago and with less oral intake per the patient's roommate. ER course was notable for: (1) IV Fluids (2) ECG, CXR, Head CT, U/S, CT A/P (3) FOBT Positive Recent Travel: PAST MEDICAL HISTORY: HTN, DM, Bipolar, Asthma, Alcohol abuse, Chronic elevated LFTs, Cholelithiasis, Anemia, GERD, Anxiety, Depression, Seizures PAST SURGICAL HISTORY: Social History: Smoking: Unknown Alcohol: Significant drinking with last drink 2 days ago per roommate Drugs: Benzos on Urine Tox Allergies morphine Allergy (Verified 01/25/20 17:55) oxycodone Allergy (Verified 01/25/20 17:55) oxycodone HCl [From Percocet] Allergy (Verified 01/25/20 17:55) aspirin Adverse Reaction (Verified 01/25/20 17:55) Nausea Pt. stated ASA upsets her stomach HOME MEDICATIONS: Home Medications Medication Instructions Recorded Folic Acid 1 mg PO DAILY 02/05/17 Albuterol Sulfate Inhaler - 2 puff IH QID 03/26/18 [Ventolin HFA Inhaler -] Lisinopril 20 mg PO DAILY 03/26/18 metFORMIN HCL [Metformin ER 500 mg PO BID 03/26/18 Osmotic] Alprazolam [Xanax] 1 mg PO ASDIR 03/24/19 Gabapentin 1 tab PO ASDIR 03/24/19 REVIEW OF SYSTEMS Unable to obtain due to patient being A&Ox0 and confused. PHYSICAL EXAMINATION Vital Signs - 24 hr 01/25/20 01/25/20 01/25/20 17:55 17:56 19:01 Temperature 98.7 F Pulse Rate 94 H Pulse Rate [ 95 H Right Radial] Respiratory 16 18 Rate Blood Pressure 115/90 Blood Pressure 103/34 L [Right Arm] O2 Sat by Pulse 96 97 96 Oximetry (%) 01/25/20 01/25/20 01/26/20 20:14 21:00 03:37 Temperature 97.8 F Pulse Rate Pulse Rate [ 93 H 80 Right Radial] Respiratory 20 18 Rate Blood Pressure Blood Pressure 112/41 L 131/58 L [Right Arm] O2 Sat by Pulse 99 98 Oximetry (%) 01/26/20 03:48 Temperature Pulse Rate Pulse Rate [ Right Radial] Respiratory Rate Blood Pressure Blood Pressure [Right Arm] O2 Sat by Pulse 98 Oximetry (%) GENERAL: A&Ox0 and confused. HEAD: Normal with no signs of trauma. EYES: Pupils equal, round and reactive to light, extraocular movements intact, sclera icteric. No lid lag. EARS, NOSE, THROAT: Ears normal, nares patent, oropharynx clear without exudates. Moist mucous membranes. NECK: Normal range of motion, supple without lymphadenopathy, JVD, or masses. LUNGS: Breath sounds equal, clear to auscultation bilaterally. No wheezes, and no crackles. No accessory muscle use. HEART: Regular rate and rhythm, normal S1 and S2 without murmur, rub or gallop. ABDOMEN: Soft, nontender, distended, normoactive bowel sounds, no guarding, no rebound, no masses. Hepatomegaly. MUSCULOSKELETAL: Normal range of motion at all joints. No bony deformities or tenderness. UPPER EXTREMITIES: 2+ pulses, warm, well-perfused. No cyanosis. No clubbing. No peripheral edema. LOWER EXTREMITIES: 2+ pulses, warm, well-perfused. No calf tenderness. No peripheral edema. Large fluctuant erythematous swelling on medial aspect of distal right leg. NEUROLOGICAL: Opens eyes spontaneously, moves spontaneously, moans. PSYCHIATRIC: Confused SKIN: Warm, dry, normal turgor, no rashes or lesions noted. Blanched nails. Visibly jaundice skin. Laboratory Results - last 24 hr 01/25/20 01/25/20 01/25/20 18:09 18:09 18:09 WBC 15.3 H RBC 2.33 L Hgb 9.0 L Hct 27.2 L D MCV 116.8 H D MCH 38.5 H MCHC 33.0 RDW 16.9 H Plt Count 182 D MPV 9.0 Absolute Neuts (auto) 11.9 H Neutrophils % 77.8 Lymphocytes % 15.3 D Monocytes % 5.2 Eosinophils % 0.8 Basophils % 0.9 Nucleated RBC % 0 Hypochromia 1+ Platelet Estimate Normal Polychromasia 1+ Poikilocytosis 0 Anisocytosis 2+ Microcytosis 2+ Macrocytosis 1+ PT with INR 39.30 H INR 3.29 H PTT (Actin FS) 48.7 H VBG pH POC VBG pCO2 POC VBG pO2 VBG HCO3 VBG O2 Sat (Genna) VBG Base Excess Sodium Potassium Chloride Carbon Dioxide Anion Gap BUN Creatinine Est GFR (CKD-EPI)AfAm Est GFR (CKD-EPI)NonAf Random Glucose Lactic Acid Calcium Total Bilirubin AST ALT Alkaline Phosphatase Ammonia Creatine Kinase CK-MB (CK-2) Troponin I 0.07 H Total Protein Albumin Lipase Urine Color Urine Appearance Urine pH Ur Specific [place] Urine Protein Urine Glucose (UA) Urine Ketones Urine Blood Urine Nitrite Urine Bilirubin Urine Urobilinogen Ur Leukocyte Esterase Urine WBC (Auto) Urine RBC (Auto) Urine Casts (Auto) U Epithel Cells (Auto) Urine Bacteria (Auto) Stool Occult Blood Salicylates Opiates Screen Methadone Screen Acetaminophen Barbiturate Screen Phencyclidine Screen Ur Amphetamines Screen MDMA (Ecstasy) Screen Benzodiazepines Screen Cocaine Screen U Marijuana (THC) Screen Alcohol, Quantitative Blood Type Antibody Screen 01/25/20 01/25/20 01/25/20 18:09 18:09 18:09 WBC RBC Hgb Hct MCV MCH MCHC RDW Plt Count MPV Absolute Neuts (auto) Neutrophils % Lymphocytes % Monocytes % Eosinophils % Basophils % Nucleated RBC % Hypochromia Platelet Estimate Polychromasia Poikilocytosis Anisocytosis Microcytosis Macrocytosis PT with INR INR PTT (Actin FS) VBG pH Cancelled POC VBG pCO2 Cancelled POC VBG pO2 Cancelled VBG HCO3 Cancelled VBG O2 Sat (Genna) Cancelled VBG Base Excess Cancelled Sodium 148 H Potassium 3.3 L Chloride 118 H Carbon Dioxide 22 Anion Gap 8 BUN 67.4 H Creatinine 1.3 Est GFR (CKD-EPI)AfAm 55.01 Est GFR (CKD-EPI)NonAf 47.46 Random Glucose 97 Lactic Acid Calcium 9.0 Total Bilirubin 12.0 H AST 302 H ALT 133 H Alkaline Phosphatase 81 Ammonia 21.50 Creatine Kinase 13 L CK-MB (CK-2) < 1.0 Troponin I Total Protein 9.2 H Albumin 1.7 L Lipase 736 H Urine Color Urine Appearance Urine pH Ur Specific [place] Urine Protein Urine Glucose (UA) Urine Ketones Urine Blood Urine Nitrite Urine Bilirubin Urine Urobilinogen Ur Leukocyte Esterase Urine WBC (Auto) Urine RBC (Auto) Urine Casts (Auto) U Epithel Cells (Auto) Urine Bacteria (Auto) Stool Occult Blood Salicylates Opiates Screen Methadone Screen Acetaminophen Barbiturate Screen Phencyclidine Screen Ur Amphetamines Screen MDMA (Ecstasy) Screen Benzodiazepines Screen Cocaine Screen U Marijuana (THC) Screen Alcohol, Quantitative Blood Type Antibody Screen 01/25/20 01/25/20 01/25/20 18:09 18:09 20:30 WBC RBC Hgb Hct MCV MCH MCHC RDW Plt Count MPV Absolute Neuts (auto) Neutrophils % Lymphocytes % Monocytes % Eosinophils % Basophils % Nucleated RBC % Hypochromia Platelet Estimate Polychromasia Poikilocytosis Anisocytosis Microcytosis Macrocytosis PT with INR INR PTT (Actin FS) VBG pH POC VBG pCO2 POC VBG pO2 VBG HCO3 VBG O2 Sat (Genna) VBG Base Excess Sodium Potassium Chloride Carbon Dioxide Anion Gap BUN Creatinine Est GFR (CKD-EPI)AfAm Est GFR (CKD-EPI)NonAf Random Glucose Lactic Acid 1.8 Calcium Total Bilirubin AST ALT Alkaline Phosphatase Ammonia Creatine Kinase CK-MB (CK-2) Troponin I Total Protein Albumin Lipase Urine Color Dk yellow Urine Appearance Clear Urine pH 5.0 Ur Specific [place] 1.014 Urine Protein Trace Urine Glucose (UA) Negative Urine Ketones Trace H Urine Blood Negative Urine Nitrite Positive H Urine Bilirubin 3+ H Urine Urobilinogen 2.0 H Ur Leukocyte Esterase Trace Urine WBC (Auto) 11 Urine RBC (Auto) 30 Urine Casts (Auto) 3 U Epithel Cells (Auto) 5 Urine Bacteria (Auto) 645 Stool Occult Blood Salicylates Opiates Screen Methadone Screen Acetaminophen Barbiturate Screen Phencyclidine Screen Ur Amphetamines Screen MDMA (Ecstasy) Screen Benzodiazepines Screen Cocaine Screen U Marijuana (THC) Screen Alcohol, Quantitative Blood Type O POSITIVE Antibody Screen Negative 01/25/20 01/26/20 01/26/20 20:30 01:43 01:43 WBC RBC Hgb Hct MCV MCH MCHC RDW Plt Count MPV Absolute Neuts (auto) Neutrophils % Lymphocytes % Monocytes % Eosinophils % Basophils % Nucleated RBC % Hypochromia Platelet Estimate Polychromasia Poikilocytosis Anisocytosis Microcytosis Macrocytosis PT with INR INR PTT (Actin FS) VBG pH POC VBG pCO2 POC VBG pO2 VBG HCO3 VBG O2 Sat (Genna) VBG Base Excess Sodium Potassium Chloride Carbon Dioxide Anion Gap BUN Creatinine Est GFR (CKD-EPI)AfAm Est GFR (CKD-EPI)NonAf Random Glucose Lactic Acid Calcium Total Bilirubin AST ALT Alkaline Phosphatase Ammonia Creatine Kinase CK-MB (CK-2) Troponin I 0.08 H Total Protein Albumin Lipase Urine Color Urine Appearance Urine pH Ur Specific [place] Urine Protein Urine Glucose (UA) Urine Ketones Urine Blood Urine Nitrite Urine Bilirubin Urine Urobilinogen Ur Leukocyte Esterase Urine WBC (Auto) Urine RBC (Auto) Urine Casts (Auto) U Epithel Cells (Auto) Urine Bacteria (Auto) Stool Occult Blood Salicylates < 1.7 L Opiates Screen Negative Methadone Screen Negative Acetaminophen < 2.0 Barbiturate Screen Negative Phencyclidine Screen Negative Ur Amphetamines Screen Negative MDMA (Ecstasy) Screen Negative Benzodiazepines Screen Positive A* Cocaine Screen Negative U Marijuana (THC) Screen Negative Alcohol, Quantitative < 3 Blood Type Antibody Screen 01/26/20 02:20 WBC RBC Hgb Hct MCV MCH MCHC RDW Plt Count MPV Absolute Neuts (auto) Neutrophils % Lymphocytes % Monocytes % Eosinophils % Basophils % Nucleated RBC % Hypochromia Platelet Estimate Polychromasia Poikilocytosis Anisocytosis Microcytosis Macrocytosis PT with INR INR PTT (Actin FS) VBG pH POC VBG pCO2 POC VBG pO2 VBG HCO3 VBG O2 Sat (Genna) VBG Base Excess Sodium Potassium Chloride Carbon Dioxide Anion Gap BUN Creatinine Est GFR (CKD-EPI)AfAm Est GFR (CKD-EPI)NonAf Random Glucose Lactic Acid Calcium Total Bilirubin AST ALT Alkaline Phosphatase Ammonia Creatine Kinase CK-MB (CK-2) Troponin I Total Protein Albumin Lipase Urine Color Urine Appearance Urine pH Ur Specific [place] Urine Protein Urine Glucose (UA) Urine Ketones Urine Blood Urine Nitrite Urine Bilirubin Urine Urobilinogen Ur Leukocyte Esterase Urine WBC (Auto) Urine RBC (Auto) Urine Casts (Auto) U Epithel Cells (Auto) Urine Bacteria (Auto) Stool Occult Blood Positive Salicylates Opiates Screen Methadone Screen Acetaminophen Barbiturate Screen Phencyclidine Screen Ur Amphetamines Screen MDMA (Ecstasy) Screen Benzodiazepines Screen Cocaine Screen U Marijuana (THC) Screen Alcohol, Quantitative Blood Type Antibody Screen ASSESSMENT/PLAN: 49 year old female patient with past medical history that includes HTN, DM, Bipolar, Asthma, Alcohol abuse, Chronic elevated LFTs, Cholelithiasis, Anemia, GERD, Anxiety, Depression, Seizures, who presented to the ED with altered mental status, jaundice, and decreased appetite for 2 to 3 weeks. 1. Possible GI Bleed - FOBT Positive - Hgb 9.0 - BUN 67.4 - IV Fluids - Trend INR - Consult GI - Type and Screen 2. Alcohol Withdrawal - Ativan PRN if agitated to prevent seizures 3. UTI and/or Colitis - U/A showed positive Nitrite - CT A/P showed possible Colitis - Zosyn - Consult ID 4. Possible Cirrhosis - U/S showed diffuse hepatic steatosis - Maddrey's Discriminant Function 133: Deferring decision to start Glucocorticoids to GI - Child-Lawton Score: Class C - Consult GI 5. Hypokalemia - IV Potassium - Monitor Electrolytes 6. Macrocytic Anemia - B12 and Folate - Given IV Thiamine and Folic Acid in ED 7. DM - Novolog Sliding Scale # FEN - Lactated Ringers, Monitor Electrolytes DVT PPx - Lovenox SQ GI PPx - IV Protonix Family Medical History Family History: Unable to Obtain Visit type - Emergency Visit Emergency Visit: Yes ED Registration Date: 01/26/20 Care time: The patient presented to the Emergency Department on the above date and was hospitalized for further evaluation of their emergent condition. - New Patient This patient is new to me today: Yes Date on this admission: 01/26/20 - Critical Care Critical Care patient: No ATTENDING PHYSICIAN STATEMENT I saw and evaluated the patient. I reviewed the resident's note and discussed the case with the resident. I agree with the resident's findings and plan as documented. SUBJECTIVE: OBJECTIVE: ASSESSMENT AND PLAN:
[2020-01-26] MEDS ORDERED: PANTOPRAZOLE SODIUM 40 MG VIAL ONE (05:56)
[2020-01-26] MEDS: PANTOPRAZOLE SODIUM 80 MG in SODIUM CHLORIDE 100 ML IVPB SCH (06:03)
--- NOTE | 2020-01-26 06:37 | PN ---
Teaching Attending Note Name of Resident: Dylon Huggins ATTENDING PHYSICIAN STATEMENT I saw and evaluated the patient. I reviewed the resident's note and discussed the case with the resident. I agree with the resident's findings and plan as documented. SUBJECTIVE: OBJECTIVE: ASSESSMENT AND PLAN: DOS : 01/26/2020 49 year old female patient with a PMHx notable for HTN, DM II, Bipolar, Asthma, Alcohol abuse, Chronic elevated LFTs, Cholelithiasis, Anemia, GERD, Anxiety, Depression, Seizures, & who presented to the ED with altered mental status, jaundice, and decreased appetite for 2 to 3 weeks. Labs notable for UTI # Rule out GI Bleed - Hgb = 9.0; continue to monitor # Alcohol Withdrawal - Ativan PRN if agitated to prevent seizures # UTI and/or Colitis - U/A showed positive Nitrite - CT A/P showed possible Colitis - Zosyn - Consult ID # Cirrhosis - GI follow-up
[2020-01-26] MEDS: INSULIN SLIDING SCALE (NOVOLOG) 1 VIAL SQ SCH ×2 (07:53→11:50)
[2020-01-26] MEDS ORDERED: LORazepam 2 MG/ML SDV VIAL IVPUSH PRN (08:48)
--- NOTE | 2020-01-26 09:28 | PN ---
Progress Note (short form) - Note Progress Note: ID consult dictated 49 yo female admitted from home obtunded and jaundiced she has history of ETOH use currently more awake, not following commands but trying to speak +asterixis bilirubin of 12 inr 3.2 elevated lfts +UA leukocytosis possible UTI ?cholangitis ?colitis on ct scan etoh hepatitis etoh use cultures sent continue zosyn plans for transfer noted d/w resident
--- NOTE | 2020-01-26 09:59 | PN ---
Teaching Attending Note Name of Resident: Robert Hernandez ATTENDING PHYSICIAN STATEMENT I saw and evaluated the patient. I reviewed the resident's note and discussed the case with the resident. I agree with the resident's findings and plan as documented. SUBJECTIVE: Patient stares at you and verbally abusive while intoxicated with alcohol. OBJECTIVE: Vital Signs Temperature 97.6 F 01/26/20 06:47 Pulse Rate 93 H 01/26/20 09:46 Respiratory Rate 16 01/26/20 09:46 Blood Pressure 111/46 L 01/26/20 09:46 O2 Sat by Pulse Oximetry (%) 99 01/26/20 09:46 PE:per resident's note GEN: tremor, confused, agitated Eyes: jaundiced Neuro: awake, + tremors. CBCD WBC 15.3 K/mm3 (4.0-10.0) H 01/25/20 18:09 RBC 2.33 M/mm3 (3.60-5.2) L 01/25/20 18:09 Hgb 9.0 GM/dL (10.7-15.3) L 01/25/20 18:09 Hct 27.2 % (32.4-45.2) L D 01/25/20 18:09 MCV 116.8 fl (80-96) H D 01/25/20 18:09 MCHC 33.0 g/dl (32.0-36.0) 01/25/20 18:09 RDW 16.9 % (11.6-15.6) H 01/25/20 18:09 Plt Count 182 K/MM3 (134-434) D 01/25/20 18:09 MPV 9.0 fl (7.5-11.1) 01/25/20 18:09 CMP Sodium 148 mmol/L (136-145) H 01/25/20 18:09 Potassium 3.3 mmol/L (3.5-5.1) L 01/25/20 18:09 Chloride 118 mmol/L (98-107) H 01/25/20 18:09 Carbon Dioxide 22 mmol/L (21-32) 01/25/20 18:09 Anion Gap 8 MMOL/L (8-16) 01/25/20 18:09 BUN 67.4 mg/dL (7-18) H 01/25/20 18:09 Creatinine 1.3 mg/dL (0.55-1.3) 01/25/20 18:09 Random Glucose 97 mg/dL (74-106) 01/25/20 18:09 Calcium 9.0 mg/dL (8.5-10.1) 01/25/20 18:09 Total Bilirubin 12.0 mg/dL (0.2-1) H 01/25/20 18:09 AST 302 U/L (15-37) H 01/25/20 18:09 ALT 133 U/L (13-61) H 01/25/20 18:09 Alkaline Phosphatase 81 U/L (45-117) 01/25/20 18:09 Total Protein 9.2 g/dl (6.4-8.2) H 01/25/20 18:09 Albumin 1.7 g/dl (3.4-5.0) L 01/25/20 18:09 CARDIAC ENZYMES Creatine Kinase 13 U/L (26-192) L 01/25/20 18:09 Troponin I 0.08 ng/ml (0.00-0.05) H 01/26/20 01:43 Current Medications Generic Name Dose Route Start Last Admin Trade Name Freq PRN Reason Stop Dose Admin Enoxaparin Sodium 40 mg 01/26/20 10:00 Lovenox - SQ DAILY MARGO Pantoprazole Sodium 80 mg/ 100 mls @ 10 mls/hr 01/25/20 20:30 01/26/20 06:03 Sodium Chloride IVPB 01/28/20 20:28 10 mls/hr Q10H MARGO Administration 8 MG/HR Piperacillin Sod/Tazobactam 50 mls @ 100 mls/hr 01/26/20 10:00 Sod 3.375 gm/ Dextrose IVPB Q8H-IV MARGO Protocol Lactated Ringer's 1,000 ml in 1,000 mls @ 150 mls/hr 01/26/20 08:49 01/26/20 09:06 Lactated Ringers Solution IV 150 mls/hr ASDIR MARGO Administration Insulin Aspart 1 vial 01/26/20 07:00 01/26/20 07:53 Novolog Vial Sliding Scale - SQ Not Given ACHS MARGO Protocol Lorazepam 1 mg 01/26/20 08:48 Ativan Injection - IVPUSH Q4H PRN withdrawel Home Medications Medication Instructions Recorded Folic Acid 1 mg PO DAILY 02/05/17 Albuterol Sulfate Inhaler - 2 puff IH QID 03/26/18 [Ventolin HFA Inhaler -] Lisinopril 20 mg PO DAILY 03/26/18 metFORMIN HCL [Metformin ER 500 mg PO BID 03/26/18 Osmotic] Alprazolam [Xanax] 1 mg PO ASDIR 03/24/19 Gabapentin 1 tab PO ASDIR 03/24/19 CT abdomen and pelvis: Cholelithiasis with mildly distended gallbladder. No evidence of biliary ductal dilatation. BL adrenal masses that slightly increased in size from 10/15/2016. Metastatic Dz cannot be excluded. bordeline hepatomegaly, inflammatory stranding about the distal body and tail of the pancreas. Acute pancreatitis should be considered. thickening and irregularity of the right colon suspecious for focal colitis. ASSESSMENT AND PLAN: #Acute alcohol withdrawel on Ativan prn #Acute Pancreatitis: IVF continue #Jaundice with Bilirubin of 12, most likely due to alcohol induced hyperbilirubenemia, due to gallstones, cannot r/o hepatitis , hepatitis panel #Acute colitis (r.colon): On IV antibiotic Zosyn continue Patient is accepted at [facility], will be transferred ED.
[2020-01-26] MEDS ORDERED: ENOXAPARIN NA (PORCINE) 40 MG/0.4 ML DISP.SYRIN SQ SCH (10:00)
[2020-01-26] MEDS ORDERED: PIPERACILLIN/TAZOB 3.375 GM 3.375 GM in DEXTROSE 5%-WATER - 50 ML IVPB SCH (10:00)
[2020-01-26] MEDS ORDERED: PIPERACILLIN/TAZOB 3.375 GM 3.375 GM/50 ML BAG IVPB ONE (11:11)
[2020-01-26] MEDS ORDERED: ENOXAPARIN NA (PORCINE) 40 MG/0.4 ML DISP.SYRIN SQ ONE (11:12)
--- NOTE | 2020-01-26 15:24 | DS ---
Physical Exam: SUBJECTIVE: Patient seen and examined at bedside. Unable to interview patient due to her mentation. OBJECTIVE: Vital Signs Period Temp Pulse Resp BP Sys/Bryan Pulse Ox Last 24 Hr 97.6 F-98.7 F 80-97 16-20 103-131/34-92 95-100 PHYSICAL EXAM GENERAL: A&Ox0 and confused. HEAD: Normal with no signs of trauma. EYES: Pupils equal, round and reactive to light, extraocular movements intact, sclera icteric. EARS, NOSE, THROAT: Ears normal, nares patent. Moist mucous membranes. NECK: Normal range of motion, supple LUNGS: Breath sounds equal, clear to auscultation bilaterally. HEART: Regular rate and rhythm, normal S1 and S2. ABDOMEN: Soft, nontender, distended, normoactive bowel sounds, no guarding, no rebound, no masses. +Hepatomegaly. MUSCULOSKELETAL: Normal range of motion at all joints. UPPER EXTREMITIES: 2+ pulses, warm, well-perfused. No cyanosis. No clubbing. No peripheral edema. LOWER EXTREMITIES: 2+ pulses, warm, well-perfused. No calf tenderness. No peripheral edema. Large fluctuant erythematous swelling on medial aspect of distal right leg. NEUROLOGICAL: Opens eyes spontaneously, moves spontaneously, moans and groans PSYCHIATRIC: Confused SKIN: Warm, dry, normal turgor, no rashes or lesions noted. Blanched nails. Visibly jaundice skin. LABS Laboratory Results - last 24 hr 01/25/20 01/25/20 01/25/20 18:09 18:09 18:09 WBC 15.3 H RBC 2.33 L Hgb 9.0 L Hct 27.2 L D MCV 116.8 H D MCH 38.5 H MCHC 33.0 RDW 16.9 H Plt Count 182 D MPV 9.0 Absolute Neuts (auto) 11.9 H Neutrophils % 77.8 Lymphocytes % 15.3 D Monocytes % 5.2 Eosinophils % 0.8 Basophils % 0.9 Nucleated RBC % 0 Hypochromia 1+ Platelet Estimate Normal Polychromasia 1+ Poikilocytosis 0 Anisocytosis 2+ Microcytosis 2+ Macrocytosis 1+ PT with INR 39.30 H INR 3.29 H PTT (Actin FS) 48.7 H VBG pH POC VBG pCO2 POC VBG pO2 VBG HCO3 VBG O2 Sat (Genna) VBG Base Excess Sodium Potassium Chloride Carbon Dioxide Anion Gap BUN Creatinine Est GFR (CKD-EPI)AfAm Est GFR (CKD-EPI)NonAf POC Glucometer Random Glucose Lactic Acid Calcium Total Bilirubin AST ALT Alkaline Phosphatase Ammonia Creatine Kinase CK-MB (CK-2) Troponin I 0.07 H Total Protein Albumin Lipase Vitamin B12 Serum Folate Urine Color Urine Appearance Urine pH Ur Specific [place] Urine Protein Urine Glucose (UA) Urine Ketones Urine Blood Urine Nitrite Urine Bilirubin Urine Urobilinogen Ur Leukocyte Esterase Urine WBC (Auto) Urine RBC (Auto) Urine Casts (Auto) U Epithel Cells (Auto) Urine Bacteria (Auto) Stool Occult Blood Salicylates Opiates Screen Methadone Screen Acetaminophen Barbiturate Screen Phencyclidine Screen Ur Amphetamines Screen MDMA (Ecstasy) Screen Benzodiazepines Screen Cocaine Screen U Marijuana (THC) Screen Alcohol, Quantitative COVID-19 (TOY) Blood Type Antibody Screen 01/25/20 01/25/20 01/25/20 18:09 18:09 18:09 WBC RBC Hgb Hct MCV MCH MCHC RDW Plt Count MPV Absolute Neuts (auto) Neutrophils % Lymphocytes % Monocytes % Eosinophils % Basophils % Nucleated RBC % Hypochromia Platelet Estimate Polychromasia Poikilocytosis Anisocytosis Microcytosis Macrocytosis PT with INR INR PTT (Actin FS) VBG pH Cancelled POC VBG pCO2 Cancelled POC VBG pO2 Cancelled VBG HCO3 Cancelled VBG O2 Sat (Genna) Cancelled VBG Base Excess Cancelled Sodium 148 H Potassium 3.3 L Chloride 118 H Carbon Dioxide 22 Anion Gap 8 BUN 67.4 H Creatinine 1.3 Est GFR (CKD-EPI)AfAm 55.01 Est GFR (CKD-EPI)NonAf 47.46 POC Glucometer Random Glucose 97 Lactic Acid Calcium 9.0 Total Bilirubin 12.0 H AST 302 H ALT 133 H Alkaline Phosphatase 81 Ammonia 21.50 Creatine Kinase 13 L CK-MB (CK-2) < 1.0 Troponin I Total Protein 9.2 H Albumin 1.7 L Lipase 736 H Vitamin B12 Serum Folate Urine Color Urine Appearance Urine pH Ur Specific [place] Urine Protein Urine Glucose (UA) Urine Ketones Urine Blood Urine Nitrite Urine Bilirubin Urine Urobilinogen Ur Leukocyte Esterase Urine WBC (Auto) Urine RBC (Auto) Urine Casts (Auto) U Epithel Cells (Auto) Urine Bacteria (Auto) Stool Occult Blood Salicylates Opiates Screen Methadone Screen Acetaminophen Barbiturate Screen Phencyclidine Screen Ur Amphetamines Screen MDMA (Ecstasy) Screen Benzodiazepines Screen Cocaine Screen U Marijuana (THC) Screen Alcohol, Quantitative COVID-19 (TOY) Blood Type Antibody Screen 01/25/20 01/25/20 01/25/20 18:09 18:09 18:15 WBC RBC Hgb Hct MCV MCH MCHC RDW Plt Count MPV Absolute Neuts (auto) Neutrophils % Lymphocytes % Monocytes % Eosinophils % Basophils % Nucleated RBC % Hypochromia Platelet Estimate Polychromasia Poikilocytosis Anisocytosis Microcytosis Macrocytosis PT with INR INR PTT (Actin FS) VBG pH POC VBG pCO2 POC VBG pO2 VBG HCO3 VBG O2 Sat (Genna) VBG Base Excess Sodium Potassium Chloride Carbon Dioxide Anion Gap BUN Creatinine Est GFR (CKD-EPI)AfAm Est GFR (CKD-EPI)NonAf POC Glucometer Random Glucose Lactic Acid 1.8 Calcium Total Bilirubin AST ALT Alkaline Phosphatase Ammonia Creatine Kinase CK-MB (CK-2) Troponin I Total Protein Albumin Lipase Vitamin B12 Serum Folate Urine Color Urine Appearance Urine pH Ur Specific [place] Urine Protein Urine Glucose (UA) Urine Ketones Urine Blood Urine Nitrite Urine Bilirubin Urine Urobilinogen Ur Leukocyte Esterase Urine WBC (Auto) Urine RBC (Auto) Urine Casts (Auto) U Epithel Cells (Auto) Urine Bacteria (Auto) Stool Occult Blood Salicylates Opiates Screen Methadone Screen Acetaminophen Barbiturate Screen Phencyclidine Screen Ur Amphetamines Screen MDMA (Ecstasy) Screen Benzodiazepines Screen Cocaine Screen U Marijuana (THC) Screen Alcohol, Quantitative COVID-19 (TOY) Not detected Blood Type O POSITIVE Antibody Screen Negative 01/25/20 01/25/20 01/26/20 20:30 20:30 01:43 WBC RBC Hgb Hct MCV MCH MCHC RDW Plt Count MPV Absolute Neuts (auto) Neutrophils % Lymphocytes % Monocytes % Eosinophils % Basophils % Nucleated RBC % Hypochromia Platelet Estimate Polychromasia Poikilocytosis Anisocytosis Microcytosis Macrocytosis PT with INR INR PTT (Actin FS) VBG pH POC VBG pCO2 POC VBG pO2 VBG HCO3 VBG O2 Sat (Genna) VBG Base Excess Sodium Potassium Chloride Carbon Dioxide Anion Gap BUN Creatinine Est GFR (CKD-EPI)AfAm Est GFR (CKD-EPI)NonAf POC Glucometer Random Glucose Lactic Acid Calcium Total Bilirubin AST ALT Alkaline Phosphatase Ammonia Creatine Kinase CK-MB (CK-2) Troponin I Total Protein Albumin Lipase Vitamin B12 Serum Folate Urine Color Dk yellow Urine Appearance Clear Urine pH 5.0 Ur Specific [place] 1.014 Urine Protein Trace Urine Glucose (UA) Negative Urine Ketones Trace H Urine Blood Negative Urine Nitrite Positive H Urine Bilirubin 3+ H Urine Urobilinogen 2.0 H Ur Leukocyte Esterase Trace Urine WBC (Auto) 11 Urine RBC (Auto) 30 Urine Casts (Auto) 3 U Epithel Cells (Auto) 5 Urine Bacteria (Auto) 645 Stool Occult Blood Salicylates < 1.7 L Opiates Screen Negative Methadone Screen Negative Acetaminophen < 2.0 Barbiturate Screen Negative Phencyclidine Screen Negative Ur Amphetamines Screen Negative MDMA (Ecstasy) Screen Negative Benzodiazepines Screen Positive A* Cocaine Screen Negative U Marijuana (THC) Screen Negative Alcohol, Quantitative COVID-19 (TOY) Blood Type Antibody Screen 01/26/20 01/26/20 01/26/20 01:43 02:20 07:38 WBC RBC Hgb Hct MCV MCH MCHC RDW Plt Count MPV Absolute Neuts (auto) Neutrophils % Lymphocytes % Monocytes % Eosinophils % Basophils % Nucleated RBC % Hypochromia Platelet Estimate Polychromasia Poikilocytosis Anisocytosis Microcytosis Macrocytosis PT with INR INR PTT (Actin FS) VBG pH POC VBG pCO2 POC VBG pO2 VBG HCO3 VBG O2 Sat (Genna) VBG Base Excess Sodium Potassium Chloride Carbon Dioxide Anion Gap BUN Creatinine Est GFR (CKD-EPI)AfAm Est GFR (CKD-EPI)NonAf POC Glucometer 102 Random Glucose Lactic Acid Calcium Total Bilirubin AST ALT Alkaline Phosphatase Ammonia Creatine Kinase CK-MB (CK-2) Troponin I 0.08 H Total Protein Albumin Lipase Vitamin B12 Serum Folate Urine Color Urine Appearance Urine pH Ur Specific [place] Urine Protein Urine Glucose (UA) Urine Ketones Urine Blood Urine Nitrite Urine Bilirubin Urine Urobilinogen Ur Leukocyte Esterase Urine WBC (Auto) Urine RBC (Auto) Urine Casts (Auto) U Epithel Cells (Auto) Urine Bacteria (Auto) Stool Occult Blood Positive Salicylates Opiates Screen Methadone Screen Acetaminophen Barbiturate Screen Phencyclidine Screen Ur Amphetamines Screen MDMA (Ecstasy) Screen Benzodiazepines Screen Cocaine Screen U Marijuana (THC) Screen Alcohol, Quantitative < 3 COVID-19 (TOY) Blood Type Antibody Screen 01/26/20 01/26/20 07:50 11:48 WBC RBC Hgb Hct MCV MCH MCHC RDW Plt Count MPV Absolute Neuts (auto) Neutrophils % Lymphocytes % Monocytes % Eosinophils % Basophils % Nucleated RBC % Hypochromia Platelet Estimate Polychromasia Poikilocytosis Anisocytosis Microcytosis Macrocytosis PT with INR INR PTT (Actin FS) VBG pH POC VBG pCO2 POC VBG pO2 VBG HCO3 VBG O2 Sat (Genna) VBG Base Excess Sodium Potassium Chloride Carbon Dioxide Anion Gap BUN Creatinine Est GFR (CKD-EPI)AfAm Est GFR (CKD-EPI)NonAf POC Glucometer 95 Random Glucose Lactic Acid Calcium Total Bilirubin AST ALT Alkaline Phosphatase Ammonia Creatine Kinase CK-MB (CK-2) Troponin I Total Protein Albumin Lipase Vitamin B12 > 2000 H Serum Folate > 20 H Urine Color Urine Appearance Urine pH Ur Specific [place] Urine Protein Urine Glucose (UA) Urine Ketones Urine Blood Urine Nitrite Urine Bilirubin Urine Urobilinogen Ur Leukocyte Esterase Urine WBC (Auto) Urine RBC (Auto) Urine Casts (Auto) U Epithel Cells (Auto) Urine Bacteria (Auto) Stool Occult Blood Salicylates Opiates Screen Methadone Screen Acetaminophen Barbiturate Screen Phencyclidine Screen Ur Amphetamines Screen MDMA (Ecstasy) Screen Benzodiazepines Screen Cocaine Screen U Marijuana (THC) Screen Alcohol, Quantitative COVID-19 (TOY) Blood Type Antibody Screen HOSPITAL COURSE: 49 year old female patient with past medical history that includes HTN, DM, Bipolar, Asthma, Alcohol abuse, Chronic elevated LFTs, Cholelithiasis, Anemia, GERD, Anxiety, Depression, Seizures, who presented to the ED with altered mental status, jaundice, and decreased appetite for 2 [address] of abdomen and pelvis done upon admission showed Cholelithiasis with mildly distended gallbladder. No evidence of biliary ductal dilatation. BL adrenal masses that slightly increased in size from 10/15/2016. Metastatic diagnosis cannot be excluded. Patient had borderline hepatomegaly, inflammatory stranding about the distal body and tail of the pancreas. Acute pancreatitis should be considered. thickening and irregularity of the right colon suspicious for focal colitis. During her stay, patient was jaudiced with a bilirubin of 12 most likely due to alcohol induced hyperbilirubenemia, due to gallstones, cannot rule out hepatitis. Ativan PRN was given for the patient's alcohol withdrawal to prevent seizures. Patient was also given Zosyn after a UA was positive for nitrates and to cover for possible colitis. Patient had a Child-Lawton Score: Class C. During her stay, the patient was also found to have hypokalemia so she was repleted with IV potassium while being monitored for her electrolytes. Patient was also found to have macrocytic anemia during her admission and was give IV thiamine and folic acid in the ED. Patient's Diabetes was managed on a novolog sliding scale with blood glucose monitoring during her stay. Based on gastroenterology recommendations at our hospital a decision was made to transfer the patient to [facility] for higher level of care with better alcohol detox facilities for further management of new onset cirrhosis. Patient was accepted by Dr. Dorene Jenkins, hospitalist attending, at [facility]. DVT prophylaxis during her stay was lovenox SQ. GI prophylaxis during her stay was IV Protonix. Date of Admission:01/26/20 01/25/2020-chest [id number]: Weak inspiration. No acute chest pathology. 01/25/2020-head CT-In comparison to CT performed on 03/24/2019 interval development of small right frontoparietal and very small left frontal hypodense subdural fluid collections are noted which may represent chronic subdural hematomas versus subdural hygromas. There is no midline displacement. The remainder of the exam appears unchanged demonstrating no discrete noncontrast pathology. 01/25/2020-ultrasound limited-No definite interval change is identified in comparison to sonography performed on 12/17/2019. Cholelithiasis is noted without sonographic evidence of acute cholecystitis. Early acute cho lecystitis may not be demonstrable on sonography. Findings are noted as described above which could be on the basis of chronic cholecystitis. There is no definite biliary tract dilatation. Diffuse hepatic steatosis is again seen. There is equivocal minimal hepatic surface irregularity which could conceivably due to cirrhosis. Clinical/laboratory correlation is suggested. No ascites is identified. 01/25/2020-abdomen/pelvis CT-1. Cholelithiasis with mildly distended gallbladder. No evidence of biliary ductal dilatation. If acute cholecystitis is clinically suspected, follow-up imaging studies are recommended. 2. Bilateral adrenal masses that have slightly increased in size since 10/15/2016. Metastatic disease cannot be excluded. 3. Borderline hepatosplenomegaly. 4. Inflammatory stranding about the distal body and tail of the pancreas. Acute pancreatitis should be clinically considered. 5. Thickening and irregularity of the right colon suspicious for focal colitis. Clinical correlation and follow-up recommended. Please see above discussion. Date of Discharge: 01/26/20 Minutes to complete discharge: 36 Discharge Summary Problems reviewed: Yes Reason For Visit: ALCOHOL ABUSE, HYPERBILIRUBINEMIA, ELEVATED TROPON Current Active Problems Alcohol use disorder (Acute) Altered mental status (Acute) Anemia (Acute) Elevated INR (Acute) Elevated troponin (Acute) Encephalopathy (Acute) Hypokalemia (Acute) UTI (urinary tract infection) (Acute) Uremia (Acute) Condition: Guarded - Instructions Diet, Activity, Other Instructions: Your visit: You were admitted to the hospital for jaundice with altered mental status. You were found to have infection of your gallbladder. You were treated with antibiotics with improvement of your symptoms Medications changes: -Please continue to take antibiotics. -Continue to take all other home medications as prescribed. Follow up: - Visit with your Primary Care Provider in 2 weeks. If you do not have a primary care provider you may make an appointment with Dr. Corona at the [facility] clinic located at [address] [place] [address] ([phone]). Additional Instructions: -You are being transferred [facility]. -Please return to the Emergency Department if you experience worsening pain, fevers, chills, shortness of breath, or chest pain, or if you experience any worsening, new or concerning symptoms. Disposition: TRANSFER ACUTE CARE/OTHER HOSP - Home Medications Comprehensive Discharge Medication List: Ambulatory Orders Folic Acid 1 mg PO DAILY 02/05/17 Albuterol Sulfate Inhaler - [Ventolin HFA Inhaler -] 2 puff IH QID 03/26/18 Lisinopril 20 mg PO DAILY 03/26/18 metFORMIN HCL [Metformin ER Osmotic] 500 mg PO BID 03/26/18 Alprazolam [Xanax] 1 mg PO ASDIR 03/24/19 Gabapentin 1 tab PO ASDIR 03/24/19 This patient is new to me today: Yes Date on this admission: 01/26/20 Emergency Visit: No Critical Care patient: No - Discharge Referral Referred to [facility] Med P.C.: No ATTENDING PHYSICIAN STATEMENT I saw and evaluated the patient. I reviewed the resident's note and discussed the case with the resident. I agree with the resident's findings and plan as documented. SUBJECTIVE: OBJECTIVE: ASSESSMENT AND PLAN:
--- NOTE | 2020-01-26 16:34 | PN ---
Progress Note (short form) - Note Progress Note: BRIEF GI NOTE - PT WAS SEEN AND EXAMINED NOTIFIED OF TRANSFER [facility] OF HER LIVER DISEASE
[2020-01-26 17:46] VITALS: BP 100/55; PULSE 92; TEMP 97.8
--- NOTE | 2020-01-27 12:36 | EKG ---
Test Reason : Blood Pressure : / mmHG Vent. Rate : 086 BPM Atrial Rate : 084 BPM P-R Int : 000 ms QRS Dur : 074 ms QT Int : 366 ms P-R-T Axes : 000 018 174 degrees QTc Int : 437 ms POOR DATA QUALITY, INTERPRETATION MAY BE ADVERSELY AFFECTED SINUS RHYTHM MARKED ST ABNORMALITY, POSSIBLE LATERAL SUBENDOCARDIAL INJURY ABNORMAL ECG Confirmed by FRANSISCO MOYA MD ([id number]) on 01/27/2020 12:36:41 PM Referred By: Confirmed By:FRANSISCO MOYA MD
== END 2020-01-26 17:25 | disposition short-term general hospital (02) ==
LOC: JER 17:39 → JERBED 01-26 01:51
PROVIDERS: ADMIT Internal Medicine; ATTEND Internal Medicine
DX: K80.80 Other cholelithiasis without obstruction (principal); K85.90 Acute pancreatitis without necrosis or infection, unspecified; G93.40 Encephalopathy, unspecified; R16.2 Hepatomegaly with splenomegaly, not elsewhere classified; I10 Essential (primary) hypertension; E11.9 Type 2 diabetes mellitus without complications; F31.9 Bipolar disorder, unspecified; J45.909 Unspecified asthma, uncomplicated; F41.9 Anxiety disorder, unspecified; D53.9 Nutritional anemia, unspecified; E87.6 Hypokalemia; N39.0 Urinary tract infection, site not specified; Z79.84 Long term (current) use of oral hypoglycemic drugs; R79.1 Abnormal coagulation profile; F10.230 Alcohol dependence with withdrawal, uncomplicated; K52.9 Noninfective gastroenteritis and colitis, unspecified; K70.10 Alcoholic hepatitis without ascites; K76.0 Fatty (change of) liver, not elsewhere classified
CPT/HCPCS: 36415; 70450-TC; 71045-TC-FY; 74177-TC; 76705-TC; 80053; 80307; 81003; 82140; 82272; 82550; 82553; 82607; 82746; 82962; 83605; 83690; 84484; 85025; 85610; 85730; 86850; 86900; 86901; 87040; 87086; 93005; 93010; 99285-25; Q9967; U0003